=== PATIENT | female | born 1970 | race Caucasian/White ===

== ENCOUNTER → 2020-01-18 10:00 | Outpatient (BNVA) | payer SELFPAY | PROVIDERS: Family Provider Family Medicine; PCP Family Medicine; Visit Provider Family Medicine | DX: I10 Essential (primary) hypertension (principal); K21.9 Gastro-esophageal reflux disease without esophagitis; G47.00 Insomnia, unspecified | CPT/HCPCS: 80053; 80061; 82044; 85025 ==

== ENCOUNTER 2020-02-15 00:17 | Emergency (ER) | payer SELFPAY ==
[2020-02-15] VITALS (9 sets, daily range): BP systolic 105–135; BP diastolic 63–105; PULSE 73–99; RESP 16–20; TEMP 36.9; O2SAT 92–99; BMI 26.4
--- NOTE | 2020-02-15 00:23 | ECG_ITS ---
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 Measurements Intervals Elsa Rate: 91 P: 29 DE: 133 QRS: 31 QRSD: 84 T: 38 QT: 345 QTc: 426 Interpretive Statements SINUS RHYTHM NONSPECIFIC T-WAVE ABNORMALITY Compared to ECG 03/11/2019 11:02:54 T-wave abnormality now present Electronically Signed On 02-16-2020 17:12:50 CDT by Isa Shook M.D. [id number]
--- NOTE | 2020-02-15 00:23 | XR_ITS ---
WS: [id number] PORTABLE CHEST HISTORY: cp COMPARISON: 06/29/2018 Lungs are clear and well expanded. No pleural effusion or pneumothorax. Cardiac size: Normal. Mediastinum/Aorta: Normal mediastinum. No osseous abnormality seen. XR/XR chest 1V portable [id number] IMPRESSION: Unremarkable portable chest.
[2020-02-15] MEDS: aspirin 325 mg Tablet PO (00:37)
[2020-02-15] MEDS: nitroglycerin 0.4 mg sublingual Tablet SUBLINGUAL ×3 (01:11→01:29)
[2020-02-15] MEDS: sodium chloride 0.9% 1,000 ML 75 ML IV (01:15)
[2020-02-15 01:21] LABS: Basophils % 0.3 %; Eosinophils # 0.1 10^3/uL (0.0-0.8); Eosinophils % 0.6 %; Hematocrit 41.2 % (37.0-47.0); Hemoglobin 13.9 g/dL (11.5-15.3); Lymphocytes # 3.8 10^3/uL (0.8-4.8); Lymphocytes % 27.6 %; Mean Corpuscular HGB Conc 33.7 g/dL (30.0-36.0); Mean Corpuscular Hemoglobin 32.3 pg (28.0-34.0); Mean Corpuscular Volume 95.8 fL (81-99); Mean Platelet Volume 9.6 fL (7.4-10.4); Monocytes # 0.9 10^3/uL (0.2-0.9); Monocytes % 6.7 %; Neutrophils % 64.4 %; Nucleated Red Blood Cells % 0 %; Platelet Count 343 10^3/cmm (130-400); Red Cell Distribution Width 12.8 % (12.1-15.1); White Blood Count 13.9 10^3/uL (4.0-10.0)
--- NOTE | 2020-02-15 01:26 | PC.NURSE ---
[PATIENT REFUSED THIRD NITROGLYCERIN
[2020-02-15 01:29] LABS: INR 0.92 (0.8-1.2)
[2020-02-15 01:34] LABS: Alanine Aminotransferase 22 U/L (0-33); Albumin Level 4.3 g/dL (3.5-5.2); Alkaline Phosphatase 94 IU/L (35-105); Anion Gap 15.7 (5-19); Aspartate Amino Transferase 16 U/L (0-32); Blood Urea Nitrogen 16 mg/dL (6-20); Calcium 9.4 mg/dL (8.5-10.5); Carbon Dioxide 25 mmol/L (22-29); Chloride 98 mmol/L (98-107); Globulin 2.9 g/dL (1.3-4.6); Glomerular Filtration Rate 105.8 mL/min (90-130); Glucose 132 mg/dL (65-115); Lipase 21 U/L (13-60); Magnesium 1.9 mg/dL (1.7-2.3); Osmolality Calculated 278 mOsm/kg (285-295); Potassium 3.7 mmol/L (3.5-5.1); Sodium 135 mmol/L (136-145); Total Bilirubin 0.2 mg/dL (0.15-1.2); Total Protein 7.2 g/dL (6.6-8.7)
[2020-02-15] MEDS: morphine 4 mg/mL SDV 1 mL IVP (01:39)
[2020-02-15] MEDS: ondansetron 2 mg/ML SDV 2 mL 4 MG IVP ×2 (01:39→02:20)
[2020-02-15 02:08] LABS: Troponin(5th) Baseline 6 ng/L (0-10)
--- NOTE | 2020-02-15 02:23 | ECG_ITS ---
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 Measurements Intervals [place] Rate: 81 P: 24 VA: 132 QRS: 24 QRSD: 86 T: 32 QT: 379 QTc: 440 Interpretive Statements SINUS RHYTHM Compared to ECG 02/15/2020 00:43:10 T-wave abnormality no longer present Electronically Signed On 02-16-2020 17:25:08 CDT by Isa Shook M.D. [id number]
[2020-02-15 02:28] LABS: Alcohol Level < 10 mg/dL (0-10)
[2020-02-15 02:49] LABS: Bacteria Urine 1+; Bilirubin Urine Neg (NEGATIVE); Blood Urine 2+ (Negative); Glucose Urine UA Norm (Normal); Ketones Urine Negative (Negative); Leukocyte Esterase Urine Negative (Negative); Nitrate Urine Negative (Negative); Protein Urine Neg (Negative); RBC Urine 0-4 /hpf (0-2); Specific Gravity, Urine 1.015 (1.005-1.030); Squamous Epithelial Cell Urine 0-4 (0-5); Urine Appearance Clear (CLEAR); Urine Color Yellow (Yellow); Urobilinogen Urine Norm (Negative); WBC Urine 0-4 /hpf (0-5); pH Urine 6 (5-7)
--- NOTE | 2020-02-15 02:49 | CTR_ITS ---
PROCEDURE INFORMATION: Exam: CT Abdomen And Pelvis With Contrast Exam date and time: 02/15/2020 3:29 AM Age: 49 years old Clinical indication: Abdominal pain; Generalized; Prior surgery; Surgery type: Hysterectomy, appendectomy, cholecystectomy TECHNIQUE: Imaging protocol: Computed tomography of the abdomen and pelvis with intravenous contrast. Radiation optimization: All CT scans at this facility use at least one of these dose optimization techniques: automated exposure control; mA and/or kV adjustment per patient size (includes targeted exams where dose is matched to clinical indication); or iterative reconstruction. Contrast material: OMNI 300; Contrast volume: 95 ml; Contrast route: INTRAVENOUS (IV); COMPARISON: CT Abdomen/Pelvis Renal [id number] 03/11/2019 9:23 AM RADIATION DOSE METRICS: Total DLP (mGy-cm): 985.13 FINDINGS: Lungs: The lung bases are clear. Mediastinal space: There may be some mucosal/wall thickening involving the lower esophagus. This is nonspecific, but could represent evidence for esophagitis. Small amount of fluid in the lower esophagus could indicate gastroesophageal reflux. Please correlate clinically. Liver: There is mild fatty infiltration of the liver. Gallbladder and bile ducts: Prior cholecystectomy, no significant biliary tree dilation. Pancreas: Unremarkable. Spleen: Unremarkable. Adrenals: Unremarkable. Kidneys and ureters: 4-5 mm right lower pole intrarenal calculus, similar to prior exam. No hydronephrosis of either kidney. No visible ureteral calculus. No perinephric fluid. Possible tiny 4-5 mm cyst in the lateral mid to upper left kidney, too small to accurately characterize by CT. The kidneys otherwise enhance homogeneously. Stomach and bowel: Possibility of slightly thickened mucosa/wall in the distal antrum of the stomach. This is a nonspecific appearance, and may well be transient on CT, but could also represent evidence for gastritis or peptic ulcer disease. Please correlate clinically. There are no CT findings to strongly suggest diverticulitis. Appendix: Reportedly, there has been prior appendectomy. Intraperitoneal space: No free air, ascites, or bowel distention. Vasculature: Moderate lower aortic calcifications. No evidence for abdominal aortic aneurysm. Lymph nodes: No retroperitoneal adenopathy. Bladder: Possibly some mild diffuse urinary bladder wall thickening. Evaluation is somewhat limited, as the bladder is not well distended. While nonspecific, this could indicate evidence for cystitis. Please correlate clinically. Reproductive: Prior hysterectomy. No definite ovarian/adnexal cyst or mass by CT. Bones/joints: Moderate degenerative disc changes at L5-S1, similar to prior exam. Soft tissues: Very small umbilical hernia, containing only fat. CT/CT abdomen pelvis w con* [id number] IMPRESSION: 1. No free air or bowel distention. 2. Possible thickened mucosa/wall in the distal stomach, see above discussion. 3. No CT findings to suggest diverticulitis. 4. Small right intrarenal calculus, similar to prior exam. No hydronephrosis or visible ureteral calculus. 5. Possible mild urinary bladder wall thickening, see above. 6. Possibly some thickening of the lower esophagus, see above discussion. 7. Other findings discussed above. COMMENTS: Consistent with the [employer]'s Incidental Findings Committee white paper (J Am Saloni Radiol 2018): Any incidental renal lesion less than 1.0 cm or classified as too small to characterize, or any incidental cystic renal lesion characterized as simple-appearing, is likely benign. No follow-up imaging is recommended for these lesions per consensus recommendations based on imaging criteria. Radiation Dose CTDIVOL = (mGy): DLP = 985.13 (mGy-cm)
[2020-02-15 02:55] LABS: Amphetamines Screen Urine Negative (Negative); Barbiturates Screen Urine Negative (Negative); Benzodiazepines Screen Urine Negative (Negative); Cocaine Screen Urine Negative (Negative); Opiate Screen Urine Positive (Negative); PCP Screen Urine Negative (Negative); THC Screen Urine Negative (Negative)
[2020-02-15] MEDS: lidocaine 2% viscous 15 ML, aluminum-mag hydrox-simethicon 30 ML, sucralfate oral liq 1 GM PO (02:58)
--- NOTE | 2020-02-15 03:09 | W.ED.CHESTPA ---
HPI - Chest Pain General: Chief Complaint: Chest Pain Stated Complaint: cp Time Seen by Provider: 02/15/20 00:27 Source: patient Mode of arrival: ambulatory Limitations: no limitations History of Present Illness: HPI narrative: Naomie is a 49-year-old female who comes in complaining of chest pressure. She states the pain radiates to the left side of her neck and into her left axilla and arm. She states the pain started tonight when she was at rest. She has associated shortness of breath, diaphoresis and she was nauseated and vomited once at home. The patient states that she is recently been told she needs a heart cath and was scheduled to have a heart cath performed but she did not show up for the procedure because she did not have insurance. She states this all occurred at [facility]. Associated symptoms: Reports dyspnea, nausea and vomiting; Deny abdominal pain, diaphoresis, fever(s), palpitations or syncope Review of Systems Const: Denies: fever(s), chills, body aches, fatigue, malaise or diaphoresis Eyes: Denies: change in vision, blurry vision, blind spots, photophobia, eye discharge or eye redness ENMT: Denies: throat pain, odynophagia, hoarseness, swelling of lips/tongue, oral sores, ear or mastoid pain, ear discharge, change in hearing or nasal discharge Card: Reports: chest pain; Denies: palpitations, irregular heart rhythm, edema, lightheadedness, syncope, pre-syncope, dyspnea on exertion or orthopnea Resp: Reports: dyspnea; Denies: productive cough, non-productive cough, wheezing, hemoptysis or chest congestion GI: Reports: nausea and vomiting; Denies: abdominal pain, hematemesis, coffee ground emesis, heartburn, diarrhea, constipation, GI cramping, hematochezia or melena : Denies: flank pain, dysuria, urinary frequency, urinary urgency or hematuria Musc: Denies: neck pain, back pain, extremity pain, extremity swelling, joint pain, joint swelling, joint redness, joint warmth or joint stiffness Skin/Breast: Denies: rash, pruritus, erythema, skin tenderness or jaundice Neuro: Denies: headache(s), numbness in extremities, weakness in extremities, sensory changes, lack of coordination, difficulty walking, dizziness, vertigo, confusion, Slurred speech present or seizure-like activity Jean/Lymph: Denies: easy bruising, easy bleeding, petechiae, purpura or enlarged lymph nodes All/Imm: Denies: urticaria, throat swelling, tongue swelling, facial swelling or acute wheezing PFSH ED PFSH: Medical History (Updated 02/15/20 @ 05:05 by Galilea Donohue) Essential hypertension GERD (gastroesophageal reflux disease) Hyperlipidemia Nicotine dependence, cigarettes, with unspecified nicotine-induced disorders Surgical History (Updated 02/15/20 @ 03:11 by Galilea Donohue) H/O: hysterectomy History of cholecystectomy S/P appendectomy Family History Other CAD (coronary artery disease) Diabetes Hypertension Stroke Social History Smoking and tobacco status: current every day smoker cigarettes Packs smoked per day: 1 Alcohol intake: never Physical Exam Const: COMMON NORMALS: no acute distress, patient oriented x3, no limitations, healthy appearing and well nourished GENERAL APPEARANCE: cooperative, well kempt and well developed HENMT: COMMON NORMALS: normocephalic, atraumatic, external ears normal, EAC's normal and Normal external nose present HEAD & SCALP: normal to inspection, normocephalic and atraumatic FACE & SINUS: normal facial exam and face symmetric NOSE: Normal external nose present and Normal nares present EXTERNAL EAR: Yes external ears normal EXTERNAL AUDITORY CANAL: EAC's normal MOUTH: Normal oral and palatal mucosa present, lip normal and tongue normal Eye: COMMON NORMALS: Equal, round and reactive pupils present and conjunctivae normal GENERAL EYE: appearance normal, both eyes and all related structures ALIGNMENT: Yes alignment normal PERIORBITAL: periorbital findings normal EYELID: eyelids normal CONJUNCTIVA: Yes conjunctivae normal SCLERA: sclerae normal PUPIL: Yes Equal, round and reactive pupils present Neck/C-Spine: COMMON NORMALS: full ROM, no lymphadenopathy, supple, no meningeal signs and no JVD GENERAL: Yes normal visual inspection and Yes trachea midline Chest: COMMONS NORMALS: normal inspection of the chest and normal palpation of entire chest wall Resp: COMMON NORMALS: normal respiratory effort, No retractions and No use of accessory muscles EFFORT & INSPECTION: Yes able to speak in complete sentences and Yes symmetric chest movement AUSCULTATION: no crackles, no rales, no rhonchi and no wheezes Cardio: COMMON NORMALS: no JVD, regular rate, regular rhythm, S1 normal heart sound present and S2 normal heart sound present RATE: regular rate RHYTHM: regular rhythm HEART SOUNDS: S1 normal heart sound present, S2 normal heart sound present, no click, no gallops, no murmurs, no rubs and abnormal split S2 GI: COMMON NORMALS: Soft to palpation and No hepatosplenomegaly present PALPATION: Yes Soft to palpation, No Tenderness to palpation present (GI), No Guarding due to palpation present (GI), No Rigid due to palpation, Yes No hepatosplenomegaly present, No Hernia present, No Palpable mass present and No Pulsatile mass present : COMMON NORMALS: Yes no CVA tenderness BLADDER/KIDNEY EXAM: Yes no CVA tenderness EXTERNAL FEMALE EXAM: No Hernia present Back/Pelvis: COMMON NORMALS: no CVA tenderness, thoracic and lumbar spine normal to inspection, no thoracic nor lumbar tenderness and thoraco-lumbar ROM normal Extremity: COMMON NORMALS: normal to inspection, full ROM, capillary refill normal, no joint enlargement, no clubbing, cyanosis or edema and no calf tenderness Neuro: COMMON NORMALS: patient oriented x3, CN's II-XII intact bilaterally, moves all extremities, no focal motor deficits and no sensory deficits noted MENINGEAL SIGNS: Yes no meningeal signs SPEECH: speech normal Psych: COMMON NORMALS: mental status grossly normal, Normal thought process present, cooperative, normal affect, speech normal and activity/motor behavior normal APPEARANCE: Yes well kempt SPEECH: Yes normal speech THOUGHT PROCESS: Normal thought process present Skin: COMMON NORMALS: no rashes or lesions noted, turgor normal, no jaundice, no petechiae and no mottling GENERAL SKIN EXAM: no rashes or lesions noted and turgor normal Course Vital Signs: Vital signs: Vital Signs Temperature 98.4 F 02/15/20 00:22 Pulse Rate 81 02/15/20 05:13 Respiratory Rate 16 02/15/20 05:13 Blood Pressure 110/74 02/15/20 05:13 Pulse Oximetry 95 02/15/20 05:13 MDM - Chest Pain MDM Narrative: Medical decision making narrative: The patient came in initially and told me that just a month ago she had had stents placed in her heart at [facility] short time thereafter she told the nurse that this was not true and she is never had stents placed in her heart. When I questioned her further she stated that she had had an appointment to have a stent placed but did not show up for that appointment. She cannot give me an exact timeframe but stated it was within the last 1 to 2 months and was to be done at [facility]. I requested records from their facility and they have no record of the patient being evaluated there since October 2018. The patient states that this is not the last time she has been seen there but when we called back a second time to [facility] they have no record of any other care for her there since October of 2018. Patient states she is not discussed any of these visits with Dr. Gonsalves either. The last visit she had was in January of this year but no report of chest pain or ongoing cardiac evaluation as discussed. After I confronted the patient with these discrepancies she then began to complain of abdominal pain. CT scan shows some possible reflux disease and thickened mucosal wall of the distal stomach. The patient after the CT has been back now has no pain. I have recommended and offered to evaluate her here further including admission but she declines and now wants to go home. I believe the patient may have been dishonest with me but nonetheless I have offered and recommended she stay for complete evaluation and care but she refuses. She ultimately has the capacity to make these decisions. She shows no sign of impairment and has asked questions and reasons in her mind and made the determination that she believes she is safe for discharge and is demanding to be discharged. We will discharge her home as she has a ride coming to pick her up. Lab Data: Labs: Lab Results 02/15/20 02/15/20 02/15/20 Range/Units 01:03 01:03 01:03 WBC 13.9 H (4.0-10.0) 10^3/ uL RBC 4.30 (4.1-5.3) 10^6/u L Hgb 13.9 (11.5-15.3) g/dL Hct 41.2 (37.0-47.0) % MCV 95.8 (81-99) fL MCH 32.3 (28.0-34.0) pg MCHC 33.7 (30.0-36.0) g/dL RDW 12.8 (12.1-15.1) % Plt Count 343 (130-400) 10^3/c mm MPV 9.6 (7.4-10.4) fL Neut % (Auto) 64.4 % Lymph % (Auto) 27.6 % Brown % (Auto) 6.7 % Eos % (Auto) 0.6 % Baso % (Auto) 0.3 % Neut # (Auto) 9.0 H (1.8-7.7) 10^3/u L Lymph # (Auto) 3.8 (0.8-4.8) 10^3/u L Brown # (Auto) 0.9 (0.2-0.9) 10^3/u L Eos # (Auto) 0.1 (0.0-0.8) 10^3/u L Baso # (Auto) 0.0 (0.0-0.1) 10^3/u L Nucleated RBC % (a uto) 0 % Nucleated RBCs # 0.0 /100WBC PT 12.70 (10.5-13.3) SECO NDS INR 0.92 (0.8-1.2) Sodium 135 L (136-145) mmol/L Potassium 3.7 (3.5-5.1) mmol/L Chloride 98 (98-107) mmol/L Carbon Dioxide 25 (22-29) mmol/L Anion Gap 15.7 (5-19) BUN 16 (6-20) mg/dL Creatinine 0.6 (0.5-0.9) mg/dL GFR Calculation 105.8 (90-130) mL/min Glucose 132 H (65-115) mg/dL Calculated Osmolal ity 278 L (285-295) mOsm/k g Calcium 9.4 (8.5-10.5) mg/dL Magnesium 1.9 (1.7-2.3) mg/dL Total Bilirubin 0.2 (0.15-1.2) mg/dL AST 16 (0-32) U/L ALT 22 (0-33) U/L Alkaline Phosphata se 94 (35-105) IU/L Troponin T Baselin e (0-10) ng/L Troponin T 120 Min [place] (0-10) ng/L Delta Troponin T (0-10) ABS# Total Protein 7.2 (6.6-8.7) g/dL Albumin 4.3 (3.5-5.2) g/dL Globulin 2.9 (1.3-4.6) g/dL Lipase 21 (13-60) U/L Urine Color (Yellow) Urine Appearance (CLEAR) Urine pH (5-7) Ur Specific Gravit y (1.005-1.030) Urine Protein (Negative) Urine Glucose (UA) (Normal) Urine Ketones (Negative) Urine Blood (Negative) Urine Nitrate (Negative) Urine Bilirubin (NEGATIVE) Urine Urobilinogen (Negative) mg/dL Ur Leukocyte Flores ase (Negative) Urine RBC (0-2) /hpf Urine WBC (0-5) /hpf Ur Squamous Epith Cells (0-5) Urine Bacteria (NONE) Urine Opiates Scre en (Negative) ng/mL Ur Barbiturates Sc reen (Negative) ng/mL Ur Phencyclidine S crn (Negative) ng/mL Ur Amphetamines Sc reen (Negative) ng/mL U Benzodiazepines Scrn (Negative) ng/mL Urine Cocaine Scre en (Negative) ng/mL U Marijuana (THC) Screen (Negative) ng/mL Ethyl Alcohol (0-10) mg/dL 02/15/20 02/15/20 02/15/20 Range/Units 01:03 01:03 02:30 WBC (4.0-10.0) 10^3/ uL RBC (4.1-5.3) 10^6/u L Hgb (11.5-15.3) g/dL Hct (37.0-47.0) % MCV (81-99) fL MCH (28.0-34.0) pg MCHC (30.0-36.0) g/dL RDW (12.1-15.1) % Plt Count (130-400) 10^3/c mm MPV (7.4-10.4) fL Neut % (Auto) % Lymph % (Auto) % Brown % (Auto) % Eos % (Auto) % Baso % (Auto) % Neut # (Auto) (1.8-7.7) 10^3/u L Lymph # (Auto) (0.8-4.8) 10^3/u L Brown # (Auto) (0.2-0.9) 10^3/u L Eos # (Auto) (0.0-0.8) 10^3/u L Baso # (Auto) (0.0-0.1) 10^3/u L Nucleated RBC % (a uto) % Nucleated RBCs # /100WBC PT (10.5-13.3) SECO NDS INR (0.8-1.2) Sodium (136-145) mmol/L Potassium (3.5-5.1) mmol/L Chloride (98-107) mmol/L Carbon Dioxide (22-29) mmol/L Anion Gap (5-19) BUN (6-20) mg/dL Creatinine (0.5-0.9) mg/dL GFR Calculation (90-130) mL/min Glucose (65-115) mg/dL Calculated Osmolal ity (285-295) mOsm/k g Calcium (8.5-10.5) mg/dL Magnesium (1.7-2.3) mg/dL Total Bilirubin (0.15-1.2) mg/dL AST (0-32) U/L ALT (0-33) U/L Alkaline Phosphata se (35-105) IU/L Troponin T Baselin e 6 (0-10) ng/L Troponin T 120 Min [place] (0-10) ng/L Delta Troponin T (0-10) ABS# Total Protein (6.6-8.7) g/dL Albumin (3.5-5.2) g/dL Globulin (1.3-4.6) g/dL Lipase (13-60) U/L Urine Color (Yellow) Urine Appearance (CLEAR) Urine pH (5-7) Ur Specific Gravit y (1.005-1.030) Urine Protein (Negative) Urine Glucose (UA) (Normal) Urine Ketones (Negative) Urine Blood (Negative) Urine Nitrate (Negative) Urine Bilirubin (NEGATIVE) Urine Urobilinogen (Negative) mg/dL Ur Leukocyte Flores ase (Negative) Urine RBC (0-2) /hpf Urine WBC (0-5) /hpf Ur Squamous Epith Cells (0-5) Urine Bacteria (NONE) Urine Opiates Scre en Positive H (Negative) ng/mL Ur Barbiturates Sc reen Negative (Negative) ng/mL Ur Phencyclidine S crn Negative (Negative) ng/mL Ur Amphetamines Sc reen Negative (Negative) ng/mL U Benzodiazepines Scrn Negative (Negative) ng/mL Urine Cocaine Scre en Negative (Negative) ng/mL U Marijuana (THC) Screen Negative (Negative) ng/mL Ethyl Alcohol < 10 (0-10) mg/dL 02/15/20 02/15/20 Range/Units 02:30 02:53 WBC (4.0-10.0) 10^3/ uL RBC (4.1-5.3) 10^6/u L Hgb (11.5-15.3) g/dL Hct (37.0-47.0) % MCV (81-99) fL MCH (28.0-34.0) pg MCHC (30.0-36.0) g/dL RDW (12.1-15.1) % Plt Count (130-400) 10^3/c mm MPV (7.4-10.4) fL Neut % (Auto) % Lymph % (Auto) % Brown % (Auto) % Eos % (Auto) % Baso % (Auto) % Neut # (Auto) (1.8-7.7) 10^3/u L Lymph # (Auto) (0.8-4.8) 10^3/u L Brown # (Auto) (0.2-0.9) 10^3/u L Eos # (Auto) (0.0-0.8) 10^3/u L Baso # (Auto) (0.0-0.1) 10^3/u L Nucleated RBC % (a uto) % Nucleated RBCs # /100WBC PT (10.5-13.3) SECO NDS INR (0.8-1.2) Sodium (136-145) mmol/L Potassium (3.5-5.1) mmol/L Chloride (98-107) mmol/L Carbon Dioxide (22-29) mmol/L Anion Gap (5-19) BUN (6-20) mg/dL Creatinine (0.5-0.9) mg/dL GFR Calculation (90-130) mL/min Glucose (65-115) mg/dL Calculated Osmolal ity (285-295) mOsm/k g Calcium (8.5-10.5) mg/dL Magnesium (1.7-2.3) mg/dL Total Bilirubin (0.15-1.2) mg/dL AST (0-32) U/L ALT (0-33) U/L Alkaline Phosphata se (35-105) IU/L Troponin T Baselin e (0-10) ng/L Troponin T 120 Min [place] 6.00 (0-10) ng/L Delta Troponin T 0 (0-10) ABS# Total Protein (6.6-8.7) g/dL Albumin (3.5-5.2) g/dL Globulin (1.3-4.6) g/dL Lipase (13-60) U/L Urine Color Yellow (Yellow) Urine Appearance Clear (CLEAR) Urine pH 6 (5-7) Ur Specific Gravit y 1.015 (1.005-1.030) Urine Protein Neg (Negative) Urine Glucose (UA) Norm (Normal) Urine Ketones Negative (Negative) Urine Blood 2+ H (Negative) Urine Nitrate Negative (Negative) Urine Bilirubin Neg (NEGATIVE) Urine Urobilinogen Norm (Negative) mg/dL Ur Leukocyte Flores ase Negative (Negative) Urine RBC 0-4 H (0-2) /hpf Urine WBC 0-4 H (0-5) /hpf Ur Squamous Epith Cells 0-4 H (0-5) Urine Bacteria 1+ H (NONE) Urine Opiates Scre en (Negative) ng/mL Ur Barbiturates Sc reen (Negative) ng/mL Ur Phencyclidine S crn (Negative) ng/mL Ur Amphetamines Sc reen (Negative) ng/mL U Benzodiazepines Scrn (Negative) ng/mL Urine Cocaine Scre en (Negative) ng/mL U Marijuana (THC) Screen (Negative) ng/mL Ethyl Alcohol (0-10) mg/dL Imaging Data^: CXR: My impression: No acute cardiopulmonary findings. EKG Data^: EKG 1: Attestation: I personally reviewed and interpreted this EKG as follows: EKG interpretation date: 02/15/20 EKG interpretation time: 00:43 Interpretation: Normal sinus rhythm at 91 beats a minute, no acute ST or T wave changes. EKG 2: Attestation: I personally reviewed and interpreted this EKG as follows: EKG interpretation date: 02/15/20 EKG interpretation time: 02:46 Interpretation: Normal sinus rhythm at 81 beats a minute, no acute ST or T wave changes. Discharge Plan Discharge Patient Disposition: Home, Self-Care Clinical Impression: Chest pain Qualifiers: Chest pain type: unspecified Qualified Code(s): R07.9 - Chest pain, unspecified Abdominal pain Qualifiers: Abdominal location: epigastric Qualified Code(s): R10.13 - Epigastric pain Condition: Stable Prescriptions: New Carafate 1 gram tablet 1 gm PO TID Qty: 30 RF: 0 No Action lisinopril-hydrochlorothiazide 20-25 mg tablet 1 tab PO DAILY Qty: 90 RF: 1 aspirin 81 mg tablet,delayed release (DR/EC) 81 mg PO DAILY RF: 0 omeprazole 40 mg capsule,delayed release(DR/EC) 40 mg PO DAILY Qty: 90 RF: 1 trazodone 50 mg tablet See Rx Instructions PO .po q hs Qty: 60 RF: 0 nitroglycerin 0.4 mg tablet, sublingual 0.4 mg SUBLINGUAL Q5M PRN (Reason: chest pain) Qty: 30 RF: 0 atorvastatin 40 mg tablet 40 mg PO .AT BEDTIME Qty: 30 RF: 1 Discharge Orders: Discharge Order (Routine); Ordered 02/15/20 Ordered By: Galilea Donohue Referrals: Ellen Gonsalves DO [Primary Care Provider] - 1-3 days Discharge Diet: Advance as tolerated Discharge Activity: Increase activity as tolerated Patient Instructions: Chest Pain (ED), Abdominal Pain (ED) Activity Restrictions/Additional Instructions: Please return to the ER immediately for any of the signs or symptoms listed on your discharge instruction sheets, worsening/changing of your symptoms, you are not getting better as quickly as expected, or for ANY other cause or concerns. You are leaving without complete evaluation of your heart. If you change your mind, your symptoms return or you develop new symptoms that are concerning you are more than welcome to return to the ER for further evaluation of your heart. Be certain to follow-up with Dr. Gonsalves and review with her what you have and have not had done as far as evaluation of your heart so she can direct you further. A heart problem can be life-threatening so be certain to follow-up with her for further direction of your care. Again you have been offered further evaluation care of here of your heart but you have declined, you are more than welcome to return anytime should you change your mind. Discharge Date/Time: 02/15/20 05:16 Coding Level of Care Code ED Microbiology Lab Analyst for Kunal Fwd Exam Comprehensive
[2020-02-15 03:16] LABS: Troponin 5 2HR Delta 0 ABS# (0-10)
--- NOTE | 2020-02-15 03:45 | PC.NURSE ---
patient to CT
[2020-02-15] MEDS: iohexol 300 mg/mL 100 mL Btl IV (03:52)
== END 2020-02-15 05:16 | disposition home or self-care (01) ==
PROVIDERS: Emergency Provider Emergency Medicine; PCP Family Medicine
DX: R07.9 Chest pain, unspecified (principal); R10.13 Epigastric pain; Z79.82 Long term (current) use of aspirin; I10 Essential (primary) hypertension; E78.5 Hyperlipidemia, unspecified; F17.210 Nicotine dependence, cigarettes, uncomplicated
CPT/HCPCS: 12345; 36415; 71045; 74177; 80053; 80306; 80307; 81001; 83690; 83735; 84484; 85025; 85610; 93005; 96361; 96374; 96375; 96376; 99283; 99284; J2270; J2405; J7030; Q9967

== ENCOUNTER 2020-03-15 01:21 | Emergency (ER) | payer SELFPAY ==
[2020-03-15 01:27] VITALS: BP 133/92; PULSE 93; RESP 16; TEMP 36.2; O2SAT 97; BMI 29.2
--- NOTE | 2020-03-15 01:31 | XRR_ITS ---
PROCEDURE INFORMATION: Exam: XR Chest, 1 View Exam date and time: 03/15/2020 1:57 AM Age: 49 years old Clinical indication: Chest pain; Type not specified; Additional info: Cp several months. HX of ovarian cancer TECHNIQUE: Imaging protocol: XR of the chest Views: 1 view. COMPARISON: CR XR chest 1V portable [id number] 02/15/2020 1:03 AM FINDINGS: Lungs: Diminutive inspiratory volume. Interstitial crowding or underlying pulmonary venous congestion. Pleural space: Unremarkable. No pleural effusion. No pneumothorax. Heart/Mediastinum: Stable heart size. Bones/joints: Unremarkable. XR/XR chest 1V portable [id number] IMPRESSION: 1. Pulmonary venous congestion versus interstitial crowding. Further follow-up chest with more optimal inspiratory volume is recommended.
--- NOTE | 2020-03-15 01:32 | ECG_ITS ---
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 Measurements Intervals [place] Rate: 84 P: 15 ND: 143 QRS: 3 QRSD: 84 T: 30 QT: 354 QTc: 421 Interpretive Statements SINUS RHYTHM NONSPECIFIC T-WAVE ABNORMALITY Compared to ECG 02/15/2020 02:46:36 T-wave abnormality now present Electronically Signed On 03-15-2020 21:06:19 CDT by Linette Thomas M.D. [email or web address]/[id number]
--- NOTE | 2020-03-15 01:39 | CTR_ITS ---
PROCEDURE INFORMATION: Exam: CT Angiography Chest With Contrast Exam date and time: 03/15/2020 2:09 AM Age: 49 years old Clinical indication: Abdominal pain; Generalized; Chest pain; Type not specified; Prior surgery; Surgery date: 6+ months; Surgery type: Hysterectomy, gb, appy TECHNIQUE: Imaging protocol: Computed tomographic angiography of the chest with intravenous contrast. 3D rendering: MIP and/or 3D reconstructed images were created by the technologist. Radiation optimization: All CT scans at this facility use at least one of these dose optimization techniques: automated exposure control; mA and/or kV adjustment per patient size (includes targeted exams where dose is matched to clinical indication); or iterative reconstruction. Contrast material: OMNI 350; Contrast volume: 95 ml; Contrast route: INTRAVENOUS (IV); COMPARISON: CR XR chest 1V portable [id number] 03/15/2020 1:46 AM RADIATION DOSE METRICS: Total DLP (mGy-cm): 1621.11 FINDINGS: Pulmonary arteries: Normal. No pulmonary emboli. Aorta: Aortic calcifications are noted. No findings of aortic aneurysm or acute aortic abnormality. Lungs: Unremarkable. No consolidation. No masses. Pleural space: Unremarkable. No pneumothorax. No pleural effusion. Heart: Mild coronary arterial calcifications are noted. Lymph nodes: Unremarkable. No enlarged lymph nodes. Bones/joints: No acute fracture. Soft tissues: Unremarkable. IMPRESSION: No acute findings. PROCEDURE INFORMATION: Exam: CT Abdomen And Pelvis With Contrast Exam date and time: 03/15/2020 2:09 AM Age: 49 years old Clinical indication: Abdominal pain; Generalized; Chest pain; Type not specified; Prior surgery; Surgery date: 6+ months; Surgery type: Hysterectomy, gb, appy TECHNIQUE: Imaging protocol: Computed tomography of the abdomen and pelvis with intravenous contrast. Radiation optimization: All CT scans at this facility use at least one of these dose optimization techniques: automated exposure control; mA and/or kV adjustment per patient size (includes targeted exams where dose is matched to clinical indication); or iterative reconstruction. Contrast material: OMNI 350; Contrast volume: 95 ml; Contrast route: INTRAVENOUS (IV); COMPARISON: CR XR chest 1V portable [id number] 03/15/2020 1:46 AM RADIATION DOSE METRICS: Total DLP (mGy-cm): 1631.11 FINDINGS: Liver: Normal. No mass. Gallbladder and bile ducts: Cholecystectomy. Pancreas: Normal. No ductal dilation. Spleen: Normal. No splenomegaly. Adrenals: Normal. No mass. Kidneys and ureters: Normal. No hydronephrosis. Stomach and bowel: Unremarkable. No obstruction. No mucosal thickening. Appendix: Appendix not seen in keeping with the provided history of appendectomy. Intraperitoneal space: Unremarkable. No free air. No significant fluid collection. Vasculature: Vascular calcifications are noted. No abdominal aortic aneurysm. Lymph nodes: Unremarkable. No enlarged lymph nodes. Bladder: Unremarkable as visualized. Reproductive: Hysterectomy. Bones/joints: No acute fracture. Soft tissues: Unremarkable. CT/CT angio chest w abd pel w con IMPRESSION: No acute findings. Radiation Dose CTDIVOL = (mGy): DLP = 1621.11~1631.11 (mGy-cm)
[2020-03-15] MEDS: lidocaine 2% viscous 15 ML, aluminum-mag hydrox-simethicon 30 ML, sucralfate oral liq 1 GM PO (01:54)
[2020-03-15 01:56] LABS: Basophils % 0.3 %; Eosinophils # 0.1 10^3/uL (0.0-0.8); Eosinophils % 0.8 %; Hematocrit 39.7 % (37.0-47.0); Hemoglobin 13.4 g/dL (11.5-15.3); Lymphocytes # 3.8 10^3/uL (0.8-4.8); Lymphocytes % 31.2 %; Mean Corpuscular HGB Conc 33.8 g/dL (30.0-36.0); Mean Corpuscular Hemoglobin 31.7 pg (28.0-34.0); Mean Corpuscular Volume 93.9 fL (81-99); Mean Platelet Volume 9.5 fL (7.4-10.4); Monocytes # 0.8 10^3/uL (0.2-0.9); Monocytes % 6.3 %; Neutrophils % 61.2 %; Nucleated Red Blood Cells % 0 %; Platelet Count 335 10^3/cmm (130-400); Red Blood Count 4.23 10^6/uL (4.1-5.3); White Blood Count 12.3 10^3/uL (4.0-10.0)
[2020-03-15 02:19] LABS: Alanine Aminotransferase 21 U/L (0-33); Alkaline Phosphatase 98 IU/L (35-105); Anion Gap 12.5 (5-19); Aspartate Amino Transferase 12 U/L (0-32); Blood Urea Nitrogen 16 mg/dL (6-20); Calcium 9.3 mg/dL (8.5-10.5); Carbon Dioxide 26 mmol/L (22-29); Chloride 102 mmol/L (98-107); Globulin 3.1 g/dL (1.3-4.6); Glomerular Filtration Rate 105.8 mL/min (90-130); Glucose 148 mg/dL (65-115); Osmolality Calculated 283 mOsm/kg (285-295); Potassium 3.5 mmol/L (3.5-5.1); Sodium 137 mmol/L (136-145); Total Bilirubin 0.2 mg/dL (0.15-1.2); Total Protein 7.1 g/dL (6.6-8.7)
[2020-03-15 02:22] LABS: Troponin(5th) Baseline 6 ng/L (0-10)
[2020-03-15] MEDS: iohexol 350 mg/mL 100 mL Btl IV (02:33)
[2020-03-15 02:46] LABS: D Dimer <= 0.27 ug/mIFEU (0-0.59)
--- NOTE | 2020-03-15 03:32 | ECG_ITS ---
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 Measurements Intervals [place] Rate: 73 P: 31 MT: 149 QRS: 18 QRSD: 86 T: 46 QT: 379 QTc: 418 Interpretive Statements SINUS RHYTHM Compared to ECG 03/15/2020 01:41:49 T-wave abnormality no longer present Electronically Signed On 03-15-2020 21:14:38 CDT by Linette Thomas M.D. [email or web address].[email or web address]/store/[id number]
--- NOTE | 2020-03-15 03:42 | ED_ITS ---
HPI - Chest Pain General: Chief Complaint: Chest Pain Stated Complaint: CHEST PAIN Time Seen by Provider: 03/15/20 01:33 Source: patient Mode of arrival: ambulatory Limitations: no limitations History of Present Illness: HPI narrative: Naomie is a nice 49-year-old female who comes in complaining of left-sided chest pain. She states the pain is over lateral to her left breast. She states the pain is been going on for years. Is described as a squeezing sensation that lasts just a few seconds and then resolves. She will get several episodes during the day but they only last a few seconds and then resolve. The patient has been evaluated for this before but states a cause cannot be found. The patient denies any shortness of breath, diaphoresis, nausea or vomiting, worsening with exertion, or any other related complaints. Patient was seen in her primary care's office today and she is scheduled to go see a surgeon for reflux disease but she became alarmed tonight at how many episodes that she had and chose to come to the ER for evaluation. Associated symptoms: Deny abdominal pain, diaphoresis, dyspnea, fever(s), nausea, palpitations, syncope or vomiting Review of Systems Const: Denies: fever(s), chills, body aches, fatigue, malaise or diaphoresis Eyes: Denies: change in vision, blurry vision, blind spots, photophobia, eye discharge or eye redness ENMT: Denies: throat pain, odynophagia, hoarseness, swelling of lips/tongue, oral sores, ear or mastoid pain, ear discharge, change in hearing or nasal discharge Card: Reports: chest pain; Denies: palpitations, irregular heart rhythm, edema, lightheadedness, syncope, pre-syncope, dyspnea on exertion or orthopnea Resp: Denies: dyspnea, productive cough, non-productive cough, wheezing, hemoptysis or chest congestion GI: Denies: abdominal pain, nausea, vomiting, hematemesis, coffee ground emesis, heartburn, diarrhea, constipation, GI cramping, hematochezia or melena : Denies: flank pain, dysuria, urinary frequency, urinary urgency or hematuria Musc: Denies: neck pain, back pain, extremity pain, extremity swelling, joint pain, joint swelling, joint redness, joint warmth or joint stiffness Skin/Breast: Denies: rash, pruritus, erythema, skin tenderness or jaundice Neuro: Denies: headache(s), numbness in extremities, weakness in extremities, sensory changes, lack of coordination, difficulty walking, dizziness, vertigo, confusion, Slurred speech present or seizure-like activity Jean/Lymph: Denies: easy bruising, easy bleeding, petechiae, purpura or enlarged lymph nodes All/Imm: Denies: urticaria, throat swelling, tongue swelling, facial swelling or acute wheezing PFSH ED PFSH: Medical History Essential hypertension GERD (gastroesophageal reflux disease) Hyperlipidemia Nicotine dependence, cigarettes, with unspecified nicotine-induced disorders Surgical History H/O: hysterectomy History of cholecystectomy S/P appendectomy Family History Other CAD (coronary artery disease) Diabetes Hypertension Stroke Social History Smoking and tobacco status: current every day smoker cigarettes Packs smoked per day: 1 Alcohol intake: never Physical Exam Const: COMMON NORMALS: no acute distress, patient oriented x3, no limitations, healthy appearing and well nourished GENERAL APPEARANCE: cooperative, well kempt and well developed HENMT: COMMON NORMALS: normocephalic, atraumatic, external ears normal, EAC's normal and Normal external nose present HEAD & SCALP: normal to inspection, normocephalic and atraumatic FACE & SINUS: normal facial exam and face symmetric NOSE: Normal external nose present and Normal nares present EXTERNAL EAR: Yes external ears normal EXTERNAL AUDITORY CANAL: EAC's normal MOUTH: Normal oral and palatal mucosa present, lip normal and tongue normal Eye: COMMON NORMALS: Equal, round and reactive pupils present and conjunctivae normal GENERAL EYE: appearance normal, both eyes and all related structures ALIGNMENT: Yes alignment normal PERIORBITAL: periorbital findings normal EYELID: eyelids normal CONJUNCTIVA: Yes conjunctivae normal SCLERA: sclerae normal PUPIL: Yes Equal, round and reactive pupils present Neck/C-Spine: COMMON NORMALS: full ROM, no lymphadenopathy, supple, no meningeal signs and no JVD GENERAL: Yes normal visual inspection and Yes trachea midline Chest: COMMONS NORMALS: normal inspection of the chest and normal palpation of entire chest wall Resp: COMMON NORMALS: normal respiratory effort, No retractions and No use of accessory muscles EFFORT & INSPECTION: Yes able to speak in complete sentences and Yes symmetric chest movement AUSCULTATION: no crackles, no rales, no rhonchi and no wheezes Cardio: COMMON NORMALS: no JVD, regular rate, regular rhythm, S1 normal heart sound present and S2 normal heart sound present RATE: regular rate RHYTHM: regular rhythm HEART SOUNDS: S1 normal heart sound present, S2 normal heart sound present, no click, no gallops, no murmurs, no rubs and abnormal split S2 GI: COMMON NORMALS: Soft to palpation and No hepatosplenomegaly present PALPATION: Yes Soft to palpation, No Tenderness to palpation present (GI), No Guarding due to palpation present (GI), No Rigid due to palpation, Yes No hepatosplenomegaly present, No Hernia present, No Palpable mass present and No Pulsatile mass present : COMMON NORMALS: Yes no CVA tenderness BLADDER/KIDNEY EXAM: Yes no CVA tenderness EXTERNAL FEMALE EXAM: No Hernia present Back/Pelvis: COMMON NORMALS: no CVA tenderness, thoracic and lumbar spine normal to inspection, no thoracic nor lumbar tenderness and thoraco-lumbar ROM normal Extremity: COMMON NORMALS: normal to inspection, full ROM, capillary refill normal, no joint enlargement, no clubbing, cyanosis or edema and no calf tenderness Neuro: COMMON NORMALS: patient oriented x3, CN's II-XII intact bilaterally, moves all extremities, no focal motor deficits and no sensory deficits noted MENINGEAL SIGNS: Yes no meningeal signs SPEECH: speech normal Psych: COMMON NORMALS: mental status grossly normal, Normal thought process present, cooperative, normal affect, speech normal and activity/motor behavior normal APPEARANCE: Yes well kempt SPEECH: Yes normal speech THOUGHT PROCESS: Normal thought process present Skin: COMMON NORMALS: no rashes or lesions noted, turgor normal, no jaundice, no petechiae and no mottling GENERAL SKIN EXAM: no rashes or lesions noted and turgor normal Course Vital Signs: Vital signs: Vital Signs Temperature 97.1 F L 03/15/20 01:27 Pulse Rate 93 03/15/20 01:27 Respiratory Rate 16 03/15/20 01:27 Blood Pressure 150/92 03/15/20 03:44 Pulse Oximetry 97 03/15/20 01:27 MDM - Chest Pain MDM Narrative: Medical decision making narrative: Naomie is a nice 49-year-old female who comes in complaining of left-sided chest pain. The pain is very lateral and spasmodic. The patient's had symptoms for years but her symptoms are becoming more frequent so she did think she needed to have her heart checked. At this time I see no evidence of EKG abnormalities that are new. Her troponins are unremarkable. Patient's heart score is a 3 but despite this I have offered and recommended she come into the hospital for complete cardiac rule out and stress testing but she refuses. Patient states she does not want to be in the hospitalist she absolutely has to and I have explained to her the risks but despite this she refuses and wants to be discharged. Patient does agree after much insistence to stay for a second troponin but she states that that is normal she wants to go home as soon as possible. I have explained to her at length the risks of leaving without complete heart evaluation including or severe permanent disability and she states she understands this. The patient has the capacity to make this decision I see no sign of impairment. She does agree to return should her symptoms change or worsen but at this time she is insistent upon discharge. Lab Data: Attestation: I reviewed the patient's lab results. Labs: Lab Results 03/15/20 03/15/20 03/15/20 Range/Units 01:50 01:50 01:50 WBC 12.3 H (4.0-10.0) 10^3/ uL RBC 4.23 (4.1-5.3) 10^6/u L Hgb 13.4 (11.5-15.3) g/dL Hct 39.7 (37.0-47.0) % MCV 93.9 (81-99) fL MCH 31.7 (28.0-34.0) pg MCHC 33.8 (30.0-36.0) g/dL RDW 13.0 (12.1-15.1) % Plt Count 335 (130-400) 10^3/c mm MPV 9.5 (7.4-10.4) fL Neut % (Auto) 61.2 % Lymph % (Auto) 31.2 % [place] % (Auto) 6.3 % Eos % (Auto) 0.8 % Baso % (Auto) 0.3 % Neut # (Auto) 7.50 (1.8-7.7) 10^3/u L Lymph # (Auto) 3.8 (0.8-4.8) 10^3/u L [place] # (Auto) 0.8 (0.2-0.9) 10^3/u L Eos # (Auto) 0.1 (0.0-0.8) 10^3/u L Baso # (Auto) 0.0 (0.0-0.1) 10^3/u L Nucleated RBC % (a uto) 0 % Nucleated RBCs # 0.0 /100WBC D-Dimer <= 0.27 (0-0.59) ug/mIFE U Sodium 137 (136-145) mmol/L Potassium 3.5 (3.5-5.1) mmol/L Chloride 102 (98-107) mmol/L Carbon Dioxide 26 (22-29) mmol/L Anion Gap 12.5 (5-19) BUN 16 (6-20) mg/dL Creatinine 0.6 (0.5-0.9) mg/dL GFR Calculation 105.8 (90-130) mL/min Glucose 148 H (65-115) mg/dL Calculated Osmolal ity 283 L (285-295) mOsm/k g Calcium 9.3 (8.5-10.5) mg/dL Total Bilirubin 0.2 (0.15-1.2) mg/dL AST 12 (0-32) U/L ALT 21 (0-33) U/L Alkaline Phosphata se 98 (35-105) IU/L Troponin T Baselin e (0-10) ng/L Troponin T 120 Min [place] (0-10) ng/L Total Protein 7.1 (6.6-8.7) g/dL Albumin 4.0 (3.5-5.2) g/dL Globulin 3.1 (1.3-4.6) g/dL 03/15/20 03/15/20 Range/Units 01:50 03:50 WBC (4.0-10.0) 10^3/ uL RBC (4.1-5.3) 10^6/u L Hgb (11.5-15.3) g/dL Hct (37.0-47.0) % MCV (81-99) fL MCH (28.0-34.0) pg MCHC (30.0-36.0) g/dL RDW (12.1-15.1) % Plt Count (130-400) 10^3/c mm MPV (7.4-10.4) fL Neut % (Auto) % Lymph % (Auto) % [place] % (Auto) % Eos % (Auto) % Baso % (Auto) % Neut # (Auto) (1.8-7.7) 10^3/u L Lymph # (Auto) (0.8-4.8) 10^3/u L [place] # (Auto) (0.2-0.9) 10^3/u L Eos # (Auto) (0.0-0.8) 10^3/u L Baso # (Auto) (0.0-0.1) 10^3/u L Nucleated RBC % (a uto) % Nucleated RBCs # /100WBC D-Dimer (0-0.59) ug/mIFE U Sodium (136-145) mmol/L Potassium (3.5-5.1) mmol/L Chloride (98-107) mmol/L Carbon Dioxide (22-29) mmol/L Anion Gap (5-19) BUN (6-20) mg/dL Creatinine (0.5-0.9) mg/dL GFR Calculation (90-130) mL/min Glucose (65-115) mg/dL Calculated Osmolal ity (285-295) mOsm/k g Calcium (8.5-10.5) mg/dL Total Bilirubin (0.15-1.2) mg/dL AST (0-32) U/L ALT (0-33) U/L Alkaline Phosphata se (35-105) IU/L Troponin T Baselin e 6 (0-10) ng/L Troponin T 120 Min [place] 6.00 (0-10) ng/L Total Protein (6.6-8.7) g/dL Albumin (3.5-5.2) g/dL Globulin (1.3-4.6) g/dL Imaging Data^: CXR: My impression: Poor inspiratory effort but no acute abnormality seen. EKG Data^: EKG 1: Attestation: I personally reviewed and interpreted this EKG as follows: EKG interpretation date: 03/15/20 EKG interpretation time: 01:41 Interpretation: Normal sinus rhythm at 84 beats a minute, nonspecific ST and T wave changes. Similar to previous. EKG 2: Attestation: I personally reviewed and interpreted this EKG as follows: EKG interpretation date: 03/15/20 EKG interpretation time: 03:42 Interpretation: Normal sinus rhythm at 73 beats a minute, no acute ST-T wave changes. Discharge Plan Discharge Patient Disposition: Home Clinical Impression: Chest pain Qualifiers: Chest pain type: unspecified Qualified Code(s): R07.9 - Chest pain, unspecified GERD (gastroesophageal reflux disease) Qualifiers: Esophagitis presence: with esophagitis Qualified Code(s): K21.0 - Gastro- esophageal reflux disease with esophagitis Condition: Stable Prescriptions: No Action hydroxyzine pamoate [Vistaril] 50 mg capsule 50 mg PO .po q hs PRN (Reason: insomnia) Qty: 30 RF: 0 pantoprazole [Protonix] 40 mg tablet,delayed release (DR/EC) 40 mg PO DAILY Qty: 60 RF: 0 lisinopril-hydrochlorothiazide 20-25 mg tablet 1 tab PO DAILY Qty: 90 RF: 1 aspirin 81 mg tablet,delayed release (DR/EC) 81 mg PO DAILY RF: 0 trazodone 50 mg tablet See Rx Instructions PO .po q hs Qty: 60 RF: 0 nitroglycerin 0.4 mg tablet, sublingual 0.4 mg SUBLINGUAL Q5M PRN (Reason: chest pain) Qty: 30 RF: 0 atorvastatin 40 mg tablet 40 mg PO .AT BEDTIME Qty: 30 RF: 1 Carafate 1 gram tablet 1 gm PO TID Qty: 90 RF: 0 Discharge Orders: Discharge Order (Routine); Ordered 03/15/20 Ordered By: Galilea Donohue Referrals: Linette Thomas MD [Physician] - 1-3 days Raphael Griffin MD [Physician] - 1-3 days Ellen Gonsavles DO [Primary Care Provider] - 1-3 days Discharge Diet: Advance as tolerated Discharge Activity: Increase activity as tolerated Patient Instructions: Chest Pain (ED), Gastroesophageal Reflux Disease (ED), Esophageal Spasm (ED) Activity Restrictions/Additional Instructions: You're leaving AGAINST MEDICAL ADVICE and are at risk for or severe permanent disability by doing so. You are more than welcome to return at any time for recheck and for further evaluation and care suture change you change your mind. Be certain to follow-up with Dr. Thomas for further cardiac testing. Be certain to follow-up with Dr. Griffin as well. If you change your mind or your symptoms change and worsen at all please return to the ER immediately for recheck. Coding Level of Care Code ED Vp Analysis for Chg Fwd Exam Comprehensive
[2020-03-15 03:44] VITALS: BP 150/92
[2020-03-15 04:27] LABS: Troponin 5 2HR Delta 0 ABS# (0-10)
== END 2020-03-15 04:45 | disposition home or self-care (01) ==
PROVIDERS: Nurse Practitioner Family; Emergency Provider Emergency Medicine; PCP Family Medicine
DX: R07.9 Chest pain, unspecified (principal); K21.0 Gastro-esophageal reflux disease with esophagitis; Z79.82 Long term (current) use of aspirin; I10 Essential (primary) hypertension; E78.5 Hyperlipidemia, unspecified; F17.210 Nicotine dependence, cigarettes, uncomplicated
CPT/HCPCS: 12345; 36415; 71045; 71275; 74177; 80053; 84484; 85025; 85378; 93005; 99283; 99284; Q9967

== ENCOUNTER 2020-04-05 09:28 | Day surgery (SDC) | payer SELFPAY ==
[2020-04-03 12:39] VITALS: BMI 26.4
[2020-04-05 09:47] VITALS: BP 150/94; PULSE 68; RESP 18; TEMP 36.5; O2SAT 99
[2020-04-05] MEDS: sodium chloride 0.9% 1,000 ML 30 ML IV (09:55)
--- NOTE | 2020-04-05 10:16 | W.PM.OPSUD ---
Surgery/Procedure H&P Update DATE OF PROCEDURE: April 05, 2020 DATE H&P PERFORMED: 03/16/20 H&P UPDATE INFORMATION: I have reviewed H&P completed within last 30 days, I have examined patient prior to procedure and No changes to prior documentation PREOP DIAGNOSIS: Chest pain, screening PLANNED PROCEDURE: Operation Date: 04/05/20 10:00 Proposed Procedures p EGD/colon 62418 [id number] K21.9 Z12.11(Not Applicable) - Raphael Griffin MD s Colonoscopy(Not Applicable) - Raphael Griffin MD
--- NOTE | 2020-04-05 10:20 | ANES.PREANE2 ---
Pre-Anesthetic Assessment Pre-Anesthetic Assessment: Height/Weight: Height 1.52 m Weight 61.235 kg Temp Pulse Resp BP Pulse Ox 97.7 F 68 18 150/94 99 04/05/20 09:47 04/05/20 09:47 04/05/20 09:47 04/05/20 09:47 04/05/20 09:47 Preop Diagnosis: Chest pain, screening Proposed Procedure: Operation Date: 04/05/20 10:00 Proposed Procedures p EGD/colon 52866 [id number] K21.9 Z12.11(Not Applicable) - Raphael Griffin MD s Colonoscopy(Not Applicable) - Raphael Griffin MD Was Beta Nathaniel taken within 24 hours: N/A Last intake: Intake Last Liquid Date 04/04/20 Last Liquid Time 23:00 Last Solid Date 04/03/20 Social: Social History: Alcohol and Tobacco Exam: Pre-Anes Outpt Exam: alert, oriented x 3 and clear to auscultation bilaterally Airway: Submandibular: WNL Cervical ROM: WNL MP: 2 Dentition: Chipped History/ROS: No significant history except as noted Pulmonary: Pulmonary: COPD and Cough CV/HEM: CV/HEM: HTN : : None reported Hepatic: Hepatic: None reported GI: GI: GERD Metabolic: Metabolic: None reported Musc/skel: Musc/skel: None reported Neuropsych: Neuropsych: Anxiety and Depression Anesthetic Plan: ASA status: 2 Anesthesia: MAC Meds/Allergies Current Medications: Current Medications Generic Name Dose Route Start Last Admin Trade Name Freq PRN Reason Stop Dose Admin Sodium Chloride 1,000 mls @ 30 ml s/hr 04/05/20 09:45 04/05/20 09:55 Sodium Chloride 0.9% IV 04/06/20 09:44 30 mls/hr .Q24H COLLETTE Administration PFSH Anesthesia PFSH: Medical History (Updated 03/23/20 @ 00:06 by ) Essential hypertension GERD (gastroesophageal reflux disease) Hyperlipidemia Nephrolithiasis Surgical History H/O: hysterectomy History of cholecystectomy History of surgery on arm S/P appendectomy Family History Other CAD (coronary artery disease) Diabetes Hypertension Stroke Denies family history of Anesthesia complication Bleeding disorder Social History Smoking and tobacco status: current every day smoker cigarettes Packs smoked per day: 1 Alcohol intake: current Alcohol intake frequency: other Lives independently: Yes Marital status: Single Current occupational status: employed History of recent travel: No Data Anesthesia Cardiac Studies: No Data to Display
[2020-04-05 11:28] VITALS: BP 168/94; PULSE 69; RESP 18; TEMP 36.6; O2SAT 96
[2020-04-05 11:43] VITALS: BP 173/93; PULSE 68; RESP 18; O2SAT 96
== END 2020-04-05 11:55 | disposition home or self-care (01) ==
PROVIDERS: PCP Family Medicine; Visit Provider Surgery
PROC: 0DJ08ZZ Inspection of Upper Intestinal Tract, Via Natural or Artificial Opening Endoscopic (ICD-10-PCS; CPT 43235; principal; 2020-04-05 10:00)
PROC: 0DJD8ZZ Inspection of Lower Intestinal Tract, Via Natural or Artificial Opening Endoscopic (ICD-10-PCS; CPT 45378; 2020-04-05 10:00)
DX: Z12.11 Encounter for screening for malignant neoplasm of colon (principal); K62.1 Rectal polyp; K22.2 Esophageal obstruction; K21.9 Gastro-esophageal reflux disease without esophagitis; I10 Essential (primary) hypertension; J44.9 Chronic obstructive pulmonary disease, unspecified; F17.210 Nicotine dependence, cigarettes, uncomplicated; Z88.0 Allergy status to penicillin; Z88.2 Allergy status to sulfonamides; Z90.49 Acquired absence of other specified parts of digestive tract; Q43.8 Other specified congenital malformations of intestine
CPT/HCPCS: 12345; 43235; 45378; J2704; J7030

== ENCOUNTER 2020-04-13 09:01 | Outpatient (CLI) | payer SELFPAY ==
--- NOTE | 2020-04-13 08:30 | FL_ITS ---
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 Fluoroscopy time: 1.5 minutes. Findings: The preliminary film demonstrated clips in right upper quadrant from cholecystectomy. The barium was introduced in a retrograde fashion filling the entire colon. There is reflux into the terminal ileum. The mucosal surface was normal with no evidence of any polyps, erosions, masses or ob struction. No diverticula were seen. There is no evidence of diverticulitis. Spot films of the termin al ileum were normal. The post evacuation film was unremarkable. FL/FL barium enema [id number] Impression: Negative barium enema.
== END 2020-04-13 09:02 | disposition home or self-care (01) ==
LOC: RAD 09:04
PROVIDERS: PCP Family Medicine; Visit Provider Surgery
DX: Q43.8 Other specified congenital malformations of intestine (principal)
CPT/HCPCS: 74270

== ENCOUNTER 2020-04-26 10:18 | Outpatient (CLI) | payer SELFPAY ==
--- NOTE | 2020-04-26 10:20 | NM_ITS ---
WS: [id number] NUCLEAR MEDICINE GASTRIC EMPTYING EXAMINATION HISTORY: chronic nausea and vomiting COMPARISON: None available. TECHNIQUE: The patient ingested a meal containing 0.86 mCi of Tc 99m sulfur colloid mixed with eggs. The patient was placed in supine position and imaging over the abdomen was performed for a total of 9 0 minutes. Computer acquisition with the region of interest placed over the stomach to evaluate gastr ic emptying half-time. 50% emptying of the stomach is near 91 minutes. Gastric emptying is still within normal limits. [place] of the curve is downward suggesting continued emptying at a constant rate. NM/[place] [id number] IMPRESSION: Normal emptying gastric time.
== END 2020-04-26 10:19 | disposition home or self-care (01) ==
PROVIDERS: PCP Family Medicine; Visit Provider Surgery
DX: R11.2 Nausea with vomiting, unspecified (principal)
CPT/HCPCS: 78264; A9541

== ENCOUNTER 2020-05-10 11:20 | Outpatient (CLI) | payer SELFPAY ==
[2020-05-10 11:31] VITALS: BMI 27.3
--- NOTE | 2020-05-10 11:32 | ECG_ITS ---
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 Interpretive Statements NAME OF STUDY: TREADMILL STRESS ECHOCARDIOGRAM INDICATION: Chest Pain EXERCISE DATA: The patient was exercised by To protocol for 6 minutes and 50 seconds. Baseline heart rate was 68 beats per minute. Baseline blood pressure was 143/88 mm Hg. Maximum heart rate achieved was 153, which was 90 % of the target heart rate. Maximum blood pressure was 186/77 mm Hg. Patient's blood pressure at the end of recovery was 138/75 mm Hg and heart rtae 84 bpm. The reason for ending the test was maximum effort achieved. The patient complained of shortness of breath during the stress test, which then resolved at the end of the test. ELECTROCARDIOGRAM: BASELINE: Normal sinus hythm, normal axis. No significant ST-T changes at the baseline noted. EXERCISE: At the peak exercise level, sinus tachycardia with no significant ST-T changes suggestive of ischemia noted. RECOVERY: During the recovery period, heart rate dropped appropriately. No significant ST-T changes in the recovery suggestive of ischemia noted. Echocardiographic images were obtained at rest, peak exercise and in recovery. CONCLUSION: 1. Exercise capacity was good. Maximum METs achieved was 10.2, maximum VO2 was 35.7 ml/kg/min. 2. Normal blood pressure and heart rate response. 3. Symptoms not suggestive of ischemia. 4. Electrocardiogram portion of the stress test was not suggestive of ischemia. 5. Echocardiographic portion of the study will be documented separately. Electronically Signed On 05-10-2020 20:12:10 CDT by Isa Shook M.D. [id number]
--- NOTE | 2020-05-10 11:33 | USCV_ITS ---
Naomie Villa Age: 49 Gender: F : 1970 Exam Date: 05/10/2020 11:33 Ordering Phys: Isa Shook MD ([email or web address]) Technologist: Filomena Pratt [place]am Location: [facility] [place] [facility] [place]ication: chest pain Rhythm: Sinus Patient History: hld, htn, smoker Cardiac Medications: statin, lina, nitro ER Medications in past 24 hours: Contrast: Stress Results Protocol: To Total dose(mL): Exercise Duration (min:sec): 6:50 METS: 10.2 Resting HR: 75 Resting BP: 143 / 88 Peak HR: 153 Peak BP: 186 / 100 Max Predicted HR: 170 90 % Max Predicted HR Target HR: 145 Double Product: [id number] Stress Summary: BP Response: normal Reason for Termination: target hr reached Cardiac Symptoms: sob resolved after rest ECG Analysis Resting ECG: Stress ECG: Arrhythmia: MEASUREMENTS (Male/Female) Normal Values FINDINGS PROCEDURE: At the baseline, the patient's blood pressure was 143/88 mmHg with a heart rate of 87 bpm. The patient exercised for 6 minutes 50 seconds on a standard To protocol. Patient attained a maximum heart rate of 153 beats per minute(90% of the maximum predicted heart rate) with a blood pressure at the peak exercise of 186/100 mm Hg. During the recovery phase, there were no new changes. Echocardiographic pictures were taken at the baseline, immediately following the peak exercise and during the recovery phase. Baseline echocardiogram: Normal left ventricular size and systolic function with ejection fraction estimated at 65%. No regional wall motion abnormalities. Normal right ventricle size and systolic function. Peak exercise echocardiogram: Normal augmentation of left ventricular systolic function with exercise. There is possibly mild hypokinesis of of basal to mid inferolateral wall. Recovery echocardiogram: Left ventricular systolic function normalizes. No new regional wall motion abnormality. CONCLUSIONS 1. This is a technically difficult study. Ultrasound enhancing agent Optisol was used per protocol. 2. This is a treadmill stress echocardiogram. 3. Fair exercise tolerance, attained a maximum of 10.2 METs. Double product of 28,459. 3. Normal blood pressure and heart rate response to exercise. 4. There is possible mild hypokinesis of of basal to mid inferolateral wall with exercise 5. Please see separate report for the EKG portion of the study. Isa Shook MD (Electronically Signed) Final Date: 13 May 2020 19:31 S
[2020-05-10] MEDS: perflutren protein-a microsphr 0.22 mg/mL SDV 3 mL IV (12:19)
[2020-05-10 12:23] VITALS: BP 136/75; PULSE 84
== END 2020-05-10 11:21 | disposition home or self-care (01) ==
LOC: CDL 11:21
PROVIDERS: PCP Family Medicine; Visit Provider Internal Medicine Cardiovascular Disease
DX: R07.9 Chest pain, unspecified (principal)
CPT/HCPCS: 93017; 93350; 93352; Q9956

== ENCOUNTER → 2020-05-21 14:29 | Outpatient (BNVA) | payer OTHER, SELFPAY | PROVIDERS: PCP Family Medicine; Visit Provider Nurse Practitioner Family | DX: Z20.828 Contact with and (suspected) exposure to other viral communicable diseases (principal) | CPT/HCPCS: 87635 ==

== ENCOUNTER 2020-05-22 21:21 | Emergency (ER) | payer SELFPAY ==
[2020-05-22 21:36] VITALS: BP 175/105; PULSE 78; RESP 18; TEMP 36.8; O2SAT 95; BMI 27.3
[2020-05-22 21:57] VITALS: BP 172/98; PULSE 74; RESP 18; O2SAT 98
--- NOTE | 2020-05-22 22:03 | ED_ITS ---
HPI - Abdominal Pain General: Chief Complaint: Abdominal Pain Stated Complaint: colon issues Time Seen by Provider: 05/22/20 21:49 History of Present Illness: HPI narrative: Patient is a 49-year-old female who comes to the ED with some abdominal pain, nausea and vomiting. Symptoms started approximately 2 and half months ago and she has had both upper and lower GI scope performed to further investigate symptoms. Patient was told she has a twisted colon and has been referred to [facility] clinic in [place] and has an appointment this . Patient is still having nausea and vomiting gets worse after she eats. Patient is also complaining of having some right-sided abdominal pain. She rates the pain a 9 out of 10. Patient says she has had kidney stones in the past and this feels nothing like a kidney stone. Patient says she knows that she probably will not get the answers to her problems today but was wanting some relief from symptoms. Denies any diarrhea, constipation or UTI symptoms. Associated Symptoms: Reports nausea and vomiting; Denies chills, constipation, diarrhea, dysuria, fever(s), hematochezia and hematuria Review of Systems Const: Denies: fever(s), chills or fatigue Eyes: Denies: change in vision or eye discomfort ENMT: Denies: throat pain, odynophagia, nasal discharge or nasal congestion Card: Denies: chest pain, palpitations, edema, swelling of feet/ankles, dyspnea on exertion or orthopnea Resp: Denies: dyspnea, productive cough or non-productive cough GI: Reports: abdominal pain (right side), nausea and vomiting; Denies: diarrhea, constipation or hematochezia : Denies: flank pain, dysuria or hematuria Musc: Denies: neck pain, back pain or extremity swelling Skin/Breast: Denies: rash or new lesions Neuro: Denies: headache(s), numbness in extremities or weakness in extremities PFSH ED PFSH: Medical History Essential hypertension GERD (gastroesophageal reflux disease) Hyperlipidemia Nephrolithiasis Surgical History H/O esophagogastroduodenoscopy (04/05/20) H/O: hysterectomy History of cholecystectomy History of surgery on arm S/P appendectomy Status post colonoscopy (04/05/20) incomplete, needs Ba enema Family History Other CAD (coronary artery disease) Diabetes Hypertension Stroke Denies family history of Anesthesia complication Bleeding disorder Social History Smoking and tobacco status: current every day smoker cigarettes Packs smoked per day: 1 Alcohol intake: current Alcohol intake frequency: other Lives independently: Yes Marital status: Single Current occupational status: employed History of recent travel: No Physical Exam Const: COMMON NORMALS: no acute distress, patient oriented x3 and alert GENERAL APPEARANCE: cooperative and comfortable HENMT: COMMON NORMALS: normocephalic HEAD & SCALP: normocephalic MOUTH: Normal oral and palatal mucosa present THROAT: posterior oropharynx normal and uvula midline Eye: COMMON NORMALS: Equal, round and reactive pupils present PUPIL: Yes Equal, round and reactive pupils present Neck/C-Spine: COMMON NORMALS: supple GENERAL: Yes normal visual inspection Resp: COMMON NORMALS: normal respiratory effort, No retractions, No use of accessory muscles and clear to auscultation bilaterally AUSCULTATION: clear to auscultation bilaterally Cardio: COMMON NORMALS: regular rate, regular rhythm, S1 normal heart sound present, S2 normal heart sound present, No gallops present (Cardio), No clicks present (Cardio), No murmurs present (Cardio) and Peripheral pulses 2+ throughout RATE: regular rate RHYTHM: regular rhythm HEART SOUNDS: S1 normal heart sound present and S2 normal heart sound present PERIPHERAL PULSES: Peripheral pulses 2+ throughout GI: COMMON NORMALS: Normal to inspection, nondistended, normoactive bowel sounds present, Soft to palpation and no masses PALPATION: Yes Soft to palpation and Yes Tenderness to palpation present (GI) Details: other (Right- sided abdominal tenderness?mild) : COMMON NORMALS: Yes no CVA tenderness BLADDER/KIDNEY EXAM: Yes no CVA tenderness Back/Pelvis: COMMON NORMALS: no CVA tenderness Extremity: COMMON NORMALS: normal to inspection and no pedal edema Neuro: COMMON NORMALS: patient oriented x3 SENSORIUM/ORIENTATION: Yes alert GAIT: Yes Normal gait present Skin: COMMON NORMALS: no rashes or lesions noted GENERAL SKIN EXAM: no rashes or lesions noted and dry skin Course Reevaluation(s): Reevaluation #1: Patient's nausea and pain improved with IV fluids, Zofran and Toradol. Patient is ready to be discharged home. Patient has had no episodes of emesis while here in the ED. Vital Signs: Vital signs: Vital Signs Temperature 98.1 F 05/23/20 00:33 Pulse Rate 76 05/23/20 00:33 Respiratory Rate 16 05/23/20 00:33 Blood Pressure 134/78 05/23/20 00:33 Pulse Oximetry 96 05/23/20 00:09 MDM - Abdominal Pain MDM Narrative: Medical decision making narrative: Patient is a 49-year-old female comes to the ED with nausea and vomiting. Patient symptoms have been going on for approximately 2 months and she has had some extensive work-up done to help evaluate current symptoms. She had a upper and lower GI scope performed and has an appointment with GI specialist in [place] in 2 days on . CBC, CMP, UA and lipase were all unremarkable. Patient's symptoms improved with IV fluids, Zofran and Toradol. Patient's and with her improved symptoms she is ready to go home. She was sent home with a prescription for Zofran and told to slowly advance diet as tolerated. Go to scheduled GI specialist appointment on . Return to ED precautions given. Patient understood and agreed with plan. Lab Data: Attestation: I reviewed the patient's lab results. Labs: Lab Results 05/22/20 05/22/20 05/22/20 Range/Units 22:25 22:32 22:32 WBC 9.3 (4.0-10.0) 10^3/ uL RBC 4.14 (4.1-5.3) 10^6/u L Hgb 13.2 (11.5-15.3) g/dL Hct 40.6 (37.0-47.0) % MCV 98.1 (81-99) fL MCH 31.9 (28.0-34.0) pg MCHC 32.5 (30.0-36.0) g/dL RDW 13.2 (12.1-15.1) % Plt Count 302 (130-400) 10^3/c mm MPV 10.0 (7.4-10.4) fL Neut % (Auto) 54.6 % Lymph % (Auto) 37.5 % Traverse % (Auto) 6.6 % Eos % (Auto) 0.8 % Baso % (Auto) 0.4 % Neut # (Auto) 5.06 (1.8-7.7) 10^3/u L Lymph # (Auto) 3.5 (0.8-4.8) 10^3/u L Traverse # (Auto) 0.6 (0.2-0.9) 10^3/u L Eos # (Auto) 0.1 (0.0-0.8) 10^3/u L Baso # (Auto) 0.0 (0.0-0.1) 10^3/u L Nucleated RBC % (a uto) 0 % Nucleated RBCs # 0.0 /100WBC Sodium 140 (136-145) mmol/L Potassium 3.6 (3.5-5.1) mmol/L Chloride 106 (98-107) mmol/L Carbon Dioxide 25 (22-29) mmol/L Anion Gap 12.6 (5-19) BUN 15 (6-20) mg/dL Creatinine 0.5 (0.5-0.9) mg/dL GFR Calculation 130.6 H (90-130) mL/min Glucose 115 (65-115) mg/dL Calculated Osmolal ity 292 (285-295) mOsm/k g Calcium 9.6 (8.5-10.5) mg/dL Total Bilirubin 0.2 (0.15-1.2) mg/dL AST 16 (0-32) U/L ALT 21 (0-33) U/L Alkaline Phosphata se 95 (35-105) IU/L Total Protein 6.7 (6.6-8.7) g/dL Albumin 4.2 (3.5-5.2) g/dL Globulin 2.5 (1.3-4.6) g/dL Lipase 23 (13-60) U/L Urine Color Yellow (Yellow) Urine Appearance Sl hazy (CLEAR) Urine pH 5 (5-7) Ur Specific Gravit y 1.025 (1.005-1.030) Urine Protein Neg (Negative) Urine Glucose (UA) Norm (Normal) Urine Ketones Negative (Negative) Urine Blood 2+ H (Negative) Urine Nitrate Negative (Negative) Urine Bilirubin Neg (Negative) Urine Urobilinogen Norm (Negative) mg/dL Ur Leukocyte Flores ase Negative (Negative) Urine RBC 0-4 H (0-2) /hpf Urine WBC 0-4 H (0-5) /hpf Ur Squamous Epith Cells 15-25 H (0-5) /hpf Calcium Oxalate Cr ystal 25-40 H /hpf Amorphous Sediment Not Reportable Urine Bacteria 1+ H (NONE) /hpf Urine Mucus 1+ /hpf Discharge Plan Discharge Patient Disposition: Home Clinical Impression: Nausea & vomiting Qualifiers: Vomiting type: unspecified Vomiting Intractability: non-intractable Qualified Code(s): R11.2 - Nausea with vomiting, unspecified Condition: Stable Prescriptions: New ondansetron 4 mg tablet,disintegrating 4 mg PO Q8H Qty: 30 RF: 0 No Action hydroxyzine pamoate [Vistaril] 50 mg capsule 50 mg PO .po q hs PRN (Reason: insomnia) Qty: 30 RF: 0 pantoprazole [Protonix] 40 mg tablet,delayed release (DR/EC) 40 mg PO DAILY Qty: 60 RF: 0 lisinopril-hydrochlorothiazide 20-25 mg tablet 1 tab PO DAILY Qty: 90 RF: 1 aspirin 81 mg tablet,delayed release (DR/EC) 81 mg PO DAILY RF: 0 nitroglycerin 2.5 mg capsule, extended release 2.5 mg PO BID Qty: 60 RF: 2 nitroglycerin 0.4 mg tablet, sublingual 0.4 mg SUBLINGUAL Q5M PRN (Reason: chest pain) Qty: 30 RF: 0 atorvastatin 40 mg tablet 40 mg PO .AT BEDTIME Qty: 30 RF: 1 trazodone 50 mg tablet See Rx Instructions PO .po q hs Qty: 60 RF: 0 Carafate 1 gram tablet 1 gm PO TID Qty: 90 RF: 0 Discharge Orders: Discharge Order (Routine); Ordered 05/23/20 Ordered By: Forrest Flores Referrals: Ellen Gonsalves DO [Primary Care Provider] - Discharge Diet: Advance as tolerated Discharge Activity: Resume usual activity Activity Restrictions/Additional Instructions: Follow-up with medical provider at your scheduled GI specialist appointment on . Take medications as prescribed. Advance diet as tolerated. Return to the ER or your medical provider if condition worsens. Please read and understand discharge instructions. If any questions, please ask. Discharge Date/Time: 05/23/20 00:36 Coding Level of Care Code ED Reading Teacher for Chg Fwd Exam Comprehensive
[2020-05-22 22:29] VITALS: BP 150/105; PULSE 91; RESP 17; TEMP 36.7; O2SAT 97
[2020-05-22 22:38] VITALS: BP 161/97; PULSE 70; RESP 18; O2SAT 97
[2020-05-22 22:40] LABS: Basophils % 0.4 %; Eosinophils # 0.1 10^3/uL (0.0-0.8); Eosinophils % 0.8 %; Hematocrit 40.6 % (37.0-47.0); Hemoglobin 13.2 g/dL (11.5-15.3); Lymphocytes # 3.5 10^3/uL (0.8-4.8); Lymphocytes % 37.5 %; Mean Corpuscular HGB Conc 32.5 g/dL (30.0-36.0); Mean Corpuscular Hemoglobin 31.9 pg (28.0-34.0); Mean Corpuscular Volume 98.1 fL (81-99); Monocytes # 0.6 10^3/uL (0.2-0.9); Monocytes % 6.6 %; Neutrophils # 5.06 10^3/uL (1.8-7.7); Neutrophils % 54.6 %; Nucleated Red Blood Cells % 0 %; Platelet Count 302 10^3/cmm (130-400); Red Blood Count 4.14 10^6/uL (4.1-5.3); Red Cell Distribution Width 13.2 % (12.1-15.1); White Blood Count 9.3 10^3/uL (4.0-10.0)
[2020-05-22] MEDS: sodium chloride 0.9% 1,000 ML 999 ML IV (22:58)
[2020-05-22] MEDS: ondansetron 2 mg/ML SDV 2 mL 4 MG IVP (22:58)
[2020-05-22 23:00] LABS: Alanine Aminotransferase 21 U/L (0-33); Albumin Level 4.2 g/dL (3.5-5.2); Alkaline Phosphatase 95 IU/L (35-105); Anion Gap 12.6 (5-19); Aspartate Amino Transferase 16 U/L (0-32); Blood Urea Nitrogen 15 mg/dL (6-20); Calcium 9.6 mg/dL (8.5-10.5); Carbon Dioxide 25 mmol/L (22-29); Chloride 106 mmol/L (98-107); Globulin 2.5 g/dL (1.3-4.6); Glomerular Filtration Rate 130.6 mL/min (90-130); Glucose 115 mg/dL (65-115); Lipase 23 U/L (13-60); Osmolality Calculated 292 mOsm/kg (285-295); Potassium 3.6 mmol/L (3.5-5.1); Sodium 140 mmol/L (136-145); Total Bilirubin 0.2 mg/dL (0.15-1.2); Total Protein 6.7 g/dL (6.6-8.7)
[2020-05-22 23:08] VITALS: BP 161/97; PULSE 90; RESP 17; O2SAT 98
[2020-05-22] MEDS: ketorolac 30 mg/mL INJ IVP (23:29)
[2020-05-22 23:30] VITALS: BP 154/81; PULSE 77; RESP 16; O2SAT 97
[2020-05-23 00:09] VITALS: BP 157/90; PULSE 78; RESP 16; O2SAT 96
[2020-05-23 00:11] LABS: Bilirubin Urine Neg (Negative); Blood Urine 2+ (Negative); Glucose Urine UA Norm (Normal); Ketones Urine Negative (Negative); Leukocyte Esterase Urine Negative (Negative); Nitrate Urine Negative (Negative); Protein Urine Neg (Negative); Specific Gravity, Urine 1.025 (1.005-1.030); Urine Appearance SL Hazy (CLEAR); Urine Color Yellow (Yellow); Urobilinogen Urine Norm (Negative); pH Urine 5 (5-7)
[2020-05-23 00:12] LABS: Add Urine Microscopic? YES
[2020-05-23 00:17] LABS: RBC Urine 0-4 /hpf (0-2); Squamous Epithelial Cell Urine 15-25 /hpf (0-5); WBC Urine 0-4 /hpf (0-5)
[2020-05-23 00:18] LABS: Add Urine Culture? No; Bacteria Urine 1+ /hpf; Calcium Oxalate Crystals Urine 25-40 /hpf; Mucus Urine 1+ /hpf
[2020-05-23 00:33] VITALS: BP 134/78; PULSE 76; RESP 16; TEMP 36.7
== END 2020-05-23 00:36 | disposition home or self-care (01) ==
PROVIDERS: Emergency Provider Physician Assistant; PCP Family Medicine
DX: R11.2 Nausea with vomiting, unspecified (principal); Z79.82 Long term (current) use of aspirin; I10 Essential (primary) hypertension; E78.5 Hyperlipidemia, unspecified; F17.210 Nicotine dependence, cigarettes, uncomplicated
CPT/HCPCS: 12345; 80053; 81001; 81003; 83690; 85025; 87040; 96361; 96374; 96375; 99283; J1885; J2405; J7030

== ENCOUNTER 2020-06-10 01:09 | Emergency (ER) | payer SELFPAY ==
[2020-06-10] MEDS: diphenhydrAMINE 50 mg/mL SDV 1mL IM (01:00)
[2020-06-10] MEDS: dexamethasone 4 mg/mL INJ 8 MG IM (01:00)
[2020-06-10 01:14] VITALS: BP 173/94; PULSE 70; RESP 18; TEMP 36.5; O2SAT 97; BMI 26.4
--- NOTE | 2020-06-10 01:21 | W.ED.ALLEREA ---
HPI - Allergic Reaction General: Chief complaint: Allergic Reaction Stated complaint: poss allergic reaction Time Seen by Provider: 06/10/20 01:14 CDT Source: patient Mode of arrival: ambulatory Limitations: no limitations History of Present Illness: HPI narrative: Patient comes in today for complaints of an allergic reaction to fish. Patient states she had eaten some [place] at around 2:00 and started having symptoms such as nausea and vomiting and itching. Patient states tonight she comes in due to persistent feeling of short of breath. Patient appears well. Patient appears in no acute distress. Patient has a history of hypertension, hyperlipidemia, and GERD. MD complaint: allergic reaction Associated symptoms: Reports nausea and vomiting Review of Systems General: Reports: 10 or more systems reviewed and unremarkable except in HPI and below GI: Reports: nausea and vomiting PFSH ED PFSH: Medical History (Updated 06/10/20 @ 01:25 CDT by QUINCY Palencia) Essential hypertension GERD (gastroesophageal reflux disease) Hyperlipidemia Nephrolithiasis Surgical History H/O esophagogastroduodenoscopy (04/05/20) H/O: hysterectomy History of cholecystectomy History of surgery on arm S/P appendectomy Status post colonoscopy (04/05/20) incomplete, needs Ba enema Family History Other CAD (coronary artery disease) Diabetes Hypertension Stroke Denies family history of Anesthesia complication Bleeding disorder Social History Smoking and tobacco status: current every day smoker cigarettes Packs smoked per day: 1 Alcohol intake: current Alcohol intake frequency: other Lives independently: Yes Marital status: Single Current occupational status: employed History of recent travel: No Physical Exam Const: COMMON NORMALS: no acute distress and patient oriented x3 GENERAL APPEARANCE: cooperative HENMT: COMMON NORMALS: normocephalic, TM's normal bilaterally and Normal external nose present HEAD & SCALP: normal to inspection and normocephalic NOSE: Normal external nose present TYMPANIC MEMBRANE: TM's normal bilaterally MOUTH: Normal oral and palatal mucosa present THROAT: posterior oropharynx normal Eye: GENERAL EYE: appearance normal, both eyes and all related structures Neck/C-Spine: COMMON NORMALS: full ROM Lymph: LYMPHATIC: no lymphadenopathy noted Chest: COMMONS NORMALS: normal inspection of the chest Resp: COMMON NORMALS: normal respiratory effort EFFORT & INSPECTION: Yes able to speak in complete sentences Cardio: COMMON NORMALS: regular rate and regular rhythm RATE: regular rate RHYTHM: regular rhythm GI: COMMON NORMALS: non-tender : COMMON NORMALS: Yes no CVA tenderness BLADDER/KIDNEY EXAM: Yes no CVA tenderness Back/Pelvis: COMMON NORMALS: no CVA tenderness and thoracic and lumbar spine normal to inspection Extremity: COMMON NORMALS: normal to inspection Neuro: COMMON NORMALS: patient oriented x3 and moves all extremities Psych: COMMON NORMALS: mental status grossly normal and cooperative Skin: COMMON NORMALS: no rashes or lesions noted GENERAL SKIN EXAM: no rashes or lesions noted Course Vital Signs: Vital signs: Vital Signs Temperature 97.7 F 06/10/20 01:14 CD T Pulse Rate 70 06/10/20 01:14 CD T Respiratory Rate 18 06/10/20 01:14 CD T Blood Pressure 173/94 06/10/20 01:14 CD T Pulse Oximetry 97 06/10/20 01:14 CD T MDM - Allergic Reaction MDM Narrative: Medical decision making narrative: Patient comes in today for concerns of allergic reaction. 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 Patient had some travel this afternoon around 2:00 which caused her to become ill. Patient reported nausea and vomiting. And now has some mild shortness of breath. Patient looks well. Vital signs are normal except for some elevation in blood pressure. Auscultation of lung mclaughlin note no wheezing. Abdomen soft nontender. No hives or rashes noted. Differential diagnosis includes but not limited to allergic reaction, GERD, anxiety. We treated with diphenhydramine 50 mg IM and 8 mg dexamethasone IM. Encourage patient to drink plenty of fluids and continue with Benadryl as needed for itching. Recommended patient follow-up with primary care as needed. Encourage no exposure to further fish products. Discharge Plan Discharge Patient Disposition: Home Clinical Impression: Allergic reaction Qualifiers: Encounter type: initial encounter Qualified Code(s): T78.40XA - Allergy, unspecified, initial encounter Condition: Stable Prescriptions: No Action hydroxyzine pamoate [Vistaril] 50 mg capsule 50 mg PO .po q hs PRN (Reason: insomnia) Qty: 30 RF: 0 pantoprazole [Protonix] 40 mg tablet,delayed release (DR/EC) 40 mg PO DAILY Qty: 60 RF: 0 lisinopril-hydrochlorothiazide 20-25 mg tablet 1 tab PO DAILY Qty: 90 RF: 1 aspirin 81 mg tablet,delayed release (DR/EC) 81 mg PO DAILY RF: 0 nitroglycerin 2.5 mg capsule, extended release 2.5 mg PO BID Qty: 60 RF: 2 nitroglycerin 0.4 mg tablet, sublingual 0.4 mg SUBLINGUAL Q5M PRN (Reason: chest pain) Qty: 30 RF: 0 atorvastatin 40 mg tablet 40 mg PO .AT BEDTIME Qty: 30 RF: 1 trazodone 50 mg tablet See Rx Instructions PO .po q hs Qty: 60 RF: 0 Carafate 1 gram tablet 1 gm PO TID Qty: 90 RF: 0 ondansetron 4 mg tablet,disintegrating 4 mg PO Q8H Qty: 30 RF: 0 Discharge Orders: Discharge Order (Routine); Ordered 06/10/20 Ordered By: Lam Loyola Referrals: Ellen Gonsalves DO [Primary Care Provider] - Discharge Diet: Usual diet Discharge Activity: Increase activity as tolerated Patient Instructions: Food Allergy (ED) Activity Restrictions/Additional Instructions: Drink plenty of water. Use diphenhydramine, Benadryl, 1 to 2 tablets every 4-6 hours as needed for itching or rash. Avoid contact allergen. Follow-up with primary care for further treatment and evaluation. Coding Level of Care Code ED Sharepoint Application Developer for Chg Fwd Exam Comprehensive
[2020-06-10 01:43] VITALS: BP 136/75; PULSE 70; RESP 18; O2SAT 96
--- NOTE | 2020-06-10 01:46 | PC.NURSE ---
agree with the assessment
== END 2020-06-10 01:46 | disposition home or self-care (01) ==
PROVIDERS: Emergency Provider Nurse Practitioner Family; PCP Family Medicine
DX: T78.40XA Allergy, unspecified, initial encounter (principal); Z79.82 Long term (current) use of aspirin; I10 Essential (primary) hypertension; E78.5 Hyperlipidemia, unspecified; F17.210 Nicotine dependence, cigarettes, uncomplicated
CPT/HCPCS: 12345; 96372; 99281; 99283; J1100; J1200

== ENCOUNTER 2020-07-04 08:35 | Emergency (ER) | payer SELFPAY ==
[2020-07-04] VITALS (10 sets, daily range): BP systolic 163–196; BP diastolic 103–129; PULSE 74–91; RESP 17–22; TEMP 36.7; O2SAT 92–97; BMI 26.9
--- NOTE | 2020-07-04 09:12 | CT_ITS ---
WS: [id number] CT ABDOMEN AND PELVIS NONCONTRAST HISTORY: L flank pain TECHNIQUE: Imaging performed through the abdomen and pelvis. Coronal and sagittal reformats are submi tted. All CT scans at [facility] use at least one of these dose optimization techniques: automated exposure control; mA and/or kV adjustment per patient size (includes targeted exams where d ose is matched to clinical indication); or iterative reconstruction. DLP: 1359.11 mGy.cm COMPARISON: 03/15/2020 Lower thorax: Lung bases are clear. Visualized heart is normal. No hiatal hernia. Liver: Normal size liver. No mass or bile duct dilatation. Gallbladder: Prior cholecystectomy. Pancreas: Normal size and attenuation. Normal pancreatic duct. No pancreatitis or mass. Spleen: Normal. Adrenal glands: Normal. No mass. Right kidney: Normal size kidney. Nonobstructing 5.5 mm calcification in the lower pole. No ureteral obstruction or calcification. Left kidney: Nonobstructing 3 mm calcification mid kidney. Aorta: Mild atherosclerosis abdominal aorta with no aneurysm. No free fluid, intraperitoneal air or significant lymphadenopathy. GI tract: Prior appendectomy. No GI tract obstruction. No mucosal thickening or diverticulosis. Abdominal wall: Negative. No hernia. Pelvis: Minimally distended bladder. Prior hysterectomy. No ascites or adenopathy. Osseous structures: L5-S1 degenerative disc disease. No osteoblastic or osteolytic bone disease. CT/CT kidney stone [id number] IMPRESSION: 1. No renal obstruction or inflammation. 2. Nonobstructing bilateral renal calculi. 3. Prior appendectomy, hysterectomy and cholecystectomy.
[2020-07-04 09:40] LABS: Basophils % 0.4 %; Eosinophils % 0.4 %; Hematocrit 44.9 % (37.0-47.0); Hemoglobin 14.8 g/dL (11.5-15.3); Lymphocytes # 2.2 10^3/uL (0.8-4.8); Lymphocytes % 24.1 %; Mean Corpuscular Hemoglobin 31.6 pg (28.0-34.0); Mean Corpuscular Volume 95.9 fL (81-99); Mean Platelet Volume 9.9 fL (7.4-10.4); Monocytes # 0.5 10^3/uL (0.2-0.9); Monocytes % 5.8 %; Neutrophils # 6.22 10^3/uL (1.8-7.7); Nucleated Red Blood Cells % 0 %; Platelet Count 358 10^3/cmm (130-400); Red Blood Count 4.68 10^6/uL (4.1-5.3); Red Cell Distribution Width 12.3 % (12.1-15.1)
[2020-07-04 10:04] LABS: Alanine Aminotransferase 15 U/L (0-33); Albumin Level 4.1 g/dL (3.5-5.2); Alkaline Phosphatase 91 IU/L (35-105); Aspartate Amino Transferase 12 U/L (0-32); Blood Urea Nitrogen 13 mg/dL (6-20); Calcium 9.1 mg/dL (8.5-10.5); Carbon Dioxide 23 mmol/L (22-29); Chloride 104 mmol/L (98-107); Glomerular Filtration Rate 130.1 mL/min (90-130); Glucose 118 mg/dL (65-115); Osmolality Calculated 289 mOsm/kg (285-295); Sodium 139 mmol/L (136-145); Total Bilirubin 0.2 mg/dL (0.15-1.2); Total Protein 7.1 g/dL (6.6-8.7)
--- NOTE | 2020-07-04 10:11 | W.ED.ABDPA2 ---
HPI - Abdominal Pain General: Chief Complaint: Abdominal Pain Stated Complaint: back pain Time Seen by Provider: 07/04/20 08:52 History of Present Illness: HPI narrative: 50-year-old female presents to the emergency room with complaints of left flank pain. She has a history of nephrolithiasis she states it feels like she has another stone. She previously had lithotripsy for it. She denies any fever sweats or chills. Difficult to find a comfortable position for the flank pain. She has had some nausea and vomiting but no diarrhea. No hematuria. MD elicited complaint: flank pain Pertinent past history: kidney stones Onset (ago): day(s) Location: L flank Severity: severe Quality: cramping and stabbing Radiation: suprapubic and other (Left groin) Migration to: no migration Exacerbating factors: nothing Relieving factors: nothing Associated Symptoms: Reports anorexia, GI cramping, melena, nausea and vomiting; Denies belching, bloating, change in bowel habits, change in stool character, chills, coffee ground emesis, constipation, diarrhea, dyspepsia, dysuria, excessive flatus, fever(s), heartburn, hematochezia, hematuria, hematemesis, fecal incontinence, loose stools, poor appetite and syncope Treatments prior to arrival: NSAIDs Review of Systems Const: Denies: fever(s) or chills ENMT: Denies: throat pain, ear or mastoid pain, nasal discharge or nasal congestion Card: Denies: syncope Resp: Denies: dyspnea, productive cough or non-productive cough GI: Reports: nausea, vomiting, GI cramping and melena; Denies: hematemesis, coffee ground emesis, heartburn, diarrhea, constipation, bloating, belching, excessive flatus, fecal incontinence, change in bowel habits, change in stool character or hematochezia : Denies: dysuria or hematuria Skin/Breast: Denies: rash or pruritus PFSH ED PFSH: Medical History (Updated 07/04/20 @ 13:45 by Fredo Morrow DO) Essential hypertension GERD (gastroesophageal reflux disease) Hyperlipidemia Nephrolithiasis Surgical History H/O esophagogastroduodenoscopy (04/05/20) H/O: hysterectomy History of cholecystectomy History of surgery on arm S/P appendectomy Status post colonoscopy (04/05/20) incomplete, needs Ba enema Family History Other CAD (coronary artery disease) Diabetes Hypertension Stroke Denies family history of Anesthesia complication Bleeding disorder Social History Smoking and tobacco status: current every day smoker cigarettes Packs smoked per day: 1 Alcohol intake: current Alcohol intake frequency: other Lives independently: Yes Marital status: Single Current occupational status: employed History of recent travel: No Physical Exam Const: COMMON NORMALS: no acute distress GENERAL APPEARANCE: cooperative and comfortable ORIENTATION/CONSCIOUSNESS: Yes awake, Yes oriented to person, Yes oriented to place and Yes oriented to time HENMT: COMMON NORMALS: normocephalic, atraumatic and hearing grossly normal bilaterally HEAD & SCALP: normocephalic and atraumatic Neck/C-Spine: COMMON NORMALS: no JVD Resp: COMMON NORMALS: normal respiratory effort, No retractions, No use of accessory muscles and clear to auscultation bilaterally AUSCULTATION: clear to auscultation bilaterally Cardio: COMMON NORMALS: no JVD, regular rate, regular rhythm and No murmurs present (Cardio) RATE: regular rate RHYTHM: regular rhythm GI: COMMON NORMALS: Soft to palpation and No hepatosplenomegaly present AUSCULTATION: Yes normoactive bowel sounds PALPATION: Yes Soft to palpation, No Tenderness to palpation present (GI), No Guarding due to palpation present (GI) and Yes No hepatosplenomegaly present Extremity: COMMON NORMALS: normal to inspection, capillary refill normal, no clubbing, cyanosis or edema, no calf tenderness and no pedal edema Neuro: SENSORIUM/ORIENTATION: Yes oriented to person, Yes oriented to place and Yes oriented to time Skin: COMMON NORMALS: no rashes or lesions noted GENERAL SKIN EXAM: no rashes or lesions noted Course Vital Signs: Vital signs: Vital Signs Temperature 98.1 F 07/04/20 08:52 Pulse Rate 74 07/04/20 12:45 Respiratory Rate 17 07/04/20 12:45 Blood Pressure 163/103 07/04/20 12:45 Pulse Oximetry 92 11/25/20 12:45 MDM - Abdominal Pain MDM Narrative: Medical decision making narrative: Patient is much improved. CT is unremarkable. We will go ahead and double up her Protonix to 40 twice daily for a week. Gave her tramadol to use as needed follow-up with her primary care provider in the office next week return if has further problems discussed findings with her from today's work-up. Lab Data: Labs: Lab Results 07/04/20 07/04/20 07/04/20 Range/Units 09:34 09:34 09:34 WBC 9.0 (4.0-10.0) 10^3/ uL RBC 4.68 (4.1-5.3) 10^6/u L Hgb 14.8 (11.5-15.3) g/dL Hct 44.9 (37.0-47.0) % MCV 95.9 (81-99) fL MCH 31.6 (28.0-34.0) pg MCHC 33.0 (30.0-36.0) g/dL RDW 12.3 (12.1-15.1) % Plt Count 358 (130-400) 10^3/c mm MPV 9.9 (7.4-10.4) fL Neut % (Auto) 69.0 % Lymph % (Auto) 24.1 % [place] % (Auto) 5.8 % Eos % (Auto) 0.4 % Baso % (Auto) 0.4 % Neut # (Auto) 6.22 (1.8-7.7) 10^3/u L Lymph # (Auto) 2.2 (0.8-4.8) 10^3/u L [place] # (Auto) 0.5 (0.2-0.9) 10^3/u L Eos # (Auto) 0.0 (0.0-0.8) 10^3/u L Baso # (Auto) 0.0 (0.0-0.1) 10^3/u L Nucleated RBC % (a uto) 0 % Nucleated RBCs # 0.0 /100WBC Sodium 139 (136-145) mmol/L Potassium 3.8 (3.5-5.1) mmol/L Chloride 104 (98-107) mmol/L Carbon Dioxide 23 (22-29) mmol/L Anion Gap 15.8 (5-19) BUN 13 (6-20) mg/dL Creatinine 0.5 (0.5-0.9) mg/dL GFR Calculation 130.1 H (90-130) mL/min Glucose 118 H (65-115) mg/dL Calculated Osmolal ity 289 (285-295) mOsm/k g Calcium 9.1 (8.5-10.5) mg/dL Total Bilirubin 0.2 (0.15-1.2) mg/dL AST 12 (0-32) U/L ALT 15 (0-33) U/L Alkaline Phosphata se 91 (35-105) IU/L Troponin T Baselin e 7 (0-10) ng/L Troponin T 120 [address] [place] (0-10) ng/L Delta Troponin T (0-10) ABS# Total Protein 7.1 (6.6-8.7) g/dL Albumin 4.1 (3.5-5.2) g/dL Globulin 3.0 (1.3-4.6) g/dL Urine Color (Yellow) Urine Appearance (CLEAR) Urine pH (5-7) Ur Specific Gravit y (1.005-1.030) Urine Protein (Negative) Urine Glucose (UA) (Normal) Urine Ketones (Negative) Urine Blood (Negative) Urine Nitrate (Negative) Urine Bilirubin (Negative) Urine Urobilinogen (Negative) mg/dL Ur Leukocyte Flores ase (Negative) Urine RBC (0-2) /hpf Urine WBC (0-5) /hpf Ur Squamous Epith Cells (0-5) /hpf Amorphous Sediment Urine Bacteria (NONE) /hpf Urine Mucus /hpf 07/04/20 07/04/20 Range/Units 10:10 12:16 WBC (4.0-10.0) 10^3/ uL RBC (4.1-5.3) 10^6/u L Hgb (11.5-15.3) g/dL Hct (37.0-47.0) % MCV (81-99) fL MCH (28.0-34.0) pg MCHC (30.0-36.0) g/dL RDW (12.1-15.1) % Plt Count (130-400) 10^3/c mm MPV (7.4-10.4) fL Neut % (Auto) % Lymph % (Auto) % [place] % (Auto) % Eos % (Auto) % Baso % (Auto) % Neut # (Auto) (1.8-7.7) 10^3/u L Lymph # (Auto) (0.8-4.8) 10^3/u L [place] # (Auto) (0.2-0.9) 10^3/u L Eos # (Auto) (0.0-0.8) 10^3/u L Baso # (Auto) (0.0-0.1) 10^3/u L Nucleated RBC % (a uto) % Nucleated RBCs # /100WBC Sodium (136-145) mmol/L Potassium (3.5-5.1) mmol/L Chloride (98-107) mmol/L Carbon Dioxide (22-29) mmol/L Anion Gap (5-19) BUN (6-20) mg/dL Creatinine (0.5-0.9) mg/dL GFR Calculation (90-130) mL/min Glucose (65-115) mg/dL Calculated Osmolal ity (285-295) mOsm/k g Calcium (8.5-10.5) mg/dL Total Bilirubin (0.15-1.2) mg/dL AST (0-32) U/L ALT (0-33) U/L Alkaline Phosphata se (35-105) IU/L Troponin T Baselin e (0-10) ng/L Troponin T [address] [place] 6.00 (0-10) ng/L Delta Troponin T -1.00 L (0-10) ABS# Total Protein (6.6-8.7) g/dL Albumin (3.5-5.2) g/dL Globulin (1.3-4.6) g/dL Urine Color Yellow (Yellow) Urine Appearance Sl hazy (CLEAR) Urine pH 6 (5-7) Ur Specific Gravit y 1.025 (1.005-1.030) Urine Protein Neg (Negative) Urine Glucose (UA) Norm (Normal) Urine Ketones Negative (Negative) Urine Blood 2+ H (Negative) Urine Nitrate Negative (Negative) Urine Bilirubin Neg (Negative) Urine Urobilinogen Neg (Negative) mg/dL Ur Leukocyte Flores ase Negative (Negative) Urine RBC 0-4 H (0-2) /hpf Urine WBC 0-4 H (0-5) /hpf Ur Squamous Epith Cells 10-15 H (0-5) /hpf Amorphous Sediment Not Reportable Urine Bacteria 2+ H (NONE) /hpf Urine Mucus 3+ /hpf Discharge Plan Discharge Patient Disposition: Home Clinical Impression: Abdominal pain, GERD (gastroesophageal reflux disease) Condition: Stable Prescriptions: New Zofran 4 mg tablet 4 mg PO Q6H PRN (Reason: nausea and vomiting) Qty: 20 RF: 0 tramadol 50 mg tablet 50 mg PO Q6H PRN (Reason: pain) Qty: 20 RF: 0 Changed Protonix 40 mg tablet,delayed release (DR/EC) 40 mg PO BID Qty: 60 RF: 0 No Action lisinopril-hydrochlorothiazide 20-25 mg tablet 1 tab PO DAILY Qty: 90 RF: 1 aspirin 81 mg tablet,delayed release (DR/EC) 81 mg PO DAILY RF: 0 nitroglycerin 2.5 mg capsule, extended release 2.5 mg PO BID Qty: 60 RF: 2 nitroglycerin 0.4 mg tablet, sublingual 0.4 mg SUBLINGUAL Q5M PRN (Reason: chest pain) Qty: 30 RF: 0 ibuprofen 200 mg Tablet 400 mg PO PRN RF: 0 atorvastatin 40 mg tablet 40 mg PO BEDTIME RF: 0 trazodone 50 mg tablet 50 - 100 mg PO BEDTIME RF: 0 Discharge Orders: Discharge Order (Routine); Ordered 07/04/20 Ordered By: Fredo Morrow Referrals: Ellen Gonsalves DO [Primary Care Provider] - Discharge Diet: Full LIquid Discharge Activity: Increase activity as tolerated Patient Instructions: Abdominal Pain (ED) Activity Restrictions/Additional Instructions: Increase pantoprazole to twice daily for 7 days. Full liquid diet for 24 to 48 hours. Off work today and tomorrow. Follow-up with your primary care provider next week. 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
[2020-07-04 10:17] LABS: Anion Gap 15.8 (5-19); Potassium 3.8 mmol/L (3.5-5.1)
[2020-07-04] MEDS: morphine 4 mg/mL SDV 1 mL IVP ×2 (10:17→11:25)
[2020-07-04] MEDS: ondansetron 2 mg/ML SDV 2 mL 4 MG IVP (10:17)
[2020-07-04 10:51] LABS: Add Urine Microscopic? YES; Bilirubin Urine Neg (Negative); Blood Urine 2+ (Negative); Glucose Urine UA Norm (Normal); Ketones Urine Negative (Negative); Leukocyte Esterase Urine Negative (Negative); Nitrate Urine Negative (Negative); Protein Urine Neg (Negative); Specific Gravity, Urine 1.025 (1.005-1.030); Urine Appearance SL Hazy (CLEAR); Urine Color Yellow (Yellow); Urobilinogen Urine Neg (Negative); pH Urine 6 (5-7)
[2020-07-04 10:52] LABS: Add Urine Culture? No; Bacteria Urine 2+ /hpf; Mucus Urine 3+ /hpf; RBC Urine 0-4 /hpf (0-2); WBC Urine 0-4 /hpf (0-5)
--- NOTE | 2020-07-04 11:13 | ECG_ITS ---
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
--- NOTE | 2020-07-04 11:13 | CT_ITS ---
WS: [id number] CT CHEST ANGIOGRAPHY WITH REFORMATS HISTORY: chest pain, dyspnea TECHNIQUE: Contiguous axial images are obtained through the chest during arterial injection of intrav enous contrast. Images are reconstructed to evaluate the pulmonary arteries. MIP imaging also reviewe d. All CT scans at [facility] use at least one of these dose optimization techniques: aut omated exposure control; mA and/or kV adjustment per patient size (includes targeted exams where dose is matched to clinical indication); or iterative reconstruction. CONTRAST: Omnipaque 350; 95 mL IV. DLP: 488.49 mGy.cm COMPARISON: 03/15/2020 Significant beam hardening artifact through the pulmonary arteries. Opacification is limited. No cent ral pulmonary emboli. No pulmonary emboli through the lobar proximal segmental branches. Normal size pulmonary artery. Normal thoracic aorta. No RIGHT heart strain. Mild enlargement of the LEFT atrium. No pericardial or pleural effusion. Chronic emphysema with scarring and fibrosis. No pulmonary mass. Linear atelectasis in the middle lob e. No pleural effusion. No adenopathy. Small hiatal hernia. Prior cholecystectomy. CT/CT angio chest PE protcl [id number] IMPRESSION: 1. Limited opacification of the pulmonary arteries due to poor injection. No c entral or proximal pulmonary emboli. 2. Chronic emphysema with no pneumonia. 3. Mild enlargement of the LEFT atrium.
[2020-07-04 12:31] LABS: Troponin(5th) Baseline 7 ng/L (0-10)
[2020-07-04] MEDS: iohexol 350 mg/mL 100 mL Btl IV (13:02)
== END 2020-07-04 13:58 | disposition home or self-care (01) ==
PROVIDERS: Emergency Provider Family Medicine; PCP Family Medicine
DX: R10.9 Unspecified abdominal pain (principal); K21.9 Gastro-esophageal reflux disease without esophagitis; Z79.82 Long term (current) use of aspirin; I10 Essential (primary) hypertension; E78.5 Hyperlipidemia, unspecified; F17.210 Nicotine dependence, cigarettes, uncomplicated
CPT/HCPCS: 12345; 71275; 74176; 80053; 81001; 84484; 85025; 93005; 96374; 96375; 96376; 99282; 99283; J2270; J2405; Q9967

== ENCOUNTER → 2020-08-10 15:07 | Outpatient (BNVA) | payer OTHER, SELFPAY | PROVIDERS: PCP Family Medicine; Visit Provider Nurse Practitioner | DX: Z20.828 Contact with and (suspected) exposure to other viral communicable diseases (principal) | CPT/HCPCS: 87635 ==

== ENCOUNTER → 2020-08-16 10:38 | Outpatient (BNVA) | payer OTHER, SELFPAY | PROVIDERS: PCP Family Medicine; Visit Provider Nurse Practitioner Family | DX: Z20.828 Contact with and (suspected) exposure to other viral communicable diseases (principal); J06.9 Acute upper respiratory infection, unspecified | CPT/HCPCS: 87635 ==

== ENCOUNTER → 2020-10-16 12:06 | Outpatient (BNVA) | payer OTHER, SELFPAY | PROVIDERS: PCP Family Medicine; Visit Provider Family Medicine | DX: I10 Essential (primary) hypertension (principal); E78.2 Mixed hyperlipidemia; F41.1 Generalized anxiety disorder; F51.01 Primary insomnia; Z68.32 Body mass index [BMI] 32.0-32.9, adult; F17.219 Nicotine dependence, cigarettes, with unspecified nicotine-induced disorders | CPT/HCPCS: 80053; 80061; 82043; 85025 ==

== ENCOUNTER 2020-11-12 13:08 | Emergency (ER) | payer OTHER, SELFPAY ==
[2020-11-12 13:32] VITALS: BP 134/81; PULSE 86; RESP 18; TEMP 37.1; O2SAT 98; BMI 27.3
--- NOTE | 2020-11-12 13:52 | XRR_ITS ---
PROCEDURE INFORMATION: Exam: XR Chest Exam date and time: 11/12/2020 2:01 PM Age: 50 years old Clinical indication: Cough; Patient HX: SOB, chest pain, fish allergy/reaction TECHNIQUE: Imaging protocol: XR of the chest Views: 1 view. COMPARISON: CR XR chest 1V portable [id number] 03/15/2020 1:46 AM FINDINGS: Lungs: No focal peripheral lung consolidation, air bronchogram formation, or silhouette sign. Pleural spaces: No pleural effusion or pneumothorax. Heart/Mediastinum: The cardiac silhouette is not enlarged. The mediastinal contours are normal. Bones/joints: No acute osseous abnormality. XR/XR chest 1V portable [id number] IMPRESSION: No sign of pneumonia.
--- NOTE | 2020-11-12 13:52 | W.ED.CHESTPA ---
HPI - Chest Pain General: Chief Complaint: Chest Pain Stated Complaint: DIFFICULTY BREATHING Time Seen by Provider: 11/12/20 13:49 Source: patient History of Present Illness: HPI narrative: This patient is a 50-year-old female who presents to the emergency department complaining of mild dyspnea with some intermittent chest pain. Patient states that she is little sunburn from being at the [employer] yesterday. 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 Skin. 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 And believes she might be having a reaction. Patient denies any significant shortness of breath. It does not know whether it is related to the sunburn yesterday or today. But her boss wanted her to come to the ER for evaluation. Patient's vital signs appear to be stable. Will do a chest x-ray and an IM injection of Benadryl and evaluate treat further as needed. Prior episodes: Yes Associated symptoms: Deny abdominal pain, dyspnea, fever(s), nausea, palpitations or vomiting Review of Systems General: Reports: 10 or more systems reviewed and unremarkable except in HPI and below Const: Denies: fever(s), chills, body aches or fatigue Eyes: Denies: change in vision or blurry vision ENMT: Denies: throat pain, hoarseness or mouth pain Card: Reports: chest pain; Denies: palpitations, irregular heart rhythm, edema, swelling of feet/ankles or lightheadedness Resp: Denies: dyspnea, productive cough, non-productive cough, wheezing or pain on inspiration GI: Denies: abdominal pain, nausea or vomiting : Denies: flank pain, difficulty voiding, dysuria, urinary frequency, urinary urgency or urinary hesitancy Musc: Denies: neck pain, back pain, extremity pain, extremity swelling, joint pain, joint swelling, joint redness, joint warmth or limited range of motion Skin/Breast: Denies: rash, pruritus, erythema or skin tenderness Neuro: Denies: headache(s), numbness in extremities or weakness in extremities Psych: Denies: anxiety or depression PFSH ED PFSH: Medical History Essential hypertension GERD (gastroesophageal reflux disease) Hyperlipidemia Nephrolithiasis Surgical History H/O esophagogastroduodenoscopy (04/05/20) H/O: hysterectomy History of cholecystectomy History of surgery on arm S/P appendectomy Status post colonoscopy (04/05/20) incomplete, needs Ba enema Family History Other CAD (coronary artery disease) Diabetes Hypertension Stroke Denies family history of Anesthesia complication Bleeding disorder Social History Smoking and tobacco status: current every day smoker cigarettes Packs smoked per day: 1 Alcohol intake: current Alcohol intake frequency: other Lives independently: Yes Marital status: Single Current occupational status: employed History of recent travel: No Physical Exam Const: COMMON NORMALS: no acute distress, average body habitus, patient oriented x3, no limitations, healthy appearing, alert and well nourished HENMT: COMMON NORMALS: normocephalic, atraumatic, external ears normal, EAC's normal, TM's normal bilaterally, Normal external nose present and Normal nasal mucous membranes and turbinates present HEAD & SCALP: normocephalic and atraumatic NOSE: Normal external nose present and Normal nasal mucous membranes and turbinates present EXTERNAL EAR: Yes external ears normal EXTERNAL AUDITORY CANAL: EAC's normal TYMPANIC MEMBRANE: TM's normal bilaterally Neck/C-Spine: COMMON NORMALS: full ROM, no lymphadenopathy, supple, no meningeal signs, no JVD, Thyroid normal and No carotid bruits THYROID: Thyroid normal Chest: COMMONS NORMALS: normal inspection of the chest, normal palpation of entire chest wall, normal inspection of the breasts and normal palpation of the breasts Breast/axilla inspection: Yes normal inspection of the breasts BREAST/AXILLA PALPATION: Yes normal palpation of the breasts Resp: COMMON NORMALS: normal respiratory effort, No retractions, No use of accessory muscles, clear to auscultation bilaterally and percussion normal AUSCULTATION: clear to auscultation bilaterally PERCUSSION: percussion normal Cardio: COMMON NORMALS: no JVD, regular rate, regular rhythm, S1 normal heart sound present, S2 normal heart sound present, No gallops present (Cardio), No clicks present (Cardio), No murmurs present (Cardio), No rub (Cardio) and Peripheral pulses 2+ throughout RATE: regular rate RHYTHM: regular rhythm HEART SOUNDS: S1 normal heart sound present and S2 normal heart sound present PERIPHERAL PULSES: Peripheral pulses 2+ throughout GI: COMMON NORMALS: Normal to inspection, nondistended, normoactive bowel sounds present, Soft to palpation, non-tender, No hepatosplenomegaly present, no masses and no bruits PALPATION: Yes Soft to palpation and Yes No hepatosplenomegaly present : COMMON NORMALS: Yes no CVA tenderness, Yes normal external appearance, Yes normal appearance of the vagina, Yes normal appearance of the cervix, Yes normal bimanual exam, Yes No adnexal tenderness and Yes no masses BLADDER/KIDNEY EXAM: Yes no CVA tenderness BIMANUAL EXAM - VAGINA & UTERUS: Yes normal bimanual exam Back/Pelvis: COMMON NORMALS: no CVA tenderness, thoracic and lumbar spine normal to inspection, no thoracic nor lumbar tenderness, thoraco-lumbar ROM normal and straight leg raise negative bilaterally Extremity: COMMON NORMALS: normal to inspection, full ROM, capillary refill normal, no joint enlargement, no clubbing, cyanosis or edema, no calf tenderness and no pedal edema Neuro: COMMON NORMALS: patient oriented x3 SENSORIUM/ORIENTATION: Yes alert MENINGEAL SIGNS: Yes no meningeal signs Course Reevaluation(s): Reevaluation #1: Patient is feeling improved after IM Benadryl. Time: 14:49 Vital Signs: Vital signs: Vital Signs Temperature 98.3 F 11/12/20 13:55 Pulse Rate 82 11/12/20 13:55 Respiratory Rate 18 11/12/20 13:32 Blood Pressure 137/79 11/12/20 13:55 Pulse Oximetry 97 11/12/20 13:55 MDM - Chest Pain Imaging Data^: CXR: Attestation: I personally reviewed and interpreted this imaging study as follows: My impression: Normal chest x-ray EKG Data^: EKG 1: Attestation: I personally reviewed and interpreted this EKG as follows: EKG interpretation date: 11/12/20 EKG interpretation time: 14:18 Prior EKG tracings: not available for review Interpretation: Sinus rhythm with occasional PAC otherwise nonspecific EKG heart rate 75 Discharge Plan Discharge Condition: Stable Prescriptions: No Action atorvastatin 40 mg tablet 40 mg PO BEDTIME Qty: 45 RF: 0 trazodone 150 mg tablet 150 mg PO BEDTIME Qty: 30 RF: 0 citalopram [Celexa] 10 mg tablet 10 mg PO DAILY Qty: 30 RF: 0 lisinopril-hydrochlorothiazide 20-25 mg tablet 1 tab PO DAILY Qty: 90 RF: 1 aspirin 81 mg tablet,delayed release (DR/EC) 81 mg PO DAILY RF: 0 nitroglycerin 0.4 mg tablet, sublingual 0.4 mg SUBLINGUAL Q5M PRN (Reason: chest pain) Qty: 30 RF: 0 ibuprofen 200 mg Tablet 400 mg PO DAILY PRN (Reason: Pain) RF: 0 Protonix 40 mg tablet,delayed release (DR/EC) 40 mg PO BID Qty: 60 RF: 5 Benadryl 25 mg Capsule 50 mg PO BEDTIME RF: 0 lisinopril 10 mg Tablet 10 mg PO DAILY PRN (Reason: Blood Pressure) RF: 0 Discharge Orders: Discharge ED (Routine); Ordered 11/12/20 Ordered By: Rad Johnson Referrals: Ellen Gonsalves DO [Primary Care Provider] - Discharge Diet: Advance as tolerated Discharge Activity: Resume usual activity Activity Restrictions/Additional Instructions: Encourage p.o. fluids. Avoid contact with fish or fish products. Benadryl nightly 8 to 10 hours as needed as needed. Follow-up with PCP in 2 to 3 days. 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
[2020-11-12 13:55] VITALS: BP 137/79; PULSE 82; TEMP 36.8; O2SAT 97
--- NOTE | 2020-11-12 13:56 | ECG_ITS ---
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 Measurements Intervals [place] Rate: 75 P: 26 MI: 137 QRS: 15 QRSD: 80 T: 45 QT: 361 QTc: 403 Interpretive Statements SINUS RHYTHM POSSIBLE RIGHT VENTRICULAR CONDUCTION DELAY [RSR (QR) IN V1/V2] Compared to ECG 07/04/2020 11:18:00 No significant changes Electronically Signed On 11-13-2020 1:12:57 CDT by Linette Thomas M.D. [id number]
[2020-11-12] MEDS: diphenhydrAMINE 50 mg/mL SDV 1mL IM (14:06)
== END 2020-11-12 15:26 | disposition home or self-care (01) ==
PROVIDERS: Emergency Provider Emergency Medicine; PCP Family Medicine
DX: R07.9 Chest pain, unspecified (principal); Z79.82 Long term (current) use of aspirin; I10 Essential (primary) hypertension; E78.5 Hyperlipidemia, unspecified; F17.210 Nicotine dependence, cigarettes, uncomplicated
CPT/HCPCS: 71045; 93005; 96372; 99283; J1200

== ENCOUNTER 2021-03-18 21:56 | Emergency (ER) | payer MEDICAID, SELFPAY ==
[2021-03-18 22:01] VITALS: BP 159/89; PULSE 83; RESP 16; TEMP 36.7; O2SAT 98; BMI 27.3
[2021-03-18 22:43] LABS: Add Urine Culture? No; Bacteria Urine TRACE /hpf; Bilirubin Urine 1+ (Negative); Blood Urine 3+ (Negative); Calcium Oxalate Crystals Urine 0-4 /hpf; Glucose Urine UA Norm (Normal); HCG Qualitative Urine. Negative (Negative); Ketones Urine 1+ (Negative); Leukocyte Esterase Urine Negative (Negative); Nitrate Urine Negative (Negative); Protein Urine 1+ (Negative); RBC Urine >100 /hpf (0-2); Squamous Epithelial Cell Urine 25-40 /hpf (0-5); Urine Appearance Hazy (CLEAR); Urine Color Dark Yellow (Yellow); Urobilinogen Urine 1 mg/dL (Negative); pH Urine 5 (5-7)
--- NOTE | 2021-03-19 02:03 | W.ED.BACK ---
Documented by User: VANESSA Horta 03/19/21 03:18 HPI - Back Pain/Injury General: Chief Complaint: Back Pain/Injury Stated Complaint: back pain, kidney pain Time Seen by Provider: 03/19/21 02:01 History of Present Illness: HPI Narrative: Patient is a 50-year-old female comes to the ED with left flank pain. Patient says he had a few days ago she started developing some mild left flank pain. Today flank pain got more severe and she has had nausea and multiple episodes of emesis. Flank pain radiates up into the left lower quadrant of the abdomen and she rates the pain a 10 out of 10. Patient has a past medical history of kidney stones and says this is similar to her past kidney stones. Patient has not taken anything today for pain. Denies any UTI symptoms, fever, chills. Associated symptoms: Deny abdominal pain, chills, dysuria, fatigue, fever(s), hematuria, nausea or vomiting Review of Systems Const: Denies: fever(s), chills or fatigue Eyes: Denies: change in vision or eye discomfort ENMT: Denies: throat pain, odynophagia, nasal discharge or nasal congestion Card: Denies: chest pain, palpitations, edema, swelling of feet/ankles, dyspnea on exertion or orthopnea Resp: Denies: dyspnea, productive cough or non-productive cough GI: Denies: abdominal pain, nausea, vomiting, diarrhea, constipation or hematochezia : Reports: flank pain (left flank); Denies: dysuria or hematuria Musc: Denies: neck pain, back pain or extremity swelling Skin/Breast: Denies: rash or new lesions Neuro: Denies: headache(s), numbness in extremities or weakness in extremities PFS ED PFSH: Medical History (Updated 03/19/21 @ 04:41 by Harsh Veliz MD) Essential hypertension GERD (gastroesophageal reflux disease) Hyperlipidemia Nephrolithiasis Surgical History H/O esophagogastroduodenoscopy (04/05/20) H/O: hysterectomy History of cholecystectomy History of surgery on arm S/P appendectomy Status post colonoscopy (04/05/20) incomplete, needs Ba enema Family History Other CAD (coronary artery disease) Diabetes Hypertension Stroke Denies family history of Anesthesia complication Bleeding disorder Social History Smoking and tobacco status: current every day smoker cigarettes Packs smoked per day: 1 Alcohol intake: current Alcohol intake frequency: other Lives independently: Yes Marital status: Single Current occupational status: employed History of recent travel: No Physical Exam Const: COMMON NORMALS: patient oriented x3 and alert GENERAL APPEARANCE: cooperative and in distress (pt appears uncomfortable and in pain) HENMT: COMMON NORMALS: normocephalic HEAD & SCALP: normocephalic MOUTH: Normal oral and palatal mucosa present THROAT: posterior oropharynx normal and uvula midline Eye: COMMON NORMALS: Equal, round and reactive pupils present PUPIL: Yes Equal, round and reactive pupils present Neck/C-Spine: COMMON NORMALS: supple GENERAL: Yes normal visual inspection Resp: COMMON NORMALS: normal respiratory effort, No retractions, No use of accessory muscles and clear to auscultation bilaterally AUSCULTATION: clear to auscultation bilaterally Cardio: COMMON NORMALS: regular rate, regular rhythm, S1 normal heart sound present, S2 normal heart sound present, No gallops present (Cardio), No clicks present (Cardio), No murmurs present (Cardio) and Peripheral pulses 2+ throughout RATE: regular rate RHYTHM: regular rhythm HEART SOUNDS: S1 normal heart sound present and S2 normal heart sound present PERIPHERAL PULSES: Peripheral pulses 2+ throughout GI: COMMON NORMALS: Normal to inspection, nondistended, normoactive bowel sounds present, Soft to palpation, non-tender and no masses PALPATION: Yes Soft to palpation : BLADDER/KIDNEY EXAM: Yes CVA tenderness Back/Pelvis: GENERAL BACK: Yes CVA tenderness CVA tenderness: left Extremity: COMMON NORMALS: normal to inspection Neuro: COMMON NORMALS: patient oriented x3 and moves all extremities SENSORIUM/ORIENTATION: Yes alert Skin: GENERAL SKIN EXAM: dry skin Course Vital Signs: Vital signs: Vital Signs Temperature 98.1 F 03/18/21 22:01 Pulse Rate 84 03/19/21 03:41 Respiratory Rate 20 H 03/19/21 04:15 Blood Pressure 138/84 03/19/21 03:41 Pulse Oximetry 97 03/19/21 03:41 MDM - Back Pain/Injury MDM Narrative: Medical decision making narrative: Patient is a 50-year-old female comes to the ED with left flank pain. She has a history of kidney stones. I performed the initial history physical exam and ordered lab work and imaging. I told Dr. Veliz about patient case and he will be taking over care of patient. waiting on lab and CT results.-HAIR Lab Data: Attestation: I reviewed the patient's lab results. Labs: Lab Results 03/18/21 03/18/21 03/19/21 Range/Units 22:30 22:30 02:40 WBC 12.7 H (4.0-10.0) 10^3/ uL RBC 4.40 (4.1-5.3) 10^6/u L Hgb 14.2 (11.5-15.3) g/dL Hct 42.7 (37.0-47.0) % MCV 97.0 (81-99) fL MCH 32.3 (28.0-34.0) pg MCHC 33.3 (30.0-36.0) g/dL RDW 13.1 (12.1-15.1) % Plt Count 241 (130-400) 10^3/c mm MPV 11.2 H (7.4-10.4) fL Neut % (Auto) 61.5 % Lymph % (Auto) 29.8 % [place] % (Auto) 7.4 % Eos % (Auto) 0.5 % Baso % (Auto) 0.4 % Neut # (Auto) 7.83 H (1.8-7.7) 10^3/u L Lymph # (Auto) 3.8 (0.8-4.8) 10^3/u L [place] # (Auto) 0.9 (0.2-0.9) 10^3/u L Eos # (Auto) 0.1 (0.0-0.8) 10^3/u L Baso # (Auto) 0.1 (0.0-0.1) 10^3/u L Nucleated RBC % (a uto) 0 % Nucleated RBCs # 0.0 /100WBC Sodium (136-145) mmol/L Potassium (3.5-5.1) mmol/L Chloride (98-107) mmol/L Carbon Dioxide (22-29) mmol/L Anion Gap (5-19) BUN (6-20) mg/dL Creatinine (0.5-0.9) mg/dL GFR Calculation (90-130) mL/min Glucose (65-115) mg/dL Calculated Osmolal ity (285-295) mOsm/k g Calcium (8.5-10.5) mg/dL Total Bilirubin (0.15-1.2) mg/dL AST (0-32) U/L ALT (0-33) U/L Alkaline Phosphata se (35-105) IU/L Total Protein (6.6-8.7) g/dL Albumin (3.5-5.2) g/dL Globulin (1.3-4.6) g/dL Lipase (13-60) U/L HCG, Qual Negative (Negative) Urine Color Dark yellow (Yellow) Urine Appearance Hazy A (CLEAR) Urine pH 5 (5-7) Ur Specific Gravit y 1.030 (1.005-1.030) Urine Protein 1+ H (Negative) Urine Glucose (UA) Norm (Normal) Urine Ketones 1+ H (Negative) Urine Blood 3+ H (Negative) Urine Nitrate Negative (Negative) Urine Bilirubin 1+ H (Negative) Urine Urobilinogen 1 H (Negative) mg/dL Ur Leukocyte Flores ase Negative (Negative) Urine RBC >100 H (0-2) /hpf Urine WBC 5-10 H (0-5) /hpf Ur Squamous Epith Cells 25-40 H (0-5) /hpf Calcium Oxalate Cr ystal 0-4 H /hpf Amorphous Sediment Not Reportable Urine Bacteria Trace (NONE) /hpf 03/19/21 Range/Units 02:40 WBC (4.0-10.0) 10^3/ uL RBC (4.1-5.3) 10^6/u L Hgb (11.5-15.3) g/dL Hct (37.0-47.0) % MCV (81-99) fL MCH (28.0-34.0) pg MCHC (30.0-36.0) g/dL RDW (12.1-15.1) % Plt Count (130-400) 10^3/c mm MPV (7.4-10.4) fL Neut % (Auto) % Lymph % (Auto) % [place] % (Auto) % Eos % (Auto) % Baso % (Auto) % Neut # (Auto) (1.8-7.7) 10^3/u L Lymph # (Auto) (0.8-4.8) 10^3/u L [place] # (Auto) (0.2-0.9) 10^3/u L Eos # (Auto) (0.0-0.8) 10^3/u L Baso # (Auto) (0.0-0.1) 10^3/u L Nucleated RBC % (a uto) % Nucleated RBCs # /100WBC Sodium 141 (136-145) mmol/L Potassium 3.8 (3.5-5.1) mmol/L Chloride 103 (98-107) mmol/L Carbon Dioxide 25 (22-29) mmol/L Anion Gap 16.8 (5-19) BUN 17 (6-20) mg/dL Creatinine 0.8 (0.5-0.9) mg/dL GFR Calculation 75.6 L (90-130) mL/min Glucose 95 (65-115) mg/dL Calculated Osmolal ity 293 (285-295) mOsm/k g Calcium 9.2 (8.5-10.5) mg/dL Total Bilirubin 0.3 (0.15-1.2) mg/dL AST 12 (0-32) U/L ALT 11 (0-33) U/L Alkaline Phosphata se 93 (35-105) IU/L Total Protein 6.8 (6.6-8.7) g/dL Albumin 4.1 (3.5-5.2) g/dL Globulin 2.7 (1.3-4.6) g/dL Lipase 71 H (13-60) U/L HCG, Qual (Negative) Urine Color (Yellow) Urine Appearance (CLEAR) Urine pH (5-7) Ur Specific Gravit y (1.005-1.030) Urine Protein (Negative) Urine Glucose (UA) (Normal) Urine Ketones (Negative) Urine Blood (Negative) Urine Nitrate (Negative) Urine Bilirubin (Negative) Urine Urobilinogen (Negative) mg/dL Ur Leukocyte Flores ase (Negative) Urine RBC (0-2) /hpf Urine WBC (0-5) /hpf Ur Squamous Epith Cells (0-5) /hpf Calcium Oxalate Cr ystal /hpf Amorphous Sediment Urine Bacteria (NONE) /hpf Discharge Plan Discharge Patient Disposition: Home Clinical Impression: Kidney stone Condition: Stable Prescriptions: New ondansetron 4 mg tablet,disintegrating 4 mg PO Q6H PRN (Reason: nausea and vomiting) Qty: 14 RF: 0 Flomax 0.4 mg capsule 0.4 mg PO DAILY Qty: 5 RF: 0 tramadol 50 mg tablet 50 mg PO Q6H PRN (Reason: pain) Qty: 20 RF: 0 No Action atorvastatin 40 mg tablet 40 mg PO BEDTIME Qty: 45 RF: 0 trazodone 150 mg tablet 150 mg PO BEDTIME Qty: 30 RF: 0 citalopram [Celexa] 10 mg tablet 10 mg PO DAILY Qty: 30 RF: 0 lisinopril-hydrochlorothiazide 20-25 mg tablet 1 tab PO DAILY Qty: 90 RF: 1 aspirin 81 mg tablet,delayed release (DR/EC) 81 mg PO DAILY RF: 0 nitroglycerin 0.4 mg tablet, sublingual 0.4 mg SUBLINGUAL Q5M PRN (Reason: chest pain) Qty: 30 RF: 0 ibuprofen 200 mg Tablet 400 mg PO DAILY PRN (Reason: Pain) RF: 0 Protonix 40 mg tablet,delayed release (DR/EC) 40 mg PO BID Qty: 60 RF: 5 Benadryl 25 mg Capsule 50 mg PO BEDTIME RF: 0 lisinopril 10 mg Tablet 10 mg PO DAILY PRN (Reason: Blood Pressure) RF: 0 Discharge Orders: Discharge ED (Routine); Ordered 03/19/21 Ordered By: Harsh Veliz Referrals: Martinez Crawford MD [Physician] - 1-3 days Discharge Diet: Advance as tolerated Discharge Activity: Resume usual activity Patient Instructions: Kidney Stones (ED), Opioid Safety Coding Level of Care Code ED Roll Slicing Machine Tender for Chg Fwd Exam Comprehensive Documented by User: Harsh Veliz MD 03/19/21 05:16 HPI - Back Pain/Injury General: Chief Complaint: Back Pain/Injury Stated Complaint: back pain, kidney pain Time Seen by Provider: 03/19/21 02:01 PFSH ED PFSH: Medical History (Updated 03/19/21 @ 04:41 by Harsh Veliz MD) Essential hypertension GERD (gastroesophageal reflux disease) Hyperlipidemia Nephrolithiasis Surgical History H/O esophagogastroduodenoscopy (04/05/20) H/O: hysterectomy History of cholecystectomy History of surgery on arm S/P appendectomy Status post colonoscopy (04/05/20) incomplete, needs Ba enema Family History Other CAD (coronary artery disease) Diabetes Hypertension Stroke Denies family history of Anesthesia complication Bleeding disorder Social History Smoking and tobacco status: current every day smoker cigarettes Packs smoked per day: 1 Alcohol intake: current Alcohol intake frequency: other Lives independently: Yes Marital status: Single Current occupational status: employed History of recent travel: No Course Vital Signs: Vital signs: Vital Signs Temperature 98.1 F 03/18/21 22:01 Pulse Rate 84 03/19/21 03:41 Respiratory Rate 20 H 03/19/21 04:15 Blood Pressure 138/84 03/19/21 03:41 Pulse Oximetry 97 03/19/21 03:41 MDM - Back Pain/Injury MDM Narrative: Medical decision making narrative: Patient presents here with kidney stone. Her pain is improved here. Stone is 4 mm should be able to pass on its own. We will place her on pain meds and she is to follow-up with Dr. Crawford. Lab Data: Labs: Lab Results 03/18/21 03/18/21 03/19/21 Range/Units 22:30 22:30 02:40 WBC 12.7 H (4.0-10.0) 10^3/ uL RBC 4.40 (4.1-5.3) 10^6/u L Hgb 14.2 (11.5-15.3) g/dL Hct 42.7 (37.0-47.0) % MCV 97.0 (81-99) fL MCH 32.3 (28.0-34.0) pg MCHC 33.3 (30.0-36.0) g/dL RDW 13.1 (12.1-15.1) % Plt Count 241 (130-400) 10^3/c mm MPV 11.2 H (7.4-10.4) fL Neut % (Auto) 61.5 % Lymph % (Auto) 29.8 % [place] % (Auto) 7.4 % Eos % (Auto) 0.5 % Baso % (Auto) 0.4 % Neut # (Auto) 7.83 H (1.8-7.7) 10^3/u L Lymph # (Auto) 3.8 (0.8-4.8) 10^3/u L [place] # (Auto) 0.9 (0.2-0.9) 10^3/u L Eos # (Auto) 0.1 (0.0-0.8) 10^3/u L Baso # (Auto) 0.1 (0.0-0.1) 10^3/u L Nucleated RBC % (a uto) 0 % Nucleated RBCs # 0.0 /100WBC Sodium (136-145) mmol/L Potassium (3.5-5.1) mmol/L Chloride (98-107) mmol/L Carbon Dioxide (22-29) mmol/L Anion Gap (5-19) BUN (6-20) mg/dL Creatinine (0.5-0.9) mg/dL GFR Calculation (90-130) mL/min Glucose (65-115) mg/dL Calculated Osmolal ity (285-295) mOsm/k g Calcium (8.5-10.5) mg/dL Total Bilirubin (0.15-1.2) mg/dL AST (0-32) U/L ALT (0-33) U/L Alkaline Phosphata se (35-105) IU/L Total Protein (6.6-8.7) g/dL Albumin (3.5-5.2) g/dL Globulin (1.3-4.6) g/dL Lipase (13-60) U/L HCG, Qual Negative (Negative) Urine Color Dark yellow (Yellow) Urine Appearance Hazy A (CLEAR) Urine pH 5 (5-7) Ur Specific Gravit y 1.030 (1.005-1.030) Urine Protein 1+ H (Negative) Urine Glucose (UA) Norm (Normal) Urine Ketones 1+ H (Negative) Urine Blood 3+ H (Negative) Urine Nitrate Negative (Negative) Urine Bilirubin 1+ H (Negative) Urine Urobilinogen 1 H (Negative) mg/dL Ur Leukocyte Flores ase Negative (Negative) Urine RBC >100 H (0-2) /hpf Urine WBC 5-10 H (0-5) /hpf Ur Squamous Epith Cells 25-40 H (0-5) /hpf Calcium Oxalate Cr ystal 0-4 H /hpf Amorphous Sediment Not Reportable Urine Bacteria Trace (NONE) /hpf 03/19/21 Range/Units 02:40 WBC (4.0-10.0) 10^3/ uL RBC (4.1-5.3) 10^6/u L Hgb (11.5-15.3) g/dL Hct (37.0-47.0) % MCV (81-99) fL MCH (28.0-34.0) pg MCHC (30.0-36.0) g/dL RDW (12.1-15.1) % Plt Count (130-400) 10^3/c mm MPV (7.4-10.4) fL Neut % (Auto) % Lymph % (Auto) % [place] % (Auto) % Eos % (Auto) % Baso % (Auto) % Neut # (Auto) (1.8-7.7) 10^3/u L Lymph # (Auto) (0.8-4.8) 10^3/u L [place] # (Auto) (0.2-0.9) 10^3/u L Eos # (Auto) (0.0-0.8) 10^3/u L Baso # (Auto) (0.0-0.1) 10^3/u L Nucleated RBC % (a uto) % Nucleated RBCs # /100WBC Sodium 141 (136-145) mmol/L Potassium 3.8 (3.5-5.1) mmol/L Chloride 103 (98-107) mmol/L Carbon Dioxide 25 (22-29) mmol/L Anion Gap 16.8 (5-19) BUN 17 (6-20) mg/dL Creatinine 0.8 (0.5-0.9) mg/dL GFR Calculation 75.6 L (90-130) mL/min Glucose 95 (65-115) mg/dL Calculated Osmolal ity 293 (285-295) mOsm/k g Calcium 9.2 (8.5-10.5) mg/dL Total Bilirubin 0.3 (0.15-1.2) mg/dL AST 12 (0-32) U/L ALT 11 (0-33) U/L Alkaline Phosphata se 93 (35-105) IU/L Total Protein 6.8 (6.6-8.7) g/dL Albumin 4.1 (3.5-5.2) g/dL Globulin 2.7 (1.3-4.6) g/dL Lipase 71 H (13-60) U/L HCG, Qual (Negative) Urine Color (Yellow) Urine Appearance (CLEAR) Urine pH (5-7) Ur Specific Gravit y (1.005-1.030) Urine Protein (Negative) Urine Glucose (UA) (Normal) Urine Ketones (Negative) Urine Blood (Negative) Urine Nitrate (Negative) Urine Bilirubin (Negative) Urine Urobilinogen (Negative) mg/dL Ur Leukocyte Flores ase (Negative) Urine RBC (0-2) /hpf Urine WBC (0-5) /hpf Ur Squamous Epith Cells (0-5) /hpf Calcium Oxalate Cr ystal /hpf Amorphous Sediment Urine Bacteria (NONE) /hpf Imaging Data^: CXR: Attestation: I personally reviewed and interpreted this imaging study as follows: Radiologist's impression: [address] [address] [address] Scan Report Signed Patient: Naomie Villa Unit #: [id number] : 1970 Age/Sex: 50 / F ADM Date: 03/18/21 Loc: ER Room/Bed: Attending Dr: Ordering Provider/Ordering MD: Forrest Flores Date of Service: 03/19/21 Procedure(s): CT kidney stone [id number] Accession Number(s): [id number] Report Number: [id number] PROCEDURE INFORMATION: Exam: CT Abdomen And Pelvis Without Contrast Exam date and time: 03/19/2021 2:07 AM Age: 50 years old Clinical indication: Abdominal pain; Flank; Left; Prior surgery; Surgery date: 6+ months; Surgery type: Hyst , gb; Additional info: Left flank pain and nausea TECHNIQUE: Imaging protocol: Computed tomography of the abdomen and pelvis without contrast. Radiation optimization: All CT scans at this facility use at least one of these dose optimization techniques: automated exposure control; mA and/or kV adjustment per patient size (includes targeted exams where dose is matched to clinical indication); or iterative reconstruction. COMPARISON: CT abdomen pelvis w con* [id number] 02/15/2020 3:43 AM RADIATION DOSE METRICS: Total DLP (mGy-cm): 1274.68 FINDINGS: Lungs: The lung bases are clear. No effusion Mediastinal space: Small hiatal hernia. Liver: Normal. No mass. Gallbladder and bile ducts: There has been a cholecystectomy. Pancreas: Normal. No ductal dilation. Spleen: Normal. No splenomegaly. Adrenal glands: Normal. No mass. Kidneys and ureters: 7 mm nonobstructing left renal pelvis stone. 4 mm mildly obstructing left proximal ureteral stone. Stomach and bowel: Unremarkable. No obstruction. No mucosal thickening. Appendix: The appendix is not positively identified. However, no secondary changes of appendicitis are present. Intraperitoneal space: Unremarkable. No free air. No significant fluid collection. Vasculature: Unremarkable. No abdominal aortic aneurysm. Lymph nodes: Unremarkable. No enlarged lymph nodes. Urinary bladder: Unremarkable as visualized. Reproductive: There has been a hysterectomy. Bones/joints: Unremarkable. No acute fracture. Soft tissues: Unremarkable. CT/CT kidney stone [id number] IMPRESSION: 1. 4 mm mildly obstructing left proximal ureteral stone. 2. Small hiatal hernia. 3. 7 mm nonobstructing left renal pelvis stone. 4. The appendix is not positively identified. However, no secondary changes of appendicitis are present. Radiation Dose CTDIVOL = (mGy): DLP = 1274.68 (mGy-cm) Dictated By: Elias Hardy Signed By: Elias Hardy Signed Date/Time: 03/19/21358 DD/ 6 Discharge Plan Discharge Patient Disposition: Home Clinical Impression: Kidney stone Condition: Stable Prescriptions: New ondansetron 4 mg tablet,disintegrating 4 mg PO Q6H PRN (Reason: nausea and vomiting) Qty: 14 RF: 0 Flomax 0.4 mg capsule 0.4 mg PO DAILY Qty: 5 RF: 0 tramadol 50 mg tablet 50 mg PO Q6H PRN (Reason: pain) Qty: 20 RF: 0 No Action atorvastatin 40 mg tablet 40 mg PO BEDTIME Qty: 45 RF: 0 trazodone 150 mg tablet 150 mg PO BEDTIME Qty: 30 RF: 0 citalopram [Celexa] 10 mg tablet 10 mg PO DAILY Qty: 30 RF: 0 lisinopril-hydrochlorothiazide 20-25 mg tablet 1 tab PO DAILY Qty: 90 RF: 1 aspirin 81 mg tablet,delayed release (DR/EC) 81 mg PO DAILY RF: 0 nitroglycerin 0.4 mg tablet, sublingual 0.4 mg SUBLINGUAL Q5M PRN (Reason: chest pain) Qty: 30 RF: 0 ibuprofen 200 mg Tablet 400 mg PO DAILY PRN (Reason: Pain) RF: 0 Protonix 40 mg tablet,delayed release (DR/EC) 40 mg PO BID Qty: 60 RF: 5 Benadryl 25 mg Capsule 50 mg PO BEDTIME RF: 0 lisinopril 10 mg Tablet 10 mg PO DAILY PRN (Reason: Blood Pressure) RF: 0 Discharge Orders: Discharge ED (Routine); Ordered 03/19/21 Ordered By: Harsh Veliz Referrals: Martinez Crawford MD [Physician] - 1-3 days Discharge Diet: Advance as tolerated Discharge Activity: Resume usual activity Patient Instructions: Kidney Stones (ED), Opioid Safety Coding Level of Care Code ED Roll Slicing Machine Tender for g Fwd Exam Comprehensive
--- NOTE | 2021-03-19 02:07 | CTR_ITS ---
PROCEDURE INFORMATION: Exam: CT Abdomen And Pelvis Without Contrast Exam date and time: 03/19/2021 2:07 AM Age: 50 years old Clinical indication: Abdominal pain; Flank; Left; Prior surgery; Surgery date: 6+ months; Surgery type: Hyst , gb; Additional info: Left flank pain and nausea TECHNIQUE: Imaging protocol: Computed tomography of the abdomen and pelvis without contrast. Radiation optimization: All CT scans at this facility use at least one of these dose optimization techniques: automated exposure control; mA and/or kV adjustment per patient size (includes targeted exams where dose is matched to clinical indication); or iterative reconstruction. COMPARISON: CT abdomen pelvis w con* [id number] 02/15/2020 3:43 AM RADIATION DOSE METRICS: Total DLP (mGy-cm): 1274.68 FINDINGS: Lungs: The lung bases are clear. No effusion Mediastinal space: Small hiatal hernia. Liver: Normal. No mass. Gallbladder and bile ducts: There has been a cholecystectomy. Pancreas: Normal. No ductal dilation. Spleen: Normal. No splenomegaly. Adrenal glands: Normal. No mass. Kidneys and ureters: 7 mm nonobstructing left renal pelvis stone. 4 mm mildly obstructing left proximal ureteral stone. Stomach and bowel: Unremarkable. No obstruction. No mucosal thickening. Appendix: The appendix is not positively identified. However, no secondary changes of appendicitis are present. Intraperitoneal space: Unremarkable. No free air. No significant fluid collection. Vasculature: Unremarkable. No abdominal aortic aneurysm. Lymph nodes: Unremarkable. No enlarged lymph nodes. Urinary bladder: Unremarkable as visualized. Reproductive: There has been a hysterectomy. Bones/joints: Unremarkable. No acute fracture. Soft tissues: Unremarkable. CT/CT kidney stone [id number] IMPRESSION: 1. 4 mm mildly obstructing left proximal ureteral stone. 2. Small hiatal hernia. 3. 7 mm nonobstructing left renal pelvis stone. 4. The appendix is not positively identified. However, no secondary changes of appendicitis are present. Radiation Dose CTDIVOL = (mGy): DLP = 1274.68 (mGy-cm)
[2021-03-19] MEDS: sodium chloride 0.9% 1,000 ML 999 ML IV (02:55)
[2021-03-19] MEDS: ondansetron 2 mg/ML SDV 2 mL 4 MG IVP (03:00)
[2021-03-19 03:09] LABS: Basophils # 0.1 10^3/uL (0.0-0.1); Basophils % 0.4 %; Eosinophils # 0.1 10^3/uL (0.0-0.8); Eosinophils % 0.5 %; Hematocrit 42.7 % (37.0-47.0); Hemoglobin 14.2 g/dL (11.5-15.3); Lymphocytes # 3.8 10^3/uL (0.8-4.8); Lymphocytes % 29.8 %; Mean Corpuscular HGB Conc 33.3 g/dL (30.0-36.0); Mean Corpuscular Hemoglobin 32.3 pg (28.0-34.0); Mean Platelet Volume 11.2 fL (7.4-10.4); Monocytes # 0.9 10^3/uL (0.2-0.9); Monocytes % 7.4 %; Neutrophils # 7.83 10^3/uL (1.8-7.7); Neutrophils % 61.5 %; Nucleated Red Blood Cells % 0 %; Platelet Count 241 10^3/cmm (130-400); Red Cell Distribution Width 13.1 % (12.1-15.1); White Blood Count 12.7 10^3/uL (4.0-10.0)
[2021-03-19 03:29] VITALS: RESP 20; O2SAT 97
[2021-03-19 03:29] LABS: Alanine Aminotransferase 11 U/L (0-33); Albumin Level 4.1 g/dL (3.5-5.2); Alkaline Phosphatase 93 IU/L (35-105); Anion Gap 16.8 (5-19); Aspartate Amino Transferase 12 U/L (0-32); Blood Urea Nitrogen 17 mg/dL (6-20); Calcium 9.2 mg/dL (8.5-10.5); Carbon Dioxide 25 mmol/L (22-29); Chloride 103 mmol/L (98-107); Globulin 2.7 g/dL (1.3-4.6); Glomerular Filtration Rate 75.6 mL/min (90-130); Glucose 95 mg/dL (65-115); Lipase 71 U/L (13-60); Osmolality Calculated 293 mOsm/kg (285-295); Potassium 3.8 mmol/L (3.5-5.1); Sodium 141 mmol/L (136-145); Total Bilirubin 0.3 mg/dL (0.15-1.2); Total Protein 6.8 g/dL (6.6-8.7)
[2021-03-19] MEDS: morphine 4 mg/mL SDV 1 mL IVP (03:29)
[2021-03-19 03:34] LABS: Slide Review Slide Review Perform
[2021-03-19 03:41] VITALS: BP 138/84; PULSE 84; RESP 16; O2SAT 97
[2021-03-19] MEDS: ketorolac 30 mg/mL INJ 15 MG IVP (04:10)
[2021-03-19 04:15] VITALS: RESP 20
[2021-03-19] MEDS: HYDROmorphone 1 mg/mL INJ 1 mL IVP (04:15)
[2021-03-19 05:30] VITALS: BP 188/58; RESP 18; O2SAT 98
--- NOTE | 2021-03-19 09:10 | DCPLANNER ---
manager social had message to schedule a follow up appointment for patient with Dr. Crawford. manager social called the office of Dr. Crawford, spoke with Keyanna, gave clinic patients information. manager social was told that patients information would be printed and reviewed. Clinic will call patient with appointment information.
--- NOTE | 2021-03-20 07:39 | DCPLANNER ---
Patient has a follow up appointment scheduled for , March 21, 2021 at 2:[address] Crawford. Clinic will call patient with appointment information.
--- NOTE | 2021-03-29 14:55 | DCPLANNER ---
Patient had a follow up appointment scheduled for 03.21.[address] Crawford - patient did attend appointment.
== END 2021-03-19 05:10 | disposition home or self-care (01) ==
PROVIDERS: Emergency Medicine; Physician Assistant; Emergency Provider Emergency Medicine
DX: N20.2 Calculus of kidney with calculus of ureter (principal); I10 Essential (primary) hypertension; E78.5 Hyperlipidemia, unspecified; F17.210 Nicotine dependence, cigarettes, uncomplicated
CPT/HCPCS: 74176; 80053; 81001; 81025; 83690; 85025; 87040; 96361; 96374; 96375; 99284; J1170; J1885; J2270; J2405; J7030

== ENCOUNTER 2021-03-21 12:41 | Outpatient (CLI) | payer MEDICAID, SELFPAY ==
--- NOTE | 2021-03-21 13:00 | XR_ITS ---
WS: [id number] KUB, AP view, 03/21/2021 Clinical Data: STONE Comparison: KUB, 03/17/2019. CT abdomen and pelvis, 03/19/2021. Findings: No abnormal intraabdominal masses are seen. There is no dilatated small bowel or evidence of obstruct ion. There is a 0.4 cm calcification to the left of the L4 transverse process which is probably the proxim al left ureteral calculus. There is a 0.5 cm calculus overlying the inferior pole of the right kidney . Fecal material obscures detail over the right kidney. There are phleboliths in the true pelvis. The re are clips in the right upper quadrant from a cholecystectomy. XR/XR KUB [id number] Impression: 1. Probable proximal left ureteral calculus. 2. Probable right inferior pole renal calculus.
== END 2021-03-21 12:42 | disposition home or self-care (01) ==
LOC: RAD 12:43
PROVIDERS: PCP Urology; Visit Provider Urology
DX: N20.0 Calculus of kidney (principal)
CPT/HCPCS: 74018

== ENCOUNTER → 2021-03-22 13:52 | Outpatient (BNVA) | payer MEDICAID, SELFPAY | PROVIDERS: PCP Urology; Visit Provider Urology | DX: N20.0 Calculus of kidney (principal); F51.01 Primary insomnia; N20.1 Calculus of ureter | CPT/HCPCS: 81003 ==

== ENCOUNTER 2021-03-25 11:58 | Day surgery (SDC) | payer MEDICAID, SELFPAY ==
[2021-03-22 14:44] VITALS: BMI 27.3
[2021-03-25] VITALS (9 sets, daily range): BP systolic 118–163; BP diastolic 65–89; PULSE 65–101; RESP 16–19; TEMP 36.2–36.4; O2SAT 92–99
--- NOTE | 2021-03-25 12:10 | XRR_ITS ---
PROCEDURE INFORMATION: Exam: XR Abdomen Exam date and time: 03/25/2021 12:10 PM Age: 50 years old Clinical indication: Screening exam; Other: Preop eswl left TECHNIQUE: Imaging protocol: XR of the abdomen. Views: Frontal supine view of the abdomen. 1 View. Total images: 1 COMPARISON: CR XR KUB [id number] 03/21/2021 1:12 PM FINDINGS: Gastrointestinal tract: Bowel gas pattern is nondistended and nonobstructive. Organs: Surgical clips are present in the right upper quadrant which are suggestive of prior cholecystectomy. Calcific density projecting in the inferior pole of the right kidney felt to represent small renal calculus. Vasculature: Incidental phleboliths noted. Bones/joints: Small density projecting adjacent to the left transverse process of L3 felt to represent a calculus within the left ureter is unchanged. XR/XR KUB [id number] IMPRESSION: 1. Calcific density projecting in the inferior pole of the right kidney felt to represent small renal calculus. This finding is stable when compared to the prior exam. 2. Small density projecting adjacent to the left transverse process of L3 felt to represent a calculus within the left ureter is unchanged.
--- NOTE | 2021-03-25 12:41 | P.HPUD_ITS ---
Surgery/Procedure H&P Update DATE OF PROCEDURE: March 25, 2021 DATE H&P PERFORMED: 03/21/21 H&P UPDATE INFORMATION: I have reviewed H&P completed within last 30 days, I have examined patient prior to procedure, No changes to prior documentation and H&P is in [facility] [place] EMR on date indicated CHANGES TO PREVIOUS DOCUMENTATION: Still having a lot of left renal colicky pain. PREOP DIAGNOSIS: Left proximal ureteral calculus PLANNED PROCEDURE: Operation Date: 03/25/21 13:10 Proposed Procedures p [id number] [id number] 14039 N23 N20.1(Not Applicable) - Mratinez Crawford MD s Cystoscopy(Not Applicable) - Martinez Crawford MD s poss Ureteral Stent Placement(Not Applicable) - Martinez Crawford MD
--- NOTE | 2021-03-25 12:44 | ANES.PREANE2 ---
Pre-Anesthetic Assessment Pre-Anesthetic Assessment: Height/Weight: Height 1.52 m Weight 63.503 kg Preop Diagnosis: Left proximal ureteral calculus Proposed Procedure: Operation Date: 03/25/21 13:10 Proposed Procedures p ESWL 46473 15247 N23 N20.1(Not Applicable) - MD tom Pedroza Cystoscopy(Not Applicable) - MD tom Pedroza poss Ureteral Stent Placement(Not Applicable) - Martinez Crawford MD Familial anesthetic complications: None Was Beta Nathaniel taken within 24 hours: N/A Was Clonidine taken within 24 hours: N/A Last intake: Intake Last Liquid Date 03/25/21 Last Liquid Time 03:00 Last Solid Date 03/24/21 Last Solid Time 14:00 Social: Social History: Tobacco and No alcohol Exam: Pre-Anes Outpt Exam: alert, oriented x 3, clear to auscultation bilaterally and regular rate & rhythm Airway: Cervical ROM: WNL MP: 3 Dentition: Full Pulmonary: Pulmonary: COPD CV/HEM: CV/HEM: HTN GI: GI: GERD Neuropsych: Neuropsych: Anxiety Anesthetic Plan: ASA status: 3 Anesthesia: General Risk of > 500 ml blood loss (7ml/kg in children): No PFSH Anesthesia PFSH: Medical History Essential hypertension GERD (gastroesophageal reflux disease) Hyperlipidemia Left ureteral calculus Nephrolithiasis Surgical History H/O esophagogastroduodenoscopy (04/05/20) H/O: hysterectomy History of cholecystectomy History of surgery on arm S/P appendectomy Status post colonoscopy (04/05/20) incomplete, needs Ba enema Family History Other CAD (coronary artery disease) Diabetes Hypertension Stroke Denies family history of Anesthesia complication Bleeding disorder Social History Smoking and tobacco status: current every day smoker cigarettes Packs smoked per day: 1 Alcohol intake: current Alcohol intake frequency: other Lives independently: Yes Marital status: Single Current occupational status: employed History of recent travel: No Data Anesthesia Cardiac Studies: No Data to Display
[2021-03-25] MEDS: fentaNYL 50 mcg/mL INJ 2mL IVP ×2 (13:09→14:40)
[2021-03-25] MEDS: sodium chloride 0.9% 1,000 ML 30 ML IV (13:14)
--- NOTE | 2021-03-25 13:22 | P.OP_ITS ---
Operative Report Date of procedure: March 25, 2021 Pre-op Diagnosis: Left proximal ureteral calculus Post-op Diagnosis: 1. Left proximal ureteral calculus 2. COMPLETE duplication left ureter Procedure Done: 1. Extracorporeal shockwave lithotripsy left ureteral stone in the proximal aspect of the ureter to the lower pole moiety 2. Left retrograde ureteropyelogram, both fully duplicated ureters 3. Left ureteral stent placement (ureter to the left lower pole moiety) Implants: Left ureteral stent (left lower pole moiety Specimens removed/disposition: Stone fragments Pathology: Stone fragments Surgeon: Ty Anesthesia: General Estimated blood loss: Minimal Urine output: Not measured Complications: None Findings: 1. Complete duplication of left ureter. Surprisingly the more distal ureteral orifice actually went to the ureter to the lower pole moiety 2. Stone located in the proximal aspect of the ureter to the lower pole moiety 3. Stented that ureter with a 4.5 Pakistani by 24 cm double-pigtail without string Condition: stable Disposition: PACU Brief History: Naomie is a very pleasant 50-year-old white female with a history of stones who was recently diagnosed with a stone in the left proximal ureter. She was known to have a duplicated system and it was unclear whether the duplication was partial or complete. The dilation that occurred was in the lower pole and interpolar areas. She is admitted for ESWL, retrograde and stent placement Procedure: After routine preoperative evaluation examination and obtaining of informed consent she was taken to the operating suite on 03/25/2021 where she was positio lexi on the Dornier unit in supine position paying careful attention to avoiding pressure points. Appropriate timeout was performed, SCDs confirmed to be functioning, preoperative antibiotics administered, beta-светлана protocol confirmed. Adequate level of anesthesia was obtained without difficulty. The stone was easily identified with biplanar fluoroscopy in the left proximal ureter. Shockwave was initiated intensity of 1 advanced an intensity of 4. The rate was initiated at 70 and after significant fragmentation was noted it was increased to 90. Change was early and dramatic. After about thousand shocks the stone cannot be easily identified. The rate was increased to 90 at that point and a total of 2000 shocks were administered. Careful inspection revealed no identifiable stone fragments at that point. She was then repositioned in dorsolithotomy position on the Dornier unit. Prepped and draped in usual sterile fashion in dorsolithotomy position paying careful attention to avoiding pressure points. 21 Pakistani cystoscope with 30 degree lens was introduced into urethra meatus and advanced into the bladder to videoscopy. The bladder was carefully inspected. There was a few very small stone fragments seen in the bladder. She had 2 orifices confirming complete duplication. An 8 Pakistani cone-tip catheter was intubated to the left ureteral orifice More distally and contrast was injected showing filling of the ureter and the lower pole moiety with an area of change in caliber at the level where the stone had been located. No filling defect was seen at that point. Contrast was then injected in the other ureteral orifice and this was confirmed to be the ureteral orifice to the upper pole. No filling defect or change in caliber was noted. Because of the CT scan findings confirming that the lower pole moiety was in fact the dilated component and tract down to the stone it was decided to leave a stent in the ureter to the lower pole moiety. A guidewire was easily passed up the ureter into the lower pole and a 4.5 Pakistani by 24 cm double-pigtail stent was advanced over the guidewire through the cystoscope into appropriate position as confirmed via fluoroscopy and cystoscopy. The stent was confirmed to be draining well. Bladder was drained and the procedure was completed. A few of the small fragments that were seen in the bladder were washed out of the bladder and sent for pathologic evaluation. They were really not much bigger than sand. She tolerated procedure well without complications and was awakened in the operating room and returned to the recovery room in stable condition. PLANS: 1. Maintain left ureteral stent with anticipation of taking it out sometime within the next 7 to 10 days. KUB first. 2. Anticipate discharge from outpatient surgery today.
[2021-03-25] MEDS: levofloxacin-dextrose 5 % 500 MG/100 ML PREMIX 100 MG IV (13:25)
--- NOTE | 2021-03-25 15:16 | ANE.PACU2 ---
Inpatient post-anesthesia follow up: Airway intact: Yes Vital signs: Temperature 97.6 F Pulse Rate 68 Respiratory Rate 17 Blood Pressure 118/65 Pulse Oximetry 92 Oxygen Delivery Me thod Room Air Oxygen Flow Rate 6 Fraction of Inspir ed Oxygen Hydration adequate: Yes Nausea and vomiting: No Pain level: 3 Mental status: Baseline
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
== END 2021-03-25 16:40 | disposition home or self-care (01) ==
PROVIDERS: PCP Urology; Visit Provider Urology
PROC: (CPT 50590; principal; 2021-03-25 13:10)
PROC: 0TJB8ZZ Inspection of Bladder, Via Natural or Artificial Opening Endoscopic (ICD-10-PCS; CPT 52000; 2021-03-25 13:10)
PROC: (CPT 50605; 2021-03-25 13:10)
PROC: (CPT 74420; 2021-03-25 13:10)
DX: N20.1 Calculus of ureter (principal); J44.9 Chronic obstructive pulmonary disease, unspecified; I10 Essential (primary) hypertension; K21.9 Gastro-esophageal reflux disease without esophagitis; F41.9 Anxiety disorder, unspecified; E78.5 Hyperlipidemia, unspecified; F17.210 Nicotine dependence, cigarettes, uncomplicated; Z82.49 Family history of ischemic heart disease and other diseases of the circulatory system; Z83.3 Family history of diabetes mellitus; Z82.3 Family history of stroke
CPT/HCPCS: 50590; 52332; 74018; 88300; 96374; C2625; J1956; J2405; J2704; J2710; J3010; J3490; J7030

== ENCOUNTER 2021-04-05 08:27 | Outpatient (CLI) | payer MEDICAID, SELFPAY ==
--- NOTE | 2021-04-05 08:00 | XR_ITS ---
WS: [id number] Exam: XR KUB [id number] Date/Time of Exam: 04/05/2021 8:00 AM Reason For Exam: ureteral calculus Comparison 03/25/2021. A left-sided ureteral catheter is noted appearing to be in appropriate location. A 2 mm calcification seen along the inferior course of the catheter. 3 mm calcification superimposes the lower pole the r ight kidney and may represent a renal stone. No bowel obstruction or free air. Signs of prior cholecy stectomy. Regional bony elements are intact. Additional nonspecific pelvic calcifications. XR/XR KUB [id number] IMPRESSION: 1. Left-sided ureteral catheter in place appearing to be in appropriate locatio n. 2 mm calcification seen along the lower course of the catheter that that cou ld represent a stone in the ureter or other pelvic calcification. 2. Calcification superimposes the right kidney and likely represents a renal st one.
== END 2021-04-05 08:28 | disposition home or self-care (01) ==
LOC: RAD 08:29
PROVIDERS: Visit Provider Urology
DX: N20.1 Calculus of ureter (principal); Z96.0 Presence of urogenital implants
CPT/HCPCS: 74018

== ENCOUNTER 2021-05-14 09:36 | Emergency (ER) | payer MEDICAID, SELFPAY ==
[2021-05-14 09:47] VITALS: BP 148/77; PULSE 67; RESP 18; TEMP 36.3; O2SAT 93; BMI 29.4
--- NOTE | 2021-05-14 09:57 | ED_ITS ---
HPI - Allergic Reaction General: Chief complaint: Allergic Reaction Stated complaint: DIFF BREATHING: ALLERGIC REACTION TO TYLENOL Time Seen by Provider: 05/14/21 09:47 History of Present Illness: HPI narrative: 50-year-old female presents emergency room concerns of allergic reaction to Tylenol. States she took so this morning he began to have itching over feels like his difficulty breathing. She is pruritic on arrival. I seen the patient however there is no visible hives or urticaria. No redness or erythema. She has an extensive allergy list which was reviewed. MD complaint: allergic reaction Onset (ago): hour(s) Exposure: medication Associated symptoms: Reports difficulty breathing and itching; Deny abdominal pain, dysphagia, dizziness, facial swelling, hoarseness, lip swelling, nausea, rash, tongue swelling or vomiting Severity: mild Treatment prior to arrival: none Previous Allergic Reaction History: none Review of Systems Const: Denies: fever(s), chills, body aches, change in appetite, fatigue or malaise ENMT: Denies: hoarseness Card: Denies: chest pain, edema, dyspnea on exertion or orthopnea Resp: Denies: dyspnea, productive cough or non-productive cough GI: Denies: abdominal pain, nausea, vomiting or dysphagia : Denies: flank pain, difficulty voiding, dysuria, urinary frequency or urinary urgency Skin/Breast: Denies: rash or pruritus Neuro: Denies: dizziness All/Imm: Denies: tongue swelling or facial swelling PFSH ED PFSH: Medical History Essential hypertension GERD (gastroesophageal reflux disease) Hyperlipidemia Left ureteral calculus Nephrolithiasis Surgical History H/O esophagogastroduodenoscopy (04/05/20) H/O: hysterectomy History of cholecystectomy History of surgery on arm S/P appendectomy Status post colonoscopy (04/05/20) incomplete, needs Ba enema Family History Other CAD (coronary artery disease) Diabetes Hypertension Stroke Denies family history of Anesthesia complication Bleeding disorder Social History Alcohol intake: current Alcohol intake frequency: other Lives independently: Yes Marital status: Single Current occupational status: employed History of recent travel: No Physical Exam Const: COMMON NORMALS: no acute distress GENERAL APPEARANCE: cooperative and comfortable ORIENTATION/CONSCIOUSNESS: Yes awake, Yes oriented to person, Yes oriented to place and Yes oriented to time HENMT: COMMON NORMALS: normocephalic, atraumatic and hearing grossly normal bilaterally HEAD & SCALP: normocephalic and atraumatic Neck/C-Spine: COMMON NORMALS: no JVD Resp: COMMON NORMALS: normal respiratory effort, No retractions, No use of accessory muscles and clear to auscultation bilaterally AUSCULTATION: clear to auscultation bilaterally Cardio: COMMON NORMALS: no JVD, regular rate, regular rhythm and No murmurs present (Cardio) RATE: regular rate RHYTHM: regular rhythm GI: COMMON NORMALS: Soft to palpation and No hepatosplenomegaly present AUSCULTATION: Yes normoactive bowel sounds PALPATION: Yes Soft to palpation, No Tenderness to palpation present (GI), No Guarding due to palpation present (GI) and Yes No hepatosplenomegaly present Extremity: COMMON NORMALS: normal to inspection, capillary refill normal, no clubbing, cyanosis or edema, no calf tenderness and no pedal edema Neuro: SENSORIUM/ORIENTATION: Yes oriented to person, Yes oriented to place and Yes oriented to time Skin: COMMON NORMALS: no rashes or lesions noted GENERAL SKIN EXAM: no rashes or lesions noted Course Vital Signs: Vital signs: Vital Signs Temperature 97.3 F L 05/14/21 09:47 Pulse Rate 74 05/14/21 10:08 Respiratory Rate 17 05/14/21 10:08 Blood Pressure 130/72 05/14/21 10:08 Pulse Oximetry 93 05/14/21 10:08 MDM - Allergic Reaction MDM Narrative: Medical decision making narrative: Patient is feeling much better. She is did not have any wheezing I seen her initially she has no pruritus now has no difficulty. I agree safely discharged home repeat Benadryl as needed. I would recommend that she look into seeing an laboratory engineer at some point to go over her allergy list some concern that may preclude her from getting necessary drugs if she is ever critically ill. Suspect several of the medications on her list are probably more side effect related than true allergies. This can be arranged for through primary care. Discharge Plan Discharge Patient Disposition: Home Clinical Impression: Adverse reaction to drug Condition: Stable Prescriptions: New Benadryl 25 mg capsule 25 mg PO Q6H PRN (Reason: allergic reaction) Qty: 20 RF: 0 No Action atorvastatin 40 mg tablet 40 mg PO BEDTIME Qty: 45 RF: 0 melatonin 10 mg capsule 10 mg PO DAILY RF: 0 trazodone 150 mg tablet 150 mg PO BEDTIME RF: 0 tramadol 50 mg tablet 50 mg PO BID PRNRF: 0 aspirin 81 mg tablet,delayed release (DR/EC) 81 mg PO DAILY RF: 0 Hold Instructions: Resume on 04/01/21. nitroglycerin 0.4 mg tablet, sublingual 0.4 mg SUBLINGUAL Q5M PRN (Reason: chest pain) Qty: 30 RF: 0 ibuprofen 200 mg Tablet 400 mg PO DAILY PRN (Reason: Pain) RF: 0 diphenhydramine HCl [Benadryl] 25 mg Capsule 50 mg PO BEDTIME RF: 0 lisinopril 10 mg Tablet 10 mg PO DAILY PRN (Reason: Blood Pressure) RF: 0 lisinopril-hydrochlorothiazide 20-25 mg tablet 1 tab PO PRN PRN (Reason: HTN) RF: 0 Discharge Orders: Discharge ED (Routine); Ordered 05/14/21 Ordered By: Fredo Morrow Discharge Diet: Usual diet Discharge Activity: Resume usual activity Patient Instructions: Opioid Safety Activity Restrictions/Additional Instructions: Use [id number] Benadryl as needed for any recurrence of symptoms. Recommend that you follow-up with your primary care doctor and consider referral to an laboratory engineer to evaluate your allergy list to determine which are side effects/adverse effects and which are true allergic reactions. Coding Level of Care Code ED [employer] Specialist for Kunal Fwd Exam Comprehensive
[2021-05-14] MEDS: diphenhydrAMINE 50 mg/mL SDV 1mL IVP (10:00)
[2021-05-14 10:08] VITALS: BP 130/72; PULSE 74; RESP 17; O2SAT 93
== END 2021-05-14 11:55 | disposition home or self-care (01) ==
PROVIDERS: Emergency Provider Family Medicine
DX: T88.7XXA Unspecified adverse effect of drug or medicament, initial encounter (principal); T39.1X5A Adverse effect of 4-Aminophenol derivatives, initial encounter; Z79.82 Long term (current) use of aspirin; I10 Essential (primary) hypertension; E78.5 Hyperlipidemia, unspecified
CPT/HCPCS: 96374; 96375; 99283; J1200; J2930

== ENCOUNTER 2021-05-21 13:58 | Outpatient (CLI) | payer MEDICAID, SELFPAY ==
--- NOTE | 2021-05-21 14:08 | XR_ITS ---
WS: [id number] XR KUB [id number] REASON FOR EXAM: URETERAL STONE FINDINGS: Left ureteral stent has been removed. Previously identified mid left ureteral calculus no longer identifiable. Calculus overlying the lower right kidney unchanged from previous examinations. No left intrarenal calculi identified. Vascular calcifications in the pelvis. No distal ureteral or bladder calculus. No other significant abnormality. XR/XR KUB [id number] IMPRESSION: No removal of left ureteral stent as above.
== END 2021-05-21 13:59 | disposition home or self-care (01) ==
LOC: RAD 14:04
PROVIDERS: Visit Provider Urology
DX: N20.1 Calculus of ureter (principal); Z96.0 Presence of urogenital implants
CPT/HCPCS: 74018; 81003; 87635

== ENCOUNTER 2021-05-27 11:57 | Day surgery (SDC) | payer MEDICAID, SELFPAY ==
[2021-05-24 15:21] VITALS: BMI 29.2
[2021-05-27] VITALS (9 sets, daily range): BP systolic 132–173; BP diastolic 72–93; PULSE 55–75; RESP 16–24; TEMP 35.9–36.2; O2SAT 93–100
--- NOTE | 2021-05-27 12:07 | XR_ITS ---
WS: [id number] KUB, AP view, 05/27/2021 Clinical Data: Preop right renal ESWL Comparison: KUB, 05/21/2021. Findings: No abnormal intraabdominal masses are seen. There is no dilatated small bowel or evidence of obstruct ion. The 0.5 cm calcification overlying the inferior pole of the right kidney has not changed. There are c alcifications in the true pelvis. There are surgical clips in the right upper quadrant from a cholecy stectomy. XR/XR KUB [id number] Impression: No change in calcification overlying inferior pole of the right kidney.
[2021-05-27] MEDS: sodium chloride 0.9% 1,000 ML 30 ML IV (13:21)
--- NOTE | 2021-05-27 13:48 | ANES.PREANE2 ---
Pre-Anesthetic Assessment Pre-Anesthetic Assessment: Height/Weight: Height 1.52 m Weight 68.039 kg Temp Pulse Resp BP Pulse Ox 96.6 F L 55 L 16 141/72 95 05/27/21 12:45 05/27/21 12:45 05/27/21 12:45 05/27/21 12:45 05/27/21 12:45 Preop Diagnosis: Right renal calculus Proposed Procedure: Operation Date: 05/27/21 13:40 Proposed Procedures p ESWL 10053 05945 n20.0(Not Applicable) - Martinez Crawford MD s Cystoscopy(Not Applicable) - Martinez Crawford MD s Ureteral Stent Placement(Not Applicable) - Martinez Crawford MD Was Beta Nathaniel taken within 24 hours: Yes Was Clonidine taken within 24 hours: N/A Last intake: Intake Last Liquid Date 05/26/21 Last Liquid Time 21:00 Last Solid Date 05/26/21 Last Solid Time 19:30 Social: Social History: Tobacco and No alcohol Exam: Pre-Anes Outpt Exam: alert, oriented x 3 and regular rate & rhythm Airway: Submandibular: WNL Cervical ROM: WNL MP: 2 Dentition: Chipped Additional comments: Missing #23 Pulmonary: Pulmonary: COPD CV/HEM: CV/HEM: Angina (Stable), CAD, HTN and UT GI: GI: GERD Metabolic: Metabolic: Hyperlipidemia Neuropsych: Neuropsych: Anxiety and Depression Anesthetic Plan: ASA status: 3 Anesthesia: General Risk of > 500 ml blood loss (7ml/kg in children): No Meds/Allergies Current Medications: Current Medications Generic Name Dose Route Start Last Admin Trade Name Freq PRN Reason Stop Dose Admin Sodium Chloride 1,000 mls @ 30 ml s/hr 05/27/21 12:15 05/27/21 13:21 Sodium Chloride 0.9% IV 05/28/21 12:14 30 mls/hr .Q24H COLLETTE Administration PFSH Anesthesia PFSH: Medical History Essential hypertension GERD (gastroesophageal reflux disease) Hyperlipidemia Left ureteral calculus Nephrolithiasis Right renal stone Surgical History H/O esophagogastroduodenoscopy (04/05/20) H/O: hysterectomy History of cholecystectomy History of surgery on arm S/P appendectomy Status post colonoscopy (04/05/20) incomplete, needs Ba enema Family History Other CAD (coronary artery disease) Diabetes Hypertension Stroke Denies family history of Anesthesia complication Bleeding disorder Social History Alcohol intake: current Alcohol intake frequency: other Lives independently: Yes Marital status: Single Current occupational status: employed History of recent travel: No Data Anesthesia Cardiac Studies: No Data to Display
--- NOTE | 2021-05-27 13:55 | W.PM.OPSUD ---
Surgery/Procedure H&P Update DATE OF PROCEDURE: May 27, 2021 DATE H&P PERFORMED: 05/21/21 H&P UPDATE INFORMATION: I have reviewed H&P completed within last 30 days, I have examined patient prior to procedure, No changes to prior documentation and H&P is in [facility] [place] on date indicated PREOP DIAGNOSIS: Right renal calculus PLANNED PROCEDURE: Operation Date: 05/27/21 13:40 Proposed Procedures p ESWL 50036 83338 n20.0(Not Applicable) - Martinez Crawford MD s Cystoscopy(Not Applicable) - Martinez Crawford MD s Ureteral Stent Placement(Not Applicable) - Martinez Crawford MD
[2021-05-27] MEDS: levofloxacin-dextrose 5 % 500 MG/100 ML PREMIX 100 MG IV (14:00)
--- NOTE | 2021-05-27 14:49 | PM.OP ---
Operative Report Date of procedure: May 27, 2021 Pre-op Diagnosis: Right renal calculus Post-op diagnosis: same Procedure Done: Extracorporeal shockwave lithotripsy right renal calculus Pathology: none sent Surgeon: Ty [employer] Supervisor: Dagoberto Anesthesia: General Estimated blood loss: None Urine output: Not measured Complications: None Findings: 1. Stone easily focused upon. 2500 shocks administered. 2. Excellent change. Condition: stable Disposition: PACU Brief History: Naomie is a very pleasant 50-year-old white female with a history of recurrent urolithiasis. She has recently been treated with a left ureteral calculus. She has a known kidney stone on the right. Ultimately she wanted to try to become stone free. There is no evidence of obstruction of that stone. Procedure: After routine preoperative evaluation examination and obtaining of informed consent she was taken to the operating suite on 05/27/2021 where general anesthesia was administered without difficulty after appropriate timeout was performed, SCDs confirmed to be functioning, preoperative antibiotics administered, beta-светлана protocol confirmed. Positioned on the Dornier unit such that the stone was located the focal point utilizing biplanar fluoroscopy with a shock and positioned posteriorly. It was easy to identify and focus upon the stone. Shockwave therapy was initiated at a rate of 70 in intensity of 1 and advanced slowly 10 intensity of 4. After about 300 shocks a brief pause for about 3 minutes was conducted. The stone showed significant change by thousand shocks and the rate was increased to 90. By the completion of the procedure (2500 shocks) the stone was dramatically changed. Based on the change in the stone it was decided to not place a stent. She tolerated procedure well without complications and was awakened in the operating room and returned to the recovery room in stable condition with anticipation of discharge from outpatient surgery PLANS: 1. Follow-up in 2 weeks with KUB.
--- NOTE | 2021-05-27 15:05 | SUR.PHASEI ---
PT RESTING QUIETLY, WITH NO COMPLAINTS PT ON RA TRIAL VSS GOOD RESP EFFORT NOTED.
--- NOTE | 2021-05-27 15:16 | SUR.PHASEI ---
PT SATS 91% PT REPOSTIONED SELF TO RT SIDE, NC 3LNC TO PT SATS QUICKLY UP TO 97%
--- NOTE | 2021-05-27 15:42 | ANE.PACU2 ---
Inpatient post-anesthesia follow up: Airway intact: Yes Vital signs: Temperature 97 F Pulse Rate 75 Respiratory Rate 16 Blood Pressure 168/92 Pulse Oximetry 94 Oxygen Delivery Me thod Room Air Oxygen Flow Rate 3 Fraction of Inspir ed Oxygen Hydration adequate: Yes Nausea and vomiting: No Pain level: 2 Mental status: Baseline
== END 2021-05-27 15:46 | disposition home or self-care (01) ==
PROVIDERS: Visit Provider Urology
PROC: (CPT 50590; principal; 2021-05-27 13:40)
DX: N20.0 Calculus of kidney (principal); J44.9 Chronic obstructive pulmonary disease, unspecified; I25.10 Atherosclerotic heart disease of native coronary artery without angina pectoris; I10 Essential (primary) hypertension; I25.2 Old myocardial infarction; K21.9 Gastro-esophageal reflux disease without esophagitis; E78.5 Hyperlipidemia, unspecified
CPT/HCPCS: 50590; 74018; 96365; J1100; J1956; J2405; J2704; J3010; J3490; J7030

== ENCOUNTER 2021-05-30 21:55 | Emergency (ER) | payer MEDICAID, SELFPAY ==
[2021-05-30 22:01] VITALS: BP 154/84; PULSE 66; RESP 18; TEMP 36; O2SAT 96; BMI 29.2
--- NOTE | 2021-05-30 22:03 | ECG_ITS ---
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 Measurements Intervals [place] Rate: 65 P: 26 TX: 137 QRS: 22 QRSD: 81 T: 33 QT: 410 QTc: 427 Interpretive Statements SINUS RHYTHM Compared to ECG 11/12/2020 14:18:53 No significant changes Electronically Signed On 05-31-2021 22:46:24 CDT by Garth Frank M.D. [email or web address]
--- NOTE | 2021-05-30 22:03 | XRR_ITS ---
PROCEDURE INFORMATION: Exam: XR Chest Exam date and time: 05/30/2021 10:03 PM Age: 50 years old Clinical indication: Shortness of breath; Additional info: SOB TECHNIQUE: Imaging protocol: XR of the chest. Views: 1 view. COMPARISON: CR XR chest 1V portable [id number] 11/12/2020 1:51 PM FINDINGS: Lungs: No consolidative pulmonary infiltrates are noted. Pleural spaces: No pleural effusion. No pneumothorax. Heart/Mediastinum: No cardiomegaly. Vasculature: Mild atherosclerotic calcification of the aorta. Bones/joints: Unremarkable. XR/XR chest 1V portable [id number] IMPRESSION: 1. No acute abnormality demonstrated. 2. There is no interval change from the prior examination. Radiation Dose CTDIVOL = (mGy): DLP = (mGy-cm)
--- NOTE | 2021-05-30 22:03 | ED_ITS ---
HPI - Allergic Reaction General: Chief complaint: Allergic Reaction Stated complaint: ALLERGIC REACTION Time Seen by Provider: 05/30/21 21:55 Source: patient and EMS Mode of arrival: EMS Limitations: no limitations History of Present Illness: HPI narrative: 50-year-old female states that she is having allergic reactions to believe the dog. States she is able to multiple pain meds including codeine morphine acetaminophen hydrocodone. She states she took a Dilaudid tonight after recent renal surgery and started having rash along with difficulty breathing she took a friend's EpiPen states she is feeling improved she does have a mild rash and some mild dyspnea denies any worsening improving factors currently. Associated symptoms: Deny abdominal pain, nausea or vomiting Review of Systems Const: Denies: fever(s), chills, body aches or change in appetite Eyes: Denies: blurry vision or eye discomfort ENMT: Denies: throat pain or dental pain Card: Denies: chest pain Resp: Reports: dyspnea GI: Denies: abdominal pain, nausea, vomiting or diarrhea : Denies: dysuria Musc: Denies: neck pain or back pain Skin/Breast: Denies: rash Neuro: Denies: headache(s) Psych: Denies: depression Jean/Lymph: Denies: easy bruising All/Imm: Denies: urticaria PFSH ED PFSH: Medical History Essential hypertension GERD (gastroesophageal reflux disease) Hyperlipidemia Left ureteral calculus Nephrolithiasis Right renal stone Surgical History H/O esophagogastroduodenoscopy (04/05/20) H/O: hysterectomy History of cholecystectomy History of surgery on arm S/P appendectomy S/P ureteral stent placement Status post colonoscopy (04/05/20) incomplete, needs Ba enema Family History Other CAD (coronary artery disease) Diabetes Hypertension Stroke Denies family history of Anesthesia complication Bleeding disorder Social History Alcohol intake: current Alcohol intake frequency: other Lives independently: Yes Marital status: Single Current occupational status: employed History of recent travel: No Physical Exam Const: COMMON NORMALS: no acute distress, patient oriented x3 and healthy appearing HENMT: COMMON NORMALS: normocephalic and atraumatic HEAD & SCALP: normocephalic and atraumatic Eye: COMMON NORMALS: Equal, round and reactive pupils present and EOMs intact bilaterally PUPIL: Yes Equal, round and reactive pupils present Neck/C-Spine: COMMON NORMALS: full ROM and supple Chest: COMMONS NORMALS: normal inspection of the chest and normal palpation of entire chest wall Resp: COMMON NORMALS: normal respiratory effort, No retractions, No use of accessory muscles and clear to auscultation bilaterally AUSCULTATION: clear to auscultation bilaterally Cardio: COMMON NORMALS: regular rate, regular rhythm and No murmurs present (Cardio) RATE: regular rate RHYTHM: regular rhythm GI: COMMON NORMALS: Normal to inspection, nondistended, normoactive bowel sounds present, Soft to palpation, non-tender and no masses PALPATION: Yes Soft to palpation Extremity: COMMON NORMALS: normal to inspection and full ROM Neuro: COMMON NORMALS: patient oriented x3, moves all extremities and no focal motor deficits Psych: COMMON NORMALS: mental status grossly normal, Normal thought process present and cooperative THOUGHT PROCESS: Normal thought process present Skin: COMMON NORMALS: no rashes or lesions noted and no wounds GENERAL SKIN EXAM: no rashes or lesions noted Course Vital Signs: Vital signs: Vital Signs Temperature 96.8 F L 05/30/21 22:01 Pulse Rate 66 05/30/21 22:01 Respiratory Rate 18 05/30/21 22:01 Blood Pressure 154/84 05/30/21 22:01 Pulse Oximetry 96 05/30/21 22:01 MDM - Allergic Reaction MDM Narrative: Medical decision making narrative: Patient presents here with allergic reaction she is well-appearing here after EpiPen at home along with Solu-Medrol Benadryl. Will prescribe an EpiPen for home and Naprosyn she is to follow-up with her urologist return if worsening she understands agrees to plan. She is in no distress at discharge EKG Data^: EKG 1: Attestation: I personally reviewed and interpreted this EKG as follows: EKG interpretation date: 05/30/21 EKG interpretation time: 22:25 Interpretation: nsr hr [address] or t wave abnormalities qrs 81 qtc 421 Discharge Plan Discharge Patient Disposition: Home Clinical Impression: Allergic reaction Condition: Stable Prescriptions: New Naprosyn 500 mg tablet 500 mg PO BID PRN (Reason: pain) Qty: 20 RF: 0 EpiPen 0.3 mg/0.3 mL auto-injector 0.3 mg IM Q3H PRN (Reason: anaphylaxis) Qty: 2 RF: 0 No Action melatonin 10 mg capsule 10 mg PO DAILY RF: 0 zolpidem [Ambien] 5 mg tablet 10 mg PO BEDTIME RF: 0 metoprolol succinate 50 mg tablet extended release 24 hr 50 mg PO DAILY RF: 0 aspirin 81 mg tablet,delayed release (DR/EC) 81 mg PO DAILY RF: 0 Hold Instructions: Resume on 06/03/21. nitroglycerin 0.4 mg tablet, sublingual 0.4 mg SUBLINGUAL Q5M PRN (Reason: chest pain) Qty: 30 RF: 0 hydromorphone [Dilaudid] 4 mg tablet 4 mg PO Q6H 4 Days Qty: 16 RF: 0 ibuprofen 200 mg Tablet 400 mg PO DAILY PRN (Reason: Pain) RF: 0 diphenhydramine HCl [Benadryl] 25 mg Capsule 50 mg PO BEDTIME RF: 0 lisinopril 10 mg tablet 40 mg PO DAILY RF: 0 diphenhydramine HCl [Benadryl] 25 mg capsule 25 mg PO Q6H PRN (Reason: allergic reaction) Qty: 20 RF: 0 escitalopram oxalate [Lexapro] 10 mg tablet 10 mg PO BEDTIME RF: 0 Lipitor 40 mg tablet 40 mg PO BEDTIME RF: 0 Discharge Orders: Discharge ED (Routine); Ordered 05/30/21 Ordered By: Harsh Veliz Discharge Diet: Advance as tolerated Discharge Activity: Resume usual activity Patient Instructions: General Allergic Reaction (ED) Coding Level of Care Code ED Batching Operator for Kunal Fwd Exam Comprehensive
[2021-05-30] MEDS: diphenhydrAMINE 50 mg/mL SDV 1mL IVP (22:52)
[2021-05-30 23:44] VITALS: BP 131/78; PULSE 78; RESP 18; O2SAT 97
== END 2021-05-30 23:42 | disposition home or self-care (01) ==
PROVIDERS: Emergency Provider Emergency Medicine
DX: T78.40XA Allergy, unspecified, initial encounter (principal); Z79.82 Long term (current) use of aspirin; I10 Essential (primary) hypertension; E78.5 Hyperlipidemia, unspecified
CPT/HCPCS: 71045; 93005; 96374; 96375; 99283; J1200; J2930

== ENCOUNTER 2021-06-12 10:05 | Outpatient (CLI) | payer OTHER, SELFPAY ==
--- NOTE | 2021-06-12 10:00 | XR_ITS ---
WS: [id number] KUB, AP view, 06/12/2021 Clinical Data: RENAL STONE Comparison: KUB, 05/27/2021. Findings: No abnormal intraabdominal masses or calcifications are seen. There is no dilatated small bowel or ev idence of obstruction. There is fecal material and colon gas obscuring detail over the right kidney. The 0.5 cm calcificatio n which had overlain the inferior pole of the right kidney is not seen. There are phleboliths in the true pelvis. There are clips in the right upper quadrant from a cholecystectomy. XR/XR KUB [id number] Impression: Negative KUB.
== END 2021-06-12 10:06 | disposition home or self-care (01) ==
PROVIDERS: Visit Provider Urology
DX: N20.0 Calculus of kidney (principal)
CPT/HCPCS: 74018

== ENCOUNTER 2021-06-21 07:49 | Emergency (ER) | payer OTHER, SELFPAY ==
[2021-06-21 07:59] VITALS: BP 168/127; PULSE 70; RESP 20; TEMP 36.2; O2SAT 97; BMI 31.2
--- NOTE | 2021-06-21 08:04 | W.ED.ALLEREA ---
Documented by User: VANESSA Horta 06/21/21 10:18 HPI - Allergic Reaction General: Chief complaint: Allergic Reaction Stated complaint: Difficulty breathing, allergic reaction Time Seen by Provider: 06/21/21 07:58 History of Present Illness: HPI narrative: Patient is a 51-year-old female comes to the ED with an allergic reaction. Patient has a history of allergic reactions. She has a prescription for an EpiPen but did not get prescription filled yet. Patient says she was exposed to some fish and is having an allergic reaction. 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 Patient says her throat feels like it is tightening up and having some shortness of breath. Endorses a generalized pruritic rash and nausea/vomiting. She did not take any Benadryl before coming to the ED. she has had to use EpiPen's in the past to help with allergic reactions. Associated symptoms: Reports nausea and vomiting; Deny abdominal pain, facial swelling or tongue swelling Review of Systems Const: Denies: fever(s), chills or fatigue Eyes: Denies: change in vision or eye discomfort ENMT: Denies: throat pain, odynophagia, nasal discharge or nasal congestion Card: Denies: chest pain, palpitations, edema, swelling of feet/ankles, dyspnea on exertion or orthopnea Resp: Denies: dyspnea, productive cough or non-productive cough GI: Reports: nausea and vomiting; Denies: abdominal pain, diarrhea, constipation or hematochezia : Denies: flank pain, dysuria or hematuria Musc: Denies: neck pain, back pain or extremity swelling Skin/Breast: Denies: rash or new lesions Neuro: Denies: headache(s), numbness in extremities or weakness in extremities All/Imm: Reports: urticaria and throat swelling; Denies: tongue swelling or facial swelling PFSH ED PFSH: Medical History Essential hypertension GERD (gastroesophageal reflux disease) Hyperlipidemia Left ureteral calculus Nephrolithiasis Right renal stone Surgical History H/O esophagogastroduodenoscopy (04/05/20) H/O: hysterectomy History of cholecystectomy History of surgery on arm S/P appendectomy S/P ureteral stent placement Status post colonoscopy (04/05/20) incomplete, needs Ba enema Family History Other CAD (coronary artery disease) Diabetes Hypertension Stroke Denies family history of Anesthesia complication Bleeding disorder Social History Alcohol intake: current Alcohol intake frequency: other Lives independently: Yes Marital status: Single Current occupational status: employed History of recent travel: No Physical Exam Const: COMMON NORMALS: patient oriented x3 and alert GENERAL APPEARANCE: cooperative, comfortable and other (Raspy voice change due to throat swelling) HENMT: COMMON NORMALS: normocephalic HEAD & SCALP: normocephalic FACE & SINUS: no edema MOUTH: Normal oral and palatal mucosa present, lip normal and tongue normal THROAT: posterior oropharynx normal and uvula midline Eye: COMMON NORMALS: Equal, round and reactive pupils present PUPIL: Yes Equal, round and reactive pupils present Neck/C-Spine: COMMON NORMALS: supple GENERAL: Yes normal visual inspection Resp: COMMON NORMALS: normal respiratory effort, No retractions, No use of accessory muscles and clear to auscultation bilaterally AUSCULTATION: clear to auscultation bilaterally Cardio: COMMON NORMALS: regular rate, regular rhythm, S1 normal heart sound present, S2 normal heart sound present, No gallops present (Cardio), No clicks present (Cardio), No murmurs present (Cardio) and Peripheral pulses 2+ throughout RATE: regular rate RHYTHM: regular rhythm HEART SOUNDS: S1 normal heart sound present and S2 normal heart sound present PERIPHERAL PULSES: Peripheral pulses 2+ throughout GI: COMMON NORMALS: Normal to inspection, nondistended, normoactive bowel sounds present, Soft to palpation, non-tender and no masses PALPATION: Yes Soft to palpation : COMMON NORMALS: Yes no CVA tenderness BLADDER/KIDNEY EXAM: Yes no CVA tenderness Back/Pelvis: COMMON NORMALS: no CVA tenderness Extremity: COMMON NORMALS: normal to inspection Neuro: COMMON NORMALS: patient oriented x3 and moves all extremities SENSORIUM/ORIENTATION: Yes alert Skin: NARRATIVE SKIN EXAM: Erythemic, maculopapular pruritic rash on neck and chest. GENERAL SKIN EXAM: dry skin Course Reevaluation(s): Reevaluation #1: Patient says she is feeling a lot better and her symptoms have resolved. She is able to talk in a normal voice and is ready to go home. Time: 08:57 Vital Signs: Vital signs: Vital Signs Temperature 97.1 F L 06/21/21 07:59 Pulse Rate 70 06/21/21 09:45 Respiratory Rate 18 06/21/21 09:45 Blood Pressure 168/127 06/21/21 09:45 Pulse Oximetry 99 06/21/21 09:45 MDM - Allergic Reaction MDM Narrative: Medical decision making narrative: Patient is a 51-year-old female comes to the ED with an allergic reaction after coming in contact with fish. She has a history of allergic reactions and has a prescription for an EpiPen but has not had it filled yet. She is experiencing some throat swelling and shortness of breath. She also endorses having a generalized pruritic rash, nausea and vomiting. Patient was given epi while here in the ED along with IV fluids, famotidine, Solu-Medrol and Benadryl. Her symptoms greatly improved and patient felt a lot better and was ready to be discharged home. She was monitored for over an hour while here in the ED and was stable for discharge home. Patient was told to follow-up with her PCP in 7 to 10 days for reevaluation. She was sent home with a prescription for prednisone. She was told to get her epipen prescription filled, so she has an EpiPen available to use for any allergic reactions. Return to ED precautions given. Patient understood and agree with plan. Discharge Plan Discharge Patient Disposition: Home Clinical Impression: Anaphylaxis Qualifiers: Encounter type: initial encounter Qualified Code(s): T78.2XXA - Anaphylactic shock, unspecified, initial encounter Condition: Stable Prescriptions: New prednisone 20 mg tablet 20 mg PO BID 3 Days Qty: 6 RF: 0 No Action melatonin 10 mg capsule 10 mg PO DAILY RF: 0 zolpidem [Ambien] 5 mg tablet 10 mg PO BEDTIME RF: 0 metoprolol succinate 50 mg tablet extended release 24 hr 50 mg PO DAILY RF: 0 hydromorphone [Dilaudid] 4 mg tablet 4 mg PO Q6H 3 Days Qty: 12 RF: 0 aspirin 81 mg tablet,delayed release (DR/EC) 81 mg PO DAILY RF: 0 Hold Instructions: Resume on 04/01/21. EpiPen 0.3 mg/0.3 mL auto-injector 0.3 mg IM Q3H PRN (Reason: anaphylaxis) Qty: 2 RF: 3 nitroglycerin 0.4 mg tablet, sublingual 0.4 mg SUBLINGUAL Q5M PRN (Reason: chest pain) Qty: 30 RF: 0 ibuprofen 200 mg Tablet 400 mg PO DAILY PRN (Reason: Pain) RF: 0 diphenhydramine HCl [Benadryl] 25 mg Capsule 50 mg PO BEDTIME RF: 0 lisinopril 10 mg tablet 40 mg PO DAILY RF: 0 diphenhydramine HCl [Benadryl] 25 mg capsule 25 mg PO Q6H PRN (Reason: allergic reaction) Qty: 20 RF: 0 escitalopram oxalate [Lexapro] 10 mg tablet 10 mg PO BEDTIME RF: 0 Lipitor 40 mg tablet 40 mg PO BEDTIME RF: 0 Naprosyn 500 mg tablet 500 mg PO BID PRN (Reason: pain) Qty: 20 RF: 0 Discharge Orders: Discharge ED (Routine); Ordered 06/21/21 Ordered By: Forrest Flores Discharge Diet: Regular Discharge Activity: Increase activity as tolerated Patient Instructions: Food Allergy (ED), Anaphylaxis (ED) Activity Restrictions/Additional Instructions: Follow-up with medical provider as directed in 7 to 10 days for reevaluation. Take medications as prescribed. Make sure to get your EpiPen prescription filled C can have one on hand to use as needed. Return to the ER or your medical provider if condition worsens. Please read and understand discharge instructions. Thank you for choosing [facility] for your healthcare needs today. Please realize this is an emergency room and that we are providing you with a medical screening exam and this may not be complete and all inclusive of all the testing and or work up that you may need to determine your ailment or severity of your illness. It is very important that you follow up as instructed or that you return to the Emergency Department should you have concerns or if your condition changes or worsens in any way. Coding Level of Care Code ED Product Design Manager for Chg Fwd Exam Comprehensive Documented by User: Fredo Morrow DO 06/21/21 10:45 HPI - Allergic Reaction General: Chief complaint: Allergic Reaction Stated complaint: Difficulty breathing, allergic reaction Time Seen by Provider: 06/21/21 07:58 PFSH ED PFSH: Medical History Essential hypertension GERD (gastroesophageal reflux disease) Hyperlipidemia Left ureteral calculus Nephrolithiasis Right renal stone Surgical History H/O esophagogastroduodenoscopy (04/05/20) H/O: hysterectomy History of cholecystectomy History of surgery on arm S/P appendectomy S/P ureteral stent placement Status post colonoscopy (04/05/20) incomplete, needs Ba enema Family History Other CAD (coronary artery disease) Diabetes Hypertension Stroke Denies family history of Anesthesia complication Bleeding disorder Social History Alcohol intake: current Alcohol intake frequency: other Lives independently: Yes Marital status: Single Current occupational status: employed History of recent travel: No Course Vital Signs: Vital signs: Vital Signs Temperature 97.1 F L 06/21/21 07:59 Pulse Rate 70 06/21/21 09:45 Respiratory Rate 18 06/21/21 09:45 Blood Pressure 168/127 06/21/21 09:45 Pulse Oximetry 99 06/21/21 09:45 MDM - Allergic Reaction MDM Narrative: Medical decision making narrative: Chart reviewed and patient discussed with midlevel. Agree with assessment and plan. Discharge Plan Discharge Patient Disposition: Home Clinical Impression: Anaphylaxis Qualifiers: Encounter type: initial encounter Qualified Code(s): T78.2XXA - Anaphylactic shock, unspecified, initial encounter Condition: Stable Prescriptions: New prednisone 20 mg tablet 20 mg PO BID 3 Days Qty: 6 RF: 0 No Action melatonin 10 mg capsule 10 mg PO DAILY RF: 0 zolpidem [Ambien] 5 mg tablet 10 mg PO BEDTIME RF: 0 metoprolol succinate 50 mg tablet extended release 24 hr 50 mg PO DAILY RF: 0 hydromorphone [Dilaudid] 4 mg tablet 4 mg PO Q6H 3 Days Qty: 12 RF: 0 aspirin 81 mg tablet,delayed release (DR/EC) 81 mg PO DAILY RF: 0 Hold Instructions: Resume on 04/01/21. EpiPen 0.3 mg/0.3 mL auto-injector 0.3 mg IM Q3H PRN (Reason: anaphylaxis) Qty: 2 RF: 3 nitroglycerin 0.4 mg tablet, sublingual 0.4 mg SUBLINGUAL Q5M PRN (Reason: chest pain) Qty: 30 RF: 0 ibuprofen 200 mg Tablet 400 mg PO DAILY PRN (Reason: Pain) RF: 0 diphenhydramine HCl [Benadryl] 25 mg Capsule 50 mg PO BEDTIME RF: 0 lisinopril 10 mg tablet 40 mg PO DAILY RF: 0 diphenhydramine HCl [Benadryl] 25 mg capsule 25 mg PO Q6H PRN (Reason: allergic reaction) Qty: 20 RF: 0 escitalopram oxalate [Lexapro] 10 mg tablet 10 mg PO BEDTIME RF: 0 Lipitor 40 mg tablet 40 mg PO BEDTIME RF: 0 Naprosyn 500 mg tablet 500 mg PO BID PRN (Reason: pain) Qty: 20 RF: 0 Discharge Orders: Discharge ED (Routine); Ordered 06/21/21 Ordered By: Forrest Flores Discharge Diet: Regular Discharge Activity: Increase activity as tolerated Patient Instructions: Food Allergy (ED), Anaphylaxis (ED) Activity Restrictions/Additional Instructions: Follow-up with medical provider as directed in 7 to 10 days for reevaluation. Take medications as prescribed. Make sure to get your EpiPen prescription filled C can have one on hand to use as needed. Return to the ER or your medical provider if condition worsens. Please read and understand discharge instructions. Thank you for choosing [facility] for your healthcare needs today. Please realize this is an emergency room and that we are providing you with a medical screening exam and this may not be complete and all inclusive of all the testing and or work up that you may need to determine your ailment or severity of your illness. It is very important that you follow up as instructed or that you return to the Emergency Department should you have concerns or if your condition changes or worsens in any way. Coding Level of Care Code ED Product Design Manager for Kunal Fwd Exam Comprehensive
[2021-06-21] MEDS: EPINEPHrine 1 mg/mL INJ 0.3 MG IM (08:11)
[2021-06-21] MEDS: famotidine 20 mg/2 mL INJ 40 MG IVP (08:14)
[2021-06-21] MEDS: diphenhydrAMINE 50 mg/mL SDV 1mL IVP (08:26)
[2021-06-21] MEDS: sodium chloride 0.9% 500 ML 999 ML IV (08:33)
[2021-06-21 09:32] VITALS: PULSE 70; RESP 18; O2SAT 99
[2021-06-21 09:45] VITALS: BP 168/127; PULSE 70; RESP 18; O2SAT 99
== END 2021-06-21 09:44 | disposition home or self-care (01) ==
PROVIDERS: Emergency Provider Physician Assistant
DX: T78.2XXA Anaphylactic shock, unspecified, initial encounter (principal); Z79.82 Long term (current) use of aspirin; I10 Essential (primary) hypertension; E78.5 Hyperlipidemia, unspecified
CPT/HCPCS: 96372; 96374; 96375; 99283; J0171; J1200; J2930; J3490; J7040

== ENCOUNTER 2021-06-24 09:50 | Emergency (ER) | payer OTHER, SELFPAY ==
--- NOTE | 2021-06-24 09:54 | ECG_ITS ---
[facility] Test Date: 2021-06-24 Pat Name: Naomie Villa Department: Room: Gender: Female Relocation Coordinator: : 1970 Requested By: Laura Wang Order Number: [id number] Neri MD: Isa Shook M.D. Measurements Intervals [place] Rate: 69 P: 20 SC: 114 QRS: 22 QRSD: 82 T: 32 QT: 378 QTc: 407 Interpretive Statements SINUS RHYTHM WITH SHORT SC INTERVAL MODERATE ST DEPRESSION [0.05+ mV ST DEPRESSION] Compared to ECG 05/30/2021 22:25:06 Short SC interval now present ST (T wave) deviation now present Electronically Signed On 06-25-2021 12:41:42 SUPERVISOR LEAD [employer]URNING by Isa Shook M.D. [email or web address]
--- NOTE | 2021-06-24 09:54 | XR_ITS ---
WS: [id number] Exam: XR chest 1V portable [id number] Date/Time of Exam: 06/24/2021 9:57 AM Reason For Exam: chest pain Comparison 05/30/2021. Findings: The lungs are clear and fully expanded. Costophrenic angles are sharp. No infiltrates. Bronchovascula r relief appears normal. Cardiac silhouette is unremarkable. Bony elements are intact. XR/XR chest 1V portable [id number] IMPRESSION: Unremarkable chest radiograph.
[2021-06-24 10:08] VITALS: BP 162/89; PULSE 73; RESP 18; TEMP 36.8; O2SAT 98; BMI 29.2
--- NOTE | 2021-06-24 10:51 | ED_ITS ---
HPI - Chest Pain General: Chief Complaint: Chest Pain Stated Complaint: CHEST PAIN Time Seen by Provider: 06/24/21 10:51 History of Present Illness: HPI narrative: Ms. Villa is a 51-year-old lady who presents emergency department with chest pain. Symptom onset was a few hours ago while she was at work. She does not recall any specific provoking event. She describes moderate intensity pressure in the middle of her chest without significant radiation. There was associated mild nausea and tingling in the left fingers. No significant lightheadedness, she does have chronic chills but no diaphoresis. No significant shortness of breath. She denies recent infectious symptoms. She took a nitroglycerin which did not significantly help her symptoms but did cause headache. Overall the course of symptoms has improved. She does have a history of chest pain. She reports last cardiac evaluation approximately 1 year ago. History of hypertension and hyperlipidemia on medication. She does have positive family history for early cardiac disease and continues to smoke with longstanding smoking history. Review of Systems General: Reports: 10 or more systems reviewed and unremarkable except in HPI and below PFSH ED PFSH: Medical History Essential hypertension GERD (gastroesophageal reflux disease) Hyperlipidemia Left ureteral calculus Nephrolithiasis Right renal stone Surgical History H/O esophagogastroduodenoscopy (04/05/20) H/O: hysterectomy History of cholecystectomy History of surgery on arm S/P appendectomy S/P ureteral stent placement Status post colonoscopy (04/05/20) incomplete, needs Ba enema Family History Other CAD (coronary artery disease) Diabetes Hypertension Stroke Denies family history of Anesthesia complication Bleeding disorder Social History Alcohol intake: current Alcohol intake frequency: other Lives independently: Yes Marital status: Single Current occupational status: employed History of recent travel: No Physical Exam Narrative: EXAM NARRATIVE: GENERAL/CONSTITUTIONAL - well-appearing. No acute distress. Eyes - PERRL, no conjunctival injection ENMT - Atraumatic external nose and ears. Moist mucous membranes NECK - supple. trachea midline CARDIOVASCULAR - regular rate and rhythm. Chest discomfort mildly worse with deep inspiration RESPIRATORY -clear to auscultation bilaterally. ABDOMEN/GI - Nontender/Nondistended. MSK - Extremities without obvious deformity or tenderness to palpation SKIN - Warm, Dry NEURO - alert and appropriately oriented. Moves all extremities equally. Course ED course: - Patient was seen and evaluated by me at bedside - Patient placed on cardiac monitors, IV access obtained - Initial evaluation notable for no acute distress, nontoxic appearance. - Labs notable for mild leukocytosis, no anemia. No significant metabolic abnormalities to explain patient's symptoms. Delta troponin negative. - Imaging notable for no lobar consolidation or evidence of pneumonia. - Upon serial reexamination after treatment the patient was similar. - Based on patient history, evaluation, labs, and imaging as interpreted the most likely cause of the patient's condition is chest pain of unclear etiology. - The results of ED evaluation were discussed with the patient. I recommended admission for stress testing and explained heart score methodology with risk stratification for major adverse cardiac events. The patient is moderate risk, she verbalized understanding of estimated risk and desired discharge with outpatient follow-up. Patient adamantly not prepared to quit smoking. Return precautions, follow-up plan given. - Patient discharged in satisfactory condition. Vital Signs: Vital signs: Vital Signs Temperature 98.2 F 06/24/21 10:08 Pulse Rate 64 06/24/21 14:35 Respiratory Rate 18 06/24/21 14:35 Blood Pressure 175/93 06/24/21 14:35 Pulse Oximetry 99 06/24/21 14:35 MDM - Chest Pain Medical Records: Attestation: I reviewed the patient's medical records. Lab Data: Attestation: I reviewed the patient's lab results. Labs: Lab Results 06/24/21 06/24/21 06/24/21 10:59 10:59 10:59 WBC 12.3 10^3/uL H 10 ^3/uL (4.0-10.0) RBC 4.44 10^6/uL 10^6 /uL (4.1-5.3) Hgb 14.7 g/dL g/dL (11.5-15.3) Hct 44.1 % % (37.0-47.0) MCV 99.3 fl H fl (81-99) MCH 33.1 pg pg (28.0-34.0) MCHC 33.3 g/dL g/dL (30.0-36.0) RDW 13.1 % % (12.1-15.1) Plt Count 310 10^3/cmm 10^3 /cmm (130-400) MPV 9.8 fL fL (7.4-10.4) Neut % (Auto) 75.3 % % Lymph % (Auto) 18.0 % % Mccormick % (Auto) 5.8 % % Eos % (Auto) 0.2 % % Baso % (Auto) 0.2 % % Neut # (Auto) 9.26 10^3/uL H 10 ^3/uL (1.8-7.7) Lymph # (Auto) 2.2 10^3/uL 10^3/ uL (0.8-4.8) Mccormick # (Auto) 0.7 10^3/uL 10^3/ uL (0.2-0.9) Eos # (Auto) 0.0 10^3/uL 10^3/ uL (0.0-0.8) Baso # (Auto) 0.0 10^3/uL 10^3/ uL (0.0-0.1) Nucleated RBC % (a uto) 0 % % Nucleated RBCs # 0.0 /100WBC /100W BC Sodium 140 mmol/L mmol/L (136-145) Potassium 4.0 mmol/L mmol/L (3.5-5.1) Chloride 102 mmol/L mmol/L (98-107) Carbon Dioxide 24 mmol/L mmol/L (22-29) Anion Gap 18.0 (5-19) BUN 16 mg/dL mg/dL (6-20) Creatinine 0.6 mg/dL mg/dL (0.5-0.9) GFR Calculation 105.0 mL/min mL/m in (90-130) Glucose 100 mg/dL mg/dL (65-115) Calculated Osmolal ity 291 mOsm/kg mOsm/ kg (285-295) Calcium 8.8 mg/dL mg/dL (8.5-10.5) Total Bilirubin 0.2 mg/dL mg/dL (0.15-1.2) AST 8 U/L U/L (0-32) ALT 11 U/L U/L (0-33) Alkaline Phosphata se 87 IU/L IU/L (35-105) Troponin T Baselin e 6 ng/L ng/L (0-10) Troponin T 120 Min qamar Delta Troponin T Total Protein 7.2 g/dL g/dL (6.6-8.7) Albumin 4.2 g/dL g/dL (3.5-5.2) Globulin 3.0 g/dL g/dL (1.3-4.6) SARS-CoV-2 Ag (Rap id) 06/24/21 06/24/21 11:11 13:12 WBC RBC Hgb Hct MCV MCH MCHC RDW Plt Count MPV Neut % (Auto) Lymph % (Auto) Mccormick % (Auto) Eos % (Auto) Baso % (Auto) Neut # (Auto) Lymph # (Auto) Mccormick # (Auto) Eos # (Auto) Baso # (Auto) Nucleated RBC % (a uto) Nucleated RBCs # Sodium Potassium Chloride Carbon Dioxide Anion Gap BUN Creatinine GFR Calculation Glucose Calculated Osmolal ity Calcium Total Bilirubin AST ALT Alkaline Phosphata se Troponin T Baselin e Troponin T 120 Min qamar 6.00 ng/L ng/L (0-10) Delta Troponin T 0 ABS# ABS# (0-10) Total Protein Albumin Globulin SARS-CoV-2 Ag (Rap id) Negative (Negative) EKG Data^: EKG 1: Attestation: I personally reviewed and interpreted this EKG as follows: EKG interpretation date: 06/24/21 EKG interpretation time: 12:36 Interpretation: Twelve-lead EKG shows a regular rhythm at a rate of 65. TX interval 139, QRS duration 82, QTc 408. Normal axis. Interpretation: Sinus rhythm Discharge Plan Discharge Patient Disposition: Home Clinical Impression: Chest pain Condition: Stable Prescriptions: No Action melatonin 10 mg capsule 10 mg PO DAILY RF: 0 zolpidem [Ambien] 5 mg tablet 10 mg PO BEDTIME RF: 0 metoprolol succinate 50 mg tablet extended release 24 hr 50 mg PO DAILY RF: 0 hydromorphone [Dilaudid] 4 mg tablet 4 mg PO Q6H 3 Days Qty: 12 RF: 0 aspirin 81 mg tablet,delayed release (DR/EC) 81 mg PO DAILY RF: 0 Hold Instructions: Resume on 04/01/21. EpiPen 0.3 mg/0.3 mL auto-injector 0.3 mg IM Q3H PRN (Reason: anaphylaxis) Qty: 2 RF: 3 nitroglycerin 0.4 mg tablet, sublingual 0.4 mg SUBLINGUAL Q5M PRN (Reason: chest pain) Qty: 30 RF: 0 ibuprofen 200 mg Tablet 400 mg PO DAILY PRN (Reason: Pain) RF: 0 diphenhydramine HCl [Benadryl] 25 mg Capsule 50 mg PO BEDTIME RF: 0 lisinopril 10 mg tablet 40 mg PO DAILY RF: 0 diphenhydramine HCl [Benadryl] 25 mg capsule 25 mg PO Q6H PRN (Reason: allergic reaction) Qty: 20 RF: 0 escitalopram oxalate [Lexapro] 10 mg tablet 10 mg PO BEDTIME RF: 0 Lipitor 40 mg tablet 40 mg PO BEDTIME RF: 0 Naprosyn 500 mg tablet 500 mg PO BID PRN (Reason: pain) Qty: 20 RF: 0 Discharge Orders: Discharge ED (Routine); Ordered 06/24/21 Ordered By: Joel Diez Discharge Diet: Usual diet Discharge Activity: Resume usual activity Patient Instructions: Chest Pain (ED), How to Stop Smoking (ED) Activity Restrictions/Additional Instructions: Thank you for visiting the emergency department. You were seen and evaluated for chest pain exact cause of your symptoms is unclear and requires further evaluation. You are electing for outpatient further evaluation. We will contact you for scheduling of a stress test. Please follow-up with your primary care provider. Please return to the emergency department for worsening symptoms or anything else that you are concerned about and feel needs emergency department evaluation. Coding Level of Care Code ED Business Risk Analyst for Kunal Flores
[2021-06-24 11:09] LABS: Basophils % 0.2 %; Eosinophils % 0.2 %; Hematocrit 44.1 % (37.0-47.0); Hemoglobin 14.7 g/dL (11.5-15.3); Lymphocytes # 2.2 10^3/uL (0.8-4.8); Mean Corpuscular HGB Conc 33.3 g/dL (30.0-36.0); Mean Corpuscular Hemoglobin 33.1 pg (28.0-34.0); Mean Corpuscular Volume 99.3 fl (81-99); Mean Platelet Volume 9.8 fL (7.4-10.4); Monocytes # 0.7 10^3/uL (0.2-0.9); Monocytes % 5.8 %; Neutrophils # 9.26 10^3/uL (1.8-7.7); Neutrophils % 75.3 %; Nucleated Red Blood Cells % 0 %; Platelet Count 310 10^3/cmm (130-400); Red Blood Count 4.44 10^6/uL (4.1-5.3); Red Cell Distribution Width 13.1 % (12.1-15.1); White Blood Count 12.3 10^3/uL (4.0-10.0)
[2021-06-24 11:29] LABS: Alanine Aminotransferase 11 U/L (0-33); Albumin Level 4.2 g/dL (3.5-5.2); Alkaline Phosphatase 87 IU/L (35-105); Aspartate Amino Transferase 8 U/L (0-32); Blood Urea Nitrogen 16 mg/dL (6-20); Calcium 8.8 mg/dL (8.5-10.5); Carbon Dioxide 24 mmol/L (22-29); Chloride 102 mmol/L (98-107); Glucose 100 mg/dL (65-115); Osmolality Calculated 291 mOsm/kg (285-295); Sodium 140 mmol/L (136-145); Total Bilirubin 0.2 mg/dL (0.15-1.2); Total Protein 7.2 g/dL (6.6-8.7)
[2021-06-24 11:31] LABS: Troponin(5th) Baseline 6 ng/L (0-10)
[2021-06-24 11:49] LABS: SARS Covid-2 Antigen Negative (Negative)
[2021-06-24] MEDS: aspirin 81 mg Chew Tablet 324 MG PO (11:51)
--- NOTE | 2021-06-24 11:54 | ECG_ITS ---
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 Measurements Intervals [place] Rate: 65 P: 40 AL: 139 QRS: 40 QRSD: 82 T: 50 QT: 396 QTc: 414 Interpretive Statements SINUS RHYTHM Compared to ECG 06/24/2021 10:14:48 Short AL interval no longer present ST (T wave) deviation no longer present Electronically Signed On 06-25-2021 12:58:42 SOCK IRONER by Isa Shook M.D. [id number]
[2021-06-24 13:36] VITALS: BP 168/102; PULSE 84; RESP 18; O2SAT 94
[2021-06-24 13:49] LABS: Troponin 5 2HR Delta 0 ABS# (0-10)
[2021-06-24 14:35] VITALS: BP 168/102; BP 175/93; PULSE 64; PULSE 84; RESP 18; O2SAT 94; O2SAT 99
--- NOTE | 2021-06-25 14:42 | DCPLANNER ---
group manager had message to schedule an outpatient stress test for patient. group manager faxed signed order to centralized scheduling, who will call patient with appointment information.
--- NOTE | 2021-07-12 08:25 | DCPLANNER ---
Patient has a stress test scheduled for Friday, August 06, 2021 at 10:00. Centralized scheduling will call patient with an appointment information. Patient had a echo cardiogram scheduled and it was cancelled.
--- NOTE | 2021-08-08 15:31 | DCPLANNER ---
Patient had a stress test scheduled and that appointment has been rescheduled.
== END 2021-06-24 14:36 | disposition home or self-care (01) ==
PROVIDERS: Physician Assistant; Emergency Provider Emergency Medicine
DX: R07.9 Chest pain, unspecified (principal); Z79.82 Long term (current) use of aspirin; I10 Essential (primary) hypertension; E78.5 Hyperlipidemia, unspecified; Z20.822 Contact with and (suspected) exposure to COVID-19
CPT/HCPCS: 71045; 80053; 84484; 85025; 87426; 93005; 99283

== ENCOUNTER 2021-06-27 01:53 | Emergency (ER) | payer OTHER, SELFPAY ==
[2021-06-27 02:00] VITALS: BP 189/85; PULSE 62; RESP 18; TEMP 36.7; O2SAT 98; BMI 29.2
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
[2021-06-27] MEDS: dexamethasone 10 mg/mL INJ IM (02:38)
[2021-06-27 02:39] VITALS: RESP 20
[2021-06-27] MEDS: HYDROmorphone 1 mg/mL INJ 1 mL 0.5 MG SUBCUT (02:39)
[2021-06-27] MEDS: ondansetron 4 MG Tablet PO (02:40)
[2021-06-27] MEDS: orphenadrine 30 mg/mL Inj 2 mL 60 MG IM (02:40)
[2021-06-27 04:35] VITALS: RESP 18; O2SAT 100
[2021-06-27] MEDS: HYDROmorphone 1 mg/mL INJ 1 mL IVP (04:35)
[2021-06-27 04:50] VITALS: BP 185/111; PULSE 68; RESP 16; RESP 18; O2SAT 93; O2SAT 96
[2021-06-27] MEDS: fentaNYL 50 mcg/mL INJ 2mL IVP (04:50)
[2021-06-27 05:05] VITALS: BP 160/96; RESP 20; O2SAT 96
== END 2021-06-27 05:20 ==
PROVIDERS: Emergency Provider Emergency Medicine
DX: S32.031A Stable burst fracture of third lumbar vertebra, initial encounter for closed fracture (principal); Z79.82 Long term (current) use of aspirin; I10 Essential (primary) hypertension; E78.5 Hyperlipidemia, unspecified; V89.2XXA Person injured in unspecified motor-vehicle accident, traffic, initial encounter
CPT/HCPCS: 72131; 96372; 96374; 96375; 99285; J1100; J1170; J2360; J3010; Q0162

== ENCOUNTER 2021-07-05 22:32 | Emergency (ER) | payer OTHER, SELFPAY ==
[2021-07-05 22:46] VITALS: BP 117/67; PULSE 65; RESP 16; TEMP 36.6; O2SAT 98; BMI 27.3
--- NOTE | 2021-07-05 23:22 | W.ED.BACK ---
Documented by User: [email or web address] Colby 07/06/21 17:50 HPI - Back Pain/Injury General: Chief Complaint: Back Pain/Injury Stated Complaint: sent by dr. schmitt surgeon broken back Time Seen by Provider: 07/05/21 23:15 History of Present Illness: HPI Narrative: Patient with recent back surgery this past week who is run out of Dilaudid and have been pain in the setting neuro on the right side. Patient to have a drain in she is at that removed at the hospital and has had no complications or swelling in her back or fever. MD elicited complaint: other (Sciatica left side.) Pertinent past history: recent trauma Onset (ago): day(s) Timing: constant Severity: moderate Similar Symptoms Previously: Yes Quality: sharp and aching Radiation: left upper leg and left leg below the knee Exacerbating factors: movement Relieving factors: immobilization Associated symptoms: Reports no associated symptoms; Deny abdominal pain, chills, fever(s), nausea or vomiting Review of Systems Const: Denies: fever(s), chills or body aches Eyes: Denies: change in vision or blurry vision ENMT: Denies: throat pain or nasal congestion Card: Denies: chest pain or dyspnea on exertion Resp: Denies: dyspnea, productive cough or non-productive cough GI: Denies: abdominal pain, nausea or vomiting Musc: Reports: back pain and extremity pain Skin/Breast: Denies: rash Neuro: Denies: headache(s) Psych: Denies: anxiety or depression Jean/Lymph: Denies: easy bruising PFSH ED PFSH: Medical History Essential hypertension GERD (gastroesophageal reflux disease) Hyperlipidemia Left ureteral calculus Nephrolithiasis Right renal stone Surgical History H/O esophagogastroduodenoscopy (04/05/20) H/O: hysterectomy History of cholecystectomy History of surgery on arm S/P appendectomy S/P ureteral stent placement Status post colonoscopy (04/05/20) incomplete, needs Ba enema Family History Other CAD (coronary artery disease) Diabetes Hypertension Stroke Denies family history of Anesthesia complication Bleeding disorder Social History Alcohol intake: current Alcohol intake frequency: other Lives independently: Yes Marital status: Single Current occupational status: employed History of recent travel: No Physical Exam Const: GENERAL APPEARANCE: cooperative Back/Pelvis: OTHER: Patient has tenderness to the sciatic nerve from the buttock down to the upper thigh. I can follow the sciatic nerve with palpation. Psych: COMMON NORMALS: mental status grossly normal Skin: OTHER: Incision looks good no drainage no redness erythema noted. Course Vital Signs: Vital signs: Vital Signs Temperature 97.8 F 07/05/21 22:46 Pulse Rate 65 07/05/21 22:46 Respiratory Rate 16 07/05/21 22:46 Blood Pressure 117/67 07/05/21 22:46 Pulse Oximetry 98 07/05/21 22:46 MDM - Back Pain/Injury MDM Narrative: Medical decision making narrative: Patient ran out of her Dilaudid today. Patient's surgical site without redness or swelling. Patient says since pain medications ran out she is hurt worse. Patient had recent back surgery on a burst fracture. Patient states her back and down her left leg is been hurting more today since running out of the medication. Patient has tenderness consistent with sciatica on palpation patient was walking around the room after exam and is down on the hallway waiting on pain medication. Patient tolerated injection well diagnosed home follow-up with Dr. Schmitt. Discharge Plan Discharge Patient Disposition: Home Clinical Impression: Sciatica of left side Condition: Stable Prescriptions: New gabapentin 300 mg capsule 300 mg PO TID Qty: 21 RF: 0 prednisone 10 mg tablet 10 mg PO DAILY Qty: 7 RF: 0 No Action melatonin 10 mg capsule 10 mg PO DAILY RF: 0 zolpidem [Ambien] 5 mg tablet 10 mg PO BEDTIME RF: 0 metoprolol succinate 50 mg tablet extended release 24 hr 50 mg PO DAILY RF: 0 aspirin 81 mg tablet,delayed release (DR/EC) 81 mg PO DAILY RF: 0 Hold Instructions: Resume on 04/01/21. EpiPen 0.3 mg/0.3 mL auto-injector 0.3 mg IM Q3H PRN (Reason: anaphylaxis) Qty: 2 RF: 3 nitroglycerin 0.4 mg tablet, sublingual 0.4 mg SUBLINGUAL Q5M PRN (Reason: chest pain) Qty: 30 RF: 0 ibuprofen 200 mg Tablet 400 mg PO DAILY PRN (Reason: Pain) RF: 0 diphenhydramine HCl [Benadryl] 25 mg Capsule 50 mg PO BEDTIME RF: 0 lisinopril 10 mg tablet 40 mg PO DAILY RF: 0 diphenhydramine HCl [Benadryl] 25 mg capsule 25 mg PO Q6H PRN (Reason: allergic reaction) Qty: 20 RF: 0 escitalopram oxalate [Lexapro] 10 mg tablet 10 mg PO BEDTIME RF: 0 Lipitor 40 mg tablet 40 mg PO BEDTIME RF: 0 Naprosyn 500 mg tablet 500 mg PO BID PRN (Reason: pain) Qty: 20 RF: 0 Dilaudid 4 mg tablet 4 mg PO Q6H 3 Days Qty: 7 RF: 0 Discharge Orders: Discharge ED (Routine); Ordered 07/06/21 Ordered By: Carlos Estrada Discharge Diet: Usual diet Discharge Activity: Increase activity as tolerated Activity Restrictions/Additional Instructions: Take medication as directed. Contact Dr. Schmitt's office for continued problems. Apply cold compresses to area of the back. No heavy lifting next 4 weeks. Coding Level of Care Code ED Honing Machine Operator for Chg Fwd Exam Expanded Problem Focused Documented by User: Joel Diez MD 07/11/21 00:13 HPI - Back Pain/Injury General: Chief Complaint: Back Pain/Injury Stated Complaint: sent by dr. schmitt surgeon broken back Time Seen by Provider: 07/05/21 23:15 PFSH ED PFSH: Medical History Essential hypertension GERD (gastroesophageal reflux disease) Hyperlipidemia Left ureteral calculus Nephrolithiasis Right renal stone Surgical History H/O esophagogastroduodenoscopy (04/05/20) H/O: hysterectomy History of cholecystectomy History of surgery on arm S/P appendectomy S/P ureteral stent placement Status post colonoscopy (04/05/20) incomplete, needs Ba enema Family History Other CAD (coronary artery disease) Diabetes Hypertension Stroke Denies family history of Anesthesia complication Bleeding disorder Social History Alcohol intake: current Alcohol intake frequency: other Lives independently: Yes Marital status: Single Current occupational status: employed History of recent travel: No Course Vital Signs: Vital signs: Vital Signs Temperature 97.8 F 07/05/21 22:46 Pulse Rate 65 07/05/21 22:46 Respiratory Rate 16 07/05/21 22:46 Blood Pressure 117/67 07/05/21 22:46 Pulse Oximetry 98 07/05/21 22:46 MDM - Back Pain/Injury MDM Narrative: Medical decision making narrative: I have reviewed documentation. Joel Diez MD Emergency Medicine Discharge Plan Discharge Patient Disposition: Home Clinical Impression: Sciatica of left side Condition: Stable Prescriptions: New gabapentin 300 mg capsule 300 mg PO TID Qty: 21 RF: 0 prednisone 10 mg tablet 10 mg PO DAILY Qty: 7 RF: 0 No Action melatonin 10 mg capsule 10 mg PO DAILY RF: 0 zolpidem [Ambien] 5 mg tablet 10 mg PO BEDTIME RF: 0 metoprolol succinate 50 mg tablet extended release 24 hr 50 mg PO DAILY RF: 0 aspirin 81 mg tablet,delayed release (DR/EC) 81 mg PO DAILY RF: 0 Hold Instructions: Resume on 04/01/21. EpiPen 0.3 mg/0.3 mL auto-injector 0.3 mg IM Q3H PRN (Reason: anaphylaxis) Qty: 2 RF: 3 nitroglycerin 0.4 mg tablet, sublingual 0.4 mg SUBLINGUAL Q5M PRN (Reason: chest pain) Qty: 30 RF: 0 ibuprofen 200 mg Tablet 400 mg PO DAILY PRN (Reason: Pain) RF: 0 diphenhydramine HCl [Benadryl] 25 mg Capsule 50 mg PO BEDTIME RF: 0 lisinopril 10 mg tablet 40 mg PO DAILY RF: 0 diphenhydramine HCl [Benadryl] 25 mg capsule 25 mg PO Q6H PRN (Reason: allergic reaction) Qty: 20 RF: 0 escitalopram oxalate [Lexapro] 10 mg tablet 10 mg PO BEDTIME RF: 0 Lipitor 40 mg tablet 40 mg PO BEDTIME RF: 0 Naprosyn 500 mg tablet 500 mg PO BID PRN (Reason: pain) Qty: 20 RF: 0 Dilaudid 4 mg tablet 4 mg PO Q6H 3 Days Qty: 7 RF: 0 Discharge Orders: Discharge ED (Routine); Ordered 07/06/21 Ordered By: Carlos Estrada Discharge Diet: Usual diet Discharge Activity: Increase activity as tolerated Activity Restrictions/Additional Instructions: Take medication as directed. Contact Dr. Schmitt's office for continued problems. Apply cold compresses to area of the back. No heavy lifting next 4 weeks. Coding Level of Care Code ED Honing Machine Operator for Kunal Fwd Exam Expanded Problem Focused
[2021-07-06] MEDS: gabapentin 300 mg Capsule PO (00:14)
[2021-07-06] MEDS: methylPREDNISolone (DEPO) 80 MG/ML INJ 1 mL IM (00:14)
[2021-07-06] MEDS: HYDROmorphone 1 mg/mL INJ 1 mL 0.5 MG SUBCUT (00:16)
== END 2021-07-06 00:40 | disposition home or self-care (01) ==
PROVIDERS: Emergency Provider Nurse Practitioner Family
DX: M54.32 Sciatica, left side (principal); Z79.82 Long term (current) use of aspirin; I10 Essential (primary) hypertension; E78.5 Hyperlipidemia, unspecified
CPT/HCPCS: 96372; 99283; J1040; J1170

== ENCOUNTER 2021-07-07 05:28 | Emergency (ER) | payer OTHER, SELFPAY ==
[2021-07-07 05:36] VITALS: BP 151/86; PULSE 62; RESP 18; TEMP 36.2; O2SAT 99; BMI 28.3
[2021-07-07 06:05] VITALS: RESP 18; O2SAT 96
[2021-07-07] MEDS: HYDROmorphone 1 mg/mL INJ 1 mL IM (06:05)
--- NOTE | 2021-07-07 06:09 | W.ED.BACK ---
HPI - Back Pain/Injury General: Chief Complaint: Back Pain/Injury Stated Complaint: Back Pain Time Seen by Provider: 07/07/21 05:41 History of Present Illness: MD elicited complaint: back pain Onset (ago): day(s) Timing: constant Quality: sharp Location: lumbar spine Exacerbating factors: movement Relieving factors: medication Associated symptoms: Reports difficulty walking, nausea and numbness (to thighs, intermittent); Deny abdominal pain or fever(s) Review of Systems Const: Denies: fever(s) Card: Denies: chest pain Resp: Denies: dyspnea GI: Reports: nausea; Denies: abdominal pain Neuro: Reports: numbness in extremities and difficulty walking; Denies: weakness in extremities PFSH ED PFSH: Medical History Essential hypertension GERD (gastroesophageal reflux disease) Hyperlipidemia Left ureteral calculus Nephrolithiasis Right renal stone Surgical History H/O esophagogastroduodenoscopy (04/05/20) H/O: hysterectomy History of cholecystectomy History of surgery on arm S/P appendectomy S/P ureteral stent placement Status post colonoscopy (04/05/20) incomplete, needs Ba enema Family History Other CAD (coronary artery disease) Diabetes Hypertension Stroke Denies family history of Anesthesia complication Bleeding disorder Social History Alcohol intake: current Alcohol intake frequency: other Lives independently: Yes Marital status: Single Current occupational status: employed History of recent travel: No Physical Exam Const: COMMON NORMALS: patient oriented x3 and alert GENERAL APPEARANCE: not comfortable HENMT: COMMON NORMALS: normocephalic HEAD & SCALP: normocephalic Chest: COMMONS NORMALS: normal inspection of the chest Resp: COMMON NORMALS: normal respiratory effort, No use of accessory muscles and clear to auscultation bilaterally AUSCULTATION: clear to auscultation bilaterally Cardio: COMMON NORMALS: regular rate and regular rhythm RATE: regular rate RHYTHM: regular rhythm GI: COMMON NORMALS: Normal to inspection, nondistended, normoactive bowel sounds present Back/Pelvis: LUMBAR SPINE/LOWER BACK: Yes lumbar spinal tenderness Neuro: COMMON NORMALS: patient oriented x3 SENSORIUM/ORIENTATION: Yes alert Skin: NARRATIVE SKIN EXAM: Incision closed, no redness, no drainage, no significant swelling Course Vital Signs: Vital signs: Vital Signs Temperature 97.2 F L 07/07/21 05:36 Pulse Rate 61 07/07/21 06:13 Respiratory Rate 18 07/07/21 06:13 Blood Pressure 151/86 07/07/21 06:13 Pulse Oximetry 98 07/07/21 06:13 MDM - Back Pain/Injury MDM Narrative: Medical decision making narrative: No evidence of complication clinically with her surgery. Her incision looks great clinically. No history of fever. No increasing pain, just lack of pain control off pain medication. She will be prescribed a very short course of pain medication until she can follow-up with her neurosurgeon Discharge Plan Discharge Patient Disposition: Home Clinical Impression: Burst fracture of lumbar vertebra Qualifiers: Encounter type: subsequent encounter Fracture type: closed Condition: Stable Prescriptions: Continued Dilaudid 4 mg tablet 4 mg PO Q6H 3 Days Qty: 7 RF: 0 No Action melatonin 10 mg capsule 10 mg PO DAILY RF: 0 zolpidem [Ambien] 5 mg tablet 10 mg PO BEDTIME RF: 0 metoprolol succinate 50 mg tablet extended release 24 hr 50 mg PO DAILY RF: 0 aspirin 81 mg tablet,delayed release (DR/EC) 81 mg PO DAILY RF: 0 Hold Instructions: Resume on 04/01/21. EpiPen 0.3 mg/0.3 mL auto-injector 0.3 mg IM Q3H PRN (Reason: anaphylaxis) Qty: 2 RF: 3 nitroglycerin 0.4 mg tablet, sublingual 0.4 mg SUBLINGUAL Q5M PRN (Reason: chest pain) Qty: 30 RF: 0 ibuprofen 200 mg Tablet 400 mg PO DAILY PRN (Reason: Pain) RF: 0 diphenhydramine HCl [Benadryl] 25 mg Capsule 50 mg PO BEDTIME RF: 0 lisinopril 10 mg tablet 40 mg PO DAILY RF: 0 diphenhydramine HCl [Benadryl] 25 mg capsule 25 mg PO Q6H PRN (Reason: allergic reaction) Qty: 20 RF: 0 gabapentin 300 mg capsule 300 mg PO TID Qty: 21 RF: 0 prednisone 10 mg tablet 10 mg PO DAILY Qty: 7 RF: 0 escitalopram oxalate [Lexapro] 10 mg tablet 10 mg PO BEDTIME RF: 0 Lipitor 40 mg tablet 40 mg PO BEDTIME RF: 0 Naprosyn 500 mg tablet 500 mg PO BID PRN (Reason: pain) Qty: 20 RF: 0 Discharge Orders: Discharge ED (Routine); Ordered 07/07/21 Ordered By: Emil Gresham Patient Instructions: Back Pain (ED), Opioid Safety Activity Restrictions/Additional Instructions: Return to the emergency department for loss of function of legs, numbness in the groin or genital region, inability to control bowel movements or urination, fever greater than 100, redness or swelling or drainage of your surgical site, other concerning symptoms. Because of our chronic pain management policy in the ER, we are unable to continue to fill pain medication prescriptions in the emergency department. Contact your surgeon Thursday to let them know you were here, they may want to follow you up sooner in clinic. Coding Level of Care Code ED Electronic Security Technician for Kunal Flores
[2021-07-07 06:13] VITALS: BP 151/86; PULSE 61; RESP 18; O2SAT 98
== END 2021-07-07 06:15 | disposition home or self-care (01) ==
PROVIDERS: Emergency Provider Emergency Medicine
DX: S32.001A Stable burst fracture of unspecified lumbar vertebra, initial encounter for closed fracture (principal); X58.XXXA Exposure to other specified factors, initial encounter; Z79.82 Long term (current) use of aspirin; I10 Essential (primary) hypertension; E78.5 Hyperlipidemia, unspecified
CPT/HCPCS: 96372; 99283; J1170

== ENCOUNTER 2021-07-08 16:45 | Emergency (ER) | payer OTHER, SELFPAY ==
[2021-07-08 17:22] VITALS: PULSE 72; RESP 16; TEMP 36.7; O2SAT 97; BMI 29.2
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
--- NOTE | 2021-07-08 17:32 | XRR_ITS ---
PROCEDURE INFORMATION: Exam: XR Lumbosacral Spine Exam date and time: 07/08/2021 5:32 PM Age: 51 years old Clinical indication: Low back pain; Prior surgery; Surgery date: <1 month; Surgery type: Lumbar; Additional info: Fall TECHNIQUE: Imaging protocol: XR of the lumbosacral spine. Views: 2 or 3 views. COMPARISON: CT lumbar spine wo con* [id number] 06/27/2021 3:16 AM FINDINGS: Bones/joints: L3 vertebral body chronic compression fracture with posterior fixation hardware seen in the L1 and L2 as well as L4 and L5 vertebral bodies. Soft tissues: Unremarkable. Vasculature: Scattered vascular calcifications. XR/XR lumbar spine 2-3V* [id number] IMPRESSION: 1. Negative for acute abnormality. 2. L3 vertebral body chronic compression fracture with posterior fixation hardware seen in the L1 and L2 as well as L4 and L5 vertebral bodies. 3. Scattered vascular calcifications. Radiation Dose CTDIVOL = (mGy): DLP = (mGy-cm)
[2021-07-08 17:40] VITALS: BP 147/88; PULSE 64; RESP 18; O2SAT 98
== END 2021-07-08 19:11 | disposition home or self-care (01) ==
PROVIDERS: Emergency Provider Nurse Practitioner Family
DX: M54.9 Dorsalgia, unspecified (principal); W18.2XXA Fall in (into) shower or empty bathtub, initial encounter
CPT/HCPCS: 72100; 99282

== ENCOUNTER 2021-07-20 11:57 | Emergency (ER) | payer OTHER, SELFPAY ==
[2021-07-20 12:08] VITALS: BP 133/82; PULSE 65; RESP 18; TEMP 36.4; O2SAT 98; BMI 27.3
--- NOTE | 2021-07-20 13:26 | XRR_ITS ---
PROCEDURE INFORMATION: Exam: XR Lumbosacral Spine Exam date and time: 07/20/2021 1:26 PM Age: 51 years old Clinical indication: Injury or trauma; Fall; Blunt trauma (contusions or hematomas) TECHNIQUE: Imaging protocol: XR of the lumbosacral spine. Views: 2 or 3 views. COMPARISON: CR (PELVIS, ) 07/08/2021 6:20 PM FINDINGS: Bones/joints: No acute fracture. Posterior spinal fusion device involving the L1-L5 segment traversing a chronic moderate compression fracture/deformity at L3. No significant interval change. Normal alignment. Degenerative disc disease at L5-S1. Soft tissues: Unremarkable. XR/XR lumbar spine 2-3V* [id number] IMPRESSION: Stable exam, no acute findings.
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
[2021-07-20] MEDS: ketorolac 60 mg/2 mL INJ IM (13:40)
[2021-07-20 13:42] VITALS: BP 133/82; PULSE 65; RESP 18; TEMP 36.4; O2SAT 98
[2021-07-20 14:53] VITALS: BP 133/82; PULSE 65; RESP 18; TEMP 36.4; O2SAT 98
== END 2021-07-20 14:54 | disposition left against medical advice (07) ==
PROVIDERS: Emergency Provider Nurse Practitioner Family
DX: M54.50 Low back pain, unspecified (principal); Z53.21 Procedure and treatment not carried out due to patient leaving prior to being seen by health care provider; Z79.82 Long term (current) use of aspirin; I10 Essential (primary) hypertension; E78.5 Hyperlipidemia, unspecified
CPT/HCPCS: 72100; 96372; 99283; J1885

== ENCOUNTER 2021-09-01 06:07 | Emergency (ER) | payer OTHER, MEDICAID, SELFPAY ==
[2021-09-01 06:12] VITALS: BP 154/104; PULSE 81; RESP 16; TEMP 36.6; O2SAT 99; BMI 28.3
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
[2021-09-01 06:24] VITALS: BP 145/75; PULSE 78; RESP 18; TEMP 36.9; O2SAT 97
--- NOTE | 2021-09-01 06:33 | XRR_ITS ---
PROCEDURE INFORMATION: Exam: XR Lumbosacral Spine Exam date and time: 09/01/2021 6:33 AM Age: 51 years old Clinical indication: Low back pain; Prior surgery; Additional info: Back pain, radiculopathy, HX surgery TECHNIQUE: Imaging protocol: XR of the lumbosacral spine. Views: 2 or 3 views. COMPARISON: CR (PELVIS, ) 07/20/2021 1:42 PM FINDINGS: Bones/joints: Laminectomy and pedicle screw fixation extending from L1-L5. Chronic L3 compression fracture with retropulsion. Degenerative change. Intraperitoneal space: Status post cholecystectomy. Gastrointestinal tract: Mild bowel dilatation and prominent stool. Vasculature: Vascular calcification. XR/XR lumbar spine 2-3V* [id number] IMPRESSION: Laminectomy and pedicle screw fixation extending from L1-L5. Chronic L3 compression fracture with retropulsion.
[2021-09-01] MEDS: fentaNYL 50 mcg/mL INJ 2mL IVP ×2 (07:00→08:14)
[2021-09-01] MEDS: dexamethasone 10 mg/mL INJ IVP (07:02)
[2021-09-01] MEDS: diazePAM 2 mg Tablet PO (07:05)
[2021-09-01] MEDS: ketorolac 30 mg/mL INJ 15 MG IVP (07:05)
[2021-09-01 08:14] VITALS: BP 144/73; PULSE 67; RESP 16; RESP 18; O2SAT 95
[2021-09-01] MEDS: methocarbamol 750 mg Tablet PO (08:14)
--- NOTE | 2021-09-01 09:04 | PC.NURSE ---
DISCHARGE REVIEWED WITH PATIENT- VERBALIZED UNDERSTANDING OF ALL INSTRUCTIONS, MEDICATIONS AND FOLLOW UP- PT AMB FROM ED
== END 2021-09-01 09:05 | disposition home or self-care (01) ==
PROVIDERS: Emergency Provider Emergency Medicine
DX: M54.16 Radiculopathy, lumbar region (principal); Z79.82 Long term (current) use of aspirin; I10 Essential (primary) hypertension; E78.5 Hyperlipidemia, unspecified; S32.038D Other fracture of third lumbar vertebra, subsequent encounter for fracture with routine healing; V89.2XXD Person injured in unspecified motor-vehicle accident, traffic, subsequent encounter
CPT/HCPCS: 72100; 96374; 96375; 96376; 99284; J1100; J1885; J3010

== ENCOUNTER 2022-02-10 21:37 | Emergency (ER) | payer OTHER, SELFPAY ==
[2022-02-10 21:46] VITALS: BP 161/90; PULSE 72; RESP 16; TEMP 36.7; O2SAT 97; BMI 28.3
--- NOTE | 2022-02-10 22:39 | XRR_ITS ---
PROCEDURE INFORMATION: Exam: XR Lumbosacral Spine Exam date and time: 02/10/2022 10:45 PM Age: 51 years old Clinical indication: Low back pain; Prior surgery; Surgery date: 1-6 months; Surgery type: Lumbar; Additional info: Fall TECHNIQUE: Imaging protocol: Radiologic exam of the lumbosacral spine. Views: 2 or 3 views. COMPARISON: CT lumbar spine wo con* [id number] 06/27/2021 3:16 AM FINDINGS: Bones/joints: Intact posterior fusion hardware L1-L5, bridging and L3 fracture. There is normal vertebral body alignment. Severe intervertebral disc space narrowing at L5-S1. The pedicles are intact. No acute fracture. Soft tissues: Unremarkable. Intraperitoneal space: There has been a cholecystectomy. XR/XR lumbar spine 2-3V* [id number] IMPRESSION: No acute fracture.
--- NOTE | 2022-02-10 22:39 | XRR_ITS ---
PROCEDURE INFORMATION: Exam: XR Right Hip Exam date and time: 02/10/2022 10:45 PM Age: 51 years old Clinical indication: Hip pain; Right hip; Additional info: Fall TECHNIQUE: Imaging protocol: Radiologic exam of the Right hip. Views: 1 view hip with pelvis when performed. COMPARISON: CT kidney stone [id number] 03/19/2021 3:07 AM FINDINGS: Bones/joints: There is posterior fusion hardware in the lower lumbar spine. No acute fracture or dislocation. Soft tissues: Unremarkable. XR/XR hip RT 2-3V wo/w pel* [id number] IMPRESSION: No acute fracture or dislocation.
--- NOTE | 2022-02-10 23:10 | W.ED.BACK ---
HPI - Back Pain/Injury General: Chief Complaint: Back Pain/Injury Stated Complaint: Fell-Back Injury Time Seen by Provider: 02/10/22 22:50 History of Present Illness: Patient is a 51-year-old female comes to the ED with lower back pain and right hip pain after fall. Injury occurred just prior to arrival. Patient says she was at work and there was some water on the floor that she slipped on and fell backwards landing on right hip and lower back. Denies any head trauma or loss of consciousness. Since fall she is having right hip pain and low back pain. She rates the pain currently a 9 out of 10. She has not taken any pain meds before coming to the ED. Associated symptoms: Deny abdominal pain, chills, dysuria, fatigue, fever(s), hematuria, nausea or vomiting Review of Systems Const: Denies: fever(s), chills or fatigue Eyes: Denies: change in vision or eye discomfort ENMT: Denies: throat pain, odynophagia, nasal discharge or nasal congestion Card: Denies: chest pain, palpitations, edema, swelling of feet/ankles, dyspnea on exertion or orthopnea Resp: Denies: dyspnea, productive cough or non-productive cough GI: Denies: abdominal pain, nausea, vomiting, diarrhea, constipation or hematochezia : Denies: flank pain, dysuria or hematuria Musc: Reports: back pain and extremity pain (Right hip); Denies: neck pain or extremity swelling Skin/Breast: Denies: rash or new lesions Neuro: Denies: headache(s), numbness in extremities or weakness in extremities PFS ED PFSH: Medical History Essential hypertension GERD (gastroesophageal reflux disease) Hyperlipidemia Left ureteral calculus Nephrolithiasis Right renal stone Surgical History H/O esophagogastroduodenoscopy (04/05/20) H/O: hysterectomy History of cholecystectomy History of surgery on arm S/P appendectomy S/P ureteral stent placement Status post colonoscopy (04/05/20) incomplete, needs Ba enema Family History Other CAD (coronary artery disease) Diabetes Hypertension Stroke Denies family history of Anesthesia complication Bleeding disorder Social History Alcohol intake: current Alcohol intake frequency: other Lives independently: Yes Marital status: Single Current occupational status: employed History of recent travel: No Physical Exam Const: COMMON NORMALS: no acute distress, patient oriented x3 and alert GENERAL APPEARANCE: cooperative and comfortable HENMT: COMMON NORMALS: normocephalic HEAD & SCALP: normocephalic MOUTH: Normal oral and palatal mucosa present THROAT: posterior oropharynx normal and uvula midline Neck/C-Spine: COMMON NORMALS: supple GENERAL: Yes normal visual inspection Resp: COMMON NORMALS: normal respiratory effort, No retractions, No use of accessory muscles and clear to auscultation bilaterally AUSCULTATION: clear to auscultation bilaterally Cardio: COMMON NORMALS: regular rate, regular rhythm, S1 normal heart sound present, S2 normal heart sound present, No gallops present (Cardio), No clicks present (Cardio), No murmurs present (Cardio) and Peripheral pulses 2+ throughout RATE: regular rate RHYTHM: regular rhythm HEART SOUNDS: S1 normal heart sound present and S2 normal heart sound present PERIPHERAL PULSES: Peripheral pulses 2+ throughout GI: COMMON NORMALS: Normal to inspection, nondistended, normoactive bowel sounds present, Soft to palpation, non-tender and no masses PALPATION: Yes Soft to palpation : COMMON NORMALS: Yes no CVA tenderness BLADDER/KIDNEY EXAM: Yes no CVA tenderness Back/Pelvis: COMMON NORMALS: no CVA tenderness LUMBAR SPINE/LOWER BACK: Yes pain with ROM and Yes paraspinal muscle tenderness Lumbar paraspinal muscle tenderness: bilateral Bilateral lumbar paraspinal muscle tenderness: L4 and L5 Extremity: COMMON NORMALS: normal to inspection Neuro: COMMON NORMALS: patient oriented x3 and moves all extremities SENSORIUM/ORIENTATION: Yes alert Skin: GENERAL SKIN EXAM: dry skin Course Vital Signs: Vital signs: Vital Signs Temperature 98.1 F 02/11/22 00:07 Pulse Rate 71 02/11/22 00:07 Respiratory Rate 16 02/11/22 00:07 Blood Pressure 160/91 02/11/22 00:07 Pulse Oximetry 97 02/11/22 00:07 MDM - Back Pain/Injury Medical Decision Making Patient is a 51-year-old female comes to the ED with lower back pain and right hip pain after fall. Denies any head trauma or loss of consciousness. Denies cauda equina symptoms. Vitals are stable. Patient has some bilateral paraspinal lumbar muscle tenderness but rest of exam is benign. X-ray of right hip and lumbar spine showed no acute fractures or findings. Patient was diagnosed back pain due to injury and was discharged home with a prescription for a muscle relaxer and Celebrex for pain. She was told to follow-up with her PCP in the next week for reevaluation. Return to ED precautions given. Patient understood and agreed with plan. Labs Radiology Impressions Hip/Pelvis X-Ray 02/10/22 22:39 IMPRESSION: No acute fracture or dislocation. Lumbar Spine X-Ray 02/10/22 22:39 IMPRESSION: No acute fracture. Discharge Plan Discharge Patient Disposition: Home Clinical Impression: Back pain due to injury Condition: Stable Prescriptions: New methocarbamol 750 mg tablet 750 mg PO TID PRN (Reason: muscle spasms and pain) Qty: 20 0RF Celebrex 100 mg capsule 100 mg PO BID PRN (Reason: pain) Qty: 20 0RF No Action melatonin 10 mg capsule 10 mg PO DAILY 0RF zolpidem [Ambien] 5 mg tablet 10 mg PO BEDTIME 0RF metoprolol succinate 50 mg tablet extended release 24 hr 50 mg PO DAILY 0RF aspirin 81 mg tablet,delayed release (DR/EC) 81 mg PO DAILY 0RF Hold Instructions: Resume on 04/01/21. EpiPen 0.3 mg/0.3 mL auto-injector 0.3 mg IM Q3H PRN (Reason: anaphylaxis) Qty: 2 3RF Rx Instructions: 340 B nitroglycerin 0.4 mg tablet, sublingual 0.4 mg SUBLINGUAL Q5M PRN (Reason: chest pain) Qty: 30 0RF Rx Instructions: do not exceed 3 doses per episode ibuprofen 200 mg Tablet 400 mg PO DAILY PRN (Reason: Pain) 0RF diphenhydramine HCl [Benadryl] 25 mg Capsule 50 mg PO BEDTIME 0RF lisinopril 10 mg tablet 40 mg PO DAILY 0RF diphenhydramine HCl [Benadryl] 25 mg capsule 25 mg PO Q6H PRN (Reason: allergic reaction) Qty: 20 0RF gabapentin 300 mg capsule 300 mg PO TID Qty: 21 0RF prednisone 10 mg tablet 10 mg PO DAILY Qty: 7 0RF escitalopram oxalate [Lexapro] 10 mg tablet 10 mg PO BEDTIME 0RF Lipitor 40 mg tablet 40 mg PO BEDTIME 0RF Naprosyn 500 mg tablet 500 mg PO BID PRN (Reason: pain) Qty: 20 0RF Dilaudid 4 mg tablet 4 mg PO Q6H 3 Days Qty: 7 0RF oxycodone 5 mg tablet 5 mg PO Q4H PRN (Reason: pain) Qty: 10 0RF Discharge Orders: Discharge ED (Routine); Ordered 02/10/22 Ordered By: Forrest Flores Discharge Diet: Regular Discharge Activity: Increase activity as tolerated Patient Instructions: Back Pain (ED) Activity Restrictions/Additional Instructions: Follow-up with medical provider as directed in the next 7 to 10 days for reevaluation. Take medications as prescribed. Return to the ER or your medical provider if condition worsens. Please read and understand discharge instructions. Thank you for choosing [facility] for your healthcare needs today. Please realize this is an emergency room and that we are providing you with a medical screening exam and this may not be complete and all inclusive of all the testing and or work up that you may need to determine your ailment or severity of your illness. It is very important that you follow up as instructed or that you return to the Emergency Department should you have concerns or if your condition changes or worsens in any way. Coding Level of Care Code ED Paper Sealer for Kunal Flores Exam Comprehensive
[2022-02-10] MEDS: orphenadrine 30 mg/mL Inj 2 mL 60 MG IM (23:39)
[2022-02-10 23:40] VITALS: RESP 18
[2022-02-10] MEDS: HYDROmorphone 1 mg/mL INJ 1 mL 0.5 MG SUBCUT (23:40)
[2022-02-11 00:07] VITALS: BP 160/91; PULSE 71; RESP 16; TEMP 36.7; O2SAT 97
== END 2022-02-11 00:08 | disposition home or self-care (01) ==
PROVIDERS: Emergency Provider Physician Assistant
DX: S39.92XA Unspecified injury of lower back, initial encounter (principal); W01.0XXA Fall on same level from slipping, tripping and stumbling without subsequent striking against object, initial encounter; Y99.0 Civilian activity done for income or pay; I10 Essential (primary) hypertension; E78.5 Hyperlipidemia, unspecified
CPT/HCPCS: 72100; 73502; 96372; 99284; J1170; J2360

== ENCOUNTER 2022-05-26 21:30 | Emergency (ER) | payer SELFPAY ==
[2022-05-26 21:35] VITALS: BP 163/85; PULSE 66; RESP 18; TEMP 36.6; O2SAT 99; BMI 28.1
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
--- NOTE | 2022-05-26 22:17 | XRR_ITS ---
PROCEDURE INFORMATION: Exam: XR Lumbosacral Spine Exam date and time: 05/26/2022 10:25 PM Age: 51 years old Clinical indication: Low back pain; Prior surgery; Surgery date: 6+ months; Additional info: Injury TECHNIQUE: Imaging protocol: Radiologic exam of the lumbosacral spine. Views: 2 or 3 views. COMPARISON: CT lumbar spine wo con* [id number] 06/27/2021 3:16 AM FINDINGS: Bones/joints: Surgical hardware seen in place through the lumbar spine with a chronic appearing L3 vertebral body compression fracture with retropulsion of bony fragments resulting in [id number] spinal canal narrowing, similar to prior exam. Soft tissues: Unremarkable. XR/XR lumbar spine 2-3V* [id number] IMPRESSION: Surgical hardware seen in place through the lumbar spine with a chronic appearing L3 vertebral body compression fracture with retropulsion of bony fragments resulting in [id number] spinal canal narrowing, similar to prior exam.
[2022-05-26] MEDS: oxyCODONE 5 mg IR Tab/Cap PO (22:23)
== END 2022-05-26 23:20 | disposition home or self-care (01) ==
PROVIDERS: Emergency Provider Nurse Practitioner Family
DX: S39.92XA Unspecified injury of lower back, initial encounter (principal); Z79.82 Long term (current) use of aspirin; I10 Essential (primary) hypertension; E78.5 Hyperlipidemia, unspecified; Y04.2XXA Assault by strike against or bumped into by another person, initial encounter; Y92.129 Unspecified place in nursing home as the place of occurrence of the external cause; Y99.0 Civilian activity done for income or pay
CPT/HCPCS: 72100; 99283

== ENCOUNTER 2022-06-26 14:07 | Observation (INO) | payer MEDICAID, SELFPAY ==
[2022-06-26 14:18] VITALS: BMI 27.3
--- NOTE | 2022-06-26 14:18 | ECG_ITS ---
[facility] Test Date: 2022-06-26 Pat Name: Naomie Villa Department: Room: Gender: Female Desktop Administrator: : 1970 Requested By: Fredo Marie Order Number: [id number] Neri MD: Garth Frank M.D. Measurements Intervals [place] Rate: 60 P: 43 [place]: 144 QRS: 46 QRSD: 74 T: 54 QT: 403 QTc: 403 Interpretive Statements SINUS RHYTHM Compared to ECG 06/24/2021 12:12:11 No significant changes Electronically Signed On 06-27-2022 6:25:14 COMMODITY ANALYST by Garth Frank M.D. [id number]
[2022-06-26 14:22] VITALS: BP 145/89; PULSE 60; RESP 18; TEMP 36.8; O2SAT 98
--- NOTE | 2022-06-26 14:30 | W.ED.NEUROSD ---
HPI - Neuro Symptoms/Deficit General: Chief Complaint: Neuro Symptoms/Deficit Stated Complaint: AMS, left side droop/numb Time Seen by Provider: 06/26/22 14:30 History of Present Illness: Ms. Villa is a 52-year-old lady with complex past medical history including hypertension, hyperlipidemia, tobaccoism, psychiatric disorder presenting to the emergency department due to strokelike symptoms. Last definitive known well was last night however patient first noticed symptoms at approximately 3 or 4 AM when she woke up to go the bathroom. She endorses difficulty walking running into objects and a abnormal weakness and sensory changes along the left side of her body and left face. Intensity symptoms is moderate to severe. Course has persisted. Denies similar episodes in the past. Denies other known specific provoking or inciting events. No other specific changes in health, exacerbating, or alleviating factors identified. Onset (ago): hour(s) Last Observed Normal: 22:00 Location: speech, left face, left arm, left leg and altered History of same: No Severity: severe Relieving factors: none Exacerbating factors: none Context: other On Anticoagulants: No Associated symptoms: Reports no associated symptoms Review of Systems General: Reports: 10 or more systems reviewed and unremarkable except in HPI and below PFSH ED PFSH: Medical History (Updated 07/06/22 @ 00:01 by ) Essential hypertension LIZ (generalized anxiety disorder) GERD (gastroesophageal reflux disease) Hyperlipidemia Insomnia Left ureteral calculus Nephrolithiasis Nicotine dependence, cigarettes, with unspecified nicotine-induced disorders Right renal stone Urolithiasis Multi stone former with ESWL and endoscopic treatment previously. Surgical History H/O esophagogastroduodenoscopy (04/05/20) H/O: hysterectomy History of cholecystectomy History of surgery on arm S/P appendectomy S/P ureteral stent placement Status post colonoscopy (04/05/20) incomplete, needs Ba enema Family History Other CAD (coronary artery disease) Diabetes Hypertension Stroke Denies family history of Anesthesia complication Bleeding disorder Social History Alcohol intake: current Alcohol intake frequency: other Lives independently: Yes Marital status: Single Current occupational status: employed History of recent travel: No NIH stroke score NIHSS: Level Of Consciousness - 1a: 0 Level Of Consciousness Questions - 1b: Both Correct Level Of Consciousness Commands - 1c: Both Correct Best Gaze - 2: Normal Visual Pro - 3: No Visual Loss Facial Palsy - 4: Partial Paralysis Motor Arm Right - 5: No Drift Motor Arm Left - 5: Effort Against Gregory Motor Leg Right - 6: No Drift Motor Leg Left - 6: Drift Limb Ataxia - 7: Present In One Limb Sensory - 8: Mild To Moderate Loss Best Language - 9: No Aphasia Dysarthia - 10: Normal Extinction And Inattention - 11: 0 Score: Total Score: 7 Physical Exam Const: COMMON NORMALS: alert GENERAL APPEARANCE: cooperative and well developed HENMT: COMMON NORMALS: normocephalic and atraumatic HEAD & SCALP: normocephalic and atraumatic Eye: COMMON NORMALS: conjunctivae normal CONJUNCTIVA: Yes conjunctivae normal SCLERA: sclerae normal Neck/C-Spine: COMMON NORMALS: supple GENERAL: Yes trachea midline Resp: COMMON NORMALS: normal respiratory effort EFFORT & INSPECTION: Yes able to speak in complete sentences Cardio: COMMON NORMALS: regular rate and regular rhythm RATE: regular rate RHYTHM: regular rhythm GI: COMMON NORMALS: Soft to palpation PALPATION: Yes Soft to palpation and No Tenderness to palpation present (GI) PERCUSSION: normal to percussion Extremity: GENERAL: Yes normal exam except as noted and No edema Neuro: SENSORIUM/ORIENTATION: Yes alert and No Orientation impaired OTHER: Left facial droop which is forehead sparing. Left upper extremity subjective decreased sensation and some effort against gravity. Left lower extremity drift with sensory change. Psych: COMMON NORMALS: mental status grossly normal and Normal thought process present THOUGHT PROCESS: Normal thought process present Course Vital Signs: Vital signs: Vital Signs Temperature 98.5 F 06/27/22 06:00 Pulse Rate 61 06/27/22 06:00 Respiratory Rate 17 06/27/22 06:00 Blood Pressure 119/60 06/27/22 06:00 Pulse Oximetry 95 06/27/22 06:00 Oxygen Delivery Me thod 06/26/22 20:00 MDM - Neuro Symptoms/Deficit Medical Decision Making 52-year-old lady presenting with strokelike symptoms. Patient is outside of tPA window. NIHSS of 7. Exam as above. EKG shows sinus rhythm with no STEMI Labs with normal hematologic panel, no metabolic derangements to explain symptoms. No UTI. Toxic ingestions are negative. CT head with evidence of ischemic stroke. No evidence of large vessel occlusion on CTA Most likely cause of patient's symptoms is stroke. The results of ED evaluation were discussed with the patient including plan for admission due to requirement for level of care not available if discharged to prevent significant worsening/deterioration. Patient agreeable with plan. Discussed with hospitalist service who was agreeable to admit patient. Medical Records I reviewed the patient's medical records. Lab Data I reviewed the patient's lab results. 06/26/22 15:00 06/26/22 15:[address] 06/26/22 14:43 IMPRESSION: 1. No evidence of intracranial hemorrhage 2. New patchy low-attenuation lesions in the RIGHT frontal basal ganglia and anterior limb RIGHT internal capsule suspicious for subacute ischemia or possibly demyelinating disease, although less likely. Additional focus in the RIGHT thalamus. This can be further evaluated with MRI. 3. More chronic appearing lacunar infarct RIGHT dorsal caudate is new from previous but has a chronic appearance. 4. Intracranial vascular calcification. Notified oJel Diez MD at 06/26/2022 3:45 PM. Head/Neck CTA 06/26/22 16:55 IMPRESSION: No arterial stenosis, occlusion or aneurysm. IMPRESSION: No arterial stenosis, occlusion or dissection. REFERENCES: NASCET CRITERIA. The degree of stenosis in the cervical segment of the internal carotid artery is based on NASCET criteria. Normal is no stenosis. Mild is less than 50% stenosis. Moderate is 50-69% stenosis. Severe is 70% to 99% stenosis. Total occlusion is no detectable patent lumen. Laboratory Results WBC 9.8 10^3/uL (4.0-10.0) 06/26/22 15:00 RBC 4.65 10^6/uL (4.1-5.3) 06/26/22 15:00 Hgb 15.0 g/dL (11.5-15.3) 06/26/22 15:00 Hct 45.5 % (37.0-47.0) 06/26/22 15:00 MCV 97.8 fl (81-99) 06/26/22 15:00 MCH 32.3 pg (28.0-34.0) 06/26/22 15:00 MCHC 33.0 g/dL (30.0-36.0) 06/26/22 15:00 RDW 12.6 % (12.1-15.1) 06/26/22 15:00 Plt Count 308 10^3/cmm (130-400) 06/26/22 15:00 MPV 9.7 fL (7.4-10.4) 06/26/22 15:00 Neut % (Auto) 66.3 % 06/26/22 15:00 Lymph % (Auto) 26.5 % 06/26/22 15:00 [place] % (Auto) 6.1 % 06/26/22 15:00 Eos % (Auto) 0.4 % 06/26/22 15:00 Baso % (Auto) 0.4 % 06/26/22 15:00 Neut # (Auto) 6.46 10^3/uL (1.8-7.7) 06/26/22 15:00 Lymph # (Auto) 2.6 10^3/uL (0.8-4.8) 06/26/22 15:00 [place] # (Auto) 0.6 10^3/uL (0.2-0.9) 06/26/22 15:00 Eos # (Auto) 0.0 10^3/uL (0.0-0.8) 06/26/22 15:00 Baso # (Auto) 0.0 10^3/uL (0.0-0.1) 06/26/22 15:00 Nucleated RBC % (auto) 0 % 06/26/22 15:00 Nucleated RBCs # 0.0 /100WBC 06/26/22 15:00 Sodium 138 mmol/L (136-145) 06/26/22 15:00 Potassium 4.1 mmol/L (3.5-5.1) 06/26/22 15:00 Chloride 102 mmol/L (98-107) 06/26/22 15:00 Carbon Dioxide 29 mmol/L (22-29) 06/26/22 15:00 Anion Gap 11.1 (5-19) 06/26/22 15:00 BUN 12 mg/dL (6-20) 06/26/22 15:00 Creatinine 0.5 mg/dL (0.5-0.9) 06/26/22 15:00 GFR Calculation 129.1 mL/min (90-130) 06/26/22 15:00 Glucose 90 mg/dL (65-115) 06/26/22 15:00 POC Glucose 89 mg/dL (70-110) 06/26/22 14:59 Calculated Osmolality 285 mOsm/kg (285-295) 06/26/22 15:00 Calcium 9.5 mg/dL (8.5-10.5) 06/26/22 15:00 Iron 84 ug/dL (37-145) 06/26/22 15:00 TIBC 327 mcg/dl 06/26/22 15:00 % Saturation 25.6 % (20-50) 06/26/22 15:00 Unsat Iron Binding 243 ug/dL (112-347) 06/26/22 15:00 Total Bilirubin 0.3 mg/dL (0.15-1.2) 06/26/22 15:00 AST 11 U/L (0-32) 06/26/22 15:00 ALT 12 U/L (0-33) 06/26/22 15:00 Alkaline Phosphatase 98 U/L (35-105) 06/26/22 15:00 Total Protein 7.2 g/dL (6.6-8.7) 06/26/22 15:00 Albumin 3.9 g/dL (3.5-5.2) 06/26/22 15:00 Globulin 3.3 g/dL (1.3-4.6) 06/26/22 15:00 Vitamin B12 225 pg/mL (232-1245) L 06/26/22 15:00 Folate 7.4 ng/mL (4.8-37.3) 06/26/22 15:00 TSH 0.64 uIU/mL (0.27-4.20) 06/26/22 15:00 Urine Color Yellow (Yellow) 06/26/22 15:44 Urine Appearance Sl hazy (CLEAR) A 06/26/22 15:44 Urine pH 7 (5-7) 06/26/22 15:44 Ur Specific Gregory 1.010 (1.005-1.030) 06/26/22 15:44 Urine Protein Neg (Negative) 06/26/22 15:44 Urine Glucose (UA) Norm (Normal) 06/26/22 15:44 Urine Ketones 1+ (Negative) H 06/26/22 15:44 Urine Blood Neg (Negative) 06/26/22 15:44 Urine Nitrate Negative (Negative) 06/26/22 15:44 Urine Bilirubin Neg (Negative) 06/26/22 15:44 Urine Urobilinogen Norm mg/dL (Negative) 06/26/22 15:44 Ur Leukocyte Esterase Negative (Negative) 06/26/22 15:44 Salicylates < 0.3 mg/dL (3-10) L 06/26/22 15:00 Urine Opiates Screen Negative ng/mL (Negative) 06/26/22 15:44 Acetaminophen < 5.0 ug/mL (10-30) L 06/26/22 15:00 Ur Barbiturates Screen Negative ng/mL (Negative) 06/26/22 15:44 Ur Phencyclidine Scrn Negative ng/mL (Negative) 06/26/22 15:44 Ur Amphetamines Screen Negative ng/mL (Negative) 06/26/22 15:44 U Benzodiazepines Scrn Negative ng/mL (Negative) 06/26/22 15:44 Urine Cocaine Screen Negative ng/mL (Negative) 06/26/22 15:44 U Marijuana (THC) Screen Negative ng/mL (Negative) 06/26/22 15:44 Ethyl Alcohol < 10 mg/dL (0-10) 06/26/22 15:00 Discharge Plan Discharge Patient Disposition: Admitted As Inpatient Admit Provider: Randall Pham Clinical Impression: Cerebrovascular accident Condition: Stable Coding Level of Care Code ED Archeology Professor for Chg Fwd Exam Comprehensive
--- NOTE | 2022-06-26 14:43 | CT_ITS ---
WS: [id number] CT HEAD TECHNIQUE: Noncontrast CT of the head obtained from the skullbase to the vertex. CLINICAL INFORMATION: L sided weakness, gait problem COMPARISON: MRI 2019 DLP: 973.[address] scans at [facility] use at least one of these dose optimization techniques: automated e xposure control; mA and/or kV adjustment per patient size (includes targeted exams where dose is matc hed to clinical indication); or iterative reconstruction. FINDINGS: No evidence of intracranial hemorrhage. Ventricular system and basal cisterns are patent. Patchy low- attenuation lesions in the RIGHT basal ganglia and internal capsule and RIGHT thalamus. Differential considerations include subacute ischemia or possibly demyelinating lesions. This can be further evalu ated with MRI. Lesions are new from previous MRI 2019. Intracranial Vascular calcification. No extra-axial fluid collections. Paranasal sinuses and mastoid air cells are well aerated. .Normal visualized soft tissues. CT/CT head wo con* [id number] IMPRESSION: 1. No evidence of intracranial hemorrhage 2. New patchy low-attenuation lesions in the RIGHT frontal basal ganglia and a nterior limb RIGHT internal capsule suspicious for subacute ischemia or possibl y demyelinating disease, although less likely. Additional focus in the RIGHT th alamus. This can be further evaluated with MRI. 3. More chronic appearing lacunar infarct RIGHT dorsal caudate is new from pre vious but has a chronic appearance. 4. Intracranial vascular calcification. Notified Joel Diez MD at 06/26/2022 3:45 PM.
[2022-06-26 15:06] LABS: Glucose Point of Care 89 mg/dL (70-110)
[2022-06-26 15:07] LABS: Basophils % 0.4 %; Eosinophils % 0.4 %; Hematocrit 45.5 % (37.0-47.0); Lymphocytes # 2.6 10^3/uL (0.8-4.8); Lymphocytes % 26.5 %; Mean Corpuscular Hemoglobin 32.3 pg (28.0-34.0); Mean Corpuscular Volume 97.8 fl (81-99); Mean Platelet Volume 9.7 fL (7.4-10.4); Monocytes # 0.6 10^3/uL (0.2-0.9); Monocytes % 6.1 %; Neutrophils # 6.46 10^3/uL (1.8-7.7); Neutrophils % 66.3 %; Nucleated Red Blood Cells % 0 %; Platelet Count 308 10^3/cmm (130-400); Red Blood Count 4.65 10^6/uL (4.1-5.3); Red Cell Distribution Width 12.6 % (12.1-15.1); White Blood Count 9.8 10^3/uL (4.0-10.0)
[2022-06-26 15:35] LABS: Alanine Aminotransferase 12 U/L (0-33); Albumin Level 3.9 g/dL (3.5-5.2); Alkaline Phosphatase 98 U/L (35-105); Anion Gap 11.1 (5-19); Aspartate Amino Transferase 11 U/L (0-32); Blood Urea Nitrogen 12 mg/dL (6-20); Calcium 9.5 mg/dL (8.5-10.5); Carbon Dioxide 29 mmol/L (22-29); Chloride 102 mmol/L (98-107); Globulin 3.3 g/dL (1.3-4.6); Glomerular Filtration Rate 129.1 mL/min (90-130); Glucose 90 mg/dL (65-115); Osmolality Calculated 285 mOsm/kg (285-295); Potassium 4.1 mmol/L (3.5-5.1); Sodium 138 mmol/L (136-145); Thyroid Stimulating Hormone 0.64 uIU/mL (0.27-4.20); Total Bilirubin 0.3 mg/dL (0.15-1.2); Total Protein 7.2 g/dL (6.6-8.7)
[2022-06-26 15:36] LABS: Acetaminophen < 5.0 ug/mL (10-30); Alcohol Level < 10 mg/dL (0-10); Salicylate < 0.3 mg/dL (3-10)
[2022-06-26 16:06] VITALS: RESP 18; O2SAT 98
[2022-06-26] MEDS: oxyCODONE 5 mg IR Tab/Cap 10 MG PO ×2 (16:06→20:13)
--- NOTE | 2022-06-26 16:55 | CTR_ITS ---
PROCEDURE INFORMATION: Exam: CTA Head With Contrast, Arteriography Exam date and time: 06/26/2022 5:31 PM Age: 52 years old Clinical indication: Speech disturbance and weakness; Slurred speech; Additional info: Stroke eval TECHNIQUE: Imaging protocol: Computed tomographic angiography of the head with contrast. Exam focused on the arteries. 3D rendering (Not supervised by radiologist): MIP and/or 3D reconstructed images were created by the technologist. Radiation optimization: All CT scans at this facility use at least one of these dose optimization techniques: automated exposure control; mA and/or kV adjustment per patient size (includes targeted exams where dose is matched to clinical indication); or iterative reconstruction. Contrast material: OMNIPAQUE 350; Contrast volume: 95 ml; Contrast route: INTRAVENOUS (IV); COMPARISON: CT head wo con* [id number] 06/26/2022 3:18 PM RADIATION DOSE METRICS: Total DLP (mGy-cm): 559.42 FINDINGS: ANTERIOR CIRCULATION: Right internal carotid artery: There is moderate atherosclerotic disease in the cavernous portion of the right internal carotid artery without significant stenosis. Right middle cerebral artery: No occlusion or significant stenosis. No aneurysm. Right anterior cerebral artery: No occlusion or significant stenosis. No aneurysm. Left internal carotid artery: There is moderate atherosclerotic disease in the cavernous portion of the left internal carotid artery without significant stenosis. Left middle cerebral artery: No occlusion or significant stenosis. No aneurysm. Left anterior cerebral artery: No occlusion or significant stenosis. No aneurysm. POSTERIOR CIRCULATION: Right vertebral artery: No occlusion or significant stenosis. No aneurysm. Left vertebral artery: No occlusion or significant stenosis. No aneurysm. Basilar artery: No occlusion or significant stenosis. No aneurysm. Right posterior cerebral artery: No occlusion or significant stenosis. No aneurysm. Left posterior cerebral artery: No occlusion or significant stenosis. No aneurysm. Brain: There are multifocal hypodensities in the right basal ganglia and thalamus. No mass effect. Cerebral ventricles: There is no significant ventricular dilation. The basal cisterns are unremarkable. Mastoid air cells: The mastoid air cells are clear. Paranasal sinuses: The paranasal sinuses are clear. Bones/joints: The calvarium is intact. Soft tissues: Unremarkable. PROCEDURE INFORMATION: Exam: CTA Neck With Contrast Exam date and time: 06/26/2022 5:31 PM Age: 52 years old Clinical indication: Speech disturbance and weakness; Slurred speech; Additional info: Stroke eval TECHNIQUE: Imaging protocol: Computed tomographic angiography of the neck with contrast. 3D rendering (Not supervised by radiologist): MIP and/or 3D reconstructed images were created by the technologist. Radiation optimization: All CT scans at this facility use at least one of these dose optimization techniques: automated exposure control; mA and/or kV adjustment per patient size (includes targeted exams where dose is matched to clinical indication); or iterative reconstruction. Contrast material: OMNIPAQUE 350; Contrast volume: 95 ml; Contrast route: INTRAVENOUS (IV); COMPARISON: CT angio chest PE protcl [id number] 07/04/2020 12:49 PM RADIATION DOSE METRICS: Total DLP (mGy-cm): 559.42 FINDINGS: Right common carotid artery: No stenosis. No dissection or occlusion. Right internal carotid artery: There is mild atherosclerotic disease at the origin of the right internal carotid artery without stenosis. Right external carotid artery: No occlusion or stenosis of the origin. Left common carotid artery: No stenosis. No dissection or occlusion. Left internal carotid artery: No stenosis of the extracranial segment. No dissection or occlusion. Left external carotid artery: No occlusion or stenosis of the origin. Right vertebral artery: No stenosis. No dissection or occlusion. Left vertebral artery: No stenosis. No dissection or occlusion. Soft tissues: Soft tissues in the neck and thoracic inlet are unremarkable. Bones/joints: No acute fracture. CT/CT angio headneck* [id number] IMPRESSION: No arterial stenosis, occlusion or aneurysm. IMPRESSION: No arterial stenosis, occlusion or dissection. REFERENCES: NASCET CRITERIA. The degree of stenosis in the cervical segment of the internal carotid artery is based on NASCET criteria. Normal is no stenosis. Mild is less than 50% stenosis. Moderate is 50-69% stenosis. Severe is 70% to 99% stenosis. Total occlusion is no detectable patent lumen.
[2022-06-26 17:00] LABS: Add Urine Microscopic? NO; Charge for UA Resulting for Rev
[2022-06-26 17:18] LABS: Glucose Urine UA Norm (Normal); Protein Urine Neg (Negative); Urine Appearance SL Hazy (CLEAR); Urine Color Yellow (Yellow); pH Urine 7 (5-7)
[2022-06-26 17:19] LABS: Bilirubin Urine Neg (Negative); Blood Urine Neg (Negative); Ketones Urine 1+ (Negative); Leukocyte Esterase Urine Negative (Negative); Nitrate Urine Negative (Negative); Urobilinogen Urine Norm (Negative)
[2022-06-26 17:28] LABS: Amphetamines Screen Urine Negative (Negative); Barbiturates Screen Urine Negative (Negative); Benzodiazepines Screen Urine Negative (Negative); Cocaine Screen Urine Negative (Negative); Opiate Screen Urine Negative (Negative); PCP Screen Urine Negative (Negative); THC Screen Urine Negative (Negative)
--- NOTE | 2022-06-26 17:47 | P.HP_ITS ---
Providers/Chief Complaint Admitting Physician: Randall Pham MD Chief Complaint: AMS, left side droop/numb History of Present Illness Naomie Villa is a 52 year old female with past medical history of anxiety disorder, possible remote history of stroke, hyperlipidemia, chronic smoker, hypertension presented the ER today because of numbness, tingling sensation and weakness in her left side of the body along with possible slurred speech since 4 AM. Patient presented to the ER at noon. She thought she was having difficulty in sleeping but says she is having the symptoms for did not come to the ER. As the symptoms persisted she came to the ER. On examination patient denies of having any weakness but is complaining of of th e arm. States she does not think she has slurred speech currently. Review of Systems General: Reports: 10 or more systems reviewed and unremarkable except in HPI and below Const: Denies: fever(s), chills, body aches, change in appetite, change in weight, malaise, night sweats, diaphoresis, change in sleep pattern, daytime sleepiness or snoring Eyes: Denies: change in vision, blurry vision, photophobia, eye discomfort or eye discharge ENMT: Denies: throat pain, enlarged tonsils, hoarseness, mouth pain, oral sores, dry mouth, tinnitus, nasal congestion or post nasal drip Card: Denies: chest pain, palpitations, irregular heart rhythm, edema, swelling of feet/ankles, lightheadedness, syncope, pre-syncope, dyspnea on exertion, orthopnea, leg pain with exertion or acrocyanosis Resp: Denies: dyspnea, productive cough, non-productive cough, wheezing, stridor, pain on inspiration, change in phlegm color, hemoptysis or chest congestion GI: Denies: abdominal pain, nausea, vomiting, hematemesis, coffee ground emesis, dysphagia, heartburn, diarrhea, constipation, bloating, GI cramping, change in bowel habits, pain on defecation, hematochezia or melena : Denies: flank pain, dysuria, urinary frequency, urinary urgency, urinary hesitancy, nocturia or hematuria Musc: Denies: neck pain, back pain, extremity pain, joint pain, joint swelling, joint redness, joint stiffness or limited range of motion Neuro: Denies: headache(s), numbness in extremities, weakness in extremities, sensory changes, lack of coordination, difficulty walking, frequent falls, dizziness, vertigo, confusion, Slurred speech present, difficulty communicating thoughts or seizure-like activity Psych: Denies: anxiety, depression, mood swings, panic attacks, hopelessness or irritability Endo: Denies: polyuria, polydipsia, tired all the time, cold intolerance, excessive sweating, flushing or heat intolerance Jean/Lymph: Denies: easy bruising or easy bleeding All/Imm: Denies: tongue swelling, facial swelling or acute wheezing Medications/Allergies Home Medications Medication Instructions Recorded Confirmed Last Taken Type nitroglycerin 0.4 mg sublingual 0.4 mg sublingual Q5M PRN chest 12/22/19 06/26/22 05/09/21 Rx tablet pain #30 tabs diphenhydramine HCl 25 mg capsule 50 mg PO BEDTIME 11/12/20 06/26/22 06/25/22 History (Benadryl) melatonin 10 mg capsule 10 mg PO BEDTIME 03/21/21 06/26/22 06/25/22 History metoprolol succinate 50 mg 50 mg PO DAILY 05/21/21 06/26/22 06/26/22 History tablet,extended release 24 hr zolpidem 5 mg tablet (Ambien) 10 mg PO BEDTIME 05/21/21 06/26/22 06/25/22 History escitalopram oxalate 10 mg tablet 10 mg PO BEDTIME 05/24/21 06/26/22 06/25/22 History (Lexapro) atorvastatin 40 mg tablet (Lipitor) 40 mg PO BEDTIME 05/27/21 06/26/22 06/25/22 History naproxen 500 mg tablet (Naprosyn) 500 mg PO BID PRN pain #20 tabs 05/30/21 06/26/22 Unknown Rx epinephrine 0.3 mg/0.3 mL 0.3 mg (0.3 mL) IM Q3H PRN 06/18/21 06/26/22 Unknown Rx injection, auto-injector (EpiPen) anaphylaxis #2 ea escitalopram oxalate 20 mg tablet 20 mg PO DAILY 06/26/22 06/26/22 06/26/22 History oxycodone 10 mg tablet 10 mg PO Q6H PRN Pain 06/26/22 06/26/22 06/26/22 History Allergies Allergy/AdvReac Type Severity Reaction Status Date / Time amoxicillin Allergy ALGY-Anaphy Verified 06/18/21 09:47 laxis ampicillin Allergy ALGY-Anaphy Verified 06/18/21 09:47 laxis Fish Containing Products Allergy ALGY-Anaphy Verified 06/18/21 09:47 laxis hydrocodone [From Vicodin] Allergy ALGY-Anaphy Verified 06/18/21 09:47 laxis Tetracyclines Allergy ALGY-Anaphy Verified 06/18/21 09:47 laxis acetaminophen [From Tylenol] AdvReac Severe ALGY-Anaphy Verified 06/18/21 09:47 laxis azithromycin [From Zithromax] AdvReac Severe ALGY-Anaphy Verified 06/18/21 09:47 laxis codeine AdvReac Severe ALGY-Anaphy Verified 06/18/21 09:47 laxis morphine AdvReac Severe unknown Verified 06/18/21 09:47 Penicillins AdvReac Severe ALGY-Anaphy Verified 06/18/21 09:47 laxis sulfamethoxazole AdvReac Severe ALGY-Anaphy Verified 06/18/21 09:47 [From Bactrim] laxis tetracycline AdvReac Severe ALGY-Anaphy Verified 06/18/21 09:47 laxis trimethoprim [From Bactrim] AdvReac Severe ALGY-Anaphy Verified 06/18/21 09:47 laxis PFSH Acute PFSH: Medical History (Updated 06/26/22 @ 17:51 by Randall Pham MD) Essential hypertension LIZ (generalized anxiety disorder) GERD (gastroesophageal reflux disease) Hyperlipidemia Insomnia Left ureteral calculus Nephrolithiasis Nicotine dependence, cigarettes, with unspecified nicotine-induced disorders Right renal stone Urolithiasis Multi stone former with ESWL and endoscopic treatment previously. Surgical History H/O esophagogastroduodenoscopy (04/05/20) H/O: hysterectomy History of cholecystectomy History of surgery on arm S/P appendectomy S/P ureteral stent placement Status post colonoscopy (04/05/20) incomplete, needs Ba enema Family History Other CAD (coronary artery disease) Diabetes Hypertension Stroke Denies family history of Anesthesia complication Bleeding disorder Social History Alcohol intake: current Alcohol intake frequency: other Lives independently: Yes Marital status: Single Current occupational status: employed History of recent travel: No Vitals/I&O/Wt Last Vital Signs Temp 98.2 F 06/26/22 14:22 Pulse 60 06/26/22 14:22 Resp 18 06/26/22 16:06 BP 145/89 06/26/22 14:22 Pulse Ox 98 06/26/22 16:06 O2 Del Method 06/26/22 14:22 Weight last 48 hrs Weight 63.503 kg Physical Exam Narrative: EXAM NARRATIVE: General: No acute distress, AO x3, HEENT: PERRLA, pupils bilaterally equal and reactive Chest:Bronchial breath sounds b/l ,decreased air entry, equal good air entry bilaterally, no more fine basal crackles CVS: S1-S2 regular, no murmurs, no tachycardia, no gallops, no rubs Abdomen: Soft, nontender, no organomegaly, bowel sounds present, morbidly obese Neuro: No focal deficits, no facial deformity, AO x3, power 5/5 in all limbs Data 06/26/22 15:00 06/26/22 15:00 A&P Assessment and plan (1) Cerebrovascular accident: Appreciate CT head. Check CTA head and neck. MRI ordered by the ER. Check echocardiogram, telemetry. Physical therapy, Occupational Therapy evaluation. Diet as per speech evaluation. Urine drug screen, alcohol level negative in the ER. Check iron panel, vitamin B12, folate level, A1c, lipid panel. Aspirin 81 mg daily, atorvastatin 40 mg at night. (2) Essential hypertension: Permissible hypertension currently. Hold off on antihypertensive. Continue with metoprolol succinate. (3) Hyperlipidemia: Qualifiers: Hyperlipidemia type: mixed hyperlipidemia Qualified Code(s): E78.2 - Mixed hyperlipidemia Plan Full code. Diet after swallow evaluation. Protonix for PUD prophylaxis. Admit to [facility] with telemetry. Continue chronic medications for anxiety. Attestations Medical Necessity Statement*: Admission under observation for less than 2 midnights for stroke evaluation Time Spent in Patient Care: Greater than 35 minutes Coding Level of Care Code Acute Encephalographer for [facility] Diagnoses Cerebrovascular accident I63.9 Essential hypertension I10 Hyperlipidemia E78.2 Hyperlipidemia type: mixed hyperlipidemia
[2022-06-26 19:36] LABS: Iron 84 ug/dL (37-145); Percent Saturation 25.6 % (20-50); Total Iron Binding Capacity 327 mcg/dl; Unsaturated Iron Binding 243 ug/dL (112-347)
[2022-06-26 19:52] LABS: Folate Level 7.4 ng/mL (4.8-37.3); Vitamin B12 225 pg/mL (232-1245)
--- NOTE | 2022-06-26 20:08 | PC.NURSE ---
Patient states I'm gonna go outside and smoke here in a little bit. Patient educated on hospital smoking policy and verbalized understanding.
[2022-06-26 20:13] VITALS: RESP 16
[2022-06-26] MEDS: ferrous gluconate 324 mg Tablet PO (20:13)
[2022-06-26] MEDS: atorvastatin 40 mg Tablet PO (20:13)
[2022-06-26] MEDS: heparin 5,000 unit/mL INJ 1 mL 5000 UNIT SUBCUT (20:13)
--- NOTE | 2022-06-26 20:21 | PC.NURSE ---
Patient says she has chronic vision issues to left eye.
[2022-06-26 20:37] VITALS: BP 146/83; PULSE 64; RESP 19; TEMP 36.8; O2SAT 97
--- NOTE | 2022-06-26 20:43 | PC.NURSE ---
1835: Patient arrived to floor from ED vital signs obtained and nursing assessment.
--- NOTE | 2022-06-26 21:13 | PC.NURSE ---
Addendum entered by Marcy Chiu RN 06/26/22 23:08: Patient offered nicotene patch and refused. Original Note: Ward Sears is the only person the patient wants information given to.
[2022-06-26] MEDS: diphenhydrAMINE 25 mg Capsule 50 MG PO (21:25)
[2022-06-26] MEDS: zolpidem 5 mg Tablet 10 MG PO (21:25)
--- NOTE | 2022-06-26 23:00 | PC.NURSE ---
During stroke scale assessment, patient noted to have no effort against gravity to left arm. Later, patient using left arm to sweet pickle maker cell phone.
[2022-06-27] VITALS: BP 142/80; PULSE 66; RESP 16; TEMP 36.8; O2SAT 95
--- NOTE | 2022-06-27 01:22 | PC.NURSE ---
Patient refusing hospital gown at this time.
[2022-06-27 01:51] VITALS: RESP 16
[2022-06-27] MEDS: heparin 5,000 unit/mL INJ 1 mL 5000 UNIT SUBCUT (01:51)
[2022-06-27] MEDS: oxyCODONE 5 mg IR Tab/Cap 10 MG PO (01:51)
[2022-06-27 04:00] VITALS: BP 119/60; PULSE 61; RESP 17; TEMP 36.9; O2SAT 95
--- NOTE | 2022-06-27 05:27 | PC.NURSE ---
Lab staff stated that patient stated Somebody needs to take this IV out or I'm gonna take it out myself. Nurse when into room and patient stated I just don't like it in the bend of my arm. IV removed from right AC and new IV started in right forearm.
[2022-06-27 05:42] LABS: Basophils % 0.3 %; Eosinophils # 0.1 10^3/uL (0.0-0.8); Eosinophils % 0.8 %; Hematocrit 42.1 % (37.0-47.0); Hemoglobin 13.7 g/dL (11.5-15.3); Lymphocytes # 4.5 10^3/uL (0.8-4.8); Lymphocytes % 42.3 %; Mean Corpuscular HGB Conc 32.5 g/dL (30.0-36.0); Mean Corpuscular Hemoglobin 32.1 pg (28.0-34.0); Mean Corpuscular Volume 98.6 fl (81-99); Mean Platelet Volume 9.8 fL (7.4-10.4); Monocytes # 0.7 10^3/uL (0.2-0.9); Monocytes % 6.4 %; Neutrophils # 5.32 10^3/uL (1.8-7.7); Neutrophils % 49.9 %; Nucleated Red Blood Cells % 0 %; Platelet Count 293 10^3/cmm (130-400); Red Blood Count 4.27 10^6/uL (4.1-5.3); Red Cell Distribution Width 12.7 % (12.1-15.1); White Blood Count 10.7 10^3/uL (4.0-10.0)
--- NOTE | 2022-06-27 05:52 | PC.NURSE ---
Addendum entered by Marcy Chiu RN 06/27/22 06:20: Patient alert and oriented x 4. Original Note: Patient walked to elevator. Patient educated that she cannot smoke on hospital property. Patient also educated that for her safety, she needs to stay on the unit. Educated that she has an IV in place and that she is high fall risk due to left sided weakness and possible stroke. Educated that she has MRI scheduled for tomorrow. Patient states I'll be fine. Patient goes down the elevator by herself. Security called to bring patient back up to the floor. Patient states, If I can't smoke, then I'm out of here. Patient offered nicotine patch and stated it's the real thing or nothing. Charge nurse, warehouse selector, and Dr. Armstrong notified. IV removed with catheter intact. Patient signed AMA form.
[2022-06-27 05:57] LABS: Alanine Aminotransferase 10 U/L (0-33); Albumin Level 3.6 g/dL (3.5-5.2); Alkaline Phosphatase 90 U/L (35-105); Anion Gap 10.2 (5-19); Aspartate Amino Transferase 10 U/L (0-32); Blood Urea Nitrogen 15 mg/dL (6-20); Calcium 9.3 mg/dL (8.5-10.5); Carbon Dioxide 31 mmol/L (22-29); Chloride 104 mmol/L (98-107); Chol HDL Ratio 3.85 mg/dL (0.0-4.40); Cholesterol 177 mg/dL (0-200); Globulin 3.1 g/dL (1.3-4.6); Glomerular Filtration Rate 87.5 mL/min (90-130); Glucose 111 mg/dL (65-115); HDL Cholesterol 46 mg/dL (60-100); LDL Cholesterol Calculated 104 mg/dL (50-129); Osmolality Calculated 294 mOsm/kg (285-295); Potassium 4.2 mmol/L (3.5-5.1); Sodium 141 mmol/L (136-145); Total Bilirubin 0.3 mg/dL (0.15-1.2); Total Protein 6.7 g/dL (6.6-8.7); Triglycerides 134 mg/dL (0-150); VLDL Cholestrol Calculation 27 mg/dL (0-30)
[2022-06-27 06:00] VITALS: BP 119/60; PULSE 61; RESP 17; TEMP 36.9; O2SAT 95
[2022-06-27 06:00] LABS: Estmated Average Glucose 108; Hemoglobin A1C 5.4 % (4.0-6.0)
--- NOTE | 2022-06-27 06:00 | USCV_ITS ---
Naomie Villa Age: 52 Gender: F : 1970 Exam Date: 06/27/2022 01:12 Ordering Phys: Randall Pham MD Technologist: LAINEY Exam Location: [facility] [place] Indication: LEFT hemiparesis CVA. No history of cardiac intervention per patient. BP: 146 / 83 HR: 57 Rhythm: Sinus Technical Quality: Adequate MEASUREMENTS (Male / Female) Normal Values 2D ECHO LV Diastolic Diameter PLAX 3.5 cm 4.2 - 5.9 / 3.9 - 5.3 cm LV Systolic Diameter PLAX 2.2 cm IVS Diastolic Thickness 1.3 cm 0.6 - 1.0 / 0.6 - 0.9 cm IVS Systolic Thickness 1.8 cm LVPW Diastolic Thickness 1.2 cm 0.6 - 1.0 / 0.6 - 0.9 cm LVPW Systolic Thickness 1.4 cm LVOT Diameter 1.8 cm LV Ejection Fraction 2D Teich 69.3 % LV Ejection Fraction MOD 2C 61.3 % LV Ejection Fraction 2C AL 63.9 % LA Diameter 3.2 cm LA Width 3.1 cm LA Height 4.8 cm RA Width 2.6 cm RA Height 3.7 cm Aorta at Sinotubular Diameter 2.6 cm IVC Diameter 1.6 cm M-MODE Aortic Annulus Diameter 2.6 cm LA Ao Ratio MM 1.4 MV E Point Septal Separation 0.3 cm DOPPLER AV Peak Velocity 103.0 cm/s LVOT Peak Velocity 61.0 cm/s AV Area Cont Eq vti 1.6 cm squared AV Area Cont Eq pk 1.4 cm squared MV Peak Velocity 95.0 cm/s MV Area PHT 3.0 cm squared Mitral E to A Ratio 1.0 MV E' Velocity 47.0 cm/s Mitral E to MV E' Ratio 11.9 Mitral E to LV E' Lateral Ratio 12.0 Mitral E to LV E' Septal Ratio 11.9 TR Peak Velocity 178.0 cm/s TR Peak Gradient 12.7 mmHg TV Peak E Velocity 50.0 cm/s Right Atrial Pressure 5.0 mmHg Pulmonary Artery Systolic Pressu 17.7 mmHg PV Peak Velocity 78.0 cm/s RV Acceleration Time 0.1 s RV Ejection Time 0.4 s RV AcT/ET 0.2 FINDINGS Left Ventricle Normal left ventricular size and systolic function, EF 65 %. No regional wall motion abnormalities. Mild left ventricular hypertrophy. Right Ventricle The right ventricle is normal in size and function. Right Atrium The right atrium is normal in size. Left Atrium The left atrium is normal in size. Mitral Valve Trace to mild mitral valve regurgitation. Aortic Valve No gross abnormalities noted Tricuspid Valve Trace tricuspid valve regurgitation. Estimated pulmonary artery peak systolic pressure 18 mmHg Pulmonic Valve Thickened pulmonic valve. Pericardium Normal pericardium without effusion. Aorta Normal aortic annulus size. IVC Normal inferior vena cava. CONCLUSIONS Normal left ventricular size and systolic function, EF 65 %. No regional wall motion abnormalities. Mild left ventricular hypertrophy. Trace to mild mitral valve regurgitation. Normal pulmonary artery peak systolic pressure. There is no pericardial effusion. Technically somewhat difficult study Dr Linette Thomas MD FACC (Electronically Signed) Final Date: 27 June 2022 10:07 S
--- NOTE | 2022-06-27 07:34 | PC.OT ---
OT Eval Attempted - Patient discharged before eval was able to be completed.
--- NOTE | 2022-06-27 16:31 | PM.PN ---
Subjective Subjective: Patient apparently left AMA before he could be seen earlier today morning because she could not smoke in hospital premises even though she was informed multiple times to stay for further imaging. Vitals/I&O/Wt Last Vital Signs Temp 98.5 F 06/27/22 06:00 Pulse 61 06/27/22 06:00 Resp 17 06/27/22 06:00 BP 119/60 06/27/22 06:00 Pulse Ox 95 06/27/22 06:00 O2 Del Method 06/26/22 20:00 06/27/22 06/27/22 06/27/22 06:59 14:59 22:59 Intake Total 480 / 480 Balance 480 / 480 Weight last 48 hrs Weight 63.503 kg Physical Exam Narrative: Left AMA before will be seen today. Data 06/27/22 05:11 06/27/22 05:11 A&P Assessment and plan (1) Cerebrovascular accident: Appreciate CT head. Check CTA head and neck. MRI ordered by the ER. Check echocardiogram, telemetry. Physical therapy, Occupational Therapy evaluation. Diet as per speech evaluation. Urine drug screen, alcohol level negative in the ER. Check iron panel, vitamin B12, folate level, A1c, lipid panel. Aspirin 81 mg daily, atorvastatin 40 mg at night. (2) Essential hypertension: Permissible hypertension currently. Hold off on antihypertensive. Continue with metoprolol succinate. (3) Hyperlipidemia: Qualifiers: Hyperlipidemia type: mixed hyperlipidemia Qualified Code(s): E78.2 - Mixed hyperlipidemia Plan Full code. Diet after swallow evaluation. Protonix for PUD prophylaxis. Admit to [facility] with telemetry. Continue chronic medications for anxiety. Attestations Medical Necessity Statement*: Left AMA Time Spent in Patient Care: less than 15 minutes Coding Level of Care Code Acute E Learning Developer for [facility] Fwd Diagnoses Cerebrovascular accident I63.9 Essential hypertension I10 Hyperlipidemia E78.2 Hyperlipidemia type: mixed hyperlipidemia
== END 2022-06-27 06:01 | disposition left against medical advice (07) ==
LOC: ER 16:11 → MEDSURG 17:30
PROVIDERS: Admitting Provider Student in an Organized Health Care Education/Training Program; Emergency Provider Emergency Medicine; Visit Provider Student in an Organized Health Care Education/Training Program
DX: I63.9 Cerebral infarction, unspecified (principal); I10 Essential (primary) hypertension; E78.2 Mixed hyperlipidemia; Z53.29 Procedure and treatment not carried out because of patient's decision for other reasons; F17.210 Nicotine dependence, cigarettes, uncomplicated; F41.9 Anxiety disorder, unspecified; Z86.73 Personal history of transient ischemic attack (TIA), and cerebral infarction without residual deficits
CPT/HCPCS: 36416; 70450; 70496; 70498; 80053; 80061; 80306; 80307; 81003; 82607; 82746; 82962; 83036; 83540; 83550; 84443; 85025; 93005; 93306; 96372; 99285; G0378; J1644; Q9967

== ENCOUNTER 2022-06-28 16:43 | Emergency (ER) | payer MEDICAID, SELFPAY ==
[2022-06-28 16:44] VITALS: BP 168/82; PULSE 71; RESP 15; O2SAT 97; BMI 27.3
--- NOTE | 2022-06-28 17:04 | W.ED.DIZZY ---
HPI - Dizziness General: Chief Complaint: Dizziness Stated Complaint: DIZZINESS Time Seen by Provider: 06/28/22 16:46 History of Present Illness: HPI Narrative: 52-year-old female presents with dizziness and numbness of her lips patient reports this has been going on for couple days. Patient was seen on 06/26/2022 and admitted for a CVA work-up. She ended up having a negative CT and a negative CTA. Patient left on 06/27/2022 AMA because she can go outside and smoke. Patient reports today because she continues to be dizzy and is little nauseated. Patient has no focal weakness. Patient had a negative echocardiogram on 06/26/2022. Patient reports that she came back today because she is also nauseated. Associated symptoms: Reports nausea; Denies chest pain, chills, palpitations or vomiting Associated neuro symptoms: Deny numbness in extremities Review of Systems Const: Denies: fever(s) or chills Eyes: Denies: change in vision or blurry vision ENMT: Reports: other (Please see HPI) Card: Denies: chest pain or palpitations Resp: Denies: dyspnea or productive cough GI: Reports: nausea; Denies: abdominal pain or vomiting : Denies: flank pain, difficulty voiding or urinary frequency Musc: Denies: neck pain or back pain Skin/Breast: Denies: rash or erythema Neuro: Reports: dizziness; Denies: numbness in extremities, weakness in extremities, lack of coordination, difficulty walking or Slurred speech present [facility] [place] ED PFSH: Medical History (Updated 06/28/22 @ 18:24 by Timothy Colunga DO) Essential hypertension LIZ (generalized anxiety disorder) GERD (gastroesophageal reflux disease) Hyperlipidemia Insomnia Left ureteral calculus Nephrolithiasis Nicotine dependence, cigarettes, with unspecified nicotine-induced disorders Right renal stone Urolithiasis Multi stone former with ESWL and endoscopic treatment previously. Surgical History H/O esophagogastroduodenoscopy (04/05/20) H/O: hysterectomy History of cholecystectomy History of surgery on arm S/P appendectomy S/P ureteral stent placement Status post colonoscopy (04/05/20) incomplete, needs Ba enema Family History Other CAD (coronary artery disease) Diabetes Hypertension Stroke Denies family history of Anesthesia complication Bleeding disorder Social History Alcohol intake: current Alcohol intake frequency: other Lives independently: Yes Marital status: Single Current occupational status: employed History of recent travel: No Physical Exam Const: COMMON NORMALS: no acute distress, patient oriented x3, no limitations, healthy appearing and alert HENMT: COMMON NORMALS: normocephalic, atraumatic, hearing grossly normal bilaterally and Normal nasal mucous membranes and turbinates present HEAD & SCALP: normocephalic and atraumatic NOSE: Normal nasal mucous membranes and turbinates present Eye: COMMON NORMALS: EOMs intact bilaterally and conjunctivae normal CONJUNCTIVA: Yes conjunctivae normal Resp: COMMON NORMALS: normal respiratory effort, No retractions, No use of accessory muscles and clear to auscultation bilaterally AUSCULTATION: clear to auscultation bilaterally Cardio: COMMON NORMALS: regular rate and regular rhythm RATE: regular rate RHYTHM: regular rhythm GI: COMMON NORMALS: Soft to palpation and non-tender PALPATION: Yes Soft to palpation Extremity: COMMON NORMALS: full ROM, capillary refill normal and no clubbing, cyanosis or edema Neuro: COMMON NORMALS: patient oriented x3, CN's II-XII intact bilaterally, moves all extremities, no focal motor deficits and no sensory deficits noted SENSORIUM/ORIENTATION: Yes alert Psych: COMMON NORMALS: mental status grossly normal and speech normal SPEECH: Yes normal speech Skin: COMMON NORMALS: no rashes or lesions noted and turgor normal GENERAL SKIN EXAM: no rashes or lesions noted and turgor normal Course Vital Signs: Vital signs: Vital Signs Pulse Rate 62 06/28/22 18:45 Respiratory Rate 16 06/28/22 18:45 Blood Pressure 187/102 06/28/22 18:45 Pulse Oximetry 98 06/28/22 18:45 Oxygen Delivery Me thod 06/28/22 16:44 MDM - Dizziness Medical Decision Making Patient with extensive work-up prior to leaving [facility] that shows no indications of a stroke. Patient's dizziness improved with IV fluids and meclizine. Discussed with her need to follow-up with her primary care provider for further outpatient evaluation. Patient stable and discharged Lab Data 06/28/22 17:18 06/28/22 17:18 Laboratory Results WBC 9.2 10^3/uL (4.0-10.0) 06/28/22 17:18 RBC 4.57 10^6/uL (4.1-5.3) 06/28/22 17:18 Hgb 14.8 g/dL (11.5-15.3) 06/28/22 17:18 Hct 43.0 % (37.0-47.0) 06/28/22 17:18 MCV 94.1 fl (81-99) 06/28/22 17:18 MCH 32.4 pg (28.0-34.0) 06/28/22 17:18 MCHC 34.4 g/dL (30.0-36.0) 06/28/22 17:18 RDW 12.5 % (12.1-15.1) 06/28/22 17:18 Plt Count 289 10^3/cmm (130-400) 06/28/22 17:18 MPV 10.5 fL (7.4-10.4) H 06/28/22 17:18 Neut % (Auto) 67.5 % 06/28/22 17:18 Lymph % (Auto) 26.3 % 06/28/22 17:18 [place] % (Auto) 5.6 % 06/28/22 17:18 Eos % (Auto) 0.1 % 06/28/22 17:18 Baso % (Auto) 0.3 % 06/28/22 17:18 Neut # (Auto) 6.22 10^3/uL (1.8-7.7) 06/28/22 17:18 Lymph # (Auto) 2.4 10^3/uL (0.8-4.8) 06/28/22 17:18 [place] # (Auto) 0.5 10^3/uL (0.2-0.9) 06/28/22 17:18 Eos # (Auto) 0.0 10^3/uL (0.0-0.8) 06/28/22 17:18 Baso # (Auto) 0.0 10^3/uL (0.0-0.1) 06/28/22 17:18 Nucleated RBC % (auto) 0 % 06/28/22 17:18 Nucleated RBCs # 0.0 /100WBC 06/28/22 17:18 Sodium 131 mmol/L (136-145) L 06/28/22 17:18 Potassium 3.7 mmol/L (3.5-5.1) 06/28/22 17:18 Chloride 95 mmol/L (98-107) L 06/28/22 17:18 Carbon Dioxide 24 mmol/L (22-29) 06/28/22 17:18 Anion Gap 15.7 (5-19) 06/28/22 17:18 BUN 13 mg/dL (6-20) 06/28/22 17:18 Creatinine 0.4 mg/dL (0.5-0.9) L 06/28/22 17:18 GFR Calculation 167.0 mL/min (90-130) H 06/28/22 17:18 Glucose 90 mg/dL (65-115) 06/28/22 17:18 Calculated Osmolality 272 mOsm/kg (285-295) L 06/28/22 17:18 Calcium 9.8 mg/dL (8.5-10.5) 06/28/22 17:18 Magnesium 2.0 mg/dL (1.7-2.3) 06/28/22 17:18 Total Bilirubin 0.3 mg/dL (0.15-1.2) 06/28/22 17:18 AST 13 U/L (0-32) 06/28/22 17:18 ALT 11 U/L (0-33) 06/28/22 17:18 Alkaline Phosphatase 106 U/L (35-105) H 06/28/22 17:18 Total Protein 7.8 g/dL (6.6-8.7) 06/28/22 17:18 Albumin 4.1 g/dL (3.5-5.2) 06/28/22 17:18 Globulin 3.7 g/dL (1.3-4.6) 06/28/22 17:18 Urine Color Yellow (Yellow) 06/28/22 17:10 Urine Appearance Hazy (CLEAR) A 06/28/22 17:10 Urine pH 7 (5-7) 06/28/22 17:10 Ur Specific [place] 1.015 (1.005-1.030) 06/28/22 17:10 Urine Protein Neg (Negative) 06/28/22 17:10 Urine Glucose (UA) Norm (Normal) 06/28/22 17:10 Urine Ketones 1+ (Negative) H 06/28/22 17:10 Urine Blood 2+ (Negative) H 06/28/22 17:10 Urine Nitrate Negative (Negative) 06/28/22 17:10 Urine Bilirubin Neg (Negative) 06/28/22 17:10 Urine Urobilinogen 1 mg/dL (Negative) H 06/28/22 17:10 Ur Leukocyte Esterase Negative (Negative) 06/28/22 17:10 Urine RBC 5-10 /hpf (0-2) H 06/28/22 17:10 Urine WBC None /hpf (0-5) 06/28/22 17:10 Ur Squamous Epith Cells 10-15 /hpf (0-5) H 06/28/22 17:10 Amorphous Sediment 2+ /hpf 06/28/22 17:10 Urine Bacteria Trace /hpf (NONE) 06/28/22 17:10 Urine Opiates Screen Negative ng/mL (Negative) 06/28/22 17:10 Ur Barbiturates Screen Negative ng/mL (Negative) 06/28/22 17:10 Ur Phencyclidine Scrn Negative ng/mL (Negative) 06/28/22 17:10 Ur Amphetamines Screen Negative ng/mL (Negative) 06/28/22 17:10 U Benzodiazepines Scrn Negative ng/mL (Negative) 06/28/22 17:10 Urine Cocaine Screen Negative ng/mL (Negative) 06/28/22 17:10 U Marijuana (THC) Screen Negative ng/mL (Negative) 06/28/22 17:10 Discharge Plan Discharge Patient Disposition: Home Clinical Impression: Dizziness Condition: Stable Prescriptions: No Action melatonin 10 mg capsule 10 mg PO BEDTIME zolpidem [Ambien] 5 mg tablet 10 mg PO BEDTIME metoprolol succinate 50 mg tablet extended release 24 hr 50 mg PO DAILY EpiPen 0.3 mg/0.3 mL auto-injector 0.3 mg IM Q3H PRN (Reason: anaphylaxis) Qty: 2 3RF Rx Instructions: 340 B nitroglycerin 0.4 mg tablet, sublingual 0.4 mg SUBLINGUAL Q5M PRN (Reason: chest pain) Qty: 30 0RF Rx Instructions: do not exceed 3 doses per episode diphenhydramine HCl [Benadryl] 25 mg Capsule 50 mg PO BEDTIME escitalopram oxalate [Lexapro] 10 mg tablet 10 mg PO BEDTIME atorvastatin [Lipitor] 40 mg tablet 40 mg PO BEDTIME naproxen [Naprosyn] 500 mg tablet 500 mg PO BID PRN (Reason: pain) Qty: 20 0RF oxycodone 10 mg Tablet 10 mg PO Q6H PRN (Reason: Pain) escitalopram oxalate 20 mg tablet 20 mg PO DAILY Discharge Orders: Discharge ED (Routine); Ordered 06/28/22 Ordered By: Timothy Colunga Discharge Diet: Usual diet Discharge Activity: Resume usual activity Patient Instructions: Dizziness (ED), Opioid Safety, Pain Management Activity Restrictions/Additional Instructions: Please follow-up with your primary care provider in the next 3 to 4 days for continued outpatient evaluation and recheck of your symptoms You may obtain meclizine/Antivert at local pharmacy to help with your dizziness. Be sure to drink plenty of fluids Coding Level of Care Code ED Running Rigger for [facility] Fwd Exam Comprehensive
[2022-06-28] MEDS: meclizine 25 mg tablet 50 MG PO (17:33)
[2022-06-28] MEDS: sodium chloride 0.9% 1,000 ML 999 ML IV (17:33)
[2022-06-28] MEDS: ondansetron 2 mg/ML SDV 2 mL 4 MG IVP (17:33)
[2022-06-28 17:37] LABS: Basophils % 0.3 %; Eosinophils % 0.1 %; Hemoglobin 14.8 g/dL (11.5-15.3); Lymphocytes # 2.4 10^3/uL (0.8-4.8); Lymphocytes % 26.3 %; Mean Corpuscular HGB Conc 34.4 g/dL (30.0-36.0); Mean Corpuscular Hemoglobin 32.4 pg (28.0-34.0); Mean Corpuscular Volume 94.1 fl (81-99); Mean Platelet Volume 10.5 fL (7.4-10.4); Monocytes # 0.5 10^3/uL (0.2-0.9); Monocytes % 5.6 %; Neutrophils # 6.22 10^3/uL (1.8-7.7); Neutrophils % 67.5 %; Nucleated Red Blood Cells % 0 %; Platelet Count 289 10^3/cmm (130-400); Red Blood Count 4.57 10^6/uL (4.1-5.3); Red Cell Distribution Width 12.5 % (12.1-15.1); White Blood Count 9.2 10^3/uL (4.0-10.0)
[2022-06-28 17:44] LABS: Amphetamines Screen Urine Negative (Negative); Barbiturates Screen Urine Negative (Negative); Benzodiazepines Screen Urine Negative (Negative); Cocaine Screen Urine Negative (Negative); Opiate Screen Urine Negative (Negative); PCP Screen Urine Negative (Negative); THC Screen Urine Negative (Negative)
[2022-06-28 17:46] LABS: Alanine Aminotransferase 11 U/L (0-33); Albumin Level 4.1 g/dL (3.5-5.2); Alkaline Phosphatase 106 U/L (35-105); Anion Gap 15.7 (5-19); Aspartate Amino Transferase 13 U/L (0-32); Blood Urea Nitrogen 13 mg/dL (6-20); Calcium 9.8 mg/dL (8.5-10.5); Carbon Dioxide 24 mmol/L (22-29); Chloride 95 mmol/L (98-107); Globulin 3.7 g/dL (1.3-4.6); Glucose 90 mg/dL (65-115); Osmolality Calculated 272 mOsm/kg (285-295); Potassium 3.7 mmol/L (3.5-5.1); Sodium 131 mmol/L (136-145); Total Bilirubin 0.3 mg/dL (0.15-1.2); Total Protein 7.8 g/dL (6.6-8.7)
[2022-06-28 17:48] LABS: Add Urine Microscopic? YES; Bilirubin Urine Neg (Negative); Blood Urine 2+ (Negative); Glucose Urine UA Norm (Normal); Ketones Urine 1+ (Negative); Leukocyte Esterase Urine Negative (Negative); Nitrate Urine Negative (Negative); Protein Urine Neg (Negative); Specific Gravity, Urine 1.015 (1.005-1.030); Urine Appearance Hazy (CLEAR); Urine Color Yellow (Yellow); Urobilinogen Urine 1 mg/dL (Negative); pH Urine 7 (5-7)
[2022-06-28 17:59] LABS: Bacteria Urine TRACE /hpf
[2022-06-28 18:00] LABS: Add Urine Culture? No; Amorphous Sediment Urine 2+ /hpf
[2022-06-28 18:45] VITALS: BP 187/102; PULSE 62; RESP 16; O2SAT 98
--- NOTE | 2022-06-28 18:49 | PC.NURSE ---
INFORMED DR. HOLCOMB OF OF 187/102. VERBALIZED UNDERSTANDING NO FURTHER ORDERS.
== END 2022-06-28 18:51 | disposition home or self-care (01) ==
PROVIDERS: Emergency Provider Student in an Organized Health Care Education/Training Program
DX: R42 Dizziness and giddiness (principal); I10 Essential (primary) hypertension; E78.5 Hyperlipidemia, unspecified
CPT/HCPCS: 80053; 80306; 81001; 83735; 85025; 96374; 99284; J2405; J7030; J8597

== ENCOUNTER 2022-07-11 20:33 | Emergency (ER) | payer MEDICAID, SELFPAY ==
[2022-07-11 20:43] VITALS: BP 146/75; PULSE 57; RESP 18; TEMP 36.4; O2SAT 96; BMI 27.3
--- NOTE | 2022-07-11 21:47 | W.ED.BACK ---
HPI - Back Pain/Injury General: Chief Complaint: Back Pain/Injury Stated Complaint: weakness,n/v Time Seen by Provider: 07/11/22 21:46 Source: patient Mode of arrival: ambulatory Limitations: no limitations History of Present Illness: Despite stated chief complaint this patient tells me that she is in the emergency department this evening because she feels agitated. She feels like her legs are restless all the time and she cannot keep them still. She states that she cannot sleep well because she thinks that she has restless legs. She denies any fevers, chills, dysuria, blood in her urine, frequency etc. loss of bowel or bladder control. She specifically denies any perianal numbness. She has her chronic numbness to her left lateral thigh and down her posterior left leg which has been present prior to her laminectomy last year. She has not had any weakness etc. She states she has been faithful to all her medications that she is prescribed both by her primary care doctor as well as her pain doctor. She denies alcohol or street drug use. She is still smoking despite having had a history of CVA without any sequelae or deficits. She denies any recent falls injuries or lifting. She takes oxycodone 10 mg 4 times a day as prescribed by her pain doctor. States she has been faithful to the prescribed regimen. Pertinent past history: prior back pain Associated symptoms: Reports no associated symptoms; Deny abdominal pain, chills, dysuria, fever(s), nausea or vomiting Review of Systems Const: Denies: fever(s), chills or body aches Eyes: Denies: change in vision ENMT: Denies: odynophagia, nasal discharge or nasal congestion Card: Denies: chest pain, palpitations or irregular heart rhythm Resp: Denies: dyspnea, productive cough or non-productive cough GI: Denies: abdominal pain, nausea, vomiting, diarrhea, hematochezia or melena : Denies: flank pain, difficulty voiding, dysuria, urinary frequency, vaginal bleeding or vaginal discharge Musc: Denies: neck pain, back pain, extremity pain or extremity swelling Skin/Breast: Denies: rash Neuro: Reports: restless legs; Denies: headache(s), weakness in extremities, dizziness, confusion or seizure-like activity Psych: Reports: anxiety; Denies: depression, auditory hallucinations, tactile hallucinations, suicidal ideation or homicidal ideation Endo: Denies: polyuria or polydipsia PFSH ED PFSH: Medical History Essential hypertension LIZ (generalized anxiety disorder) GERD (gastroesophageal reflux disease) Hyperlipidemia Insomnia Left ureteral calculus Nephrolithiasis Nicotine dependence, cigarettes, with unspecified nicotine-induced disorders Right renal stone Urolithiasis Multi stone former with ESWL and endoscopic treatment previously. Surgical History H/O esophagogastroduodenoscopy (04/05/20) H/O: hysterectomy History of cholecystectomy History of surgery on arm S/P appendectomy S/P ureteral stent placement Status post colonoscopy (04/05/20) incomplete, needs Ba enema Family History Other CAD (coronary artery disease) Diabetes Hypertension Stroke Denies family history of Anesthesia complication Bleeding disorder Social History Alcohol intake: current Alcohol intake frequency: other Lives independently: Yes Marital status: Single Current occupational status: employed History of recent travel: No Physical Exam Narrative: EXAM NARRATIVE: She is alert makes good eye contact. Her speech is goal-directed and fluent Const: COMMON NORMALS: patient oriented x3 GENERAL APPEARANCE: cooperative and anxious (Somewhat rapid pressured speech) ORIENTATION/CONSCIOUSNESS: Yes awake, Yes oriented to person and Yes oriented to place HENMT: COMMON NORMALS: normocephalic, Normal nasal mucous membranes and turbinates present, moist oral mucous membranes and oropharynx normal HEAD & SCALP: normocephalic NOSE: Normal nasal mucous membranes and turbinates present TEETH & GINGIVA: Yes caries and Yes fair dentition Eye: COMMON NORMALS: Equal, round and reactive pupils present, EOMs intact bilaterally and conjunctivae normal CONJUNCTIVA: Yes conjunctivae normal PUPIL: Yes Equal, round and reactive pupils present Neck/C-Spine: COMMON NORMALS: full ROM, no lymphadenopathy and supple Resp: COMMON NORMALS: normal respiratory effort, No retractions, No use of accessory muscles and clear to auscultation bilaterally AUSCULTATION: clear to auscultation bilaterally Cardio: COMMON NORMALS: regular rate, regular rhythm, No murmurs present (Cardio) and Peripheral pulses 2+ throughout RATE: regular rate RHYTHM: regular rhythm PERIPHERAL PULSES: Peripheral pulses 2+ throughout GI: COMMON NORMALS: Normal to inspection, nondistended, normoactive bowel sounds present, Soft to palpation and non-tender PALPATION: Yes Soft to palpation : COMMON NORMALS: Yes no CVA tenderness BLADDER/KIDNEY EXAM: Yes no CVA tenderness Back/Pelvis: COMMON NORMALS: no CVA tenderness, thoracic and lumbar spine normal to inspection, no thoracic nor lumbar tenderness, thoraco-lumbar ROM normal and straight leg raise negative bilaterally Extremity: COMMON NORMALS: normal to inspection, full ROM, capillary refill normal, no calf tenderness and no pedal edema NARRATIVE EXTREMITY EXAM: During history of present illness and interview and examination it was noted that she would ultimately move 1 leg of the other than some what irregular shaking fashion. When otherwise engaged she did not display any of this lower extremity activity. Neuro: COMMON NORMALS: patient oriented x3, moves all extremities, no focal motor deficits, no sensory deficits noted, deep tendon reflexes 2+ bilaterally and gait normal SENSORIUM/ORIENTATION: Yes oriented to person and Yes oriented to place CRANIAL NERVES: Yes CN normal except as noted SPEECH: speech normal Psych: COMMON NORMALS: cooperative APPEARANCE: Yes grossly normal ACTIVITY/MOTOR BEHAVIOR: Yes appropriate eye contact and Yes fidgeting SPEECH: Yes rapid MOOD & AFFECT: Yes anxious THOUGHT PROCESS: disorganized THOUGHT CONTENT: Yes Normal thought content present Skin: COMMON NORMALS: no rashes or lesions noted, no wounds and turgor normal GENERAL SKIN EXAM: no rashes or lesions noted and turgor normal Course Vital Signs: Vital signs: Vital Signs Temperature 98.3 F 07/11/22 21:55 Pulse Rate 97 07/11/22 21:55 Respiratory Rate 18 07/11/22 21:55 Blood Pressure 183/100 07/11/22 21:55 Pulse Oximetry 98 07/11/22 21:55 Oxygen Delivery Me thod 07/11/22 21:55 MDM - Back Pain/Injury Medical Decision Making Patient with a history of chronic low back pain, general anxiety disorder, chronic opiate use presented to the emergency department with rather vague somatic complaints but primarily focused on what she describes as restless legs and fidgety feeling. No historical features to suggest nonadherence to her prescribed medications. She denied street drugs or potential issues that might provoke anxiety. Her clinical picture nor do her physical examination support any evidence at this time of an ongoing emergency medical condition related to red flag issues from back pain etc. Do not feel that additional ancillary testing is beneficial at this juncture. We will give her a trial of gabapentin to see if that helps her subjective symptoms. It is unclear if she truly has RLS versus her underlying anxiety. I discussed with her the medication plan, expected and potential benefits and the need to continue her ongoing care with her primary care doctor. I did encourage her to return to the emergency department for any new or worsening symptoms such as loss of bowel or bladder control, fevers, weakness etc. or any other constitutional symptoms. Medical Records I reviewed the patient's medical records. Discharge Plan Discharge Patient Disposition: Home Clinical Impression: Restless legs, Chronic back pain, Anxiety, generalized Condition: Stable Prescriptions: New gabapentin 300 mg capsule 300 mg PO TID Qty: 60 1RF No Action melatonin 10 mg capsule 10 mg PO BEDTIME zolpidem [Ambien] 5 mg tablet 10 mg PO BEDTIME metoprolol succinate 50 mg tablet extended release 24 hr 50 mg PO DAILY EpiPen 0.3 mg/0.3 mL auto-injector 0.3 mg IM Q3H PRN (Reason: anaphylaxis) Qty: 2 3RF Rx Instructions: 340 B nitroglycerin 0.4 mg tablet, sublingual 0.4 mg SUBLINGUAL Q5M PRN (Reason: chest pain) Qty: 30 0RF Rx Instructions: do not exceed 3 doses per episode diphenhydramine HCl [Benadryl] 25 mg Capsule 50 mg PO BEDTIME escitalopram oxalate [Lexapro] 10 mg tablet 10 mg PO BEDTIME atorvastatin [Lipitor] 40 mg tablet 40 mg PO BEDTIME naproxen [Naprosyn] 500 mg tablet 500 mg PO BID PRN (Reason: pain) Qty: 20 0RF oxycodone 10 mg Tablet 10 mg PO Q6H PRN (Reason: Pain) escitalopram oxalate 20 mg tablet 20 mg PO DAILY Discharge Orders: Discharge ED (Routine); Ordered 07/11/22 Ordered By: Ramy Bazzi Referrals: Enoc Vance, [employer] BALANCING TECHNICIAN [Primary Care Provider] - 1 week Discharge Diet: Usual diet Discharge Activity: Increase activity as tolerated Patient Instructions: Opioid Safety, Pain Management Activity Restrictions/Additional Instructions: As we discussed we will give you a trial of medication to see if we can improve your symptoms. If this is unsuccessful in the next 7 to 10 days follow-up with your regular doctor or you may return to the emergency department for any worsening symptoms to include persistent or worsening pain, fever, weakness, loss of bowel or bladder control or any other concerns. Coding Level of Care Code ED Assistant Professor Of Drama for Kunal Fwd Exam Comprehensive
[2022-07-11 21:55] VITALS: BP 183/100; PULSE 97; RESP 18; TEMP 36.8; O2SAT 98
[2022-07-11] MEDS: gabapentin 300 mg Capsule PO (22:20)
[2022-07-11 22:26] VITALS: BP 181/98; PULSE 91; RESP 18; O2SAT 97
== END 2022-07-11 22:27 | disposition home or self-care (01) ==
PROVIDERS: Emergency Provider Emergency Medicine; PCP Nurse Practitioner Family
DX: F41.1 Generalized anxiety disorder (principal); G89.29 Other chronic pain; M54.9 Dorsalgia, unspecified; G25.81 Restless legs syndrome; E78.5 Hyperlipidemia, unspecified; I10 Essential (primary) hypertension
CPT/HCPCS: 99283

== ENCOUNTER 2022-10-23 12:27 | Emergency (ER) | payer MEDICAID, SELFPAY ==
[2022-10-23] VITALS (7 sets, daily range): BP systolic 146–186; BP diastolic 84–96; PULSE 55–79; RESP 15–23; TEMP 36.3; O2SAT 95–99; BMI 25.9
--- NOTE | 2022-10-23 12:49 | ECG_ITS ---
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
--- NOTE | 2022-10-23 12:55 | W.ED.NAVMDI ---
HPI - Nausea/Vomiting/Diarrhea General: Chief complaint: Nausea/Vomiting/Diarrhea Stated complaint: dizzy,dehyrdration,n/v/d Time Seen by Provider: 10/23/22 12:33 Source: patient Mode of arrival: ambulatory History of Present Illness: 52-year-old female presents emergency room complaining nausea vomiting and diarrhea she just has not felt well for the last week. She was seen week ago was told she had an ear infection to start an antibiotic she did not tolerate it well they called in a second antibiotic she believes is clindamycin she has been taking it but has been nauseous has had some loose to watery stools also has been vomiting no hematochezia melena hematemesis or coffee-ground emesis. Unfortunately patient has multiple allergies listed. No fever at home she has still having right earache. Complaining of severe anxiety. MD elicited complaint: nausea and vomiting Onset (ago): week(s) Description of vomiting: watery and bilious Description of diarrhea: watery and semi-solid Associated nausea: Yes Associated abdominal pain: Yes Location of pain: Diffuse Severity: moderate Quality: cramping Exacerbating factors: eating and movement Associated symtoms: Reports fatigue, anorexia, malaise, nausea and weakness; Denies altered mental status, anxiety, bloating, change in vision, chest pain, cough, diaphoresis, decreased urine output, dizziness, dysuria, epistaxis, fecal incontinence, fevers/chills, headache(s), myalgias, numbness, palpitations, rash, short of breath, syncope, tenesmus or tinnitus Review of Systems Const: Reports: fatigue and malaise; Denies: fever(s), chills or diaphoresis Eyes: Denies: change in vision ENMT: Reports: ear or mastoid pain; Denies: tinnitus or epistaxis Card: Denies: chest pain, palpitations or syncope Resp: Denies: dyspnea, productive cough or non-productive cough GI: Reports: nausea, vomiting and diarrhea; Denies: abdominal pain, bloating or fecal incontinence : Denies: dysuria, urinary frequency or urinary urgency Skin/Breast: Denies: rash or pruritus Neuro: Denies: headache(s) or dizziness Psych: Denies: anxiety PFSH ED PFSH: Medical History Essential hypertension LIZ (generalized anxiety disorder) GERD (gastroesophageal reflux disease) Hyperlipidemia Insomnia Left ureteral calculus Nephrolithiasis Nicotine dependence, cigarettes, with unspecified nicotine-induced disorders Right renal stone Urolithiasis Multi stone former with ESWL and endoscopic treatment previously. Surgical History H/O esophagogastroduodenoscopy (04/05/20) H/O: hysterectomy History of cholecystectomy History of surgery on arm S/P appendectomy S/P ureteral stent placement Status post colonoscopy (04/05/20) incomplete, needs Ba enema Family History Other CAD (coronary artery disease) Diabetes Hypertension Stroke Denies family history of Anesthesia complication Bleeding disorder Social History Alcohol intake: current Alcohol intake frequency: other Lives independently: Yes Marital status: Single Current occupational status: employed Physical Exam Const: COMMON NORMALS: no acute distress EXAM LIMITATIONS: no altered mental status GENERAL APPEARANCE: cooperative and comfortable ORIENTATION/CONSCIOUSNESS: Yes awake, Yes oriented to person, Yes oriented to place and Yes oriented to time HENMT: COMMON NORMALS: normocephalic, atraumatic, hearing grossly normal bilaterally, external ears normal and Normal nasal mucous membranes and turbinates present HEAD & SCALP: normocephalic and atraumatic NOSE: Normal nasal mucous membranes and turbinates present EXTERNAL EAR: Yes external ears normal TYMPANIC MEMBRANE: TM normal on the right and TM abnormal TM laterality: left Details: bulging and erythematous Eye: COMMON NORMALS: Equal, round and reactive pupils present, EOMs intact bilaterally, conjunctivae normal and no scleral icterus CONJUNCTIVA: Yes conjunctivae normal PUPIL: Yes Equal, round and reactive pupils present Resp: COMMON NORMALS: normal respiratory effort, No retractions, No use of accessory muscles and clear to auscultation bilaterally AUSCULTATION: clear to auscultation bilaterally Cardio: COMMON NORMALS: regular rate, regular rhythm and No murmurs present (Cardio) RATE: regular rate RHYTHM: regular rhythm GI: COMMON NORMALS: Soft to palpation and No hepatosplenomegaly present AUSCULTATION: Yes normoactive bowel sounds PALPATION: Yes Soft to palpation, No Tenderness to palpation present (GI), No Guarding due to palpation present (GI) and Yes No hepatosplenomegaly present Extremity: COMMON NORMALS: normal to inspection, capillary refill normal, no clubbing, cyanosis or edema, no calf tenderness and no pedal edema Neuro: SENSORIUM/ORIENTATION: Yes oriented to person, Yes oriented to place and Yes oriented to time Skin: COMMON NORMALS: no rashes or lesions noted GENERAL SKIN EXAM: no rashes or lesions noted Course Vital Signs: Vital signs: Vital Signs Temperature 97.4 F L 10/23/22 12:39 Pulse Rate 55 L 10/23/22 15:00 Respiratory Rate 23 H 10/23/22 15:00 Blood Pressure 146/84 10/23/22 12:39 Pulse Oximetry 99 10/23/22 14:15 Oxygen Delivery Me thod 10/23/22 12:39 MDM - Nausea/Vomiting/Diarrhea Medical Decision Making Persistent right otitis media. We will switch to cefdinir. There is also question of UTI although the urine is somewhat contaminated was given dose of ceftriaxone here. Discharged home with ondansetron to use as needed continue same medications. Discussed with patient to follow-up with primary care if not improving. Medical Records I reviewed the patient's medical records. Lab Data I reviewed the patient's lab results. 10/23/22 12:58 10/23/22 12:58 Laboratory Results WBC 10.8 10^3/uL (4.0-10.0) H 10/23/22 12:58 RBC 4.81 10^6/uL (4.1-5.3) 10/23/22 12:58 Hgb 15.3 g/dL (11.5-15.3) 10/23/22 12:58 Hct 45.1 % (37.0-47.0) 10/23/22 12:58 MCV 93.8 fl (81-99) 10/23/22 12:58 MCH 31.8 pg (28.0-34.0) 10/23/22 12:58 MCHC 33.9 g/dL (30.0-36.0) 10/23/22 12:58 RDW 13.1 % (12.1-15.1) 10/23/22 12:58 Plt Count 386 10^3/cmm (130-400) 10/23/22 12:58 MPV 10.1 fL (7.4-10.4) 10/23/22 12:58 Neut % (Auto) 68.9 % 10/23/22 12:58 Lymph % (Auto) 22.8 % 10/23/22 12:58 [place] % (Auto) 7.1 % 10/23/22 12:58 Eos % (Auto) 0.4 % 10/23/22 12:58 Baso % (Auto) 0.5 % 10/23/22 12:58 Neut # (Auto) 7.43 10^3/uL (1.8-7.7) 10/23/22 12:58 Lymph # (Auto) 2.5 10^3/uL (0.8-4.8) 10/23/22 12:58 [place] # (Auto) 0.8 10^3/uL (0.2-0.9) 10/23/22 12:58 Eos # (Auto) 0.0 10^3/uL (0.0-0.8) 10/23/22 12:58 Baso # (Auto) 0.1 10^3/uL (0.0-0.1) 10/23/22 12:58 Nucleated RBC % (auto) 0 % 10/23/22 12:58 Nucleated RBCs # 0.0 /100WBC 10/23/22 12:58 Sodium 142 mmol/L (136-145) 10/23/22 12:58 Potassium 3.3 mmol/L (3.5-5.1) L 10/23/22 12:58 Chloride 105 mmol/L (98-107) 10/23/22 12:58 Carbon Dioxide 25 mmol/L (22-29) 10/23/22 12:58 Anion Gap 15.3 (5-19) 10/23/22 12:58 BUN 14 mg/dL (6-20) 10/23/22 12:58 Creatinine 0.5 mg/dL (0.5-0.9) 10/23/22 12:58 GFR Calculation 129.1 mL/min (90-130) 10/23/22 12:58 Glucose 109 mg/dL (65-115) 10/23/22 12:58 Calculated Osmolality 295 mOsm/kg (285-295) 10/23/22 12:58 Calcium 9.5 mg/dL (8.5-10.5) 10/23/22 12:58 Total Bilirubin 0.5 mg/dL (0.15-1.2) 10/23/22 12:58 AST 14 U/L (0-32) 10/23/22 12:58 ALT 26 U/L (0-33) 10/23/22 12:58 Alkaline Phosphatase 126 U/L (35-105) H 10/23/22 12:58 Total Protein 7.4 g/dL (6.6-8.7) 10/23/22 12:58 Albumin 3.9 g/dL (3.5-5.2) 10/23/22 12:58 Globulin 3.5 g/dL (1.3-4.6) 10/23/22 12:58 Urine Color Dark yellow (Yellow) 10/23/22 13:05 Urine Appearance Cloudy (CLEAR) A 10/23/22 13:05 Urine pH 6 (5-7) 10/23/22 13:05 Ur Specific [place] 1.020 (1.005-1.030) 10/23/22 13:05 Urine Protein 1+ (Negative) H 10/23/22 13:05 Urine Glucose (UA) Norm (Normal) 10/23/22 13:05 Urine Ketones 1+ (Negative) H 10/23/22 13:05 Urine Blood 3+ (Negative) H 10/23/22 13:05 Urine Nitrate Positive (Negative) H 10/23/22 13:05 Urine Bilirubin 1+ (Negative) H 10/23/22 13:05 Urine Urobilinogen 1 mg/dL (Negative) H 10/23/22 13:05 Ur Leukocyte Esterase 1+ (Negative) H 10/23/22 13:05 Urine RBC 5-10 /hpf (0-2) H 10/23/22 13:05 Urine WBC 5-10 /hpf (0-5) H 10/23/22 13:05 Ur Squamous Epith Cells 10-15 /hpf (0-5) H 10/23/22 13:05 Calcium Oxalate Crystal 0-4 /hpf H 10/23/22 13:05 Amorphous Sediment Not Reportable 10/23/22 13:05 Urine Bacteria 2+ /hpf (NONE) H 03/16/23 13:05 Urine Mucus 4+ /hpf 10/23/22 13:05 Discharge Plan Discharge Patient Disposition: Home Clinical Impression: Otitis media, Nausea and vomiting Condition: Stable Prescriptions: New cefdinir 300 mg capsule 300 mg PO BID 10 Days Qty: 20 0RF ondansetron HCl 4 mg tablet 4 mg PO Q6H PRN (Reason: nausea and vomiting) Qty: 20 0RF Discontinued clindamycin HCl 300 mg capsule 300 mg PO BID Qty: 14 0RF No Action melatonin 10 mg capsule 10 mg PO BEDTIME PRN (Reason: Sleep) zolpidem [Ambien] 5 mg tablet 10 mg PO BEDTIME metoprolol succinate 50 mg tablet extended release 24 hr 50 mg PO DAILY nitroglycerin 0.4 mg tablet, sublingual 0.4 mg SUBLINGUAL Q5M PRN (Reason: chest pain) Qty: 30 0RF Rx Instructions: do not exceed 3 doses per episode diphenhydramine HCl [Benadryl] 25 mg Capsule 50 mg PO BEDTIME PRN (Reason: Allergy Symptoms) atorvastatin [Lipitor] 40 mg tablet 40 mg PO BEDTIME naproxen [Naprosyn] 500 mg tablet 500 mg PO BID PRN (Reason: pain) Qty: 20 0RF lisinopril 20 mg tablet 20 mg PO DAILY Aspir-81 81 mg Tablet,Delayed Release (Dr/Ec) 81 mg PO DAILY oxycodone 15 mg tablet 15 mg PO Q8H PRN (Reason: Pain) sertraline 50 mg tablet 50 mg PO DAILY Discharge Orders: Discharge ED (Routine); Ordered 10/23/22 Ordered By: Fredo Morrow Referrals: Enoc Vance APRN [Primary Care Provider] - Discharge Diet: Usual diet Discharge Activity: Increase activity as tolerated Patient Instructions: Opioid Safety, Pain Management Activity Restrictions/Additional Instructions: You are seen today for nausea and dizziness. There is no evidence of significant dehydration your potassium was slightly low. You do have a persistent ear infection your antibiotics was changed. You are given oral potassium supplement and discharged home with nausea medications. Coding Level of Care Code ED Store Administrative Assistant for Kunal Flores
--- NOTE | 2022-10-23 13:10 | PC.NURSE ---
pt placed on continuous spo2, nibp, and cm.
[2022-10-23] MEDS: sodium chloride 0.9% 1,000 ML 999 ML IV (13:14)
[2022-10-23 13:15] LABS: Basophils # 0.1 10^3/uL (0.0-0.1); Basophils % 0.5 %; Eosinophils % 0.4 %; Hematocrit 45.1 % (37.0-47.0); Hemoglobin 15.3 g/dL (11.5-15.3); Lymphocytes # 2.5 10^3/uL (0.8-4.8); Lymphocytes % 22.8 %; Mean Corpuscular HGB Conc 33.9 g/dL (30.0-36.0); Mean Corpuscular Hemoglobin 31.8 pg (28.0-34.0); Mean Corpuscular Volume 93.8 fl (81-99); Mean Platelet Volume 10.1 fL (7.4-10.4); Monocytes # 0.8 10^3/uL (0.2-0.9); Monocytes % 7.1 %; Neutrophils # 7.43 10^3/uL (1.8-7.7); Neutrophils % 68.9 %; Nucleated Red Blood Cells % 0 %; Platelet Count 386 10^3/cmm (130-400); Red Blood Count 4.81 10^6/uL (4.1-5.3); Red Cell Distribution Width 13.1 % (12.1-15.1); White Blood Count 10.8 10^3/uL (4.0-10.0)
[2022-10-23 13:33] LABS: Glucose Urine UA Norm (Normal); Ketones Urine 1+ (Negative); Protein Urine 1+ (Negative); Urine Appearance Cloudy (CLEAR); Urine Color Dark Yellow (Yellow); pH Urine 6 (5-7)
[2022-10-23 13:34] LABS: Add Urine Microscopic? YES; Bilirubin Urine 1+ (Negative); Blood Urine 3+ (Negative); Leukocyte Esterase Urine 1+ (Negative); Nitrate Urine Positive (Negative); Urobilinogen Urine 1 mg/dL (Negative)
[2022-10-23 13:35] LABS: Add Urine Culture? No; Bacteria Urine 2+ /hpf; Calcium Oxalate Crystals Urine 0-4 /hpf; Mucus Urine 4+ /hpf
[2022-10-23 13:39] LABS: Alanine Aminotransferase 26 U/L (0-33); Albumin Level 3.9 g/dL (3.5-5.2); Alkaline Phosphatase 126 U/L (35-105); Aspartate Amino Transferase 14 U/L (0-32); Blood Urea Nitrogen 14 mg/dL (6-20); Calcium 9.5 mg/dL (8.5-10.5); Carbon Dioxide 25 mmol/L (22-29); Chloride 105 mmol/L (98-107); Globulin 3.5 g/dL (1.3-4.6); Glomerular Filtration Rate 129.1 mL/min (90-130); Glucose 109 mg/dL (65-115); Osmolality Calculated 295 mOsm/kg (285-295); Sodium 142 mmol/L (136-145); Total Bilirubin 0.5 mg/dL (0.15-1.2); Total Protein 7.4 g/dL (6.6-8.7)
[2022-10-23 13:43] LABS: Anion Gap 15.3 (5-19); Potassium 3.3 mmol/L (3.5-5.1)
--- NOTE | 2022-10-23 14:08 | PC.NURSE ---
PT REFUSES TO WEAR SPO2 AND NIPB MONITORING.
[2022-10-23] MEDS: ondansetron 2 mg/ML SDV 2 mL 4 MG IVP (14:49)
[2022-10-23] MEDS: cefTRIAXone 1,000 MG in sodium chloride 0.9% (plus) 50 ML 100 MG IV (14:49)
--- NOTE | 2022-10-23 15:13 | PC.NURSE ---
PT REFUSES TO WEAR CM. PT ASSISTED TO BATHROOM.
[2022-10-23] MEDS: potassium chloride ER 20 mEq Tablet 40 MEQ PO (15:38)
== END 2022-10-23 15:40 | disposition home or self-care (01) ==
PROVIDERS: Emergency Provider Family Medicine; PCP Nurse Practitioner Family
DX: H66.91 Otitis media, unspecified, right ear (principal); R11.2 Nausea with vomiting, unspecified; I10 Essential (primary) hypertension; E78.5 Hyperlipidemia, unspecified
CPT/HCPCS: 80053; 81001; 85025; 93005; 96365; 99284; J0696; J2405; J7030

== ENCOUNTER → 2023-04-28 11:05 | Outpatient (BNVA) | payer MEDICAID, SELFPAY | PROVIDERS: PCP Family Medicine; Visit Provider Family Medicine | DX: I10 Essential (primary) hypertension (principal); F41.1 Generalized anxiety disorder; G25.81 Restless legs syndrome | CPT/HCPCS: 80053; 80061; 82043; 84443; 85025 ==

== ENCOUNTER 2023-09-17 14:16 | Outpatient (CLI) | payer MEDICAID, SELFPAY ==
--- NOTE | 2023-09-17 14:21 | MM_ITS ---
WS: [id number] BILATERAL 3D TOMOSYNTHESIS DIGITAL SCREENING MAMMOGRAPHY WITH CAD CLINICAL INFORMATION: Z00.00 - Encounter for general adult medical examination ... HISTORY: Screening mammogram. No current complaints. COMPARISON: 2021 TECHNIQUE: Bilateral CC and MLO views. FINDINGS: Scattered fibroglandular densities bilaterally. No suspicious focal mass, asymmetry, calcifications, or architectural distortion. No evidence of malignancy. Incidental punctate and lucent centered calci fications. IMPRESSION: MM/[place] [id number] BI-RADS: 2-Benign FOLLOW UP: 1 Year Follow-up Recommend return to annual screening mammography.
== END 2023-09-17 14:17 | disposition home or self-care (01) ==
PROVIDERS: PCP Family Medicine; Visit Provider Family Medicine
DX: Z12.31 Encounter for screening mammogram for malignant neoplasm of breast (principal); R92.323 Mammographic fibroglandular density, bilateral breasts
CPT/HCPCS: 77063; 77067

== ENCOUNTER → 2023-09-24 16:16 | Outpatient (BNVA) | payer MEDICAID, SELFPAY | PROVIDERS: PCP Family Medicine; Referring Provider Dermatology; Visit Provider Orthopaedic Surgery | DX: M54.42 Lumbago with sciatica, left side (principal); M54.41 Lumbago with sciatica, right side; G89.29 Other chronic pain; Z98.1 Arthrodesis status; Z79.891 Long term (current) use of opiate analgesic | CPT/HCPCS: 72100 ==

== ENCOUNTER 2023-11-18 15:57 | Outpatient (CLI) | payer MEDICAID, SELFPAY ==
--- NOTE | 2023-11-18 16:00 | MR_ITS ---
WS: [id number] MRI LUMBAR SPINE NONCONTRAST TECHNIQUE: Sagittal T1, T2 and STIR imaging. Axial T1 and T2 imaging. CLINICAL INFORMATION: lumbar pain COMPARISON: None. FINDINGS: Mild lumbar curve. No acute compression. Prior postoperative changes L1-L5 pedicle screw fixation wit h interconnecting rods. Pedicle screws at L1, L2, L4, and L5. Chronic biconcave compression fracture of the L3 vertebral body with mild retropulsion of the posterior superior cortex with slight effaceme nt of the ventral thecal sac. Mild central canal stenosis at this level with narrowing of the subarti cular recess. Postoperative changes are new since the prior CT 06/27/2021 L1-L2: Normal. L2-L3: Mild disc bulging. Chronic retropulsion of the L3 posterior cortex with mild central canal rosi nosis and narrowing of the subarticular recess bilaterally. Moderate facet arthropathy. Foramen are p atent. L3-L4: No significant disc bulging. Laminectomy defects. Spinal canal and foramen are patent. L4-L5: Mild annular bulging with slight effacement of the ventral thecal sac. Narrowing of the LEFT g reater than RIGHT subarticular recess. Foramen are patent. Moderate facet arthropathy. L5-S1: Mild annular bulging. Slight contact of the RIGHT S1 nerve root. Mild bilateral foraminal narr owing. Moderate facet arthropathy. Visualized pelvic bony structures: Normal. Paravertebral soft tissues: Normal. Slight clumping of the cauda equina nerve rootlets at L3 compatible with arachnoiditis. IMPRESSION: 1. Prior postoperative changes pedicle screw fixation L1-L5 with interconnecting rods. 2. Chronic compression fracture L3 vertebral body with mild retropulsion of the posterior superior c ortex resulting in mild central canal stenosis with slight impingement on traversing nerve roots at t his level. 3. Mild annular bulging L4-5 with slight effacement of the ventral thecal sac. 4. Annular bulge L5-S1 slightly contacts the RIGHT S1 nerve root. Mild bilateral L5-S1 foraminal marysol rowing with contact of the exiting L5 nerve roots bilaterally. 5. Slight clumping of the cauda equina nerve rootlets at L3 compatible with arachnoiditis.
== END 2023-11-18 15:58 | disposition home or self-care (01) ==
LOC: RAD 15:57
PROVIDERS: PCP Family Medicine; Visit Provider Orthopaedic Surgery
DX: S32.038A Other fracture of third lumbar vertebra, initial encounter for closed fracture (principal); M48.061 Spinal stenosis, lumbar region without neurogenic claudication; M51.36 Other intervertebral disc degeneration, lumbar region; M54.42 Lumbago with sciatica, left side; M54.41 Lumbago with sciatica, right side; G89.29 Other chronic pain
CPT/HCPCS: 72148

== ENCOUNTER → 2023-12-10 11:34 | Outpatient (BNVA) | payer MEDICAID, SELFPAY | PROVIDERS: PCP Family Medicine; Visit Provider Orthopaedic Surgery | DX: M54.9 Dorsalgia, unspecified (principal); Z09 Encounter for follow-up examination after completed treatment for conditions other than malignant neoplasm; Z98.1 Arthrodesis status | CPT/HCPCS: 36415; 80053; 81001; 85025 ==

== ENCOUNTER → 2023-12-29 08:49 | Outpatient (BNVA) | payer MEDICARE, MEDICAID, SELFPAY | PROVIDERS: PCP Family Medicine; Visit Provider Family Medicine | DX: Z01.818 Encounter for other preprocedural examination (principal); Z79.899 Other long term (current) drug therapy | CPT/HCPCS: 81003; 93005 ==

== ENCOUNTER 2024-01-13 16:17 | Inpatient (IN) | payer MEDICARE, MEDICAID, SELFPAY ==
[2024-01-13] VITALS (24 sets, daily range): BP systolic 118–175; BP diastolic 70–110; PULSE 65–94; RESP 10–20; TEMP 36.3–36.8; O2SAT 89–99; BMI 28.0
[2024-01-13] MEDS: sodium chloride 0.9% 1,000 ML 30 ML IV (09:04)
--- NOTE | 2024-01-13 09:57 | ANES.PREANE2 ---
Pre-Anesthetic Assessment Height/Weight: Height 1.52 m Weight 65.136 kg Temp Pulse Resp BP Pulse Ox O2 Del Method 97.3 F L 66 16 165/110 99 Room Air 01/13/24 08:43 01/13/24 08:43 01/13/24 08:43 01/13/24 08:43 01/13/24 08:43 01/13/24 08:43 Preop Diagnosis: Lumbar stenosis with neurogenic claudication; nonunion lumbar spine Operation Date: 01/13/24 10:00 Proposed Procedures p Spinal Fusion PSF(Not Applicable) - Simon Joiner DO s Posterior Lumbar Interbody Fusion PLIF(Not Applicable) - Simon Joiner DO s Lumbopelvic Fixation(Not Applicable) - Simon Joiner DO s Lumbar Spine Decompression Lumbar Decompression(Not Applicable) - Simon Joiner DO s Sacroiliac Joint Fusion SI Joint Fusion(Bilateral) - Simon Joiner DO Familial anesthetic complications: None Was Beta Nathaniel taken within 24 hours: Yes Was Clonidine taken within 24 hours: N/A Last intake: Intake Last Liquid Date 01/12/24 Last Liquid Time 10:30 Last Solid Date 01/12/24 Last Solid Time 10:30 Social Tobacco and No alcohol Exam alert, oriented x 3, clear to auscultation bilaterally and regular rate & rhythm Airway Mallampati: Class II Dentition: chipped CV/HEM Coronary Artery Disease (hx stents) and Hypertension Negative stress test last year Metabolic Hyperlipidemia Neuropsych Cerebrovascular Accident Anesthetic Plan ASA status: 3 Anesthesia: General Risk of > 500 ml blood loss (7ml/kg in children): No Medications/Allergies Home Medications Medication Instructions Recorded Confirmed Last Taken Type nitroglycerin 0.4 mg sublingual 0.4 mg sublingual Q5M PRN chest 12/22/19 01/12/24 05/09/21 Rx tablet pain #30 tabs melatonin 10 mg capsule 10 mg PO BEDTIME PRN Sleep 03/21/21 01/12/24 06/25/22 History atorvastatin 80 mg tablet 80 mg PO BEDTIME #90 tabs 12/21/23 01/12/24 01/11/24 Rx epinephrine 0.3 mg/0.3 mL 0.3 mg (0.3 mL) IM Q10M PRN 12/21/23 01/12/24 Unknown Rx injection, auto-injector (EpiPen anaphylaxis #2 ea 2-Anastacio) gabapentin 600 mg tablet 600 mg PO .qhs #90 tabs 12/21/23 01/12/24 01/11/24 Rx (Neurontin) oxycodone 15 mg tablet 10 mg PO Q6H PRN Pain 12/29/23 01/12/24 01/12/24 History lisinopril 20 mg tablet 20 mg PO BEDTIME 01/12/24 01/12/24 01/11/24 History metoprolol succinate 50 mg 50 mg PO BEDTIME 01/12/24 01/12/24 01/11/24 History tablet,extended release 24 hr sertraline 100 mg tablet 200 mg PO BEDTIME 01/12/24 01/12/24 01/11/24 History Allergies Allergy/AdvReac Type Severity Reaction Status Date / Time amoxicillin Allergy ALGY-Anaphy Verified 12/29/23 08:19 laxis ampicillin Allergy ALGY-Anaphy Verified 12/29/23 08:19 laxis ciprofloxacin Allergy ALGY-Difficulty Verified 12/29/23 08:19 Breathing Fish Containing Products Allergy ALGY-Anaphy Verified 12/29/23 08:19 laxis hydrocodone [From Vicodin] Allergy ALGY-Anaphy Verified 12/21/23 10:56 laxis Tetracyclines Allergy ALGY-Anaphy Verified 12/29/23 08:19 laxis acetaminophen [From Tylenol] AdvReac Severe ALGY-Anaphy Verified 12/29/23 08:19 laxis azithromycin [From Zithromax] AdvReac Severe ALGY-Anaphy Verified 12/29/23 08:19 laxis codeine AdvReac Severe ALGY-Anaphy Verified 12/29/23 08:19 laxis morphine AdvReac Severe unknown Verified 12/29/23 08:19 Penicillins AdvReac Severe ALGY-Anaphy Verified 12/29/23 08:19 laxis sulfamethoxazole AdvReac Severe ALGY-Anaphy Verified 12/29/23 08:19 [From Bactrim] laxis tetracycline AdvReac Severe ALGY-Anaphy Verified 12/29/23 08:19 laxis trimethoprim [From Bactrim] AdvReac Severe ALGY-Anaphy Verified 12/29/23 08:19 laxis Current Medications Generic Name Dose Route Start Last Admin Trade Name Freq PRN Reason Stop Dose Admin Sodium Chloride 1,000 mls @ 30 mls/hr 01/13/24 08:45 01/13/24 09:04 Sodium Chloride 0.9% IV 01/14/24 08:44 30 mls/hr .Q24H COLLETTE Administration PFSH Anesthesia Medical History Urolithiasis Multi stone former with ESWL and endoscopic treatment previously. Right renal stone Left ureteral calculus LIZ (generalized anxiety disorder) Nephrolithiasis Hyperlipidemia Insomnia GERD (gastroesophageal reflux disease) Nicotine dependence, cigarettes, with unspecified nicotine-induced disorders Essential hypertension Surgical History S/P lumbar and lumbosacral fusion by anterior technique 2020 S/P ureteral stent placement Status post colonoscopy (04/05/20) incomplete, needs Ba enema H/O esophagogastroduodenoscopy (04/05/20) History of surgery on arm S/P appendectomy History of cholecystectomy H/O: hysterectomy Family History Other CAD (coronary artery disease) Diabetes Hypertension Stroke Denies family history of Anesthesia complication Bleeding disorder Social History Smoking and tobacco/nicotine status: current every day tobacco/nicotine user cigarettes Packs smoked per day: 1 Alcohol intake: current Alcohol intake frequency: other Substance/Drug Use: never Lives independently: Yes Marital status: Single Current occupational status: employed Data Anesthesia Cardiac Studies: Echocardiogram 06/27/22 Stress Echocardiogram 05/10/20
--- NOTE | 2024-01-13 09:58 | W.PM.OPSUD ---
Surgery/Procedure H&P Update DATE OF PROCEDURE: January 13, 2024 DATE H&P PERFORMED: 12/29/23 H&P UPDATE INFORMATION: I have reviewed H&P completed within last 30 days, I have examined patient prior to procedure and No changes to prior documentation PREOP DIAGNOSIS: Lumbar stenosis with neurogenic claudication; nonunion lumbar spine PLANNED PROCEDURE: Operation Date: 01/13/24 10:00 Proposed Procedures p Spinal Fusion PSF(Not Applicable) - Simon Joiner DO s Posterior Lumbar Interbody Fusion PLIF(Not Applicable) - DO tom Gupta Lumbopelvic Fixation(Not Applicable) - DO tom Gupta Lumbar Spine Decompression Lumbar Decompression(Not Applicable) - DO tom Gupta Sacroiliac Joint Fusion SI Joint Fusion(Bilateral) - Simon Joiner DO
[2024-01-13] MEDS: midazolam 1 mg/mL INJ 2 mL 2 MG IVP (09:59)
[2024-01-13] MEDS: clindamycin 600 MG/50 ML PREMIX 100 MG IV (10:32)
--- NOTE | 2024-01-13 11:28 | PC.NURSE ---
Dr. kate of cloudy urine, and results of urine analysis performed on 12/29/23
[2024-01-13] MEDS: lidocaine-epi 1% 20 mL INJ INJECTION (11:33)
[2024-01-13] MEDS: vancomycin 1,000 MG SDV 1000 MG XX (11:34)
[2024-01-13] MEDS: heparin, porcine 1,000 unit/mL INJ 10 mL 10000 UNIT IRRIGATION (11:35)
--- NOTE | 2024-01-13 13:59 | XR_ITS ---
WS: [id number] XR lumbar spine 2-3V* [id number] REASON FOR EXAM: SPINAL FUSION FINDINGS: Revision of previous posterior lumbar fusion with placement of interbody fusion device at L5-S1, pedi alek screws at S1, oblique pelvic screws at S2. Interconnecting rods from the pelvis to L1. Surgical appliances are intact and in proper position and alignment. XR/XR lumbar spine 2-3V* [id number] IMPRESSION: Revision of posterior lumbar fusion without abnormality.
--- NOTE | 2024-01-13 14:05 | P.OP_ITS ---
Operative Report Date of procedure: January 13, 2024 Pre-op diagnosis: Lumbar nonunion Post-op diagnosis: same Procedure done: 1.?L5/S1 interbody fusion with posterolateral fusion 2. Cage at L5/S1 3. Posterior fusion L1-pelvis 4.? Instrumentation L1-S1 5.? Lumbopelvic instrumentation 6. open right Sacral iliac fusion 7. open left sacral iliac fusion 8. use of computer navigation / stereotactic spine 9. use of autograft from same incision 10. allograft 11. Bone marrow aspirate from right iliac crest 12. Removal of deep hardware from spine Surgeon: Simon Joiner DO Estimated blood loss (mL): 150 Procedure: 1.?L5/S1 interbody fusion with posterolateral fusion 2. Cage at L5/S1 3. Posterior fusion L1-pelvis 4.? Instrumentation L1-S1 5.? Lumbopelvic instrumentation 6. open right Sacral iliac fusion 7. open left sacral iliac fusion 8. use of computer navigation / stereotactic spine 9. use of autograft from same incision 10. allograft 11. Bone marrow aspirate from right iliac crest 12. Removal of deep hardware from spine Patient is brought to the operative suite.? After undergoing anesthesia, the patient had neuro monitoring attached.? Patient was then placed in the prone position on the [place] table.? All areas of impingement were well-padded.? Patient was then prepped and draped in the normal sterile fashion.? Skin incision was then made over the L1 to the sacrum using previous skin incision.? Subperiosteal dissection was made out to the transverse processes of L1 bilater ally, L2 bilaterally, L3 bilaterally, L4 bilaterally L5 bilaterally and sacral ala bilaterally.? Previous hardware was identified from L1 down to L5. The screws were exposed and removed. Pedicle feeler's were used to fill the previous tracks and screws. And all the screws were loose. The screw was replaced with 7.5 millimeter screws. Screws were 6.5. And instrumentation was done from L1-L5 bilaterally skipping L3. The [employer] bone marrow aspirate kit was used to aspirate bone marrow aspirate.? This was done by using the sharp probe to open up the bone.? Aspiration was performed and then the blunt probe was then used to dissect down to through the bone tunnel.? An aspirating well drawn back a millimeter approximately 20 cc of bone marrow aspirate was used.? Admixed with the allogr aft and autograft bone that will be used. Next tension was brought to placing the fiducial for the computer navigation.? 2 pins were placed into the right iliac crest.? The fiducial was attached.? The C- arm was brought in and information from the C arm was then linked to the computer used for placing the screws.? Next attention was brought to placing the pedicle screws.? This was done by using the gearshift probe linked to computer navigation.? The probe was used to identify the pedicle.? Then the pedicle feeler was used followed by placement of screw.? This was done at L5 bilaterally and S1 bilaterally. Next attension was brought to placing the iliac screws.? This was done using the sacral ala iliac technique.? The gearshift probe linked to computer navigation was then placed through the sacral ala into the sacroiliac joint into the iliac crest.? Next the pedicle feeler was used followed by the computer navigated tap.? And then the screw was passed a 80 mm screw was placed on the right side and a 90 mm screw was placed on the left side.? Both the screws were 9.5 mm in diameter. Next attension was brought to performing the open and sacral iliac fusion.? This was done by again using the gearshift probe linked to computer navigation.? Followed by pedicle feeler followed by placing a wire and then the drill drilled over the wire and then bone graft was packed into the sacroiliac joint and into the drill hole.? And the sacroiliac screw was then placed.? This technique was done on both the right and left side. Next attention was brought to performing the laminectomy of L5. This was done using the high-speed bur Kerrisons and curettes. Once the lamina was removed and then attention was brought to performing a partial facetectomy on the contralateral side. This was done again using the high-speed bur curettes and Kerrisons. The ligamentum flavum was taken down bilaterally from L5 to S1. Attention was then brought to the facet on the ipsilateral side. The facet was taken down. The s1 nerve was decompressed as it passed around the S1 pedicle. The laminectomy was done for purposes of decompressing the nerve as well as placement of the cage. The L5 nerve was identified as it traversed through the L5/s1 foramen. The thecal sac was identified and retracted. The L5/S1 disc base was identified. Using a knife the disc base was opened. And then sequential steven were placed. The first shaver was a 6 and the last shaver was a 8. Using a pituitary and down going curette the endplates were scraped and disc material was removed from the space. Once adequate decompression of the disc base was felt to be had. Osteoamp sponge was packed into the anterior aspect of the disc base. Then a size 9 cage from [place] was placed after packing osteoamp into the cage. While placing the cage the thecal sac and S1 nerve was protected. C arm was used to ensure that the cages placed in the appropriate position. Attention was then brought to attaching the rods to the screws placed in the L1 bilaterally, L2 bilaterally L4 bilaterally, L5 bilaterally and S1 bilaterally.? This was then attached to the sacroiliac screw providing the lumbopelvic fixation.? Caps were torqued into position. Locking the construct in place. Wound was copiously irrigated and then attention was brought to decorticating the facets and transverse processes laterally.? Bone that was taken down from the lamina was used along with osteoamp fibers and sponges were packed into the lateral gutters along the facet joints.? This was done bilaterally. Wound was then closed in a layered fashion starting with the thoracolumbar fascia.? 0-vicryl was used the sub cutaneous tissue was closed with 2-0 vicryl and skin with 4-0 monocryl.? Glue was then used to seal the skin and a steril dressing was applied.? Patient was then placed in the supine position. The endotracheal tube was removed and patient was transferred to the PACU in stable condition.
[2024-01-13] MEDS: fentaNYL 50 mcg/mL INJ 2mL IVP (14:50)
--- NOTE | 2024-01-13 14:52 | PC.NURSE ---
1445 - Right wrist arterial line removed per protocol - secured site with 4x4 and coban
--- NOTE | 2024-01-13 15:05 | ANE.PACU2 ---
Inpatient post-anesthesia follow up: Airway intact: Yes Vital signs: Temperature 98.1 F Pulse Rate 67 Respiratory Rate 12 Blood Pressure 167/78 Pulse Oximetry 96 Oxygen Delivery Me thod Nasal Cannula Oxygen Flow Rate 3 Fraction of Inspir ed Oxygen Hydration adequate: Yes Nausea and vomiting: No Pain level: 1 Mental status: Baseline
[2024-01-13] MEDS: lactated ringers 1,000 ML 90 ML IV (17:17)
[2024-01-13] MEDS: oxyCODONE 10 mg ER (12 HR) Tablet PO (17:17)
[2024-01-13] MEDS: docusate sodium 100 mg Capsule PO (17:17)
[2024-01-13] MEDS: ketorolac 30 mg/mL INJ IVP ×2 (17:35→23:49)
[2024-01-13] MEDS: oxyCODONE-APAP 10-325 mg Tablet PO (19:38)
[2024-01-13] MEDS: gabapentin 300 mg Capsule 600 MG PO (21:02)
[2024-01-13] MEDS: sertraline 100 mg Tablet 200 MG PO (21:03)
[2024-01-13] MEDS: atorvastatin 40 mg Tablet 80 MG PO (21:03)
[2024-01-13] MEDS: lisinopril 20 mg Tablet PO (21:04)
[2024-01-13] MEDS: metoprolol succinate ER (24 HR) 50 mg Tablet PO (21:04)
[2024-01-13] MEDS: HYDROmorphone 1 mg/mL INJ 1 mL 0.400000000000000022 MG IVP (21:19)
[2024-01-13] MEDS: nicotine 14 mg Patch 1 PATCH TRANSDERMA (22:15)
[2024-01-14] VITALS: BP 119/70; PULSE 76; RESP 17; TEMP 36.7; O2SAT 95
[2024-01-14 03:50] VITALS: RESP 16
[2024-01-14] MEDS: HYDROmorphone 1 mg/mL INJ 1 mL 0.400000000000000022 MG IVP ×2 (03:50→08:19)
[2024-01-14] MEDS: lactated ringers 1,000 ML 90 ML IV (03:56)
[2024-01-14 04:00] VITALS: BP 109/69; PULSE 71; RESP 18; TEMP 37; O2SAT 94
[2024-01-14 07:58] VITALS: BP 111/71; PULSE 67; RESP 17; TEMP 36.9; O2SAT 96
[2024-01-14] MEDS: docusate sodium 100 mg Capsule PO (08:10)
[2024-01-14] MEDS: oxyCODONE 10 mg ER (12 HR) Tablet PO (08:10)
[2024-01-14 08:19] VITALS: RESP 18
--- NOTE | 2024-01-14 09:02 | PM.DCS ---
Discharge Providers Date of Admission: 01/13/24 16:17 Date of Discharge: January 14, 2024 Attending Provider at Discharge: Simon Joiner DO Primary Care Provider: Ellen Gonsalves DO Reason for Visit Reason for Visit: M48.062 Physical Exam Narrative: Patient doing well was up with physical therapy. Pain is controlled Urinary Catheter Management: Marlow: Cath Placed During This Visit: yes, but has since been removed by the nurse Reason for Continuing Indwelling Catheter: Decision to DC Catheter Urinary Catheter Date of Insertion: 01/13/24 Urinary Catheter Time of Insertion: 10:40 Date Urinary Catheter Removed: 01/14/24 Time Urinary Catheter Discontinued: 08:20 Discharge Data Studies Completed and Pending Completed Studies During Hospitalization Category Date Time Status XR lumbar spine 2-3V* [id number] Routine Exams 01/13/24 13:59 Completed Radiology Impressions Lumbar Spine X-Ray 01/13/24 13:59 IMPRESSION: Revision of posterior lumbar fusion without abnormality. Laboratory Results Blood Type O Negative 01/13/24 09:00 Rho(D) Type Rh negative 01/13/24 09:00 Antibody Screen Negative 01/13/24 09:00 Vitals Last Vital Signs Temp 98.4 F 01/14/24 07:58 Pulse 67 01/14/24 07:58 Resp 18 01/14/24 08:19 BP 111/71 01/14/24 07:58 Pulse Ox 96 01/14/24 07:58 O2 Del Method Room Air 01/14/24 07:58 O2 Flow Rate 3 01/13/24 16:47 Discharge Plan Discharge Patient Disposition: Home Prescriptions: New oxycodone 15 mg tablet 15 mg PO Q4H PRN (Reason: pain) 7 Days Qty: 42 0RF Continued melatonin 10 mg capsule 10 mg PO BEDTIME PRN (Reason: Sleep) atorvastatin 80 mg tablet 80 mg PO BEDTIME Qty: 90 1RF epinephrine [EpiPen 2-Anastacio] 0.3 mg/0.3 mL auto-injector 0.3 mg IM Q10M PRN (Reason: anaphylaxis) Qty: 2 2RF gabapentin [Neurontin] 600 mg tablet 600 mg PO .qhs Qty: 90 0RF nitroglycerin 0.4 mg tablet, sublingual 0.4 mg SUBLINGUAL Q5M PRN (Reason: chest pain) Qty: 30 0RF Rx Instructions: do not exceed 3 doses per episode oxycodone 15 mg tablet 10 mg PO Q6H PRN (Reason: Pain) lisinopril 20 mg tablet 20 mg PO BEDTIME metoprolol succinate 50 mg tablet extended release 24 hr 50 mg PO BEDTIME sertraline 100 mg tablet 200 mg PO BEDTIME Discharge Orders: Discharge Order (Routine); Ordered 01/14/24 Ordered By: Simon Joiner Discharge Diet: Advance as tolerated Discharge Activity: Limit activity as instructed Patient Instructions: Opioid Safety Activity Restrictions/Additional Instructions: Thank you for [facility] for your care! The following is a list of instructions, from your provider, to follow upon your discharge to ensure you have the optimal recovery from your recent injury orsurgery. Follow-up care is a dean part of your treatment and safety. Be sure to make and go to all appointments, and call your doctor if you are having problems. If you do not already have a follow-up appointment made, call Dr. Joiner office in the next 1-3 days to make follow up appointment for 1 weeks at [phone]. It is also a good idea to know your test results and keep a list of the medicines you take. Medications will be prescribed for you at your provider's discretion. These medications are to be used as instructed; if they are taken more often that prescribed they will not be refilled early and in most cases will not be refilled at all. > When a refill is needed,you should contact jes martinez 2-3 business days before your prescription runs out. Medications will NOT be refilled by director of physical education providers after hours! > Many pain medications contain Tylenol (Acetaminophen). Do not consume more than 4,000 mg of Tylenol per day in total with any combination ofmedications. > Pain medications can cause constipation. Please use an over the counter stool softener as directed, while taking pain medications. Consulty our local pharmacist with questions or recommendations on stool softeners. If constipation persists, contact our office or your primary care provider. > While under our care,you are not to receive pain medications or other controlled substances from any other provider unless our office is notified and approves. Any attempts to do so will result in refusal to prescribe any further pain medications and possible dismissal from our practice. ? ? Showering is permitted, however we ask that you do not take a bath, sit in a whirlpool / Jacuzzi, or go swimming for 1 month. For only the first 2 days after surgery, lt wilt be necessary for you to cover your wound/dressing with plastic and tape to keep it dry. ? Walking is essential for the healing process after surgery. We would like you to slowly advance your walking. This should be done on relatively flat clear ground (inside or out) or can be done on a treadmill. Remember this goal does not have to happen all at once, slowly increase your distance and duration. This can be broken into more more than one walk per day as tolerated. Patients who walk as directed after surgery rarely require Physical Therapy. In the unlikely event this issue arises your provider will direct hospital staff to make the appropriate arrangements. ? No lifting over 5 pounds {a gallon of milk) or bending/twisting until further notice. Each of these activities places an unnecessary amount of stress onto the body and can impede the delicate healing process. > Instead of bending at the waist, keep your back straight and bend at the knees. > Instead of twisting your torso, keep your back straight and turn your entire body with your feet. ? You may sleep in any position which makes you comfortable. Many patients find comfort sleeping in a reclining chair. It is not abnormal to have difficulty sleeping for the first several weeks following your surgery. We recommend trying Benadry! or Tylenol PM as directed to help with your sleeping difficulties. Both medications are over the counter and available withoutprescription. ? NO SMOKING!!! Smoking dramatically increases the probability of developing postoperative wound infections. ? Common complaints after lumbar and/or thoracic spine surgery include, but are not limited to: numbness and/or tingling in the legs, pain around the incision and surrounding tissues, muscle spasms, or stiffness of the middle to low back. Contact our office if these symptoms persist or if an acute change occurs. ? No driving for the first 3-5days, and not while taking narcotics [] until seen at your follow-up appointment and cleared. There are no restrictions for riding on short trips, however if you take a longer trip, arrangements should be made to make regular stops to get out of the vehicle and stretch . ? Swelling is an unfortunate event that will take place with any surgery and is the primary source of your postoperative discomfort. While walking and regular approved activities helps control inflammation, there are additional steps you can take to minimizeswelling. > Place ice over the surgical site and surrounding tissue for twenty minutes, followed by applying a low/medium heat (heating pad) for an additional twenty minutes every 1-2 hours as needed for painrelief. > You may use of over the counter anti-inflammatory medications (Ibuprofen, Motrin, Aleve, Advil, etc) as directed on the package label. These types of medicines wm significantly reduce the amount of discomfort you experience after surgery from swelling. It should be noted that if you have and allergy to any of these medications, or a history of ulcers or kidney disease you should consult you primary care provider prior to starting these medications. Discharge Attestations Time Spent in Discharge Care*: less than 30 min Quality Metrics Clinical Quality Measures [ No reported AMI, CVA or VTE this stay] Coding Level of Care Code Acute Code for Netog Fwjaison
== END 2024-01-14 10:20 | disposition home or self-care (01) | DRG 454 ==
LOC: MEDSURG 16:18
PROVIDERS: Admitting Provider Orthopaedic Surgery; PCP Family Medicine; Visit Provider Orthopaedic Surgery
PROC: 0SG30AJ Fusion of Lumbosacral Joint with Interbody Fusion Device, Posterior Approach, Anterior Column, Open Approach (ICD-10-PCS; principal; 2024-01-13 09:40)
PROC: 0SG30AJ Fusion of Lumbosacral Joint with Interbody Fusion Device, Posterior Approach, Anterior Column, Open Approach (ICD-10-PCS; CPT 22612; 2024-01-13 09:40)
PROC: 0SG30AJ Fusion of Lumbosacral Joint with Interbody Fusion Device, Posterior Approach, Anterior Column, Open Approach (ICD-10-PCS; 2024-01-13 09:40)
PROC: 0SG30AJ Fusion of Lumbosacral Joint with Interbody Fusion Device, Posterior Approach, Anterior Column, Open Approach (ICD-10-PCS; CPT 63005; 2024-01-13 09:40)
PROC: 0SG30AJ Fusion of Lumbosacral Joint with Interbody Fusion Device, Posterior Approach, Anterior Column, Open Approach (ICD-10-PCS; CPT 27280; 2024-01-13 09:40)
DX: M96.0 Pseudarthrosis after fusion or arthrodesis (principal); T84.038A Mechanical loosening of other internal prosthetic joint, initial encounter; G25.81 Restless legs syndrome; I10 Essential (primary) hypertension; F41.1 Generalized anxiety disorder; E78.5 Hyperlipidemia, unspecified; G47.00 Insomnia, unspecified; K21.9 Gastro-esophageal reflux disease without esophagitis; F17.210 Nicotine dependence, cigarettes, uncomplicated; Z98.1 Arthrodesis status
CPT/HCPCS: 51702; 72100; 76000; 86850; 86900; 97161; 97530; C1713; C9359; J1100; J1170; J1644; J1885; J2250; J2405; J2704; J2710; J3010; J3370; J3490; J7030; J7120

== ENCOUNTER → 2024-01-21 13:30 | Outpatient (BNVA) | payer MEDICARE, MEDICAID, SELFPAY | PROVIDERS: PCP Family Medicine; Visit Provider Orthopaedic Surgery | DX: Z98.1 Arthrodesis status (principal) | CPT/HCPCS: 99024 ==

== ENCOUNTER 2024-01-31 16:02 | Emergency (ER) | payer MEDICARE, MEDICAID, SELFPAY ==
[2024-01-31] VITALS (7 sets, daily range): BP systolic 123–152; BP diastolic 68–83; PULSE 80–87; RESP 16–18; TEMP 36.9; O2SAT 95–100; BMI 27.3
--- NOTE | 2024-01-31 16:50 | MRR_ITS ---
PROCEDURE INFORMATION: Exam: MR Lumbar Spine Without Contrast. Exam date and time: 01/31/2024 5:32 PM Age: 53 years old Clinical indication: Numbness and weakness; Prior surgery; Surgery date: <1 month; Surgery type: L5/s1 fusion; Additional info: Numbness and weakness to left lower extremity. , Pod 18 l5s1 fusion, cage. TECHNIQUE: Imaging protocol: Magnetic resonance imaging of the lumbar spine without contrast. COMPARISON: MR lumbar spine wo con* [id number] 11/18/2023 4:19 PM FINDINGS: Bones/joints: Posterior instrumentation is noted at L1, L2, and L4-S1. Intervertebral disc space device at L5-S1 and posterior instrumentation at sacrum is new. Compression of L3 is unchanged. There is a new posterior paraspinous fluid collection seen measuring up to 2.8 cm by 14.0 cm by 6.2 cm; collection has high signal on T2 and is intermediate to high signal on T1. No findings of spinal canal compromise. Spinal cord: Visualized cord, conus medullaris and cauda equina are unremarkable without compression. Soft tissues: See Bones/joints finding. MR/MR lumbar spine wo con* [id number] IMPRESSION: Interval placement of hardware at disc space of L5-S1 and within S1. New posterior midline paraspinous fluid collection ; fluid characteristics and relative lack of adjacent reactive change favor seroma although infection or pseudomeningocele would also be possible and clinical correlation will be helpful.
[2024-01-31] MEDS: ondansetron 2 mg/ML SDV 2 mL 4 MG IVP (17:08)
[2024-01-31] MEDS: HYDROmorphone 1 mg/mL INJ 1 mL IVP (17:11)
[2024-01-31] MEDS: dexamethasone 10 mg/mL INJ 6 MG IVP (17:11)
[2024-01-31 17:21] LABS: Basophils % 0.4 %; Eosinophils % 0.3 %; Hematocrit 33.3 % (36-47); Lymphocytes # 1.7 10^3/uL (0.8-4.8); Lymphocytes % 22.3 %; Mean Corpuscular HGB Conc 31.8 g/dL (30-55); Mean Corpuscular Hemoglobin 30.9 pg (27-33); Mean Corpuscular Volume 97.1 fl (85-98); Mean Platelet Volume 9.1 fL (7.4-10.4); Monocytes # 0.6 10^3/uL (0.2-0.9); Monocytes % 7.4 %; Neutrophils # 5.17 10^3/uL (1.8-7.7); Neutrophils % 69.3 %; Nucleated Red Blood Cells % 0 %; Platelet Count 492 10^3/cmm (157-399); Red Blood Count 3.43 10^6/uL (3.85-5.65); Red Cell Distribution Width 13.3 % (12.1-15.1); White Blood Count 7.45 10^3/uL (3.29-11.43)
[2024-01-31 17:32] LABS: INR 0.97 (0.8-1.2)
[2024-01-31 17:33] LABS: Partial Thromboplastin Time 25.3 SECONDS (23.9-36.7)
[2024-01-31 17:36] LABS: Anion Gap 10.7 (5-19); Blood Urea Nitrogen 11 mg/dL (6-20); Calcium 9.2 mg/dL (8.5-10.5); Carbon Dioxide 28 mmol/L (22-29); Chloride 107 mmol/L (98-107); Creatinine Clr Calc Pharmacy 89.1773; Glomerular Filtration Rate 104.2 mL/min (90-130); Glucose 87 mg/dL (65-115); Osmolality Calculated 293 mOsm/kg (285-295); Potassium 3.7 mmol/L (3.5-5.1); Sodium 142 mmol/L (136-145)
--- NOTE | 2024-01-31 18:03 | PC.NURSE ---
patient left for MRI at approximately 1725.
--- NOTE | 2024-01-31 19:16 | PC.NURSE ---
Assumed care of the pt at this time.
[2024-01-31] MEDS: HYDROmorphone 1 mg/mL INJ 1 mL 0.5 MG IVP (19:55)
--- NOTE | 2024-01-31 19:56 | ED_ITS ---
HPI - Back Pain/Injury 2 General: Chief Complaint: Back Pain/Injury Stated Complaint: hip and leg pain and numbness Time Seen by Provider: 01/31/24 16:29 History of Present Illness: Patient comes in complaining of left leg numbness as well as left hip and leg pain and then inability to move left lower leg or left foot due to weakness. And as well as having some profound weakness in the left upper leg. She had a fusion done on 01/13/2024 and has been doing suddenly worse on the left leg the past 3 days to a week. Review of Systems 2 General: Reports: 10 or more systems reviewed and unremarkable except in HPI and below PFSH ED 2 PFSH: Medical History Urolithiasis Multi stone former with ESWL and endoscopic treatment previously. Right renal stone Left ureteral calculus LIZ (generalized anxiety disorder) Nephrolithiasis Hyperlipidemia Insomnia GERD (gastroesophageal reflux disease) Nicotine dependence, cigarettes, with unspecified nicotine-induced disorders Essential hypertension Surgical History S/P lumbar and lumbosacral fusion by anterior technique 2020 S/P ureteral stent placement Status post colonoscopy (04/05/20) incomplete, needs Ba enema H/O esophagogastroduodenoscopy (04/05/20) History of surgery on arm S/P appendectomy History of cholecystectomy H/O: hysterectomy Family History Other CAD (coronary artery disease) Diabetes Hypertension Stroke Denies family history of Anesthesia complication Bleeding disorder Social History Smoking and tobacco/nicotine status: current every day tobacco/nicotine user cigarettes Packs smoked per day: 1 Alcohol intake: current Alcohol intake frequency: other Substance/Drug Use: never Lives independently: Yes Marital status: Single Current occupational status: employed Physical Exam 2 Const: COMMON NORMALS: no acute distress, average body habitus, patient oriented x3, healthy appearing, alert and well nourished GENERAL APPEARANCE: well kempt and well developed HENMT: COMMON NORMALS: normocephalic, atraumatic, external ears normal and moist oral mucous membranes HEAD & SCALP: normocephalic and atraumatic E XTERNAL EAR: Yes external ears normal Eye: COMMON NORMALS: Equal, round and reactive pupils present, EOMs intact bilaterally and conjunctivae normal CONJUNCTIVA: Yes conjunctivae normal P UPIL: Yes Equal, round and reactive pupils present Neck/C-Spine: COMMON NORMALS: full ROM, no lymphadenopathy and supple Chest: CHEST: Yes Symmetrical chest wall rise and No Surgical scars present (Chest) Resp: COMMON NORMALS: normal respiratory effort, No retractions, No use of accessory muscles and clear to auscultation bilaterally AUSCULTATION: clear to auscultation bilaterally Cardio: COMMON NORMALS: regular rate, regular rhythm, S1 normal heart sound present, S2 normal heart sound present, No gallops present (Cardio), No clicks present (Cardio), No murmurs present (Cardio) and No rub (Cardio) RATE: r egular rate RHYTHM: regular rhythm HEART SOUNDS: S1 normal heart sound present, S2 normal heart sound present and no murmurs PERIPHERAL PULSES: o ther (Radial pulses 2+ and symmetric) GI: COMMON NORMALS: Soft to palpation, non-tender and no masses INSPECTION: No abdominal distension PALPATION: Yes Soft to palpation, No Guarding due to palpation present (GI) and No Rebound tenderness present : COMMON NORMALS: Yes no CVA tenderness BLADDER/KIDNEY EXAM: Yes no CVA tenderness Back/Pelvis: COMMON NORMALS: no CVA tenderness Extremity: COMMON NORMALS: normal to inspection, full ROM, capillary refill normal and no clubbing, cyanosis or edema Neuro: COMMON NORMALS: patient oriented x3 SENSORIUM/ORIENTATION: Yes alert SENSORY EXAM: Yes other (Grossly numb on the left leg. Regardless of dermatome. ) MOTOR EXAM: Other motor observations present (Patient reported inability to use the left foot at all, nor the toes 0/5) Psych: APPEARANCE: Yes well kempt Skin: COMMON NORMALS: no rashes or lesions noted, no wounds, turgor normal and no jaundice GENERAL SKIN EXAM: no rashes or lesions noted and turgor normal Course 2 Reevaluation(s): Reevaluation #1: Slight patient patient initially being unable to even perform exam with left leg due to such severe weakness and having global numbness in a worsening specific dermatome. Patient was recklessly able to ambulate to her car to get her cell phone. When I was examining her she could not move her toes or her foot at all cannot initiate any movement with her calf muscle. She walked to her car without any assistance. But observed by staff due to having an IV. Time: 19:35 Reevaluation #2: Updated patient on status and currently is going on and patient is requesting to leave AGAINST MEDICAL ADVICE. Time: 20:29 Consultations: Consultation #1: Spoke with Dr. Flores who is reaching out to his partner Dr. Joiner about the MRI results. Time: 20:25 Consultation #2: Dr. Flores called back reporting Dr. Joiner would recommend pain treatment and a steroid Dosepak to help with this. Regrettably I would not be able to do this for the patient as she left AMA before this could happen. Time: 20:46 Vital Signs: Vital signs: Vital Signs Temperature 98.5 F 01/31/24 16:22 Pulse Rate 81 01/31/24 20:00 Respiratory Rate 16 01/31/24 20:00 Blood Pressure 148/70 01/31/24 20:00 Pulse Oximetry 98 01/31/24 20:00 Oxygen Delivery Me thod Room Air 01/31/24 20:00 MDM - Back Pain/Injury Medical Decision Making Patient was seen complaining of paresthesias and numbness. MRI was ordered and obtained. Was prolonged waiting for a read once read was obtained paged orthopedics. Orthopedics was getting back to me after talking with her spine partner. In the meantime I did update the patient that patient's orthopedist and talked with him and he would be getting back to me in the moment. Patient decided to leave AGAINST MEDICAL ADVICE. When the nurse brought her the form she informed the nurse that she will be shoving a foreign body up my ass. Refused to sign the form and left. Patient had been verbally talked to before that we are awaiting the recommendations from the spine surgeon that it was not my advice to leave. Of note patient did ambulate out of here without assistance markedly improved from her previous immobile left lower leg and markedly weak left upper leg. There is no visible foot drop or limp while walking on exit. Differential Diagnosis Likely lumbar radiculopathy and discitis Medical Records I reviewed the patient's medical records. Labs I reviewed the patient's lab results. 01/31/24 17:11 06/23/24 17:11 Radiology Impressions Lumbar Spine MRI 01/31/24 16:50 IMPRESSION: Interval placement of hardware at disc space of L5-S1 and within S1. New posterior midline paraspinous fluid collection ; fluid characteristics and relative lack of adjacent reactive change favor seroma although infection or pseudomeningocele would also be possible and clinical correlation will be helpful. Laboratory Results WBC 7.45 10^3/uL (3.29-11.43) 01/31/24 17:11 RBC 3.43 10^6/uL (3.85-5.65) L 01/31/24 17:11 Hgb 10.60 g/dL (11.27-16.99) L 01/31/24 17:11 Hct 33.3 % (36-47) L 01/31/24 17:11 MCV 97.1 fl (85-98) 01/31/24 17:11 MCH 30.9 pg (27-33) 01/31/24 17:11 MCHC 31.8 g/dL (30-55) 01/31/24 17:11 RDW 13.3 % (12.1-15.1) 01/31/24 17:11 Plt Count 492 10^3/cmm (157-399) H 01/31/24 17:11 MPV 9.1 fL (7.4-10.4) 01/31/24 17:11 Neut % (Auto) 69.3 % 01/31/24 17:11 Lymph % (Auto) 22.3 % 01/31/24 17:11 Grayson % (Auto) 7.4 % 01/31/24 17:11 Eos % (Auto) 0.3 % 01/31/24 17:11 Baso % (Auto) 0.4 % 01/31/24 17:11 Neut # (Auto) 5.17 10^3/uL (1.8-7.7) 01/31/24 17:11 Lymph # (Auto) 1.7 10^3/uL (0.8-4.8) 01/31/24 17:11 Grayson # (Auto) 0.6 10^3/uL (0.2-0.9) 01/31/24 17:11 Eos # (Auto) 0.0 10^3/uL (0.0-0.8) 01/31/24 17:11 Baso # (Auto) 0.0 10^3/uL (0.0-0.1) 01/31/24 17:11 Nucleated RBC % (auto) 0 % 01/31/24 17:11 Nucleated RBCs # 0.0 /100WBC 01/31/24 17:11 PT 13.20 SECONDS (12.1-14.9) 01/31/24 17:11 INR 0.97 (0.8-1.2) 01/31/24 17:11 APTT 25.3 SECONDS (23.9-36.7) 01/31/24 17:11 Sodium 142 mmol/L (136-145) 01/31/24 17:11 Potassium 3.7 mmol/L (3.5-5.1) 01/31/24 17:11 Chloride 107 mmol/L (98-107) 01/31/24 17:11 Carbon Dioxide 28 mmol/L (22-29) 01/31/24 17:11 Anion Gap 10.7 (5-19) 01/31/24 17:11 BUN 11 mg/dL (6-20) 01/31/24 17:11 Creatinine 0.6 mg/dL (0.5-0.9) 01/31/24 17:11 GFR Calculation 104.2 mL/min (90-130) 01/31/24 17:11 Glucose 87 mg/dL (65-115) 01/31/24 17:11 Calculated Osmolality 293 mOsm/kg (285-295) 01/31/24 17:11 Calcium 9.2 mg/dL (8.5-10.5) 01/31/24 17:11 All radiology interpretation(s) finalized by discharge Discharge Plan Discharge Patient Disposition: Left Against Medical Advice Clinical Impression: Acute left lumbar radiculopathy, Pain, Opiate analgesic use agreement exists Condition: Stable Prescriptions: No Action melatonin 10 mg capsule 10 mg PO BEDTIME PRN (Reason: Sleep) atorvastatin 80 mg tablet 80 mg PO BEDTIME Qty: 90 1RF epinephrine [EpiPen 2-Anastacio] 0.3 mg/0.3 mL auto-injector 0.3 mg IM Q10M PRN (Reason: anaphylaxis) Qty: 2 2RF gabapentin [Neurontin] 600 mg tablet 600 mg PO .qhs Qty: 90 0RF (DME) Walker See Rx Instructions .Route .MEDSUPPLY Qty: 1 0RF Rx Instructions: As directed nitroglycerin 0.4 mg tablet, sublingual 0.4 mg SUBLINGUAL Q5M PRN (Reason: chest pain) Qty: 30 0RF Rx Instructions: do not exceed 3 doses per episode oxycodone 15 mg tablet 10 mg PO Q6H PRN (Reason: Pain) lisinopril 20 mg tablet 20 mg PO BEDTIME metoprolol succinate 50 mg tablet extended release 24 hr 50 mg PO BEDTIME sertraline 100 mg tablet 200 mg PO BEDTIME Coding Level of Care Code ED Winding Inspector And Tester for Kunal Flores
--- NOTE | 2024-01-31 19:59 | PC.NURSE ---
pt given soda and sandwich at this time.
--- NOTE | 2024-01-31 20:46 | PC.NURSE ---
01/31/241849 Pt walked to the nurses station prior to me getting report and stated that she was upset because the nurse had not been in the room to see her. pt is wanting to leave the ER and walk to her car with her IV. Pt 01/31/241909 pt is requesting a drink and more pain meds. 01/31/241944 pt is given a glass of water but states i can't drink your water requesting a coke. Tech is getting the pt a coke. pt is also requesting a sandwich at this time.
--- NOTE | 2024-01-31 20:52 | PC.NURSE ---
upon discharge pt states I'm not signing that paper he can shove it up his ass . Pt was than escorted out of the ER.
== END 2024-01-31 20:53 | disposition left against medical advice (07) ==
PROVIDERS: Emergency Provider Emergency Medicine; PCP Family Medicine
DX: M54.16 Radiculopathy, lumbar region (principal); Z79.891 Long term (current) use of opiate analgesic; Z53.29 Procedure and treatment not carried out because of patient's decision for other reasons; F17.210 Nicotine dependence, cigarettes, uncomplicated; E78.5 Hyperlipidemia, unspecified; I10 Essential (primary) hypertension
CPT/HCPCS: 72148; 80048; 85025; 85610; 85730; 96374; 96375; 96376; 99284; J1100; J1170; J2405

== ENCOUNTER → 2024-02-04 13:52 | Outpatient (BNVA) | payer MEDICARE, MEDICAID, SELFPAY | PROVIDERS: PCP Family Medicine; Visit Provider Orthopaedic Surgery | DX: Z98.1 Arthrodesis status (principal) | CPT/HCPCS: 99024 ==

== ENCOUNTER 2024-02-04 15:07 | Outpatient (CLI) | payer MEDICARE, MEDICAID, SELFPAY ==
--- NOTE | 2024-02-04 15:15 | USCV_ITS ---
Naomie Villa Age: 53 Gender: F : 1970 Exam Date: 02/04/2024 15:17 Ordering Phys: Simon Joiner DO Technologist: R Exam Location: [facility] – [place]_ Indication: LE PAIN HISTORY: Lower extremity pain. PROCEDURES: Venous duplex imaging was performed in only the left lower extremity. The following venous structures were evaluated: common femoral vein, profunda vein, proximal portion of the greater saphenous vein, superficial femoral vein, and the popliteal vein. In addition, the posterior tibial and peroneal trunk were evaluated. Serial compression, augmentation maneuvers, and spectral Doppler flow evaluation were performed. FINDINGS: No evidence of DVT seen in any vessel visualized at this time. CONCLUSIONS No evidence of left lower extremity DVT. Luis E Edgar MD (Electronically Signed) Final Date: 04 February 2024 16:22 S
== END 2024-02-04 15:08 | disposition home or self-care (01) ==
PROVIDERS: PCP Family Medicine; Visit Provider Orthopaedic Surgery
DX: I82.402 Acute embolism and thrombosis of unspecified deep veins of left lower extremity (principal)
CPT/HCPCS: 93971

== ENCOUNTER → 2024-03-17 08:20 | Outpatient (BNVA) | payer MEDICARE, MEDICAID, SELFPAY | PROVIDERS: PCP Family Medicine Adult Medicine; Visit Provider Orthopaedic Surgery | DX: Z98.1 Arthrodesis status (principal) | CPT/HCPCS: 72100; 99024 ==

== ENCOUNTER → 2024-04-28 08:06 | Outpatient (BNVA) | payer MEDICARE, MEDICAID, SELFPAY | PROVIDERS: PCP Family Medicine Adult Medicine; Visit Provider Orthopaedic Surgery | DX: Z98.1 Arthrodesis status (principal) | CPT/HCPCS: 72100; 99024 ==

== ENCOUNTER 2024-05-11 11:26 | Outpatient (RCR) | payer MEDICARE, MEDICAID, SELFPAY | END 2024-06-08 23:59 | disposition home or self-care (01) | LOC: SPT 11:26 | PROVIDERS: Visit Provider Orthopaedic Surgery | DX: M54.9 Dorsalgia, unspecified (principal); G89.29 Other chronic pain | CPT/HCPCS: 97161 ==

== ENCOUNTER → 2024-06-09 10:45 | Outpatient (BNVA) | payer MEDICARE, MEDICAID, SELFPAY | PROVIDERS: Visit Provider Orthopaedic Surgery | DX: M54.9 Dorsalgia, unspecified (principal); Z98.1 Arthrodesis status | CPT/HCPCS: 72100; 99213 ==

== ENCOUNTER → 2024-07-14 13:30 | Outpatient (BNVA) | payer MEDICARE, MEDICAID, SELFPAY | PROVIDERS: Visit Provider Orthopaedic Surgery | DX: Z98.1 Arthrodesis status (principal) | CPT/HCPCS: 99213 ==

== ENCOUNTER → 2024-07-28 10:46 | Outpatient (BNVA) | payer MEDICARE, MEDICAID, SELFPAY | PROVIDERS: Visit Provider Orthopaedic Surgery | DX: Z98.1 Arthrodesis status (principal) | CPT/HCPCS: 72100; 99213 ==

== ENCOUNTER → 2024-08-30 13:35 | Outpatient (BNVA) | payer MEDICARE, MEDICAID, SELFPAY | PROVIDERS: Visit Provider Orthopaedic Surgery | DX: M54.41 Lumbago with sciatica, right side (principal); M54.42 Lumbago with sciatica, left side; G89.29 Other chronic pain; Z98.1 Arthrodesis status | CPT/HCPCS: 72100; 80053; 81001; 85025; 99214 ==

== ENCOUNTER → 2024-09-07 10:00 | Outpatient (BNVA) | payer MEDICARE, MEDICAID, SELFPAY | PROVIDERS: Visit Provider Family Medicine | DX: Z01.818 Encounter for other preprocedural examination (principal) | CPT/HCPCS: 93005 ==

== ENCOUNTER 2024-09-12 08:56 | Day surgery (SDC) | payer MEDICARE, MEDICAID, SELFPAY ==
[2024-09-12] VITALS (11 sets, daily range): BP systolic 131–173; BP diastolic 64–77; PULSE 59–72; RESP 15–22; TEMP 36.1–36.7; O2SAT 95–100
[2024-09-12] MEDS: sodium chloride 0.9% 1,000 ML 30 ML IV (09:31)
--- NOTE | 2024-09-12 10:40 | W.PM.OPSUD ---
Surgery/Procedure H&P Update DATE OF PROCEDURE: September 12, 2024 DATE H&P PERFORMED: 09/07/23 H&P UPDATE INFORMATION: I have reviewed H&P completed within last 30 days, I have examined patient prior to procedure and No changes to prior documentation PREOP DIAGNOSIS: Painful hardware in pelvis PLANNED PROCEDURE: Operation Date: 09/12/24 10:35 Proposed Procedures p Hardware Removal Iliac Screw(Not Applicable) - Simon Joiner DO
--- NOTE | 2024-09-12 10:42 | ANES.PREANE2 ---
Pre-Anesthetic Assessment Height/Weight: Height 1.52 m Weight 56.416 kg Temp Pulse Resp BP Pulse Ox O2 Del Method 97 F L 59 L 16 173/77 100 Room Air 09/12/24 09:09 09/12/24 09:09 09/12/24 09:09 09/12/24 09:09 09/12/24 09:09 09/12/24 09:09 Preop Diagnosis: Painful hardware in pelvis Operation Date: 09/12/24 10:35 Proposed Procedures p Hardware Removal Iliac Screw(Not Applicable) - Simon Joiner, DO Familial anesthetic complications: None Was Beta Nathaniel taken within 24 hours: N/A Was Clonidine taken within 24 hours: N/A Last intake: Intake Last Liquid Date 09/11/24 Last Liquid Time 20:00 Last Solid Date 09/11/24 Last Solid Time 13:00 Social Tobacco and No alcohol Exam alert, oriented x 3, clear to auscultation bilaterally and regular rate & rhythm Airway Mallampati: Class II Dentition: other (multiple missing, permanent retainer) CV/HEM Coronary Artery Disease and Hypertension GI Gastroesophageal Reflux Disease Metabolic Hyperlipidemia Neuropsych Cerebrovascular Accident Anesthetic Plan ASA status: 3 Anesthesia: General Risk of > 500 ml blood loss (7ml/kg in children): No Medications/Allergies Home Medications Medication Instructions Recorded Confirmed Last Taken Type nitroglycerin 0.4 mg sublingual 0.4 mg sublingual Q5M PRN chest 12/22/19 09/08/24 09/08/24 Rx tablet pain #30 tabs atorvastatin 80 mg tablet 80 mg PO BEDTIME #90 tabs 12/21/23 09/12/24 09/11/24 Rx sertraline 100 mg tablet 200 mg PO BEDTIME 01/12/24 09/12/24 09/11/24 History Walker #1 ea 02/01/24 08/30/24 Unknown Rx epinephrine 0.3 mg/0.3 mL 0.3 mg (0.3 mL) IM Q10M PRN 03/15/24 09/08/24 09/08/24 Rx injection, auto-injector (EpiPen anaphylaxis #2 ea 2-Anastacio) doxepin 10 mg capsule 10 mg PO DAILY #30 caps 08/11/24 09/12/24 09/11/24 Rx lisinopril 20 mg tablet 20 mg PO BEDTIME #30 tabs 08/11/24 09/12/24 09/11/24 Rx metoprolol succinate 50 mg 50 mg PO BEDTIME #30 tabs 08/11/24 09/12/24 09/11/24 Rx tablet,extended release 24 hr oxycodone 10 mg tablet 10 mg PO Q4H PRN pain 7 days #40 09/06/24 09/12/24 09/12/24 Rx tabs ropinirole 1 mg tablet 1 mg PO BEDTIME 09/12/24 09/12/24 09/11/24 History Allergies Allergy/AdvReac Type Severity Reaction Status Date / Time amoxicillin Allergy ALGY-Anaphy Verified 09/07/24 10:18 laxis ampicillin Allergy ALGY-Anaphy Verified 09/07/24 10:18 laxis ciprofloxacin Allergy ALGY-Difficulty Verified 09/07/24 10:18 Breathing Fish Containing Products Allergy ALGY-Anaphy Verified 09/07/24 10:18 laxis hydrocodone [From Vicodin] Allergy ALGY-Anaphy Verified 09/07/24 10:18 laxis Tetracyclines Allergy ALGY-Anaphy Verified 09/07/24 10:18 laxis acetaminophen [From Tylenol] AdvReac Severe ALGY-Anaphy Verified 09/07/24 10:18 laxis azithromycin [From Zithromax] AdvReac Severe ALGY-Anaphy Verified 09/07/24 10:18 laxis codeine AdvReac Severe ALGY-Anaphy Verified 09/07/24 10:18 laxis morphine AdvReac Severe unknown Verified 09/07/24 10:18 Penicillins AdvReac Severe ALGY-Anaphy Verified 09/07/24 10:18 laxis sulfamethoxazole AdvReac Severe ALGY-Anaphy Verified 09/07/24 10:18 [From Bactrim] laxis trimethoprim [From Bactrim] AdvReac Severe ALGY-Anaphy Verified 09/07/24 10:18 laxis Current Medications Generic Name Dose Route Start Last Admin Trade Name Freq PRN Reason Stop Dose Admin Sodium Chloride 1,000 mls @ 30 mls/hr 09/12/24 09:00 09/12/24 09:31 Sodium Chloride 0.9% IV 09/13/24 08:59 30 mls/hr .Q24H COLLETTE Administration PFSH Anesthesia Medical History Insomnia Urolithiasis Multi stone former with ESWL and endoscopic treatment previously. Right renal stone Left ureteral calculus LIZ (generalized anxiety disorder) Nephrolithiasis Hyperlipidemia GERD (gastroesophageal reflux disease) Nicotine dependence, cigarettes, with unspecified nicotine-induced disorders Essential hypertension Surgical History Status post lumbar spinal fusion S/P lumbar and lumbosacral fusion by anterior technique 2020 S/P ureteral stent placement Status post colonoscopy (04/05/20) incomplete, needs Ba enema H/O esophagogastroduodenoscopy (04/05/20) History of surgery on arm S/P appendectomy History of cholecystectomy H/O: hysterectomy Family History Other CAD (coronary artery disease) Diabetes Hypertension Stroke Denies family history of Anesthesia complication Bleeding disorder Social History Smoking and tobacco/nicotine status: current every day tobacco/nicotine user cigarettes Packs smoked per day: 1 Alcohol intake: current Alcohol intake frequency: other Substance/Drug Use: never Lives independently: Yes Marital status: Single Current occupational status: employed Data Anesthesia Cardiac Studies: Echocardiogram 06/27/22 Stress Echocardiogram 05/10/20
[2024-09-12] MEDS: clindamycin 600 MG/50 ML PREMIX 100 MG IV (11:35)
[2024-09-12] MEDS: lidocaine-epi 1% 20 mL INJ INJECTION (11:43)
[2024-09-12] MEDS: VANCOMYCIN ADD-Vantage 1,000 MG VIAL 1000 MG XX (11:44)
--- NOTE | 2024-09-12 12:15 | XR_ITS ---
WS: [id number] C-ARM RADIOGRAPHS LUMBAR SPINE; 3 IMAGES HISTORY: OR PICS COMPARISON: 08/30/2024 Intraoperative imaging during revision of the lumbosacral fusion hardware. Distal hardware has been r emoved. The long screws extending across the SI joints have been removed. XR/XR lumbar spine 2-3V* [id number] IMPRESSION: Intraoperative imaging during hardware revision at the lumbosacral region.
--- NOTE | 2024-09-12 12:19 | PM.OP ---
Operative Report Date of procedure: September 12, 2024 Pre-op diagnosis: Painful hardware in pelvis Post-op diagnosis: same Procedure done: Removal of deep hardware from pelvis Surgeon: Simon Joiner DO Estimated blood loss (mL): 5 Procedure: Removal of hardware deep from pelvis. Patient brought the operative suite after an undergoing anesthesia was placed in the prone position. All areas impingement well-padded. Patient's prepped draped in also fashion. Skin skin is made using the distal aspect of the previous skin incision. The thoracolumbar fascia was identified. We then retracted over the to the right side skin incision was made over the iliac screw and the kasey. The kasey and screw Identified. Screw Was removed. The kasey was then cut using a metal cutting bur. Wound was irrigated out. The kasey was cut was removed. And then the iliac screw was removed. Next attention was brought to the left screw. The same process was made to the thoracolumbar fascia split over the screw. The screw head was identified and removed. The kasey was then cut using the metal cutting bur. And then the screw was removed. Fluoroscopy ensured that the screw was removed. Wounds were irrigated vancomycin powder was placed in close in layered fashion with 0 Vicryl 2-0 Vicryl Monocryl suture. Sterile dressings were applied patient transferred the PACU in stable condition.
[2024-09-12] MEDS: oxyCODONE 5 mg IR Tab/Cap 10 MG PO (13:05)
--- NOTE | 2024-09-12 13:25 | ANE.PACU2 ---
Inpatient post-anesthesia follow up: Airway intact: Yes Vital signs: Temperature 98.1 F Pulse Rate 66 Respiratory Rate 18 Blood Pressure 140/77 Pulse Oximetry 99 Oxygen Delivery Me thod Room Air Oxygen Flow Rate 8 Fraction of Inspir ed Oxygen Hydration adequate: Yes Nausea and vomiting: No Pain level: 1 Mental status: Baseline
== END 2024-09-12 13:25 | disposition home or self-care (01) ==
PROVIDERS: Visit Provider Orthopaedic Surgery
PROC: (CPT 20680; principal; 2024-09-12 10:15)
DX: T84.84XA Pain due to internal orthopedic prosthetic devices, implants and grafts, initial encounter (principal); M54.42 Lumbago with sciatica, left side; G89.29 Other chronic pain; F17.210 Nicotine dependence, cigarettes, uncomplicated; Z88.8 Allergy status to other drugs, medicaments and biological substances; Z88.0 Allergy status to penicillin; Z88.5 Allergy status to narcotic agent; Z88.1 Allergy status to other antibiotic agents; Z79.899 Other long term (current) drug therapy
CPT/HCPCS: 20680; 72100; 76000; J2704; J2710; J3010; J3370; J3490; J7030

== ENCOUNTER → 2024-09-27 10:32 | Outpatient (BNVA) | payer MEDICARE, MEDICAID, SELFPAY | PROVIDERS: Visit Provider Orthopaedic Surgery | DX: Z98.1 Arthrodesis status (principal) | CPT/HCPCS: 99024 ==

== ENCOUNTER → 2024-10-13 13:31 | Outpatient (BNVA) | payer MEDICARE, MEDICAID, SELFPAY | PROVIDERS: Visit Provider Orthopaedic Surgery | DX: Z98.1 Arthrodesis status (principal) | CPT/HCPCS: 99024 ==

== ENCOUNTER → 2024-12-20 10:44 | Outpatient (BNVA) | payer MEDICARE, SELFPAY | PROVIDERS: Family Provider Family Medicine; PCP Family Medicine; Visit Provider Orthopaedic Surgery | DX: Z98.1 Arthrodesis status (principal) | CPT/HCPCS: 72100; 99213 ==

== ENCOUNTER 2025-01-12 11:51 | Outpatient (CLI) | payer MEDICARE, SELFPAY ==
--- NOTE | 2025-01-12 | MM_ITS ---
WS: [id number] BILATERAL SCREENING DIGITAL TOMOSYNTHESIS MAMMOGRAM WITH CAD HISTORY: ANNUAL SCREENIN COMPARISON: 09/17/2023, 05/05/2022 Bilateral CC and MLO views with tomosynthesis and synthetic mammography submitted. Computer aided detection analyzed. Breast composition: There are scattered areas of fibroglandular density. No suspicious masses, microcalcifications or architectural distortion. Stable scattered asymmetries and benign calcifications. MM/MM scr BI tomosynthesis [id number] IMPRESSION: BI-RADS: 2 - Benign. FOLLOW UP: 1 Year Follow-up
--- NOTE | 2025-01-12 12:15 | MR_ITS ---
WS: [id number] MRI LUMBAR SPINE NONCONTRAST HISTORY: Back back and leg pain with weakness. Prior hardware removal. Multilevel fusion. COMPARISON: 01/31/2024 TECHNIQUE: Sagittal and axial multisequence imaging is submitted. Posterior fusion hardware extends from L1-S1 with sparing of the L3 vertebral body. Biconcave chronic fracture of L3 with retropulsion of the posterior superior endplate by 4.2 mm. Retropulsion is still quite as prominent as on the prior MRI. No acute marrow edema. Additional interbody spacer at L5-S1. Conus terminates normally at L1-2 disc level. L1-L2: No stenosis. L2-L3: No stenosis. Large posterior laminectomy defect. L3-L4: No stenosis or disc protrusion. L4-L5: Mild asymmetric disc bulging slightly greater to the RIGHT. Mild ligamentum flavum and facet arthritis. Posterior laminectomy defect. L5-S1: Mild disc bulging. Broad-based RIGHT foraminal disc protrusion. There is disc contact on the RIGHT exiting L5 nerve root. This foramen was difficult to visualize on the prior study. This may be a new disc protrusion. There is additional but milder contact on the LEFT exiting L5 nerve root. Large posterior laminectomy defect. No adverse changes along the surgical site posteriorly. MR/MR lumbar spine wo con* [id number] IMPRESSION: 1. Status post extensive posterior lumbar fusion hardware from L1-L5 with spar ing of the L3 vertebral body. 2. Biconcave L3 fracture with retropulsion by 4.2 mm. 3. No new fracture. 4. Asymmetric disc bulging at L5-S1 with disc contacting both the RIGHT and LE FT L5 nerve roots but much greater on the RIGHT.
== END 2025-01-12 11:52 | disposition home or self-care (01) ==
PROVIDERS: PCP Family Medicine; Visit Provider Orthopaedic Surgery
DX: Z12.31 Encounter for screening mammogram for malignant neoplasm of breast (principal); Z98.1 Arthrodesis status; R92.323 Mammographic fibroglandular density, bilateral breasts; N64.89 Other specified disorders of breast; R92.1 Mammographic calcification found on diagnostic imaging of breast; S32.038A Other fracture of third lumbar vertebra, initial encounter for closed fracture; X58.XXXA Exposure to other specified factors, initial encounter; M51.379 Other intervertebral disc degeneration, lumbosacral region without mention of lumbar back pain or lower extremity pain; M96.89 Other intraoperative and postprocedural complications and disorders of the musculoskeletal system; M51.369 Other intervertebral disc degeneration, lumbar region without mention of lumbar back pain or lower extremity pain; M24.28 Disorder of ligament, vertebrae; M47.896 Other spondylosis, lumbar region; M51.27 Other intervertebral disc displacement, lumbosacral region
CPT/HCPCS: 72148; 77063; 77067

== ENCOUNTER 2025-01-18 07:49 | Emergency (ER) | payer MEDICARE, SELFPAY ==
[2025-01-18] VITALS (9 sets, daily range): BP systolic 132–225; BP diastolic 64–135; PULSE 69–99; RESP 16–18; TEMP 36.7; O2SAT 97–99
--- NOTE | 2025-01-18 07:52 | ECG_ITS ---
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 Measurements Intervals Buhler Rate: 73 P: 52 CO: 123 QRS: 65 QRSD: 82 T: 64 QT: 429 QTc: 475 Interpretive Statements SINUS RHYTHM MINIMAL ST DEPRESSION [0.025+ mV ST DEPRESSION] Compared to ECG 09/07/2024 10:20:36 ST (T wave) deviation now present Electronically Signed On 01-18-2025 21:46:38 CDT by Linette Thomas M.D. [id number]
--- NOTE | 2025-01-18 08:15 | W.ED.NAVMDI ---
HPI - Nausea/Vomiting/Diarrhea General: Chief complaint: Nausea/Vomiting/Diarrhea Stated complaint: n/v/d Time Seen by Provider: 01/18/25 07:51 History of Present Illness: 54-year-old female presents emergency complaining nausea vomiting for last 3 days. She had occasional small streaks of blood in the vomitus no abdominal pain she has had some diarrhea associated with no hematochezia or melena. Denies fever sweats or chills previous hysterectomy previous laparoscopy for colon CA. Patient has chronic back pain and is chronically on oxycodone she tells me takes 15 mg 4 times a day. No dysuria urgency or frequency. No chest pain or shortness of breath. Associated symtoms: Denies chest pain or dysuria Related Data Home Medications ?Medication ?Instructions ?Recorded ?Confirmed gabapentin 600 mg tablet 600 mg PO DAILY 01/18/25 01/18/25 Previous Rx's ?Medication ?Instructions ?Recorded Walker #1 ea 02/01/24 atorvastatin 80 mg tablet 80 mg PO BEDTIME #90 tabs 11/10/24 doxepin 10 mg capsule 10 mg PO DAILY #90 caps 11/10/24 epinephrine 0.3 mg/0.3 mL 0.3 mg (0.3 mL) IM Q10M PRN 11/10/24 injection, auto-injector (EpiPen anaphylaxis #2 ea 2-Anastacio) lisinopril 20 mg tablet 20 mg PO BEDTIME #90 tabs 11/10/24 metoprolol succinate 50 mg 50 mg PO BEDTIME #90 tabs 11/10/24 tablet,extended release 24 hr ropinirole 1 mg tablet 1 mg PO BEDTIME #90 tabs 11/10/24 sertraline 100 mg tablet 200 mg (2 x 100 mg) PO BEDTIME 11/10/24 #180 tabs cyclobenzaprine 5 mg tablet 10 mg (2 x 5 mg) PO TID 30 days 01/06/25 #180 tabs oxycodone 10 mg tablet 10 mg PO Q4H PRN pain 7 days #42 01/06/25 tabs ondansetron 4 mg disintegrating 4 mg PO Q6H PRN nausea and 01/17/25 tablet vomiting #14 tabs cefdinir 300 mg capsule 300 mg PO BID 10 days #20 caps 01/18/25 promethazine 25 mg tablet 25 mg PO Q6H PRN nausea and 01/18/25 vomiting #20 tabs tamsulosin 0.4 mg capsule 0.4 mg PO DAILY #28 caps 01/18/25 Allergies Allergy/AdvReac Type Severity Reaction Status Date / Time amoxicillin Allergy ALGY-Anaphy Verified 01/17/25 09:53 laxis ampicillin Allergy ALGY-Anaphy Verified 01/17/25 09:53 laxis ciprofloxacin Allergy ALGY-Difficulty Verified 01/17/25 09:53 Breathing Fish Containing Products Allergy ALGY-Anaphy Verified 01/17/25 09:53 laxis hydrocodone (From Vicodin) Allergy ALGY-Anaphy Verified 01/17/25 09:53 laxis Tetracyclines Allergy ALGY-Anaphy Verified 01/17/25 09:53 laxis acetaminophen (From Tylenol) AdvReac Severe ALGY-Anaphy Verified 01/17/25 09:53 laxis azithromycin (From Zithromax) AdvReac Severe ALGY-Anaphy Verified 01/17/25 09:53 laxis codeine AdvReac Severe ALGY-Anaphy Verified 01/17/25 09:53 laxis morphine AdvReac Severe unknown Verified 01/17/25 09:53 Penicillins AdvReac Severe ALGY-Anaphy Verified 01/17/25 09:53 laxis sulfamethoxazole (From AdvReac Severe ALGY-Anaphy Verified 01/17/25 09:53 Bactrim) laxis trimethoprim (From Bactrim) AdvReac Severe ALGY-Anaphy Verified 01/17/25 09:53 laxis Review of Systems Const: Denies: fever(s) or chills Card: Denies: chest pain Resp: Denies: dyspnea GI: Denies: abdominal pain : Denies: dysuria, urinary frequency or urinary urgency Musc: Denies: neck pain or back pain Skin/Breast: Denies: rash PFSH ED PFSH: Medical History Insomnia Urolithiasis Multi stone former with ESWL and endoscopic treatment previously. Right renal stone Left ureteral calculus LIZ (generalized anxiety disorder) Nephrolithiasis Hyperlipidemia GERD (gastroesophageal reflux disease) Nicotine dependence, cigarettes, with unspecified nicotine-induced disorders Essential hypertension Surgical History Status post lumbar spinal fusion S/P lumbar and lumbosacral fusion by anterior technique 2020 S/P ureteral stent placement Status post colonoscopy (04/05/20) incomplete, needs Ba enema H/O esophagogastroduodenoscopy (04/05/20) History of surgery on arm S/P appendectomy History of cholecystectomy H/O: hysterectomy Family History Other CAD (coronary artery disease) Diabetes Hypertension Stroke Denies family history of Anesthesia complication Bleeding disorder Social History Smoking and tobacco/nicotine status: current every day tobacco/nicotine user cigarettes Packs smoked per day: 1 Alcohol intake: current Alcohol intake frequency: other Substance/Drug Use: never Lives independently: Yes Marital status: Single Current occupational status: employed Physical Exam Const: GENERAL APPEARANCE: cooperative ORIENTATION/CONSCIOUSNESS: Yes awake, Yes oriented to person, Yes oriented to place and Yes oriented to time HENMT: COMMON NORMALS: normocephalic, atraumatic and hearing grossly normal bilaterally HEAD & SCALP: normocephalic and atraumatic Resp: COMMON NORMALS: normal respiratory effort, No retractions, No use of accessory muscles and clear to auscultation bilaterally AUSCULTATION: clear to auscultation bilaterally Cardio: COMMON NORMALS: regular rate, regular rhythm and No murmurs present (Cardio) RATE: regular rate RHYTHM: regular rhythm GI: COMMON NORMALS: Soft to palpation and No hepatosplenomegaly present AUSCULTATION: Yes normoactive bowel sounds PALPATION: Yes Soft to palpation, No Tenderness to palpation present (GI), No Guarding due to palpation present (GI) and Yes No hepatosplenomegaly present Extremity: COMMON NORMALS: normal to inspection, capillary refill normal, no clubbing, cyanosis or edema, no calf tenderness and no pedal edema Neuro: SENSORIUM/ORIENTATION: Yes oriented to person, Yes oriented to place and Yes oriented to time Skin: COMMON NORMALS: no rashes or lesions noted GENERAL SKIN EXAM: no rashes or lesions noted Course Vital Signs: Vital signs: Vital Signs Temperature 98.0 F 01/18/25 07:55 Pulse Rate 90 01/18/25 14:00 Respiratory Rate 16 01/18/25 12:52 Blood Pressure 154/70 01/18/25 14:00 Pulse Oximetry 97 01/18/25 14:00 Oxygen Delivery Me thod Room Air 01/18/25 12:52 MDM - Nausea/Vomiting/Diarrhea Medical Decision Making Patient has a stone at the left UPJ junction. She has a white count of 17,000 there is no bacteria in the urine there are some white blood cells. Contacted the on-call urologist at [facility] in [place] reviewed the case with him at this point he does not feel that she needs to be transferred but requires inpatient care he does recommend that we discharge home on antibiotics as well as tamsulosin alone patient has oxycodone at home continue to use this for pain. Will set her up for outpatient urology follow-up. Lab Data 01/18/25 08:22 01/18/25 08:22 Radiology Impressions Abdomen/Pelvis CT 01/18/25 08:36 IMPRESSION: 1. Mild LEFT hydronephrosis. 5 mm calcification at the LEFT UP junction. Please note there was also calcification in a similar location on 03/19/2021. 2. Urinary bladder calcifications x2. Largest measuring 5 mm. 3. Prior cholecystectomy and hysterectomy. 4. No GI tract obstruction. 5. No free air or free fluid. 6. Extensive posterior lumbar fusion from L1-S1 with laminectomy defects. Stabilization burst fracture at L3. Laboratory Results WBC 17.04 10^3/uL (3.29-11.43) H 01/18/25 08:22 RBC 4.88 10^6/uL (3.85-5.65) 01/18/25 08:22 Hgb 16.10 g/dL (11.27-16.99) 01/18/25 08:22 Hct 44.9 % (36-47) 01/18/25 08:22 MCV 92.0 fl (85-98) 01/18/25 08:22 MCH 33.0 pg (27-33) 01/18/25 08:22 MCHC 35.9 g/dL (30-55) 01/18/25 08:22 RDW 13.3 % (12.1-15.1) 01/18/25 08:22 Plt Count 285 10^3/cmm (157-399) 01/18/25 08:22 MPV 10.2 fL (7.4-10.4) 01/18/25 08:22 Neut % (Auto) 81.1 % 01/18/25 08:22 Lymph % (Auto) 11.9 % 01/18/25 08:22 Kle[place] % (Auto) 6.0 % 01/18/25 08:22 Eos % (Auto) 0.2 % 01/18/25 08:22 Baso % (Auto) 0.4 % 01/18/25 08:22 Neut # (Auto) 13.83 10^3/uL (1.8-7.7) H 01/18/25 08:22 Lymph # (Auto) 2.0 10^3/uL (0.8-4.8) 01/18/25 08:22 Kle[place] # (Auto) 1.0 10^3/uL (0.2-0.9) H 01/18/25 08:22 Eos # (Auto) 0.0 10^3/uL (0.0-0.8) 01/18/25 08:22 Baso # (Auto) 0.1 10^3/uL (0.0-0.1) 01/18/25 08:22 Nucleated RBC % (auto) 0 % 01/18/25 08:22 Nucleated RBCs # 0.0 /100WBC 01/18/25 08:22 Sodium 139 mmol/L (136-145) 01/18/25 08:22 Potassium 3.2 mmol/L (3.5-5.1) L 01/18/25 08:22 Chloride 102 mmol/L (98-107) 01/18/25 08:22 Carbon Dioxide 21 mmol/L (22-29) L 01/18/25 08:22 Anion Gap 19.2 (5-19) H 01/18/25 08:22 BUN 24 mg/dL (6-20) H 01/18/25 08:22 Creatinine 0.8 mg/dL (0.5-0.9) 01/18/25 08:22 GFR Calculation 74.5 mL/min (90-130) L 01/18/25 08:22 Glucose 139 mg/dL (65-115) H 01/18/25 08:22 Calculated Osmolality 294 mOsm/kg (285-295) 01/18/25 08:22 Lactic Acid 2.5 mmol/L (0.5-2.2) H 01/18/25 08:22 Lactic Acid (Sepsis) 1.6 mmol/L (0.5-2.2) 01/18/25 11:22 Calcium 9.7 mg/dL (8.5-10.5) 01/18/25 08:22 Total Bilirubin 0.9 mg/dL (0.15-1.2) 01/18/25 08:22 AST 13 U/L (0-32) 01/18/25 08:22 ALT 10 U/L (0-33) 01/18/25 08:22 Alkaline Phosphatase 120 U/L (35-105) H 01/18/25 08:22 Total Protein 7.8 g/dL (6.6-8.7) 01/18/25 08:22 Albumin 4.6 g/dL (3.5-5.2) 01/18/25 08:22 Globulin 3.2 g/dL (1.3-4.6) 01/18/25 08:22 Lipase 10 U/L (13-60) L 01/18/25 08:22 Urine Color Yellow (Yellow) 01/18/25 10:00 Urine Appearance Clear (CLEAR) 01/18/25 10:00 Urine pH 7.0 (5-7) 01/18/25 10:00 Ur Specific [place] 1.024 (1.005-1.030) 01/18/25 10:00 Urine Protein Trace (Negative) A 01/18/25 10:00 Urine Glucose (UA) Negative (Normal) 01/18/25 10:00 Urine Ketones Trace (Negative) 01/18/25 10:00 Urine Blood 3+ (Negative) A 01/18/25 10:00 Urine Nitrate Negative (Negative) 01/18/25 10:00 Urine Bilirubin Negative (Negative) 01/18/25 10:00 Urine Urobilinogen 0.2 mg/dL (Negative) 01/18/25 10:00 Ur Leukocyte Esterase 2+ (Negative) A 01/18/25 10:00 Urine RBC 21-50 /hpf (0-2) H 01/18/25 10:00 Urine WBC 6-10 /hpf (0-5) 01/18/25 10:00 Ur Squamous Epith Cells 0-5 /hpf (0-5) 01/18/25 10:00 Amorphous Sediment Not Reportable 01/18/25 10:00 Urine Bacteria None seen /hpf (NONE) 01/18/25 10:00 Hyaline Casts 2.46 /lpf 01/18/25 10:00 All radiology interpretation(s) finalized by discharge Discharge Plan Discharge Patient Disposition: Home Clinical Impression: Cystitis, Left nephrolithiasis Condition: Stable Prescriptions: New promethazine 25 mg tablet 25 mg PO Q6H PRN (Reason: nausea and vomiting) Qty: 20 0RF cefdinir 300 mg capsule 300 mg PO BID 10 Days Qty: 20 0RF tamsulosin 0.4 mg capsule 0.4 mg PO DAILY Qty: 28 0RF No Action ondansetron 4 mg tablet,disintegrating 4 mg PO Q6H PRN (Reason: nausea and vomiting) Qty: 14 0RF lisinopril 20 mg tablet 20 mg PO BEDTIME Qty: 90 1RF metoprolol succinate 50 mg tablet extended release 24 hr 50 mg PO BEDTIME Qty: 90 1RF atorvastatin 80 mg tablet 80 mg PO BEDTIME Qty: 90 1RF sertraline 100 mg tablet 200 mg PO BEDTIME Qty: 180 1RF doxepin 10 mg capsule 10 mg PO DAILY Qty: 90 1RF ropinirole 1 mg tablet 1 mg PO BEDTIME Qty: 90 1RF epinephrine [EpiPen 2-Anastacio] 0.3 mg/0.3 mL auto-injector 0.3 mg IM Q10M PRN (Reason: anaphylaxis) Qty: 2 2RF (DME) Walker See Rx Instructions .Route .MEDSUPPLY Qty: 1 0RF Rx Instructions: As directed oxycodone 10 mg tablet 10 mg PO Q4H PRN (Reason: pain) 7 Days Qty: 42 0RF cyclobenzaprine 5 mg tablet 10 mg PO TID 30 Days Qty: 180 2RF gabapentin 600 mg Tablet 600 mg PO DAILY Discharge Orders: Discharge ED (Routine); Ordered 01/18/25 Ordered By: Fredo Morrow Referrals: Ellen Gonsalves DO [Primary Care Provider, Family Practice] Discharge Diet: Usual diet Discharge Activity: Resume usual activity Patient Instructions: Opioid Safety, Pain Management Activity Restrictions/Additional Instructions: Thank you for choosing [facility] for your healthcare needs today. It is very important that you follow up as instructed or that you return to the Emergency Department should you have concerns or if your condition changes or worsens in any way. You were seen in the emergency room with back and flank pain. Workup found you have a mild cystitis and you have signs of a kidney stone on the left side. It is causing some swelling your kidney which is likely contributing to your pain. I discussed your case with the on-call urologist at [place] he did not feel you needed admission to the hospital at this time recommends that you continue your pain medications for pain control started on Flomax (tamsulosin) to help the stone pass quicker and finally add an oral antibiotic. We can treat you as an outpatient in this way as long as your pain is well-controlled and you do not develop fever. If pain becomes uncontrolled or you develop a fever or you have worsening symptoms of generally not feeling well abdominal pain vomiting return to the nearest emergency room. Case management will help to make arrangements for follow-up with urology. Print Language: American Coding Level of Care Code ED Yeast Pusher for Kunal Flores
[2025-01-18] MEDS: ondansetron 2 mg/ML SDV 2 mL 4 MG IVP (08:25)
[2025-01-18] MEDS: sodium chloride 0.9% 1,000 ML 999 ML IV (08:25)
[2025-01-18 08:28] LABS: Basophils # 0.1 10^3/uL (0.0-0.1); Basophils % 0.4 %; Eosinophils % 0.2 %; Hematocrit 44.9 % (36-47); Lymphocytes % 11.9 %; Mean Corpuscular HGB Conc 35.9 g/dL (30-55); Mean Platelet Volume 10.2 fL (7.4-10.4); Neutrophils # 13.83 10^3/uL (1.8-7.7); Neutrophils % 81.1 %; Nucleated Red Blood Cells % 0 %; Platelet Count 285 10^3/cmm (157-399); Red Blood Count 4.88 10^6/uL (3.85-5.65); Red Cell Distribution Width 13.3 % (12.1-15.1); White Blood Count 17.04 10^3/uL (3.29-11.43)
--- NOTE | 2025-01-18 08:36 | CT_ITS ---
WS: [id number] CT ABDOMEN AND PELVIS WITH CONTRAST HISTORY: Nausea and vomiting. Abdominal pain for 2 days. TECHNIQUE: Imaging performed of the abdomen and pelvis with IV contrast. Single phase imaging of the abdomen. Coronal and sagittal reformats are submitted. All CT scans at [facility] use at least one of these dose optimization techniques: automated exposure control; mA and/or kV adjustment per patient size (includes targeted exams where dose is matched to clinical indication); or iterative reconstruction. IV CONTRAST: Omnipaque 350; 100 mL IV. Oral contrast: No DLP: 396.93 mGy.cm COMPARISON: 03/19/2021 Lower thorax: Lung bases are clear. Heart is normal size. Small hiatal hernia. Liver/biliary system: Normal size with no intrahepatic dilatation. Gallbladder: Prior cholecystectomy. Mild prominence of the common bile duct related to the cholecystectomy. No intrahepatic duct dilatation. Pancreas: Mild diffuse atrophy. No pancreatic duct dilatation. Spleen: Normal size spleen. No mass or infarct. Adrenal glands: Normal. Right kidney: Normal. Left kidney: Mild dilatation of the LEFT renal pelvis. Nonobstructing calcification in the upper pole measures 5 mm. 5 mm calcification at the UP junction. Aorta: Mild atherosclerosis with no aneurysm. Lymphadenopathy: None. Free fluid: None. GI tract: No obstruction. No colitis or enteritis. No appendicitis. Abdominal wall: Unremarkable abdominal wall. No hernia. Pelvis: No free fluid or adenopathy within the pelvis. Well-distended urinary bladder. There are several bladder stones present prior hysterectomy. With the largest measuring 5 mm. Bladder calcifications are new since 2020. Bones: Posterior lumbar fusion extends from L1-S1. Burst fracture with retropulsion of L3. New fracture since 2020. Postsurgical fusion is also new. CT/CT abdomen pelvis w con* [id number] IMPRESSION: 1. Mild LEFT hydronephrosis. 5 mm calcification at the LEFT UP junction. Pleas e note there was also calcification in a similar location on 03/19/2021. 2. Urinary bladder calcifications x2. Largest measuring 5 mm. 3. Prior cholecystectomy and hysterectomy. 4. No GI tract obstruction. 5. No free air or free fluid. 6. Extensive posterior lumbar fusion from L1-S1 with laminectomy defects. Stab ilization burst fracture at L3.
[2025-01-18 08:45] LABS: Alanine Aminotransferase 10 U/L (0-33); Albumin Level 4.6 g/dL (3.5-5.2); Alkaline Phosphatase 120 U/L (35-105); Anion Gap 19.2 (5-19); Aspartate Amino Transferase 13 U/L (0-32); Blood Urea Nitrogen 24 mg/dL (6-20); Calcium 9.7 mg/dL (8.5-10.5); Carbon Dioxide 21 mmol/L (22-29); Chloride 102 mmol/L (98-107); Creatinine Clr Calc Pharmacy 62.2364; Globulin 3.2 g/dL (1.3-4.6); Glomerular Filtration Rate 74.5 mL/min (90-130); Glucose 139 mg/dL (65-115); Lipase 10 U/L (13-60); Osmolality Calculated 294 mOsm/kg (285-295); Potassium 3.2 mmol/L (3.5-5.1); Sodium 139 mmol/L (136-145); Total Bilirubin 0.9 mg/dL (0.15-1.2); Total Protein 7.8 g/dL (6.6-8.7)
[2025-01-18] MEDS: labetalol 5 mg/mL SDV 20mL 10 MG IVP (08:52)
[2025-01-18 08:53] LABS: Lactic Sepsis W/Reflex 2.5 mmol/L (0.5-2.2)
[2025-01-18] MEDS: iohexol 350 mg/mL 500 mL Btl (per mL) IV (09:18)
[2025-01-18 10:20] LABS: Bilirubin Urine Negative (Negative); Blood Urine 3+ (Negative); Glucose Urine UA Negative (Normal); Ketones Urine Trace (Negative); Leukocyte Esterase Urine 2+ (Negative); Nitrate Urine Negative (Negative); Protein Urine Trace (Negative); Specific Gravity, Urine 1.024 (1.005-1.030); Urine Appearance Clear (CLEAR); Urine Color Yellow (Yellow); Urobilinogen Urine 0.2 mg/dL (Negative)
[2025-01-18 10:26] LABS: Add Urine Microscopic? YES; Bacteria Urine None Seen /hpf; Hyaline Casts Urine 2.46 /lpf; RBC Urine 21-50 /hpf (0-2); Squamous Epithelial Cell Urine 0-5 /hpf (0-5)
[2025-01-18 10:28] LABS: Add Urine Culture? Yes
[2025-01-18 10:28] LABS: Reflex Lactate Order REFLEX LACTIC ORDERD
[2025-01-18] MEDS: hyDRALAzine 20 mg/mL INJ 1 mL IVP (11:26)
[2025-01-18] MEDS: cefTRIAXone 1,000 mg SDV 1000 MG IVP (11:26)
[2025-01-18] MEDS: ketorolac 30 mg/mL INJ IVP (11:26)
[2025-01-18 11:46] LABS: Lactic Acid level (Lactate) 1.6 mmol/L (0.5-2.2)
[2025-01-18] MEDS: HYDROmorphone 0.5 MG/0.5 ML INJ IVP (13:22)
== END 2025-01-18 14:10 | disposition home or self-care (01) ==
PROVIDERS: Emergency Provider Family Medicine; PCP Family Medicine
DX: N30.90 Cystitis, unspecified without hematuria (principal); N20.0 Calculus of kidney; F17.210 Nicotine dependence, cigarettes, uncomplicated; I10 Essential (primary) hypertension
CPT/HCPCS: 36415; 74177; 80053; 81001; 83605; 83690; 85025; 87040; 87086; 93005; 96361; 96374; 96375; 99285; J0360; J0696; J1171; J1885; J2405; J3490; J7030

== ENCOUNTER 2025-01-19 10:15 | Emergency (ER) | payer MEDICARE, SELFPAY ==
[2025-01-19 10:45] VITALS: BP 191/106; PULSE 103; RESP 16; TEMP 36.8; O2SAT 99
[2025-01-19 10:48] LABS: Basophils % 0.2 %; Eosinophils % 0.1 %; Hematocrit 45.9 % (36-47); Lymphocytes # 2.3 10^3/uL (0.8-4.8); Lymphocytes % 15.8 %; Mean Corpuscular HGB Conc 34.2 g/dL (30-55); Mean Corpuscular Hemoglobin 31.8 pg (27-33); Mean Corpuscular Volume 93.1 fl (85-98); Mean Platelet Volume 10.6 fL (7.4-10.4); Monocytes # 1.1 10^3/uL (0.2-0.9); Monocytes % 7.9 %; Neutrophils # 10.79 10^3/uL (1.8-7.7); Neutrophils % 75.6 %; Nucleated Red Blood Cells % 0 %; Platelet Count 237 10^3/cmm (157-399); Red Blood Count 4.93 10^6/uL (3.85-5.65); Red Cell Distribution Width 13.5 % (12.1-15.1); White Blood Count 14.26 10^3/uL (3.29-11.43)
--- NOTE | 2025-01-19 10:51 | W.ED.BACK ---
HPI - Back Pain/Injury General: Chief Complaint: Back Pain/Injury Stated Complaint: low back pain/ loss feeling in legs/keeps falling Time Seen by Provider: 01/19/25 10:30 History of Present Illness: 54-year-old female with a history of chronic pain syndrome on oxycodone who follows with Dr. Joiner in orthopedics clinic and who was seen in the emergency room yesterday with back pain. She is found to have a proximal kidney stone that may or may not of been present for several years. She had some whites in her urine but no bacteria. Urology was consulted and they felt that should be treated as an outpatient. She returns today with severe low back pain. She says when the pain comes she will get weak in her legs. She had an MRI done recently. She just filled her antibiotics but had not taken any yet. Also she has been out of her oxycodone for a few days now. No saddle numbness, no urinary retention or incontinence, no focal motor deficit, no sensory deficit. no recent fever. no cough. no shortness of breath. no chest pain. no abdominal pain. no nausea or vomiting. no dysuria. no altered mental status. no edema. Related Data Home Medications ?Medication ?Instructions ?Recorded ?Confirmed gabapentin 600 mg tablet 600 mg PO DAILY 01/18/25 01/19/25 oxycodone 15 mg tablet 15 mg PO Q4H PRN Pain 01/19/25 01/19/25 Previous Rx's ?Medication ?Instructions ?Recorded Walker #1 ea 02/01/24 atorvastatin 80 mg tablet 80 mg PO BEDTIME #90 tabs 11/10/24 doxepin 10 mg capsule 10 mg PO DAILY #90 caps 11/10/24 epinephrine 0.3 mg/0.3 mL 0.3 mg (0.3 mL) IM Q10M PRN 11/10/24 injection, auto-injector (EpiPen anaphylaxis #2 ea 2-Anastacio) lisinopril 20 mg tablet 20 mg PO BEDTIME #90 tabs 11/10/24 metoprolol succinate 50 mg 50 mg PO BEDTIME #90 tabs 11/10/24 tablet,extended release 24 hr ropinirole 1 mg tablet 1 mg PO BEDTIME #90 tabs 11/10/24 sertraline 100 mg tablet 200 mg (2 x 100 mg) PO BEDTIME 11/10/24 #180 tabs cyclobenzaprine 5 mg tablet 10 mg (2 x 5 mg) PO TID 30 days 01/06/25 #180 tabs ondansetron 4 mg disintegrating 4 mg PO Q6H PRN nausea and 01/17/25 tablet vomiting #14 tabs cefdinir 300 mg capsule 300 mg PO BID 10 days #20 caps 01/18/25 promethazine 25 mg tablet 25 mg PO Q6H PRN nausea and 01/18/25 vomiting #20 tabs tamsulosin 0.4 mg capsule 0.4 mg PO DAILY #28 caps 01/18/25 Allergies Allergy/AdvReac Type Severity Reaction Status Date / Time amoxicillin Allergy ALGY-Anaphy Verified 01/17/25 09:53 laxis ampicillin Allergy ALGY-Anaphy Verified 01/17/25 09:53 laxis ciprofloxacin Allergy ALGY-Difficulty Verified 01/17/25 09:53 Breathing Fish Containing Products Allergy ALGY-Anaphy Verified 01/17/25 09:53 laxis hydrocodone (From Vicodin) Allergy ALGY-Anaphy Verified 01/17/25 09:53 laxis Tetracyclines Allergy ALGY-Anaphy Verified 01/17/25 09:53 laxis acetaminophen (From Tylenol) AdvReac Severe ALGY-Anaphy Verified 01/17/25 09:53 laxis azithromycin (From Zithromax) AdvReac Severe ALGY-Anaphy Verified 01/17/25 09:53 laxis codeine AdvReac Severe ALGY-Anaphy Verified 01/17/25 09:53 laxis morphine AdvReac Severe unknown Verified 01/17/25 09:53 Penicillins AdvReac Severe ALGY-Anaphy Verified 01/17/25 09:53 laxis sulfamethoxazole (From AdvReac Severe ALGY-Anaphy Verified 01/17/25 09:53 Bactrim) laxis trimethoprim (From Bactrim) AdvReac Severe ALGY-Anaphy Verified 01/17/25 09:53 laxis Review of Systems Narrative: Constitutional symptoms: Negative except as documented in HPI. Skin symptoms: Negative except as documented in HPI. Eye symptoms: Negative except as documented in HPI. ENMT symptoms: Negative except as documented in HPI. Respiratory symptoms: Negative except as documented in HPI. Cardiovascular symptoms: Negative except as documented in HPI. Gastrointestinal symptoms: Negative except as documented in HPI. Genitourinary symptoms: Negative except as documented in HPI. Musculoskeletal symptoms: Negative except as documented in HPI. Neurologic symptoms: Negative except as documented in HPI. Psychiatric symptoms: Negative except as documented in HPI. Endocrine symptoms: Negative except as documented in HPI. PFSH ED PFSH: Medical History Insomnia Urolithiasis Multi stone former with ESWL and endoscopic treatment previously. Right renal stone Left ureteral calculus LIZ (generalized anxiety disorder) Nephrolithiasis Hyperlipidemia GERD (gastroesophageal reflux disease) Nicotine dependence, cigarettes, with unspecified nicotine-induced disorders Essential hypertension Surgical History Status post lumbar spinal fusion S/P lumbar and lumbosacral fusion by anterior technique 2020 S/P ureteral stent placement Status post colonoscopy (04/05/20) incomplete, needs Ba enema H/O esophagogastroduodenoscopy (04/05/20) History of surgery on arm S/P appendectomy History of cholecystectomy H/O: hysterectomy Family History Other CAD (coronary artery disease) Diabetes Hypertension Stroke Denies family history of Anesthesia complication Bleeding disorder Social History Smoking and tobacco/nicotine status: current every day tobacco/nicotine user cigarettes Packs smoked per day: 1 Alcohol intake: current Alcohol intake frequency: other Substance/Drug Use: never Lives independently: Yes Marital status: Single Current occupational status: employed Physical Exam Narrative: EXAM NARRATIVE: General: Alert, no acute distress. Skin: Warm, dry. Head: Normocephalic, atraumatic. Neck: Supple, trachea midline. Eye: Extraocular movements are intact. Ears, nose, mouth and throat: mucosa moist. Cardiovascular: Regular, Normal peripheral perfusion. Respiratory: Lungs are clear to auscultation, respirations are non-labored, breath sounds are equal, Symmetrical chest wall expansion. Gastrointestinal: Soft, Nontender, Non distended Musculoskeletal: Normal ROM, no deformity. Neurological: Alert and oriented, No focal neurological deficit observed. Psychiatric: Cooperative, appropriate mood & affect. Course Vital Signs: Vital signs: Vital Signs Temperature 98.2 F 01/19/25 10:45 Pulse Rate 103 H 01/19/25 10:45 Respiratory Rate 16 01/19/25 10:45 Blood Pressure 191/106 01/19/25 10:45 Pulse Oximetry 99 01/19/25 12:41 Oxygen Delivery Me thod Room Air 01/19/25 10:45 MDM - Back Pain/Injury Medical Decision Making Medical decision making: Differential diagnosis for patient presenting with generalized weakness including but not limited to and based on the above HPI, review of systems and physical exam: Sepsis. Dehydration. Renal failure. Electrolyte abnormalities. Anemia. Congestive heart failure. Hypotension. Coronary syndrome. Hepatitis. Cirrhosis. Infections such as pneumonia, urinary tract infection, [place] illness, Cellulitis, Viral infections including influenza and Covid-19. Workup: labwork and lab/exam driven imaging ordered to evaluate, rule in and rule out above pathologies. Lab Review: Laboratory results were reviewed and interpreted by myself the emergency room physician. Leukocytosis improving from 17 to 14,000. No renal failure. I reviewed the patient's medical record. Reexamination: Patient remained stable. No increased work of breathing. No altered mental status. No focal motor deficits. Patient seems much improved after getting pain meds. This seems to be the main issue today. Kidney stone has been addressed and is likely proximal and chronic. She can follow-up as an outpatient. Urology was consulted yesterday. Consultation: I spoke with Dr. Joiner about the patient. He reviewed the MRI and feels there is nothing acute. Likely her symptoms are related to being off of her pain medications. Assessment and plan: Chronic pain Low back pain Urinary tract infection ? IV Rocephin. IV Dilaudid. 1 dose of oxycodone here. 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 - Discharged home - Discussed plan with patient. Answered any questions. - Evaluation and treatment of this problem were appropriate in the emergency setting. Labs 01/19/25 10:39 01/19/25 10:39 Laboratory Results WBC 14.26 10^3/uL (3.29-11.43) H 01/19/25 10:39 RBC 4.93 10^6/uL (3.85-5.65) 01/19/25 10:39 Hgb 15.70 g/dL (11.27-16.99) 01/19/25 10:39 Hct 45.9 % (36-47) 01/19/25 10:39 MCV 93.1 fl (85-98) 01/19/25 10:39 MCH 31.8 pg (27-33) 01/19/25 10:39 MCHC 34.2 g/dL (30-55) 01/19/25 10:39 RDW 13.5 % (12.1-15.1) 01/19/25 10:39 Plt Count 237 10^3/cmm (157-399) 01/19/25 10:39 MPV 10.6 fL (7.4-10.4) H 01/19/25 10:39 Neut % (Auto) 75.6 % 01/19/25 10:39 Lymph % (Auto) 15.8 % 01/19/25 10:39 Park % (Auto) 7.9 % 01/19/25 10:39 Eos % (Auto) 0.1 % 01/19/25 10:39 Baso % (Auto) 0.2 % 01/19/25 10:39 Neut # (Auto) 10.79 10^3/uL (1.8-7.7) H 01/19/25 10:39 Lymph # (Auto) 2.3 10^3/uL (0.8-4.8) 01/19/25 10:39 Park # (Auto) 1.1 10^3/uL (0.2-0.9) H 01/19/25 10:39 Eos # (Auto) 0.0 10^3/uL (0.0-0.8) 01/19/25 10:39 Baso # (Auto) 0.0 10^3/uL (0.0-0.1) 01/19/25 10:39 Nucleated RBC % (auto) 0 % 01/19/25 10:39 Nucleated RBCs # 0.0 /100WBC 01/19/25 10:39 Sodium 140 mmol/L (136-145) 01/19/25 10:39 Potassium 3.1 mmol/L (3.5-5.1) L 01/19/25 10:39 Chloride 100 mmol/L (98-107) 01/19/25 10:39 Carbon Dioxide 20 mmol/L (22-29) L 01/19/25 10:39 Anion Gap 23.1 (5-19) H 01/19/25 10:39 BUN 19 mg/dL (6-20) 01/19/25 10:39 Creatinine 0.4 mg/dL (0.5-0.9) L 01/19/25 10:39 GFR Calculation 165.7 mL/min (90-130) H 01/19/25 10:39 Glucose 109 mg/dL (65-115) 01/19/25 10:39 Calculated Osmolality 293 mOsm/kg (285-295) 01/19/25 10:39 Lactic Acid 1.5 mmol/L (0.5-2.2) 01/19/25 10:39 Calcium 9.5 mg/dL (8.5-10.5) 01/19/25 10:39 Total Bilirubin 0.9 mg/dL (0.15-1.2) 01/19/25 10:39 AST 13 U/L (0-32) 01/19/25 10:39 ALT 10 U/L (0-33) 01/19/25 10:39 Alkaline Phosphatase 111 U/L (35-105) H 01/19/25 10:39 C-Reactive Protein 13.6 mg/L (0.0-4.9) H 01/19/25 10:39 Total Protein 7.4 g/dL (6.6-8.7) 01/19/25 10:39 Albumin 4.5 g/dL (3.5-5.2) 01/19/25 10:39 Globulin 2.9 g/dL (1.3-4.6) 01/19/25 10:39 No radiology studies performed this visit Discharge Plan Discharge Patient Disposition: Home Clinical Impression: Nephrolithiasis, Chronic pain syndrome Condition: Stable Prescriptions: No Action ondansetron 4 mg tablet,disintegrating 4 mg PO Q6H PRN (Reason: nausea and vomiting) Qty: 14 0RF lisinopril 20 mg tablet 20 mg PO BEDTIME Qty: 90 1RF metoprolol succinate 50 mg tablet extended release 24 hr 50 mg PO BEDTIME Qty: 90 1RF atorvastatin 80 mg tablet 80 mg PO BEDTIME Qty: 90 1RF sertraline 100 mg tablet 200 mg PO BEDTIME Qty: 180 1RF doxepin 10 mg capsule 10 mg PO DAILY Qty: 90 1RF ropinirole 1 mg tablet 1 mg PO BEDTIME Qty: 90 1RF epinephrine [EpiPen 2-Anastacio] 0.3 mg/0.3 mL auto-injector 0.3 mg IM Q10M PRN (Reason: anaphylaxis) Qty: 2 2RF (DME) Walker See Rx Instructions .Route .MEDSUPPLY Qty: 1 0RF Rx Instructions: As directed cyclobenzaprine 5 mg tablet 10 mg PO TID 30 Days Qty: 180 2RF gabapentin 600 mg Tablet 600 mg PO DAILY promethazine 25 mg tablet 25 mg PO Q6H PRN (Reason: nausea and vomiting) Qty: 20 0RF cefdinir 300 mg capsule 300 mg PO BID 10 Days Qty: 20 0RF tamsulosin 0.4 mg capsule 0.4 mg PO DAILY Qty: 28 0RF oxycodone 15 mg tablet 15 mg PO Q4H PRN (Reason: Pain) Discharge Orders: Discharge ED (Routine); Ordered 01/19/25 Ordered By: Sandrine Power Referrals: Manjit Tinsley [Referring, Urology] - 4-7 days Referral Note: Please call for urology appointment with Dr. Tinsley or the urologist of your choosing. Ellen Gonsalves DO [Primary Care Provider, Family Practice] Patient Instructions: Opioid Safety, Pain Management Activity Restrictions/Additional Instructions: Thank you for choosing [facility] for your healthcare needs today. You have been screened and evaluated and felt safe for discharge. Health conditions do change or evolve sometimes and as such it is important that you follow up with your Primary Doctor to be re checked, 3-5 days is a general good time frame for follow up. You are always welcome to return to the ED for re assessment if your symptoms are worsening or you have new concerns Print Language: Turkish Coding Level of Care Code ED Theatre Professor for Kunal Flores
[2025-01-19] MEDS: ondansetron 2 mg/ML SDV 2 mL 4 MG IVP (10:59)
[2025-01-19] MEDS: HYDROmorphone 0.5 MG/0.5 ML INJ 1 MG IVP (10:59)
[2025-01-19 11:11] LABS: Alanine Aminotransferase 10 U/L (0-33); Albumin Level 4.5 g/dL (3.5-5.2); Alkaline Phosphatase 111 U/L (35-105); Anion Gap 23.1 (5-19); Aspartate Amino Transferase 13 U/L (0-32); Blood Urea Nitrogen 19 mg/dL (6-20); C Reactive Protein 13.6 mg/L (0.0-4.9); Calcium 9.5 mg/dL (8.5-10.5); Carbon Dioxide 20 mmol/L (22-29); Chloride 100 mmol/L (98-107); Creatinine Clr Calc Pharmacy 124.6543; Globulin 2.9 g/dL (1.3-4.6); Glomerular Filtration Rate 165.7 mL/min (90-130); Glucose 109 mg/dL (65-115); Osmolality Calculated 293 mOsm/kg (285-295); Potassium 3.1 mmol/L (3.5-5.1); Sodium 140 mmol/L (136-145); Total Bilirubin 0.9 mg/dL (0.15-1.2); Total Protein 7.4 g/dL (6.6-8.7)
[2025-01-19 11:12] LABS: Lactic Sepsis W/Reflex 1.5 mmol/L (0.5-2.2)
[2025-01-19] MEDS: sodium chloride 0.9% 1,000 ML 999 ML IV (11:59)
[2025-01-19] MEDS: cefTRIAXone 1,000 mg SDV 1000 MG IVP (11:59)
[2025-01-19 12:41] VITALS: O2SAT 99
[2025-01-19] MEDS: oxyCODONE 5 mg IR Tab/Cap 10 MG PO (13:10)
[2025-01-19 14:09] VITALS: BP 195/96; PULSE 98; O2SAT 97
== END 2025-01-19 14:13 | disposition home or self-care (01) ==
PROVIDERS: Emergency Provider Emergency Medicine; PCP Family Medicine
DX: N20.0 Calculus of kidney (principal); G89.4 Chronic pain syndrome; N39.0 Urinary tract infection, site not specified; Z79.899 Other long term (current) drug therapy; E78.5 Hyperlipidemia, unspecified; I10 Essential (primary) hypertension; Z88.0 Allergy status to penicillin; Z88.8 Allergy status to other drugs, medicaments and biological substances; Z88.5 Allergy status to narcotic agent; Z88.1 Allergy status to other antibiotic agents; Z88.2 Allergy status to sulfonamides; Z98.1 Arthrodesis status; F17.210 Nicotine dependence, cigarettes, uncomplicated
CPT/HCPCS: 36415; 80053; 83605; 85025; 86140; 87040; 96361; 96374; 96375; 99284; J0696; J1171; J2405; J7030; J9999

== ENCOUNTER 2025-01-29 07:54 | Emergency (ER) | payer MEDICARE, SELFPAY ==
[2025-01-29 08:06] VITALS: BP 190/155; PULSE 79; RESP 17; TEMP 36.7; O2SAT 97; BMI 24.0
--- NOTE | 2025-01-29 08:20 | CTR_ITS ---
PROCEDURE INFORMATION: Exam: CT Abdomen And Pelvis With Contrast Exam date and time: 01/29/2025 8:54 AM Age: 54 years old Clinical indication: Vomiting; Prior surgery; Surgery date: 6+ months; Surgery type: Gb, lumbar fusion; HX of recent left ureteral calculus TECHNIQUE: Imaging protocol: Computed tomography of the abdomen and pelvis with contrast. Radiation optimization: All CT scans at this facility use at least one of these dose optimization techniques: automated exposure control; mA and/or kV adjustment per patient size (includes targeted exams where dose is matched to clinical indication); or iterative reconstruction. Contrast material: OMNIPAQUE 350; Contrast volume: 100 ml; Contrast route: INTRAVENOUS (IV); COMPARISON: CT abdomen pelvis w con* [id number] 01/18/2025 9:14 AM RADIATION DOSE METRICS: Total DLP (mGy-cm): 362.23 FINDINGS: Liver: Normal. No mass. Gallbladder and biliary ducts: There has been a cholecystectomy. Pancreas: Normal. No ductal dilation. Spleen: Normal. No splenomegaly. Adrenal glands: Normal. No mass. Kidneys and ureters: There is a 5 mm obstructing stone in the middle 3rd of the left ureter with mild proximal left hydroureteronephrosis. No right hydronephrosis. Stomach and bowel: Diffuse thickening of the wall of the colon. Appendix: No evidence of appendicitis. Intraperitoneal space: Unremarkable. No free air. No significant fluid collection. Vasculature: There are numerous benign phleboliths in the pelvis. The vasculature demonstrates diffuse mild atherosclerotic calcification. Lymph nodes: Unremarkable. No enlarged lymph nodes. Urinary bladder: Unremarkable as visualized. Reproductive: Unremarkable as visualized. Bones/joints: Post posterior L1-pelvis instrumentation with L5-S1 disc cage. Similar severe compression deformity of L3. Bilateral sacroiliac joint fusion screws. Soft tissues: Unremarkable. CT/CT abdomen pelvis w con* [id number] IMPRESSION: 1. Stable 5 mm stone in the middle 3rd of the left ureter with mild proximal left hydroureteronephrosis. 2. The previously seen urinary bladder stones are not seen, likely passed.
--- NOTE | 2025-01-29 08:28 | W.ED.NAVMDI ---
HPI - Nausea/Vomiting/Diarrhea General: Chief complaint: Nausea/Vomiting/Diarrhea Stated complaint: N/V abd pain Time Seen by Provider: 01/29/25 08:03 Source: patient Mode of arrival: ambulatory Limitations: no limitations History of Present Illness: 54-year-old female who states that over the last 2 weeks she been having some intermittent abdominal back pain along with nausea and vomiting states this morning she had worsening vomiting. Had some dysuria as well she denies any fever denies any worse improved factors. Associated nausea: Yes Associated symtoms: Reports nausea; Denies chest pain, dysuria or headache(s) Related Data Home Medications ?Medication ?Instructions ?Recorded ?Confirmed gabapentin 600 mg tablet 600 mg PO DAILY 01/18/25 01/19/25 oxycodone 15 mg tablet 15 mg PO Q4H PRN Pain 01/19/25 01/19/25 Previous Rx's ?Medication ?Instructions ?Recorded Walker #1 ea 02/01/24 atorvastatin 80 mg tablet 80 mg PO BEDTIME #90 tabs 11/10/24 doxepin 10 mg capsule 10 mg PO DAILY #90 caps 11/10/24 epinephrine 0.3 mg/0.3 mL 0.3 mg (0.3 mL) IM Q10M PRN 11/10/24 injection, auto-injector (EpiPen anaphylaxis #2 ea 2-Anastacio) lisinopril 20 mg tablet 20 mg PO BEDTIME #90 tabs 11/10/24 metoprolol succinate 50 mg 50 mg PO BEDTIME #90 tabs 11/10/24 tablet,extended release 24 hr ropinirole 1 mg tablet 1 mg PO BEDTIME #90 tabs 11/10/24 sertraline 100 mg tablet 200 mg (2 x 100 mg) PO BEDTIME 11/10/24 #180 tabs cyclobenzaprine 5 mg tablet 10 mg (2 x 5 mg) PO TID 30 days 01/06/25 #180 tabs ondansetron 4 mg disintegrating 4 mg PO Q6H PRN nausea and 01/17/25 tablet vomiting #14 tabs promethazine 25 mg tablet 25 mg PO Q6H PRN nausea and 01/18/25 vomiting #20 tabs tamsulosin 0.4 mg capsule 0.4 mg PO DAILY #28 caps 01/18/25 metoclopramide HCl 10 mg tablet 10 mg PO Q6H PRN nausea and 01/29/25 (Reglan) vomiting #20 tabs oxycodone 10 mg tablet 10 mg PO Q8H PRN pain #12 tabs 01/29/25 Allergies Allergy/AdvReac Type Severity Reaction Status Date / Time amoxicillin Allergy ALGY-Anaphy Verified 01/17/25 09:53 laxis ampicillin Allergy ALGY-Anaphy Verified 01/17/25 09:53 laxis ciprofloxacin Allergy ALGY-Difficulty Verified 01/17/25 09:53 Breathing Fish Containing Products Allergy ALGY-Anaphy Verified 01/17/25 09:53 laxis hydrocodone (From Vicodin) Allergy ALGY-Anaphy Verified 01/17/25 09:53 laxis Tetracyclines Allergy ALGY-Anaphy Verified 01/17/25 09:53 laxis acetaminophen (From Tylenol) AdvReac Severe ALGY-Anaphy Verified 01/17/25 09:53 laxis azithromycin (From Zithromax) AdvReac Severe ALGY-Anaphy Verified 01/17/25 09:53 laxis codeine AdvReac Severe ALGY-Anaphy Verified 01/17/25 09:53 laxis morphine AdvReac Severe unknown Verified 01/17/25 09:53 Penicillins AdvReac Severe ALGY-Anaphy Verified 01/17/25 09:53 laxis sulfamethoxazole (From AdvReac Severe ALGY-Anaphy Verified 01/17/25 09:53 Bactrim) laxis trimethoprim (From Bactrim) AdvReac Severe ALGY-Anaphy Verified 01/17/25 09:53 laxis Review of Systems Const: Denies: fever(s), chills, body aches or change in appetite ENMT: Denies: throat pain or dental pain Card: Denies: chest pain Resp: Denies: dyspnea GI: Reports: abdominal pain, nausea and vomiting; Denies: diarrhea : Denies: dysuria Musc: Denies: neck pain or back pain Skin/Breast: Denies: rash Neuro: Denies: headache(s) PFSH ED PFSH: Medical History Insomnia Urolithiasis Multi stone former with ESWL and endoscopic treatment previously. Right renal stone Left ureteral calculus LIZ (generalized anxiety disorder) Nephrolithiasis Hyperlipidemia GERD (gastroesophageal reflux disease) Nicotine dependence, cigarettes, with unspecified nicotine-induced disorders Essential hypertension Surgical History Status post lumbar spinal fusion S/P lumbar and lumbosacral fusion by anterior technique 2020 S/P ureteral stent placement Status post colonoscopy (04/05/20) incomplete, needs Ba enema H/O esophagogastroduodenoscopy (04/05/20) History of surgery on arm S/P appendectomy History of cholecystectomy H/O: hysterectomy Family History Other CAD (coronary artery disease) Diabetes Hypertension Stroke Denies family history of Anesthesia complication Bleeding disorder Social History Smoking and tobacco/nicotine status: current every day tobacco/nicotine user cigarettes Packs smoked per day: 1 Alcohol intake: current Alcohol intake frequency: other Substance/Drug Use: never Lives independently: Yes Marital status: Single Current occupational status: employed Physical Exam Const: COMMON NORMALS: no acute distress, patient oriented x3 and healthy appearing HENMT: COMMON NORMALS: normocephalic and atraumatic HEAD & SCALP: normocephalic and atraumatic Eye: COMMON NORMALS: conjunctivae normal CONJUNCTIVA: Yes conjunctivae normal Neck/C-Spine: COMMON NORMALS: full ROM and supple Chest: COMMONS NORMALS: normal inspection of the chest Resp: COMMON NORMALS: normal respiratory effort, No retractions, No use of accessory muscles and clear to auscultation bilaterally AUSCULTATION: clear to auscultation bilaterally Cardio: COMMON NORMALS: regular rate, regular rhythm and No murmurs present (Cardio) RATE: regular rate RHYTHM: regular rhythm GI: COMMON NORMALS: Normal to inspection, nondistended, normoactive bowel sounds present, Soft to palpation, non-tender and no masses PALPATION: Yes Soft to palpation Extremity: COMMON NORMALS: normal to inspection and full ROM Neuro: COMMON NORMALS: patient oriented x3, moves all extremities and no focal motor deficits Psych: COMMON NORMALS: mental status grossly normal, Normal thought process present and cooperative THOUGHT PROCESS: Normal thought process present Skin: COMMON NORMALS: no rashes or lesions noted and no wounds GENERAL SKIN EXAM: no rashes or lesions noted Course Vital Signs: Vital signs: Vital Signs Temperature 98.0 F 01/29/25 08:06 Pulse Rate 79 01/29/25 08:06 Respiratory Rate 18 01/29/25 09:17 Blood Pressure 190/155 01/29/25 08:06 Pulse Oximetry 100 01/29/25 09:17 Oxygen Delivery Me thod Room Air 01/29/25 08:06 MDM - Nausea/Vomiting/Diarrhea Medical Decision Making Patient presents for flank pain from kidney stone CT shows a kidney stone no UTI patient's pain has improved she stable for discharge follow-up with PCP along with urology return if worsening. Medical Records I reviewed the patient's medical records. Lab Data I reviewed the patient's lab results. 01/29/25 08:23 01/29/25 08:23 Radiology Impressions Abdomen/Pelvis CT 01/29/25 08:20 IMPRESSION: 1. Stable 5 mm stone in the middle 3rd of the left ureter with mild proximal left hydroureteronephrosis. 2. The previously seen urinary bladder stones are not seen, likely passed. Laboratory Results WBC 15.36 10^3/uL (3.29-11.43) H 01/29/25 08:23 RBC 4.83 10^6/uL (3.85-5.65) 01/29/25 08:23 Hgb 15.60 g/dL (11.27-16.99) 01/29/25 08:23 Hct 45.6 % (36-47) 01/29/25 08:23 MCV 94.4 fl (85-98) 01/29/25 08:23 MCH 32.3 pg (27-33) 01/29/25 08:23 MCHC 34.2 g/dL (30-55) 01/29/25 08:23 RDW 13.1 % (12.1-15.1) 01/29/25 08:23 Plt Count 335 10^3/cmm (157-399) 01/29/25 08:23 MPV 9.8 fL (7.4-10.4) 01/29/25 08:23 Neut % (Auto) 72.5 % 01/29/25 08:23 Lymph % (Auto) 18.8 % 01/29/25 08:23 [place] % (Auto) 7.0 % 01/29/25 08:23 Eos % (Auto) 1.0 % 01/29/25 08:23 Baso % (Auto) 0.3 % 01/29/25 08:23 Neut # (Auto) 11.15 10^3/uL (1.8-7.7) H 01/29/25 08:23 Lymph # (Auto) 2.9 10^3/uL (0.8-4.8) 01/29/25 08:23 [place] # (Auto) 1.1 10^3/uL (0.2-0.9) H 01/29/25 08:23 Eos # (Auto) 0.2 10^3/uL (0.0-0.8) 01/29/25 08:23 Baso # (Auto) 0.1 10^3/uL (0.0-0.1) 01/29/25 08:23 Nucleated RBC % (auto) 0 % 01/29/25 08:23 Nucleated RBCs # 0.0 /100WBC 01/29/25 08:23 Sodium 144 mmol/L (136-145) 01/29/25 08:23 Potassium 3.3 mmol/L (3.5-5.1) L 01/29/25 08:23 Chloride 103 mmol/L (98-107) 01/29/25 08:23 Carbon Dioxide 24 mmol/L (22-29) 01/29/25 08:23 Anion Gap 20.3 (5-19) H 01/29/25 08:23 BUN 14 mg/dL (6-20) 01/29/25 08:23 Creatinine 0.6 mg/dL (0.5-0.9) 01/29/25 08:23 GFR Calculation 103.8 mL/min (90-130) 01/29/25 08:23 Glucose 128 mg/dL (65-115) H 01/29/25 08:23 Calculated Osmolality 300 mOsm/kg (285-295) H 01/29/25 08:23 Calcium 10.3 mg/dL (8.5-10.5) 01/29/25 08:23 Total Bilirubin 0.2 mg/dL (0.15-1.2) 01/29/25 08:23 AST 12 U/L (0-32) 01/29/25 08:23 ALT 17 U/L (0-33) 01/29/25 08:23 Alkaline Phosphatase 156 U/L (35-105) H 01/29/25 08:23 Total Protein 7.8 g/dL (6.6-8.7) 01/29/25 08:23 Albumin 4.5 g/dL (3.5-5.2) 01/29/25 08:23 Globulin 3.3 g/dL (1.3-4.6) 01/29/25 08:23 Lipase 22 U/L (13-60) 01/29/25 08:23 Urine Color Yellow (Yellow) 01/29/25 Unknown Urine Appearance Cloudy (CLEAR) A 01/29/25 Unknown Urine pH 7.0 (5-7) 01/29/25 Unknown Ur Specific [place] 1.012 (1.005-1.030) 01/29/25 Unknown Urine Protein Negative (Negative) 01/29/25 Unknown Urine Glucose (UA) Negative (Normal) 01/29/25 Unknown Urine Ketones Negative (Negative) 01/29/25 Unknown Urine Blood Non-haemolysed trace (Negative) 01/29/25 Unknown Urine Nitrate Negative (Negative) 01/29/25 Unknown Urine Bilirubin Negative (Negative) 01/29/25 Unknown Urine Urobilinogen 0.2 mg/dL (Negative) 01/29/25 Unknown Ur Leukocyte Esterase Trace (Negative) A 01/29/25 Unknown Urine RBC 6-10 /hpf (0-2) 01/29/25 Unknown Urine WBC 6-10 /hpf (0-5) 01/29/25 Unknown Ur Squamous Epith Cells 0-5 /hpf (0-5) 01/29/25 Unknown Amorphous Sediment Not Reportable 01/29/25 Unknown Urine Bacteria None seen /hpf (NONE) 01/29/25 Unknown Hyaline Casts 1.21 /lpf 01/29/25 Unknown All radiology interpretation(s) finalized by discharge Discharge Plan Discharge Patient Disposition: Home Clinical Impression: Kidney stone Condition: Stable Prescriptions: New metoclopramide HCl [Reglan] 10 mg tablet 10 mg PO Q6H PRN (Reason: nausea and vomiting) Qty: 20 0RF oxycodone 10 mg tablet 10 mg PO Q8H PRN (Reason: pain) Qty: 12 0RF No Action ondansetron 4 mg tablet,disintegrating 4 mg PO Q6H PRN (Reason: nausea and vomiting) Qty: 14 0RF lisinopril 20 mg tablet 20 mg PO BEDTIME Qty: 90 1RF metoprolol succinate 50 mg tablet extended release 24 hr 50 mg PO BEDTIME Qty: 90 1RF atorvastatin 80 mg tablet 80 mg PO BEDTIME Qty: 90 1RF sertraline 100 mg tablet 200 mg PO BEDTIME Qty: 180 1RF doxepin 10 mg capsule 10 mg PO DAILY Qty: 90 1RF ropinirole 1 mg tablet 1 mg PO BEDTIME Qty: 90 1RF epinephrine [EpiPen 2-Anastacio] 0.3 mg/0.3 mL auto-injector 0.3 mg IM Q10M PRN (Reason: anaphylaxis) Qty: 2 2RF (DME) Walker See Rx Instructions .Route .MEDSUPPLY Qty: 1 0RF Rx Instructions: As directed cyclobenzaprine 5 mg tablet 10 mg PO TID 30 Days Qty: 180 2RF gabapentin 600 mg Tablet 600 mg PO DAILY promethazine 25 mg tablet 25 mg PO Q6H PRN (Reason: nausea and vomiting) Qty: 20 0RF tamsulosin 0.4 mg capsule 0.4 mg PO DAILY Qty: 28 0RF oxycodone 15 mg tablet 15 mg PO Q4H PRN (Reason: Pain) Discharge Orders: Discharge ED (Routine); Ordered 01/29/25 Ordered By: Harsh Veliz Referrals: Ellen Gonsalves DO [Primary Care Provider, Family Practice] - 4-7 days Discharge Diet: Advance as tolerated Discharge Activity: Resume usual activity Patient Instructions: Kidney Stones (ED), Opioid Safety Print Language: Icelandic Coding Level of Care Code 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
[2025-01-29 08:30] LABS: Basophils # 0.1 10^3/uL (0.0-0.1); Basophils % 0.3 %; Eosinophils # 0.2 10^3/uL (0.0-0.8); Hematocrit 45.6 % (36-47); Lymphocytes # 2.9 10^3/uL (0.8-4.8); Lymphocytes % 18.8 %; Mean Corpuscular HGB Conc 34.2 g/dL (30-55); Mean Corpuscular Hemoglobin 32.3 pg (27-33); Mean Corpuscular Volume 94.4 fl (85-98); Mean Platelet Volume 9.8 fL (7.4-10.4); Monocytes # 1.1 10^3/uL (0.2-0.9); Neutrophils # 11.15 10^3/uL (1.8-7.7); Neutrophils % 72.5 %; Nucleated Red Blood Cells % 0 %; Platelet Count 335 10^3/cmm (157-399); Red Blood Count 4.83 10^6/uL (3.85-5.65); Red Cell Distribution Width 13.1 % (12.1-15.1); White Blood Count 15.36 10^3/uL (3.29-11.43)
[2025-01-29] MEDS: sodium chloride 0.9% 1,000 ML 999 ML IV (08:45)
[2025-01-29] MEDS: metoclopramide 5 mg/mL SDV 2 mL 10 MG IVP (08:45)
[2025-01-29 08:47] LABS: Alanine Aminotransferase 17 U/L (0-33); Albumin Level 4.5 g/dL (3.5-5.2); Alkaline Phosphatase 156 U/L (35-105); Anion Gap 20.3 (5-19); Aspartate Amino Transferase 12 U/L (0-32); Blood Urea Nitrogen 14 mg/dL (6-20); Calcium 10.3 mg/dL (8.5-10.5); Carbon Dioxide 24 mmol/L (22-29); Chloride 103 mmol/L (98-107); Creatinine Clr Calc Pharmacy 82.9818; Globulin 3.3 g/dL (1.3-4.6); Glomerular Filtration Rate 103.8 mL/min (90-130); Glucose 128 mg/dL (65-115); Lipase 22 U/L (13-60); Osmolality Calculated 300 mOsm/kg (285-295); Potassium 3.3 mmol/L (3.5-5.1); Sodium 144 mmol/L (136-145); Total Bilirubin 0.2 mg/dL (0.15-1.2); Total Protein 7.8 g/dL (6.6-8.7)
[2025-01-29] MEDS: diphenhydrAMINE 50 mg/mL SDV 1mL IVP (08:47)
[2025-01-29 08:48] VITALS: BP 209/126; PULSE 75; O2SAT 100
[2025-01-29] MEDS: hyDRALAzine 20 mg/mL INJ 1 mL 10 MG IVP (08:49)
[2025-01-29] MEDS: iohexol 350 mg/mL 500 mL Btl (per mL) IV (08:56)
[2025-01-29 08:58] LABS: Bilirubin Urine Negative (Negative); Blood Urine Non-haemolysed trace (Negative); Glucose Urine UA Negative (Normal); Ketones Urine Negative (Negative); Leukocyte Esterase Urine Trace (Negative); Nitrate Urine Negative (Negative); Protein Urine Negative (Negative); Specific Gravity, Urine 1.012 (1.005-1.030); Urine Appearance Cloudy (CLEAR); Urine Color Yellow (Yellow); Urobilinogen Urine 0.2 mg/dL (Negative)
[2025-01-29 09:03] LABS: Add Urine Microscopic? YES; Bacteria Urine None Seen /hpf; Hyaline Casts Urine 1.21 /lpf; Squamous Epithelial Cell Urine 0-5 /hpf (0-5); Universal Test for UA Present (0)
[2025-01-29 09:17] VITALS: RESP 18; O2SAT 100
[2025-01-29] MEDS: morphine 4 mg/mL SDV 1 mL IVP (09:17)
[2025-01-29 09:19] VITALS: BP 184/114; PULSE 90; RESP 12; O2SAT 100
[2025-01-29 09:22] LABS: UA Slide Review UA Slide Review Perf
[2025-01-29 09:30] VITALS: BP 180/87; PULSE 88; RESP 25; O2SAT 98
[2025-01-29] MEDS: LORazepam 1 MG/0.5 ML injection 0.5 MG IVP (10:14)
[2025-01-29 10:20] VITALS: BP 209/107; PULSE 88; O2SAT 98
--- NOTE | 2025-01-30 10:24 | DCPLANNER ---
Referral sent to [facility]
== END 2025-01-29 10:20 | disposition home or self-care (01) ==
PROVIDERS: Emergency Provider Emergency Medicine; PCP Family Medicine
DX: N20.0 Calculus of kidney (principal); F17.210 Nicotine dependence, cigarettes, uncomplicated; E78.5 Hyperlipidemia, unspecified; I10 Essential (primary) hypertension
CPT/HCPCS: 74177; 80053; 81001; 83690; 85025; 96361; 96374; 96375; 99285; J0360; J1200; J2060; J2270; J2765; J7030

== ENCOUNTER → 2025-02-02 15:02 | Outpatient (BNVA) | payer MEDICARE, SELFPAY | PROVIDERS: PCP Family Medicine; Visit Provider Orthopaedic Surgery | DX: Z98.890 Other specified postprocedural states (principal); Z98.1 Arthrodesis status | CPT/HCPCS: 99024 ==

== ENCOUNTER → 2025-02-21 14:49 | Outpatient (BNVA) | payer MEDICARE, SELFPAY | PROVIDERS: PCP Family Medicine; Visit Provider Family Medicine | DX: R30.0 Dysuria (principal) | CPT/HCPCS: 87086 ==

== ENCOUNTER 2025-03-15 13:27 | Outpatient (CLI) | payer MEDICARE, SELFPAY ==
--- NOTE | 2025-03-15 13:35 | US_ITS ---
WS: [id number] RENAL ULTRASOUND HISTORY: RECURRENT NEPHROLITHIASIS COMPARISON: 01/29/2025 TECHNIQUE: 2-D and color Doppler imaging of the kidney submitted. Right kidney: 10.1 cm x 5.1 cm x 4.3 cm. Cortex: 1.3 cm Normal echogenicity with no hydronephrosis or mass. Left kidney: 9.6 cm x 4.9 cm x 4.9 cm. Cortex: 1.5 cm Normal echogenicity with no hydronephrosis or mass. Aorta: Normal. Urinary Bladder: Nondistended. US/US renal BI* [id number] IMPRESSION: Normal renal ultrasound.
--- NOTE | 2025-03-15 13:35 | XR_ITS ---
WS: [id number] XR KUB [id number] REASON FOR EXAM: RECURRENT NEPHROLITHIASIS FINDINGS: Unremarkable bowel gas pattern. No free air or retroperitoneal air. No organomegaly or mass. No urinary tract calculi identified. Status post posterior lumbar fusion L1-S1 with significant compression deformity of L3. XR/XR KUB [id number] IMPRESSION: No urinary tract calculi identified.
== END 2025-03-15 13:28 | disposition home or self-care (01) ==
PROVIDERS: PCP Family Medicine; Visit Provider Urology
DX: N20.0 Calculus of kidney (principal); S32.030A Wedge compression fracture of third lumbar vertebra, initial encounter for closed fracture; X58.XXXA Exposure to other specified factors, initial encounter
CPT/HCPCS: 74018; 76770

== ENCOUNTER → 2025-03-30 16:07 | Outpatient (BNVA) | payer MEDICARE, SELFPAY | PROVIDERS: PCP Family Medicine; Visit Provider Orthopaedic Surgery | DX: M54.9 Dorsalgia, unspecified (principal); Z98.1 Arthrodesis status | CPT/HCPCS: 72100; 99213 ==

== ENCOUNTER 2025-05-02 09:22 | Outpatient (CLI) | payer MEDICARE, SELFPAY ==
[2025-05-02 10:34] LABS: Glucose Urine UA Negative (Normal); Nitrate Urine Positive (Negative); Specific Gravity, Urine 1.019 (1.005-1.030)
[2025-05-02 10:37] LABS: Add Urine Microscopic? YES
== END 2025-05-02 09:23 | disposition home or self-care (01) ==
PROVIDERS: PCP Family Medicine; Visit Provider Family Medicine
DX: R30.0 Dysuria (principal)
CPT/HCPCS: 81001

== ENCOUNTER → 2025-05-04 13:56 | Outpatient (BNVA) | payer MEDICARE, MEDICAID, SELFPAY | PROVIDERS: PCP Family Medicine; Visit Provider Orthopaedic Surgery | DX: M54.41 Lumbago with sciatica, right side (principal); M54.42 Lumbago with sciatica, left side; G89.29 Other chronic pain; T84.84XA Pain due to internal orthopedic prosthetic devices, implants and grafts, initial encounter | CPT/HCPCS: 99214 ==

== ENCOUNTER 2025-05-08 10:54 | Outpatient (CLI) | payer MEDICARE, MEDICAID, SELFPAY ==
[2025-05-08 11:57] LABS: Hematocrit 40.5 % (36-47); Hemoglobin 13.40 g/dL (11.27-16.99); Mean Corpuscular HGB Conc 33.1 g/dL (30-55); Mean Corpuscular Hemoglobin 33.4 pg (27-33); Mean Corpuscular Volume 101.0 fl (85-98); Nucleated Red Blood Cells % 0 %; Platelet Count 246 10^3/cmm (157-399); Red Blood Count 4.01 10^6/uL (3.85-5.65); White Blood Count 10.54 10^3/uL (3.29-11.43)
[2025-05-08 11:58] LABS: Glucose Urine UA Negative (Normal); Nitrate Urine Positive (Negative); Specific Gravity, Urine 1.027 (1.005-1.030)
[2025-05-08 12:09] LABS: Add Urine Microscopic? YES; UA Manual Slide Review YES
[2025-05-08 12:24] LABS: Alanine Aminotransferase 138 U/L (0-33); Albumin Level 4.2 g/dL (3.5-5.2); Alkaline Phosphatase 161 U/L (35-105); Anion Gap 12.6 (5-19); Aspartate Amino Transferase 31 U/L (0-32); Blood Urea Nitrogen 20 mg/dL (6-20); Calcium 9.3 mg/dL (8.5-10.5); Carbon Dioxide 30 mmol/L (22-29); Chloride 102 mmol/L (98-107); Globulin 2.7 g/dL (1.3-4.6); Glucose 134 mg/dL (65-115); Osmolality Calculated 297 mOsm/kg (285-295); Potassium 3.6 mmol/L (3.5-5.1); Sodium 141 mmol/L (136-145); Total Protein 6.9 g/dL (6.6-8.7)
== END 2025-05-08 10:55 | disposition home or self-care (01) ==
LOC: LAB 10:57
PROVIDERS: PCP Family Medicine; Visit Provider Orthopaedic Surgery
DX: Z01.818 Encounter for other preprocedural examination (principal)
CPT/HCPCS: 36415; 80053; 81001; 85025

== ENCOUNTER → 2025-05-18 14:47 | Outpatient (BNVA) | payer MEDICARE, MEDICAID, SELFPAY | PROVIDERS: PCP Family Medicine; Visit Provider Family Medicine | DX: R30.0 Dysuria (principal) | CPT/HCPCS: 81000 ==

== ENCOUNTER → 2025-05-25 11:25 | Outpatient (BNVA) | payer MEDICARE, MEDICAID, SELFPAY | PROVIDERS: PCP Family Medicine; Visit Provider Internal Medicine Cardiovascular Disease | DX: E78.2 Mixed hyperlipidemia (principal); I10 Essential (primary) hypertension; F17.210 Nicotine dependence, cigarettes, uncomplicated; Z86.73 Personal history of transient ischemic attack (TIA), and cerebral infarction without residual deficits | CPT/HCPCS: 99204 ==

== ENCOUNTER → 2025-06-06 15:09 | Outpatient (BNVA) | payer MEDICARE, MEDICAID, SELFPAY | PROVIDERS: PCP Family Medicine; Visit Provider Orthopaedic Surgery | DX: Z98.890 Other specified postprocedural states (principal); Z98.1 Arthrodesis status | CPT/HCPCS: 99024 ==

== ENCOUNTER 2025-06-24 11:32 | Emergency (ER) | payer MEDICARE, MEDICAID, SELFPAY ==
--- OUTSIDE RECORDS SUMMARY | 2025-06-24 11:37 | XMS_ITS | Data Portability ---
Author Organization [place] - [facility] [employer] Address [address] [place] [address] Assessment Encounter Date Assessment Date Assessment LastModified by Organization Details LastModified Time 04/23/2021 04/23/2021 Data: - UA: small bili, trace-intact blood, trace protein (04/23/21) - Independent interpretation of CT scan from 03/19/21. Right lower kidney pole stone. Left proximal ureteral stone in left upper ureter. Assessment: 1. Kidney stones: Does not have stent currently. (04/23/21). She had a CT scan on 03/19/21: showed 7mm non obstructing left renal stone 4mm left proximal ureteral stone. Dr. Crawford in [place] took her to OR on 03/30/21 and she had L ESWL+stent on left side. Stent was removed on 04/05/21. Complete duplication of left collecting system. pt reports she urinates every 3 days. Hx of kidney stones. 2. Complete duplication of left collecting system: 3. Flank pain: Pt reports right flank pain in the upper right hip. Pain is out of proportion with physical exam. Do not think this is caused by a kidney stone, happy to proceed with surgical intervention if needed. 4. Hx of kidney stones: Pt had episodes of kidney stones in 2017 and 2019. Was treated by Dr. Crawford. 5. Hx of gross hematuria: Likely from kidney stones. Pt reports seeing blood before stent. Hx of urodynamics Plan: - Reviewed current and previous sxs of patient and history of care, including records, labs, imaging sent by referring provider - Independent visualization of CT from 03/19/21 and discussion with the patient - Natural hx of stone disease reviewed - Discussed pt's flank pain - OTC pain meds as needed - Discussed treatments of kidney stone including R CURLS vs observing - procedures, risks/benefits discussed. - Hydrate, 2.5L/day - Pt elected to proceed with observing kidney stones ; Pt will call clinic if she desires further workup - RTC PRN I am the scribe for Dr. Porter, and I have documented sections of this chart. - Julio Bynum [email or web address] Not available 04/23/2021 17:25:56 Plan of Treatment Reminders Order Date Submit Date Provider Last Modified By Organization Details Last Modified Time Details Appointments None record ed. Lab urinal ysis, dipsti ck, auto 021 04/23/20 21 [email or web address] In-Office Order, Internal Use Only DO Not Attach Compendium DO Not Attach Compendium, Do Not Delete/merge, 17:27:35 Referral None record ed. Procedures None record ed. Surgeries None record ed. Imaging None record ed. Medication Orders None record ed. Patient TargetsNo targets recorded. Patient InstructionsNo instructions recorded. Reason for Referral None Reported. Results Created Date Observation Date Name Description Value Unit Range Abnormal Flag Note LastModifiedBy Organization Detail LastModifiedTime 04/23/2004/23/2021 urina lysis , dipst ick, auto GLUCOSE NEGATI VE Not Available In-Office Order Internal Use Only DO Not Attach Compendium DO Not Attach Compendium, Do Not Delete/merge, 04/23/2021 17:02:12 04/23/20 21 04/23/2021 urina lysis , dipst ick, auto BILIRUBIN SMALL Not Available In-Offic e Order Internal Use Only DO Not Attach Compendium DO Not Attach Compendium, Do Not Delete/merge, 04/23/2021 17:02:12 04/23/20 21 04/23/2021 urina lysis , dipst ick, auto KETONE NEGATI VE Not Available In-Office Order Internal Use Only DO Not Attach Compendium DO Not Attach Compendium, Do Not Delete/merge, [id number] 04/23/2021 17:02:12 04/23/20 21 04/23/2021 urina lysis , dipst ick, auto SPECIFIC GRAVITY >=1.03 0 Not Available In-Office Order Internal Use Only DO Not Attach Compendium DO Not Attach Compendium, Do Not Delete/merge, [id number] 04/23/2021 17:02:12 04/23/2004/23/2021 urina lysis , dipst ick, auto BLOOD TRACE- INTACT Not Available In-Office Order Internal Use Only DO Not Attach Compendium DO Not Attach Compendium, Do Not Delete/merge, [id number] 04/23/2021 17:02:12 04/23/2004/23/2021 urina lysis , dipst ick, auto pH 5.5 Not Available In-Office Order Internal Use Only DO Not Attach Compendium DO Not Attach Compendium, Do Not Delete/merge, [id number] 04/23/2021 17:02:12 04/23/2004/23/2021 urina lysis , dipst ick, auto PROTEIN TRACE Not Available In-Office Order Internal Use Only DO Not Attach Compendium DO Not Attach Compendium, Do Not Delete/merge, [id number] 04/23/2021 17:02:12 04/23/2004/23/2021 urina lysis , dipst ick, auto UROBILINOGEN 0.2 Not Available In-Of fice Order Internal Use Only DO Not Attach Compendium DO Not Attach Compendium, Do Not Delete/merge, [id number] 04/23/2021 17:02:12 04/23/2004/23/2021 urina lysis , dipst ick, auto NITRITE negati ve Not Available In-Office Order Internal Use Only DO Not Attach Compendium DO Not Attach Compendium, Do Not Delete/merge, [id number] 04/23/2021 17:02:12 04/23/2004/23/2021 urina lysis , dipst ick, auto LEUKOCYTES NEGATI VE Not Available In-Office Order Internal Use Only DO Not Attach Compendium DO Not Attach Compendium, Do Not Delete/merge, [id number] 04/23/2021 17:02:12 Result Notes None recorded. Problems Name Problem SNOMED Code Status Onset Date Resolution Date Notes Provider Name and Address Organization Details Recorded Time History of calculus of kidney 300843983 Active 2020 KYLIE Charles - [facility] 17:08:28 Right flank pain 399181350 Active 2020 Jluio Bynum [facility] 17:11:23 Kidney stone 28063609 Active 2020 Julio portillo [facility] 17:13:32 Duplicated collecting system without obstruction 6770859270945 8 Active 2020 Julio portillo [facility] 17:19:45 Problem Notes None recorded. Procedures Surgical History Date Name Laterality Status Provider Name and Address Organization Details Recorded Time Colonoscopy with biopsy completed Not Available Health Note 04/23/2021 16:50:18 Laparoscopic cholecystectomy completed Not Available Health Note 04/23/2021 16:50:18 Imaging Results None recorded. Procedure Notes None recorded. Medical Equipment None Reported. Allergies Allergen ID Allergen Name Allergen Category Reaction Reaction Severity Criticality Documentation Date Start Date Code Code System Note Provider Name and Address Organization Details Recorded Time 515474 tetracycl ine medicatio n hives Not available Not available 04/23/2021 96814 RxNorm hives troub le breat [place] Not Available Health Note 16:50:17 365083 pholcodin e Not available hives Not available Not available 04/23/2021 30050 RxNorm hives troub le breat [place] Not Available Health Note 16:50:17 566070 Zithromax medicatio n hives Not available Not available 04/23/2021 94801 4 RxNorm hives troub le breat [place] Not Available Health Note 16:50:17 Medications Name Sig Start Date Stop Date Status Note LastModified by Organization Details LastModified Time lisinopril 20 mg tablet TAKE 1 TABLET BY MOUTH EVERY DAY active HN: Patient reports taking Not Available Not Available Not Available tramadol 50 mg tablet TAKE 1 TABLET BY MOUTH EVERY 6 HOURS NEEDED FOR PAIN active HN: Patient reports no longer taking Not Available Not Available Not Available oxycodone-a cetaminophe n 5 mg-325 mg tablet TAKE 1 TABLET BY MOUTH EVERY 6 HOURS FOR 5 DAYS NEEDED FOR PAIN active HN: Patient reports no longer taking Not Available Not Available Not Available aspirin 325 mg tablet,tommy yed release TAKE 1 TABLET BY MOUTH EVERY DAY active HN: Patient reports taking Not Available Not Available Not Available tamsulosin 0.4 mg capsule TAKE 1 CAPSULE BY MOUTH EVERY DAY active HN: Patient reports no longer taking Not Available Not Available Not Available nitroglycer in 0.4 mg sublingual tablet DIRECTED EVERY 5 MINUTES UP TO 3 DOSES active HN: Patient reports taking Not Available Not Available Not Available gabapentin 300 mg capsule TAKE 1 CAPSULE BY MOUTH TWICE DAILY active HN: Patient reports taking Not Available Not Available Not Available zolpidem 5 mg tablet TAKE 1 TABLET BY MOUTH EVERY DAY AT BEDTIME active HN: Patient reports no longer taking Not Available Not Available Not Available epinephrine 0.3 mg/0.3 mL injection, auto-inject or INJECT 1 PEN IN THE MUSCLE ONE TIME DIRECTED active HN: Patient reports taking Not Available Not Available Not Available ondansetron 4 mg disintegrat ing tablet DISSOLVE 1 TABLET BY MOUTH EVERY 6 HOURS NEEDED FORNAUSEA AND VOMITING active HN: Patient reports no longer taking Not Available Not Available Not Available oxycodone 5 mg tablet TAKE 1 TABLET BY MOUTH EVERY 6 HOURS FOR 5 DAYS NEEDED FOR PAIN active HN: Patient reports no longer taking Not Available Not Available Not Available escitalopra m 10 mg tablet TAKE 1 TABLET BY MOUTH EVERY DAY active HN: Patient reports no longer taking Not Available Not Available Not Available ProAir HFA 90 mcg/actuati on aerosol inhaler INHALE 1 PUFF BY MOUTH EVERY 6 HOURS NEEDED active HN: Patient reports taking Not Available Not Available Not Available Vitals Date Recorded Heart rate Body height Body mass index (BMI) Body weight Systolic And Diastolic Provider Name and Address Organization Details Last Updated DateTime 04/23/2021 79 /min 152.4 cm 29.3 kg/m2 57286.86 g 107/68 mm[Hg] Aiyana Hamlin [facility] 04/23/2021 16:54:44 Social History Question Answer Notes LastModified by Organizat ion Details LastModified Time Tobacco Smoking Status Current Every Day Smoker Not Available Health Note 04/23/2021 16:50:19 What Is Your Level Of Caffeine Consumption? Occasional [email or web address] Information not available 04/23/2021 Which Illicit Or Recreational Drugs Have You Used? NONE [email or web address] Information not available 04/23/2021 Have You Traveled Outside Of [place] In The Past 30 Days? No [email or web address] Information not available 04/23/2021 Have You Or Anyone In Your House Been Tested For COVID-19 In The Past 14 Days? No [email or web address] Information no t available 04/23/2021 Have You Or Has Anyone In Your House Had Contact With Someone Who Tested Positive For COVID-19 Coronavirus In The Past 14 Days? No [email or web address] Information no t available 04/23/2021 Have You Or Anyone In Your Home Experienced Symptoms Of COVID 19 Such As Fever >100.4, Shortness Of Breath, Difficulty Breathing, Or A Cough? No [email or web address] Information not available 04/23/2021 What Was The Date Of Your Most Recent Tobacco Screening? 04/23/2021 [email or web address] Information not available 04/23/2021 How Much Tobacco Do You Smoke? 1 PPD [email or web address] Information not available 04/23/2021 How Many Years Have You Smoked Tobacco? 41 [email or web address] Information not available 04/23/2021 Sex: Unknown Functional Status Question Answer Note LastModified by Organization D etails LastModified Time What is your level of alcohol consumption? NONE [email or web address] Information not available 04/23/2021 Mental Status None recorded. Family History Relationship Description Onset Age of this Age Resolved Age Notes LastModified by Organization Details LastModified Time Mother Heart disease [email or web address] Not available 2020 16:50:16 Mother Kidney stone [email or web address] Not availa ble 04/23/2021 16:50:16 Mother Malignant neoplasm of ovary [email or web address] Not available 2020 16:50:16 Mother Diabetes mellitus [email or web address] Not available 2020 16:50:16 Maternal Grandmother Malignant neoplasm of lung [email or web address] Not available 2020 16:50:16 Maternal Grandmother Diabetes mellitus [email or web address] Not available 2020 16:50:16 Father Kidney stone [email or web address] Not availa ble 04/23/2021 16:50:16 Medical History Condition Response HIV N Stroke/CVA of brain N Colon Cancer N Kidney Stones Y Breast Cancer N Hepatitis A N Prostate Cancer N Lung Cancer N Anesthetic Complication N Migraines N Sexually Transmitted Disease N Glaucoma N Blood Clots N Depression N Anemia N Hepatitis C N Heart Pain/Angina Y Bladder Problems N Anxiety Disorder N Diabetes N Lung/Respiratory Disease N Bleeding Disorder N Arthritis N Seizures/Convulsions N Kidney Cancer N Cervical Cancer Y Rectal Cancer N Alcohol abuse N Heart Attack N Asthma N Hepatitis B N Bladder Cancer N Liver Cancer N Reflux/GERD N Sleep Apnea N High Cholesterol Y Heart Disease N Hypertension/High Blood Pressure Y Osteoporosis N Kidney Disease N Gynecological HistoryNo gynecological history recorded. Obstetrics History GPAL:G 1 P 0 0 0 0 Past Encounters Encounter ID Performer Location Encounter Start Date Encounter Closed Date Diagnosis/Indication Diagnosis SNOMED-CT Code Diagnosis ICD10 Code Diagnosis IMO Codes Diagnosis Note [id number] Kobi Porter MD [facility] [address] [place] [address] 04/23/2021 16:29:34 04/23/2021 17:23:57 Kidney stone 21734893 N20.0 History of calculus of kidney 835133873 Z87.442 Right flank pain 4318206 09 R10.9 Duplicated collecting system without obstruction 4893572508 9108 Q63.0 Health Concerns Section Related Observation LastModified by Organization Detai ls LastModified Time None Recorded Concern Status LastModified by Organization Details LastModified Time None Recorded Advance Directives Directive None Recorded Payers Insurance Date Sequence Insurance Name Policy Number Policy Mello Covered Member ID Mello Member ID Guarantor Name 04/16/2021 1 [place] CELIA BETITO Naomie Villa [id number] Naomie Villa Notes Date Note Type Note Provider Name and Address Organization Details Recorded Time 04/23/2021 text/html Kidney StoneRepo rted by PatientHPIFor associated symptoms, patient reportshematuria,luann sea, andvomitingbut reportsno feverandno chills. For location, patient reportsright kidney lowerandleft ureter proximal. For quality, patient reportsdull. For severity, patient reportsmild. For duration/onset/timin g, patient reports___ months. For context, patient reportsstone size: 7mmmm,previous history of kidney stones,ct scan, andprevious stone. For modifying factors, patient reportshydration. Naomie Matias a 50 year old female Screening / Questionnaire:AUA: Score: 15 Moderate Kobi Porter MD [address] [place] [address], [phone], [place] - [facility] 04/23/2021 17:27:30 OBGyn Episode No OBEpisode recorded.
[2025-06-24 11:46] VITALS: BP 162/80; PULSE 76; RESP 15; TEMP 37.1; O2SAT 97; BMI 26.7
--- NOTE | 2025-06-24 12:21 | ED_ITS ---
HPI - Wound/Laceration 2 General: Chief Complaint: Wound/Laceration Stated Complaint: Post surgery 05/22 Back Leaking Clear fluid Time Seen by Provider: 06/24/25 12:03 History of Present Illness: 55-year-old female presents emergency ro om with complaints of drainage from a wound she had removal of hardware in her lumbar spine on May 22, 2025. She has had intermittent drainage of slightly blood-tinged fluid from the lower portion of her wound. There is a small open area in the lower portion of the incision site. Has not had any fever sweats chills pain no headaches. Associated symptoms: Denies chills or fever(s) Related Data Home Medications ?Medication ?Instructions ?Recorded ?Confirmed gabapentin 600 mg tablet 600 mg PO DAILY 01/18/25 Previous Rx's ?Medication ?Instructions ?Recorded Walker #1 ea 02/01/24 epinephrine 0.3 mg/0.3 mL 0.3 mg (0.3 mL) IM Q10M PRN 11/10/24 injection, auto-injector (EpiPen anaphylaxis #2 ea 2-Anastacio) doxepin 10 mg capsule 10 mg PO DAILY #90 caps 03/11 05/04 ropinirole 1 mg tablet 1 mg PO BEDTIME #90 tabs atorvastatin 80 mg tablet 80 mg PO BEDTIME #90 tabs metoprolol succinate 50 mg 50 mg PO BEDTIME #90 tabs 0 04/17/25 tablet,extended release 24 hr sertraline 100 mg tablet 200 mg (2 x 100 mg) PO BEDTI ME 04/17/25 #180 tabs nitrofurantoin 100 mg PO BID #14 caps 05/15 monohydrate/macrocrystals 100 mg capsule (Macrobid) oxycodone 15 mg tablet 15 mg PO Q4H PRN pain 30 day s #180 05/17/25 tabs lisinopril 40 mg tablet 40 mg PO BEDTIME #90 tabs amlodipine 5 mg tablet 5 mg PO DAILY #90 tabs 05/25 oxycodone 10 mg tablet 10 mg PO Q4H PRN pain 30 day s #180 06/21/25 tabs Allergies Allergy/AdvReac Type Severity Reaction Status Date / Time amoxicillin Allergy ALGY-Anaphy Verified 06/06/25 15:41 laxis ampicillin Allergy ALGY-Anaphy Verified 06/06/25 15:41 laxis ciprofloxacin Allergy ALGY-Difficulty Verified 06/06/25 15:41 Breathing Fish Containing Products Allergy ALGY-Anaphy Verified 06/06/25 15:41 laxis hydrocodone (From Vicodin) Allergy ALGY-Anaphy Verified 06/06/25 15:41 laxis Tetracyclines Allergy ALGY-Anaphy Verified 06/06/25 15:41 laxis acetaminophen (From Tylenol) AdvReac Severe ALGY-Anaphy Verified 06/06/25 15:41 laxis azithromycin (From Zithromax) AdvReac Severe ALGY-Anaphy Verified 06/06/25 15:41 laxis codeine AdvReac Severe ALGY-Anaphy Verified 06/06/25 15:41 laxis morphine AdvReac Severe unknown Verified 06/06/25 15:41 Penicillins AdvReac Severe ALGY-Anaphy Verified 06/06/25 15:41 laxis sulfamethoxazole (From AdvReac Severe ALGY-Anaphy Verified 06/06/25 15:41 Bactrim) laxis trimethoprim (From Bactrim) AdvReac Severe ALGY-Anaphy Verified 06/06/25 15:41 laxis Review of Systems 2 Const: Denies: fever(s) or chills Card: Denies: chest pain Resp: Denies: dyspnea GI: Denies: abdominal pain : Denies: dysuria, urinary frequency or urinary urgency Musc: Denies: neck pain or back pain Skin/Breast: Denies: rash PFSH ED 2 PFSH: Medical History Primary insomnia Urolithiasis Multi stone former with ESWL and endoscopic treatment previously. Right renal stone Left ureteral calculus LIZ (generalized anxiety disorder) Nephrolithiasis Mixed hyperlipidemia GERD (gastroesophageal reflux disease) Nicotine dependence, cigarettes, with unspecified nicotine-induced disorders Essential hypertension Surgical History Status post lumbar spinal fusion S/P lumbar and lumbosacral fusion by anterior technique 2020 S/P ureteral stent placement Status post colonoscopy (04/05/20) incomplete, needs Ba enema H/O esophagogastroduodenoscopy (04/05/20) History of surgery on arm S/P appendectomy History of cholecystectomy H/O: hysterectomy Family History Other CAD (coronary artery disease) Diabetes Hypertension Stroke Denies family history of Anesthesia complication Bleeding disorder Social History Smoking and tobacco/nicotine status: current every day tobacco/nicotine user (pack a day/ 40 + years) cigarettes Packs smoked per day: 1 Alcohol intake: current Alcohol intake frequency: other Substance/Drug Use: never Lives independently: Yes Marital status: Single Current occupational status: employed Physical Exam 2 Const: COMMON NORMALS: no acute distress GENERAL APPEARANCE: cooperative and comfortable ORIENTATION/CONSCIOUSNESS: Yes awake, Yes oriented to person, Yes oriented to place and Yes oriented to time HENMT: COMMON NORMALS: normocephalic, atraumatic and hearing grossly normal bilaterally HEAD & SCALP: normocephalic and atraumatic Resp: COMMON NORMALS: normal respiratory effort, No retractions, No use of accessory muscles and clear to auscultation bilaterally AUSCULTATION: clear to auscultation bilaterally Cardio: COMMON NORMALS: regular rate, regular rhythm and No murmurs present (Cardio) RATE: regular rate RHYTHM: regular rhythm GI: COMMON NORMALS: Soft to palpation and No hepatosplenomegaly present A USCULTATION: Yes normoactive bowel sounds PALPATION: Yes Soft to palpation, No Tenderness to palpation present (GI), No Guarding due to palpation present (GI) and Yes No hepatosplenomegaly present Extremity: COMMON NORMALS: normal to inspection, capillary refill normal, no clubbing, cyanosis or edema, no calf tenderness and no pedal edema Neuro: SENSORIUM/ORIENTATION: Yes oriented to person, Yes oriented to place and Yes oriented to time Skin: COMMON NORMALS: no rashes or lesions noted GENERAL SKIN EXAM: no rashes or lesions noted Course 2 Vital Signs: Vital signs: Vital Signs Temperature 98.7 F 06/24/25 11:46 Pulse Rate 71 06/24/25 13:20 Respiratory Rate 15 06/24/25 11:46 Blood Pressure 141/89 06/24/25 13:20 Pulse Oximetry 99 06/24/25 13:20 Oxygen Delivery Me thod Room Air 06/24/25 11:46 MDM - Wound/Laceration Medical Decision Making Serosanguineous drainage from a pinpoint open area in the lower third of the incision. Appears to be a seroma white count normal discharge patient home encouraged her to follow-up with Dr. Joiner's office early next week Medical Records I reviewed the patient's medical records. Lab Data I reviewed the patient's lab results. 06/24/25 12:06/24/25 12:31 Laboratory Results WBC 10.39 10^3/uL (3.29-11.43) 06/24/25 12:31 RBC 4.28 10^6/uL (3.85-5.65) 06/24/25 12:31 Hgb 13.50 g/dL (11.27-16.99) 06/24/25 12:31 Hct 40.1 % (36-47) 06/24/25 12:31 MCV 93.7 fl (85-98) 06/24/25 12:31 MCH 31.5 pg (27-33) 06/24/25 12:31 MCHC 33.7 g/dL (30-55) 06/24/25 12:31 RDW 12.7 % (12.1-15.1) 06/24/25 12:31 Plt Count 333 10^3/cmm (157-399) 06/24/25 12:31 MPV 9.5 fL (7.4-10.4) 06/24/25 12: Neut % (Auto) 64.7 % 06/24/25 12:31 Lymph % (Auto) 28.3 % 06/24/25 12:31 [place] % (Auto) 5.7 % 06/24/25 12:31 Eos % (Auto) 0.6 % 06/24/25 12:31 Baso % (Auto) 0.4 % 06/24/25 12:31 Neut # (Auto) 6.73 10^3/uL (1.8-7.7) 06/24/25 12:31 Lymph # (Auto) 2.9 10^3/uL (0.8-4.8) 06/24/25 12:31 [place] # (Auto) 0.6 10^3/uL (0.2-0.9) 06/24/25 12:31 Eos # (Auto) 0.1 10^3/uL (0.0-0.8) 06/24/25 12:31 Baso # (Auto) 0.0 10^3/uL (0.0-0.1) 06/24/25 12:31 Nucleated RBC % (auto) 0 % 06/24/25 12:31 Nucleated RBCs # 0.0 /100WBC 06/24/25 12:31 Sodium 140 mmol/L (136-145) 06/24/25 12:31 Potassium 3.7 mmol/L (3.5-5.1) 06/24/25 12:31 Chloride 105 mmol/L (98-107) 06/24/25 12:31 Carbon Dioxide 26 mmol/L (22-29) 06/24/25 12:31 Anion Gap 12.7 (5-19) 06/24/25 12:31 BUN 17 mg/dL (6-20) 06/24/25 12:31 Creatinine 0.5 mg/dL (0.5-0.9) 06/24/25 12:31 GFR Calculation 127.6 mL/min (90-130) 06/24/25 12:31 Glucose 100 mg/dL (65-115) 06/24/25 12:31 Calculated Osmolality 292 mOsm/kg (285-295) 06/24/25 12:31 Calcium 9.3 mg/dL (8.5-10.5) 06/24/25 12:31 Total Bilirubin 0.3 mg/dL (0.15-1.2) 06/24/25 12:31 AST 10 U/L (0-32) 06/24/25 12:31 ALT 6 U/L (0-33) 06/24/25 12:31 Alkaline Phosphatase 118 U/L (35-105) H 06/24/25 12:31 Total Protein 7.0 g/dL (6.6-8.7) 06/24/25 12:31 Albumin 4.2 g/dL (3.5-5.2) 06/24/25 12:31 Globulin 2.8 g/dL (1.3-4.6) 06/24/25 12:31 No radiology studies performed this visit Discharge Plan Discharge Patient Disposition: Home Clinical Impression: Seroma after procedure Condition: Stable Prescriptions: No Action lisinopril 40 mg tablet 40 mg PO BEDTIME Qty: 90 1RF epinephrine [EpiPen 2-Anastacio] 0.3 mg/0.3 mL auto-injector 0.3 mg IM Q10M PRN (Reason: anaphylaxis) Qty: 2 2RF atorvastatin 80 mg tablet 80 mg PO BEDTIME Qty: 90 1RF metoprolol succinate 50 mg tablet extended release 24 hr 50 mg PO BEDTIME Qty: 90 1RF sertraline 100 mg tablet 200 mg PO BEDTIME Qty: 180 1RF amlodipine 5 mg tablet 5 mg PO DAILY Qty: 90 3RF (DME) Walker See Rx Instructions .Route .MEDSUPPLY Qty: 1 0RF Rx Instructions: As directed doxepin 10 mg capsule 10 mg PO DAILY Qty: 90 1RF ropinirole 1 mg tablet 1 mg PO BEDTIME Qty: 90 1RF nitrofurantoin monohyd/m-cryst [Macrobid] 100 mg capsule 100 mg PO BID Qty: 14 0RF Rx Instructions: must administer with a meal/food oxycodone 15 mg tablet 15 mg PO Q4H PRN (Reason: pain) 30 Days Qty: 180 0RF oxycodone 10 mg tablet 10 mg PO Q4H PRN (Reason: pain) 30 Days Qty: 180 0RF Rx Instructions: DOS 05/22/2025 gabapentin 600 mg Tablet 600 mg PO DAILY Discharge Orders: Discharge ED (Routine); Ordered 06/24/25 Ordered By: Fredo Morrow Referrals: Ellen Gonsalves DO [Primary Care Provider, Family Practice] Discharge Diet: Usual diet Discharge Activity: Resume usual activity Patient Instructions: Opioid Safety, Pain Management, Patient Portal & Eva Instructions Activity Restrictions/Additional Instructions: Thank you for choosing [facility] for your healthcare needs today. It is very important that you follow up as instructed or that you return to the Emergency Department should you have concerns or if your condition changes or worsens in any way. Emergency department visits are focused on emergent conditions, in some cases you may require further evaluation on an outpatient basis. You were seen in the emergency room with complaints of drainage from the incision site. No evidence of infection your white count is normal appears to be drainage from a seroma. This is not uncommon after surgical procedure it may continue to intermittently drain follow-up with Dr. Joiner next week. (Please note that included in your discharge packet is information concerning opioid safety and pain management. This information is given to all patients were discharged from the ER regardless of their discharge diagnosis or the medicines they usually take or are prescribed.) Print Language: Mosotho Coding Level of Care Code ED Floating Operator for Kunal Flores
[2025-06-24 12:40] LABS: Hematocrit 40.1 % (36-47); Hemoglobin 13.50 g/dL (11.27-16.99); Mean Corpuscular HGB Conc 33.7 g/dL (30-55); Mean Corpuscular Hemoglobin 31.5 pg (27-33); Mean Corpuscular Volume 93.7 fl (85-98); Nucleated Red Blood Cells % 0 %; Platelet Count 333 10^3/cmm (157-399); Red Blood Count 4.28 10^6/uL (3.85-5.65); White Blood Count 10.39 10^3/uL (3.29-11.43)
[2025-06-24 12:53] LABS: Alanine Aminotransferase 6 U/L (0-33); Albumin Level 4.2 g/dL (3.5-5.2); Alkaline Phosphatase 118 U/L (35-105); Anion Gap 12.7 (5-19); Aspartate Amino Transferase 10 U/L (0-32); Blood Urea Nitrogen 17 mg/dL (6-20); Calcium 9.3 mg/dL (8.5-10.5); Carbon Dioxide 26 mmol/L (22-29); Chloride 105 mmol/L (98-107); Globulin 2.8 g/dL (1.3-4.6); Glucose 100 mg/dL (65-115); Osmolality Calculated 292 mOsm/kg (285-295); Potassium 3.7 mmol/L (3.5-5.1); Sodium 140 mmol/L (136-145); Total Protein 7.0 g/dL (6.6-8.7)
[2025-06-24 13:20] VITALS: BP 141/89; PULSE 71; O2SAT 99
[2025-06-24 13:24] VITALS: BP 141/89; PULSE 71; O2SAT 99
== END 2025-06-24 13:28 | disposition home or self-care (01) ==
PROVIDERS: Emergency Provider Family Medicine; PCP Family Medicine
DX: M96.842 Postprocedural seroma of a musculoskeletal structure following a musculoskeletal system procedure (principal); F17.210 Nicotine dependence, cigarettes, uncomplicated; E78.2 Mixed hyperlipidemia; I10 Essential (primary) hypertension
CPT/HCPCS: 80053; 85025; 99283

== ENCOUNTER → 2025-06-27 14:14 | Outpatient (BNVA) | payer MEDICARE, MEDICAID, SELFPAY | PROVIDERS: PCP Family Medicine; Visit Provider Orthopaedic Surgery | DX: Z98.890 Other specified postprocedural states (principal) | CPT/HCPCS: 99024 ==

== ENCOUNTER → 2025-07-11 13:09 | Outpatient (BNVA) | payer MEDICARE, MEDICAID, SELFPAY | PROVIDERS: PCP Family Medicine; Visit Provider Orthopaedic Surgery | DX: Z98.890 Other specified postprocedural states (principal); Z98.1 Arthrodesis status | CPT/HCPCS: 99024 ==

== ENCOUNTER → 2025-07-25 14:05 | Outpatient (BNVA) | payer MEDICARE, MEDICAID, SELFPAY | PROVIDERS: PCP Family Medicine; Visit Provider Orthopaedic Surgery | DX: Z98.890 Other specified postprocedural states (principal); Z98.1 Arthrodesis status | CPT/HCPCS: 99024 ==